=== PATIENT | male | born 1950 | race Caucasian/White ===

== ENCOUNTER 2018-12-18 11:01 | Outpatient (CLI) | payer MEDICARE ==
--- NOTE | 2018-12-18 12:10 | RAD ---
LEFT FOOT 3 VIEWS: Date: 12/18/18 HISTORY: Diabetic foot ulcer great toe, plantar aspect. FINDINGS: Mild to moderate DJD at the first MTP joint with hallux valgus deformity at this joint. Some erosive change is seen along the medial side of the head of the first metatarsal. I cannot completely exclude osteomyelitis at this location. Mild DJD at the second MTP joint. Mild DJD at the tarsometatarsal joints. Enthesophytes from plantar calcaneus. No fracture or acute abnormality. No other evidence of focal bony erosion or destruction. IMPRESSION: Degenerative change and hallux valgus of first MTP joint. Erosive change along the medial aspect of t he head of the first metatarsal. If there is concern of osteomyelitis at this location, recommend fur ther evaluation with MRI. POS: [facility]
== END 2018-12-18 11:02 | disposition home or self-care (01) ==
LOC: BICRAD 11:01
PROVIDERS: ATTEND Podiatrist
DX: E11.621 Type 2 diabetes mellitus with foot ulcer (principal); L97.529 Non-pressure chronic ulcer of other part of left foot with unspecified severity; M20.12 Hallux valgus (acquired), left foot

== ENCOUNTER 2018-12-27 07:20 | Inpatient (IN) | payer MEDICARE ==
[2018-12-27] MEDS ORDERED: Fentanyl 100 MCG/2 ML VIAL ONE ×2 (07:56→15:10)
[2018-12-27 08:05] LABS: #Eosinphils 0.4 thou/uL (0.0-0.7); #Lymphocytes 2.2 thou/uL (1.20-3.40); #Monocytes 1.1 thou/uL (0.11-0.59); #Neutrophils 13.2 thou/uL (1.40-6.50); %Eosinophils 2.2 % (0.0-10.0); %Lymphocytes 12.9 % (21.0-51.0); %Monocytes 6.6 % (0.0-10.0); %Neutrophils 78.2 % (42.0-75.0); Hemoglobin 12.9 g/dL (14.0-18.0); Mean Corpuscular Volume 90.7 fL (78.0-98.0); Mean Platelet Volume 5.8 fL (7.4-10.4); Platelet Count 292 thou/uL (130-400); RBC Distribution Width 12.7 % (11.5-14.5); Red Blood Cell (RBC) Count 4.44 mill/uL (4.70-6.10); White Blood Cell (WBC) Count 16.8 thou/uL (4.8-10.8)
[2018-12-27 08:18] LABS: ALT (SGPT) 12 U/L (8-55); AST (SGOT) 10 U/L (5-34); Albumin 3.2 g/dL (3.4-4.8); Alkaline Phosphatase 84 U/L (40-150); Anion Gap 11 mmol/L (10-20); BUN (Urea Nitrogen) 30 mg/dL (8.4-25.7); Calc. Creatinine Clearance 0 mL/min (70-130); Calcium 8.8 mg/dL (7.8-10.44); Carbon Dioxide 25 mmol/L (23-31); Chloride 106 mmol/L (98-107); Estimated GFR-MDRD 34; Globulin 3.2 g/dL (2.4-3.5); Glucose 72 mg/dL (80-115); Protein, Total 6.4 g/dL (5.8-8.1); Sodium 136 mmol/L (136-145)
--- NOTE | 2018-12-27 08:24 | RAD ---
RIGHT FEMUR 2 VIEWS: HISTORY: Fall. Pain. Trauma. FINDINGS: Comminuted, displaced fracture involving the distal right femur diaphysis. Associated soft tissue sw elling and deformity. IMPRESSION: Distal right femur fracture. POS: [facility]
--- NOTE | 2018-12-27 08:25 | RAD ---
Portable frontal chest radiograph: 12/27/2018 COMPARISON: 01/07/2018 HISTORY: Injury, trauma, pain FINDINGS: Atherosclerotic calcification of the aortic arch noted. Midline sternotomy wires are presen t. Cardiac silhouette is prominent, a stable finding. No pneumothorax, pleural fluid, lobar consolidation, or alveolar edema. IMPRESSION: No acute findings.
[2018-12-27] MEDS ORDERED: Morphine 4 MG/ML VIAL ONE (08:56)
[2018-12-27] MEDS ORDERED: Ondansetron PF 4 MG/2 ML Vial ONE ×2 (09:09→15:01)
[2018-12-27] MEDS ORDERED: CEFAZOLIN 2 GM in Premix Bag 1 BAG IVPB SCH (10:00)
--- NOTE | 2018-12-27 10:19 | CON ---
DATE OF CONSULTATION: This is John Gresham PA-C dictating a report for Duane Mendoza MD. HISTORY OF PRESENT ILLNESS: We were asked by the ER and Trauma to see the patient. The patient was in his bathroom and slipped on some water, sustaining a fracture above his right total knee. The patient did not lose consciousness. He does not seem to have any other complaints of aches and pains. He has good sensation to the right lower extremity with no numbness and tingling. On his left lower extremity, he does have an open sore that is being treated and he is on prophylactic Cipro for this. The patient lives alone. The patient has had multiple surgeries in the past and has some health issues. He has not eaten since last night. We would like to be able to do surgery on him today as he would like to get fixed also. We will wait to make sure he is medically cleared, we will get him put on the surgical schedule. PAST MEDICAL HISTORY: Positive for coronary artery disease with bypass graft, atrial fibrillation and a CVA during his coronary artery surgery, diabetes, hypertension, obese, heart failure, depression, dyslipidemia, chronic kidney disease, gastroparesis, and peptic ulcer disease. PAST SURGICAL HISTORY: He has had right foot, ankle, coronary artery bypass graft 4 vessels, bilateral knees. He has had a craniotomy secondary to intercranial hemorrhage, inguinal hernia repair and esophagogastroduodenoscopy. PSYCHIATRIC HISTORY: He does have some depression. SOCIAL HISTORY: Lives alone. Nonsmoker and nondrinker. No drug use. FAMILY HISTORY: Noncontributory to this admission. ALLERGIES: HE IS SENSITIVE TO NITRO-DUR/NITROGLYCERIN, IT INCREASES HIS BLOOD PRESSURE. CURRENT MEDICATIONS: 1. Hydralazine. 2. Carvedilol. 3. Aspirin. 4. Spironolactone. 5. Promethazine. 6. Tamsulosin. 7. Atorvastatin. 8. Levemir. 9. Pyridium. 10. Cipro. REVIEW OF SYSTEMS: Currently, he is short of breath. He has right knee pain. He denies any chest pain. No current bowel or bladder issues and rest of review of systems negative. PHYSICAL EXAMINATION: GENERAL: Male, morbidly obese, room #2 on a gurney, moderate amount of pain, especially if he moves the right lower extremity. NEURO: Otherwise, speech clear. Affect is pleasant. He is oriented x3. HEENT: Face symmetric. Tongue midline. NECK: Supple. Trachea midline. RESPIRATORY: He is having a little trouble breathing. Respiratory rates in the low 20s. EXTREMITIES: Upper extremities are equal size, shape, symmetry, normal bulk and tone. Lower extremities, right lower extremity is shortened and outward rotated. This is comfortable for him. His left lower extremity, he has a bandage on this for an open sore. Bilateral lower extremities sensations are intact as are pulses are equal and symmetric. ASSESSMENT: 1. Multiple health issues. 2. Right femur periprosthetic fracture. PLAN: Spoke with patient. We would like to do an ORIF of femur today. He has not eaten since last night. The patient is amenable to go forth with surgery. He understands risks and benefits as they have been discussed. His questions have been answered. Again, he is amenable to go forth with surgery. He will need to be cleared medically for surgery today. I will get him added on the surgery schedule and put the orders in and consented. Job ID: [id number]
[2018-12-27 10:42] LABS: Anion Gap 13 mmol/L (10-20); BUN (Urea Nitrogen) 29 mg/dL (8.4-25.7); Calc. Creatinine Clearance 0 mL/min (70-130); Calcium 8.5 mg/dL (7.8-10.44); Carbon Dioxide 17 mmol/L (23-31); Chloride 109 mmol/L (98-107); Estimated GFR-MDRD 40; Glucose 60 mg/dL (80-115); Potassium 5.4 mmol/L (3.5-5.1); Sodium 134 mmol/L (136-145)
[2018-12-27 11:10] LABS: Bilirubin Negative (Negative); Blood, Urine Negative (Negative); Clarity CLEAR (Clear); Glucose, Urine (Dipstick) Negative (Negative); Leukocyte Trace (Negative); Nitrite Negative (Negative); Protein, Urine (Dipstick) Negative (Neg-Trace); Specific Gravity, Urine 1.011 (1.002-1.036); Urobilinogen 0.2 mg/dL (0.2-1.0)
[2018-12-27 11:13] LABS: Bacteria/HPF None Seen HPF (None Seen); Hyaline Casts/LPF 0-3 HYALINE CAST LPF (0-3 Hyaline); Pathc Cast-AUWi Flag 0.27 (0-2.49); RBC/HPF None Seen HPF (0-3); Squamous Epithelial 0-3 HPF (0-3); WBC/HPF 0-3 HPF (0-3)
[2018-12-27] MEDS ORDERED: Dextrose 50% Abboject 50 ML SYRINGE SLOW IVP PRN (13:12)
[2018-12-27] MEDS ORDERED: Dextrose 5% in Water 1,000 ML IV PRN (13:12)
[2018-12-27] MEDS ORDERED: Ondansetron ODT 4 MG TAB PO PRN (13:12)
[2018-12-27] MEDS ORDERED: Insulin Regular 300 UNITS/3 ML VIAL SC PRN (13:12)
[2018-12-27] MEDS ORDERED: hydrALAZINE 20 MG/ML VIAL SLOW IVP PRN (13:12)
[2018-12-27] MEDS ORDERED: Morphine 2 MG/ML SYRINGE SLOW IVP PRN (13:52)
[2018-12-27] MEDS ORDERED: Sodium Bicarb 50 MEQ/50 ML VIAL IVP SCH (14:00)
--- NOTE | 2018-12-27 14:36 | HP ---
CONSULTATIONS: Orthopedics, Dr. Mendoza. HISTORY OF PRESENT ILLNESS: The patient is a 68-year-old man, who was brought to the emergency department by ground EMS after falling this morning at approximately 5:30. The patient landed on his right side and had significant pain to his right knee and thigh. In the emergency department, he underwent evaluation, examination to include CT of his head, C-spine, and plain radiographs. CTs were unremarkable for acute findings. The patient was noted to have a periprosthetic right distal femur fracture. At which time, we were asked to evaluate the patient for admission and obtain Orthopedic consultation. ALLERGIES: NITROGLYCERIN. CURRENT MEDICATIONS: 1. Hydralazine. 2. Carvedilol. 3. Aspirin. 4. Spironolactone. 5. Promethazine. 6. Tamsulosin. 7. Atorvastatin. 8. Levemir. 9. Pyridium. PAST MEDICAL HISTORY: 1. Diabetes. 2. Hypertension. 3. Myocardial infarction. 4. Depression. PAST SURGICAL HISTORY: 1. Coronary artery bypass graft surgery x4 vessel. 2. Bilateral knee replacement. SOCIAL HISTORY: The patient denies drug, tobacco, or alcohol use. He does live independently at home alone. FAMILY MEDICAL HISTORY: Diabetes. REVIEW OF SYSTEMS: A 10-point review of systems is negative as otherwise stated. PHYSICAL EXAMINATION: VITAL SIGNS: Blood pressure 133/69, heart rate 71, respirations 20, oxygen saturation 100% on room air, and temperature is 97.8. GENERAL: The patient is resting comfortably in bed. He is awake, alert, and oriented x3. Jackie Coma Scale is 15. HEENT: Head is normocephalic and atraumatic. Eyes, extraocular motion was intact. PERRLA bilaterally. Ears are atraumatic without discharge. Nose is atraumatic without discharge. Oropharynx is clear. NECK: Nontender. Trachea is midline. No JVD. CHEST: Clear to auscultation with good inspiratory and expiratory effort. HEART: Regular rate and rhythm. ABDOMEN: Soft, flat, nontender with active bowel sounds. EXTREMITIES: Neurovascularly intact x4. The patient has tenderness and some swelling to the right thigh and knee area. The left lower extremity, the first metatarsal joint has a bandage on it. The patient states this is from his mechanical designer working on wound, most likely a diabetic ulcer. BACK: By report is atraumatic and nontender. LABORATORY FINDINGS: White blood cell count 16.8, hemoglobin 12.9, hematocrit 40.3, and platelets 292. Sodium 134, potassium 5.4, chloride 109, CO2 of 17, BUN 29, creatinine 1.72, and glucose 60. LFTs are unremarkable. Urinalysis is unremarkable. RADIOGRAPHS: AP chest x-ray shows no acute findings. Views of the right femur show a periprosthetic distal right femur fracture. ASSESSMENT AND PLAN: 1. Status post ground level fall. 2. Right distal femur periprosthetic fracture. 3. Acute pain secondary to above. 4. Multiple comorbidities. 5. Hyperkalemia. PLAN: Plan will be to admit the patient to the surgical floor. We will hydrate him with normal saline and give him one amp of sodium bicarb to further lower his potassium. The patient will have pain control, pulmonary toilet, gastritis and mechanical VTE prophylaxis. The patient has been n.p.o. since last night, so he will be able to undergo his procedure today most likely. Postoperatively, we will have Physical and Occupational Therapy work with the patient. Pulmonary toilet, gastritis and mechanical VTE prophylaxis, and likely arrange for disposition to inpatient rehab. The evaluation, examination, laboratory, and radiographic findings were discussed with Dr. Cheng this morning. Job ID: [id number]
[2018-12-27] MEDS ORDERED: Succinylcholine Chloride 20 MG/ML 10 ml SYRINGE FS ONE (15:01)
[2018-12-27] MEDS ORDERED: PHENYLEPHRINE-NS 100 MCG/ML 10 ML SYRINGE ONE (15:01)
[2018-12-27] MEDS ORDERED: PROPOFOL 200 MG/20 ML VIAL ONE (15:01)
[2018-12-27] MEDS ORDERED: Rocuronium Bromide 10 MG/ML (10ML VIAL) ONE (15:01)
[2018-12-27] MEDS ORDERED: Lidocaine 1% PF 5 ML VIAL ONE (15:01)
[2018-12-27] MEDS ORDERED: Glycopyrrolate 0.2 MG/ML 5 ML SYRINGE ONE (15:01)
[2018-12-27 15:16] LABS: Potassium 5.8 mmol/L (3.5-5.1)
[2018-12-27] MEDS ORDERED: Albumin 25% 0 ML ONE (16:51)
[2018-12-27] MEDS ORDERED: Albumin 5% 500 ML ONE (16:51)
[2018-12-27] MEDS ORDERED: PACU-Morphine 4MG/ML VIAL SLOW IVP PRN (17:53)
[2018-12-27] MEDS ORDERED: HYDROmorphone 2 MG/ML VIAL SLOW IVP PRN (17:53)
[2018-12-27] MEDS ORDERED: Morphine Sulfate 2 MG/ML SYRINGE SLOW IVP PRN (17:53)
[2018-12-27] MEDS ORDERED: Promethazine HCl 25 MG/ML VIAL SLOW IVP PRN (17:53)
[2018-12-27] MEDS ORDERED: Meperidine HCl/PF 25 MG/ML VIAL SLOW IVP PRN (17:53)
[2018-12-27] MEDS ORDERED: Ondansetron HCl/PF 4 MG/2 ML Vial IVP PRN (17:53)
[2018-12-27] MEDS ORDERED: Promethazine HCl 25 MG/ML VIAL IM PRN (17:53)
--- NOTE | 2018-12-27 18:15 | RAD ---
Radiograph right femur 2 views: 12/27/2018 at 5:19 PM HISTORY: 68-year-old male with traumatic distal femoral fracture COMPARISON: 12/27/2018 at 8:06 PM FINDINGS: A total of 5 small [id number] fluoroscopic spot images obtained with C-arm. Total knee replacement metallic prosthesis at distal femoral condyles remains. The distal femoral metadiaphyseal displaced fracture has been reduced, and now fixated with a long lateral metallic sideplate anchored to the bone by multiple screws. There has been interval improvement in alignment. IMPRESSION: Ongoing open reduction internal fixation of acute, traumatic, displaced distal femoral metadiaphyseal fracture.
--- NOTE | 2018-12-27 18:18 | RAD ---
Radiograph left foot 3 views: DATE: 12/27/2018 Time: 5:42 PM HISTORY: 68-year-old male with diabetic ulcer. COMPARISON: 12/18/2018 FINDINGS: Hallux valgus. Irregularity of medial aspect of first metatarsal head with adjacent small calcific fr agments and overlying soft tissue swelling. No bone destruction identified. No interval change. No acute fracture. IMPRESSION: Findings suspicious for gout at the first metatarsophalangeal joint (in addition to hallux valgus met atarsus primus varus).
[2018-12-27] MEDS: Acetaminophen 1,000 MG in Premix Bag 1 BAG IVPB SCH ×2 (19:24→19:59)
[2018-12-27] MEDS: Sodium Chloride 0.9% 1,000 ML IV SCH ×2 (19:58→23:32)
[2018-12-27] MEDS: Morphine 4 MG/ML VIAL SLOW IVP PRN ×2 (19:59→23:32)
[2018-12-27] MEDS: CEFAZOLIN 2 GM in Premix Bag 1 BAG IVPB SCH (20:01)
[2018-12-27] MEDS ORDERED: Famotidine 20 MG TAB PO SCH (21:00)
[2018-12-27 21:16] VITALS: BMI 34.9
[2018-12-27] MEDS: Cyclobenzaprine 10 MG TAB PO PRN (23:55)
--- NOTE | 2018-12-28 00:49 | OP ---
DATE OF PROCEDURE: 12/27/2018 PROCEDURE PERFORMED: Open reduction and internal fixation of right distal femur periprosthetic fracture. Surgeon: Nikolay eMndoza [employer] Lockstitch: John Gresham COMPLICATIONS: None. ESTIMATED BLOOD LOSS: 450 mL. ANESTHESIA: General. IMPLANT: Synthes 16-hole lateral distal femoral plate with multiple locking and nonlocking screws. INDICATIONS: Mr. Quintanilla is a 68-year-old male, who fell last night. He fractured the right distal femur. He sustained a displaced distal femur fracture. He was indicated for open reduction and internal fixation to restore anatomic alignment and promote healing and allow mobilization. Risks have been reviewed in detail. Risks to include infection, pain, scarring, nerve or vascular injury, DVT, wound problems, and others. DESCRIPTION OF PROCEDURE: Mr. Quintanilla was identified in the preoperative holding area. His correct extremity was marked. He was carried to the operating room. He was positioned supine. General anesthesia was induced. A multidisciplinary time-out was performed. The right lower extremity was prepped and draped in sterile fashion. At this point, we began the procedure with lateral approach to the knee. We dissected down through the subcutaneous tissues to the fascia, which was opened. We then exposed the underlying fascia. We elevated the vastus lateralis anteriorly. This allowed exposure of the fracture site. We were able to reduce the fracture using traction and manipulation and clamping. We used K-wires to hold the fracture as well. At this point, we took images confirming this. Next, we applied a Synthes 16-hole lateral distal femoral plate. We placed a K-wire proximally as well as distally, locking the plate to the bone. We took images confirming placement. We then placed multiple screws proximally and distally, applying rigid fixation. Again, we took x-ray images confirming placement. We were happy with our reduction and plate placement. At this point, we thoroughly irrigated with copious lavage. We then closed the deep fascia with #1 Vicryl suture, followed by layered closure. Sterile dressing was applied. [place] were used for the skin. The patient was taken to the recovery room in good condition without complication. Job ID: [id number] [facility]
[2018-12-28] MEDS: Acetaminophen 1,000 MG in Premix Bag 1 BAG IVPB SCH ×3 (01:55→20:13)
[2018-12-28] MEDS: Morphine 4 MG/ML VIAL SLOW IVP PRN (03:39)
[2018-12-28] MEDS: CEFAZOLIN 2 GM in Premix Bag 1 BAG IVPB SCH (05:23)
[2018-12-28 06:25] LABS: Band 4 % (5-11); Eosinophils 1 % (0-10); Hemoglobin 10.4 g/dL (14.0-18.0); Lymphocytes 15 % (21-51); MDiff Complete? YES; Mean Corpuscular HGB CONC 33.6 g/dL (32.0-36.0); Mean Corpuscular Hemoglobin 30.7 pg (27.0-31.0); Mean Corpuscular Volume 91.3 fL (78.0-98.0); Mean Platelet Volume 6.6 fL (7.4-10.4); Monocytes 4 % (0-10); Neutrophil 76 % (42-75); Platelet Count 264 thou/uL (130-400); Platelet Morphology Comment Appears Adequate; RBC Distribution Width 12.7 % (11.5-14.5); Red Blood Cell (RBC) Count 3.38 mill/uL (4.70-6.10); White Blood Cell (WBC) Count 15.4 thou/uL (4.8-10.8)
[2018-12-28 06:30] LABS: Phosphorus 4.8 mg/dL (2.3-4.7)
[2018-12-28 06:31] LABS: Anion Gap 12 mmol/L (10-20); BUN (Urea Nitrogen) 37 mg/dL (8.4-25.7); Calc. Creatinine Clearance 56 mL/min (70-130); Calcium 8.2 mg/dL (7.8-10.44); Carbon Dioxide 23 mmol/L (23-31); Chloride 105 mmol/L (98-107); Estimated GFR-MDRD 32; Glucose 201 mg/dL (80-115); Magnesium 1.6 mg/dL (1.6-2.6); Sodium 134 mmol/L (136-145)
[2018-12-28] MEDS ORDERED: Phenylephrine HCL 10 MG/ML VIAL ONE (06:36)
[2018-12-28] MEDS ORDERED: traMADol HCl 50 MG TAB PO PRN (07:33)
[2018-12-28] MEDS ORDERED: Magnesium Sulfate 4 GM in Sodium Chloride 0.9% 250 ML 250 ML IVPB SCH (07:45)
[2018-12-28] MEDS: Ondansetron PF 4 MG/2 ML Vial IVP PRN (08:32)
[2018-12-28] MEDS ORDERED: Calcium Gluconate 4.6 MEQ in Sodium Chloride 0.9% 100 ML IVPB SCH (08:32)
[2018-12-28] MEDS ORDERED: Albuterol Sulfate 1.25 MG/3 ML NEB NEB SCH (08:35)
[2018-12-28] MEDS: traMADol HCl 50 MG TAB PO PRN ×2 (08:37→15:52)
[2018-12-28] MEDS: Acetaminophen 500 MG TAB PO SCH ×2 (08:37→10:10)
[2018-12-28] MEDS ORDERED: Furosemide 40 MG/4 ML VIAL SLOW IVP SCH ×2 (08:45→12:30)
[2018-12-28] MEDS: Carvedilol 25 MG TAB PO SCH ×2 (09:29→20:13)
[2018-12-28] MEDS: Aspirin 81 mg Enteric Coated Tablet PO SCH ×2 (09:29→20:13)
[2018-12-28] MEDS: Atorvastatin Calcium 40 MG TAB PO SCH (09:29)
[2018-12-28] MEDS: Morphine 2 MG/ML SYRINGE SLOW IVP PRN (10:13)
[2018-12-28 10:31] LABS: CKMB 9.1 ng/mL (0-6.6)
--- NOTE | 2018-12-28 11:49 | ULT ---
ULTRASOUND RENAL: 12/28/2018 HISTORY: 68-year-old male with history of kidney stones. Rule out hydronephrosis. FINDINGS: Because of body habitus, the renal parenchymal detail is poorly visualized. Right kidney measures approximately 11 x 6 x 5.5 cm. Left kidney measures approximately 11.5 x 6 x 6.5 cm. There is no hydronephrosis. Renal parenchymal echogenicity appears to be diffusely slightly heterogeneous increased, questionable for medical renal disease. Alternatively, this could be due to technical reasons due to body habitus. The urinary bladder is empty, with Bishop catheter. IMPRESSION: No hydronephrosis.
[2018-12-28 15:36] LABS: Anion Gap 13 mmol/L (10-20); BUN (Urea Nitrogen) 40 mg/dL (8.4-25.7); Calc. Creatinine Clearance 49 mL/min (70-130); Calcium 8.8 mg/dL (7.8-10.44); Carbon Dioxide 22 mmol/L (23-31); Chloride 106 mmol/L (98-107); Estimated GFR-MDRD 27; Glucose 188 mg/dL (80-115); Potassium 6.2 mmol/L (3.5-5.1); Sodium 135 mmol/L (136-145)
[2018-12-28] MEDS: Cyclobenzaprine 10 MG TAB PO PRN (16:07)
[2018-12-28] MEDS: Tamsulosin HCl 0.4 MG CAP PO SCH (20:14)
--- NOTE | 2018-12-28 21:45 | PDOC.EVN ---
Event Note - Event Note Event Note: Patient with worsening hyperkalemia and renal function today. Received Calcium gluconate, Kayexolate, albuterol neb, and lasix today. US kidney and bladder ruled out hydronephrosis. Echo pending. Repeat BMP demonstrated further increased in K, BUN, and Cr this afternoon. Patient refusing to participate in care. Refusing to work with PT and PO intake. Fleets enema ordered x2 to help reduce K but patient refusing. Nursing explained the importance of reducing serum K and potential complications. Patient stated he did not want the enema. Nursing spoke to the patient again and he agreed to the enema after pain control. When it was time for the enema, the patient refused again and still states he was tired and wanted to . Nursing explained again to the patient the possibility of arrhythmias, the need for dialysis, and even if he continued to refuse. The patient stated he understood but did not want the enema. I spoke to Dr. Cheng who advised to repeat the BMP in the AM and to consult nephrology and palliative are in the morning. Will continue to provide supportive care and comfort to the patient. Danika Lechuga PA-C Trauma Surgery
[2018-12-28] MEDS: Fleet Enema 133 ML BOT PR SCH (21:53)
[2018-12-29] MEDS: Sodium Chloride 0.9% 1,000 ML IV SCH ×2 (01:03→12:09)
[2018-12-29] MEDS: Acetaminophen 1,000 MG in Premix Bag 1 BAG IVPB SCH ×3 (02:56→14:50)
[2018-12-29] MEDS: Ondansetron PF 4 MG/2 ML Vial IVP PRN ×2 (03:04→08:49)
[2018-12-29 05:15] LABS: #Eosinphils 0.1 thou/uL (0.0-0.7); #Lymphocytes 1.2 thou/uL (1.20-3.40); #Monocytes 1.4 thou/uL (0.11-0.59); #Neutrophils 13.7 thou/uL (1.40-6.50); %Basophils 0.3 % (0.0-1.0); %Eosinophils 0.4 % (0.0-10.0); %Lymphocytes 7.4 % (21.0-51.0); %Monocytes 8.7 % (0.0-10.0); %Neutrophils 83.3 % (42.0-75.0); Hemoglobin 9.8 g/dL (14.0-18.0); Mean Corpuscular HGB CONC 33.6 g/dL (32.0-36.0); Mean Corpuscular Hemoglobin 31.1 pg (27.0-31.0); Mean Corpuscular Volume 92.5 fL (78.0-98.0); Platelet Count 246 thou/uL (130-400); RBC Distribution Width 12.8 % (11.5-14.5); Red Blood Cell (RBC) Count 3.14 mill/uL (4.70-6.10); White Blood Cell (WBC) Count 16.5 thou/uL (4.8-10.8)
[2018-12-29 05:38] LABS: Anion Gap 16 mmol/L (10-20); BUN (Urea Nitrogen) 41 mg/dL (8.4-25.7); Calc. Creatinine Clearance 52 mL/min (70-130); Calcium 8.5 mg/dL (7.8-10.44); Carbon Dioxide 16 mmol/L (23-31); Chloride 107 mmol/L (98-107); Estimated GFR-MDRD 29; Glucose 196 mg/dL (80-115); Magnesium 2.2 mg/dL (1.6-2.6); Potassium 5.5 mmol/L (3.5-5.1); Sodium 133 mmol/L (136-145)
[2018-12-29] MEDS: Atorvastatin Calcium 40 MG TAB PO SCH (08:39)
[2018-12-29] MEDS: Aspirin 81 mg Enteric Coated Tablet PO SCH ×2 (08:39→20:00)
[2018-12-29] MEDS: Carvedilol 25 MG TAB PO SCH ×2 (08:39→20:00)
[2018-12-29] MEDS ORDERED: Cyclobenzaprine 10 MG TAB PO PRN (10:31)
[2018-12-29] MEDS: Morphine 2 MG/ML SYRINGE SLOW IVP PRN (10:40)
[2018-12-29] MEDS: traMADol HCl 50 MG TAB PO SCH ×3 (12:07→23:51)
--- NOTE | 2018-12-29 13:03 | PRG ---
DATE OF SERVICE: 12/29/2018 SUBJECTIVE: The patient was seen this morning lying in bed. Reported he is still having pain to his right lower extremity. He refused his enemas yesterday, which were ordered to help with hyperkalemia after receiving Kayexalate. He did report to the nurse that he did not want to participate in his care any further and wanted to . However, this morning when asked about it, he reported that he has trouble with depression intermittently, especially when he is hospitalized and reported that he was feeling overwhelmed at that time and after some talking, he said that he would start eating and participating with physical therapy. He did, however, continue to refuse the enemas. Reported that he had those before and was not interested in completing them today. Denies nausea, vomiting, or diarrhea at this time. He is also still pending an echocardiogram. OBJECTIVE: VITAL SIGNS: Temperature 97.6, pulse 84, respirations 18, oxygen saturation 92% on 2 L nasal cannula, and blood pressure 137/76. GENERAL: Frail unhealthy-appearing elderly male, lying in bed with no signs of acute distress. CARDIAC: Regular rate and rhythm. No murmurs, gallops, or rubs. PULMONARY: Equal chest rise and fall bilaterally. Clear breath sounds bilaterally. However, they are diminished at the bilateral bases. No signs of acute respiratory distress. GI: Abdomen is soft, nontender, and nondistended. : Bishop in place with clear yellow urine in bag. EXTREMITIES: 2+ pulses in all extremities. No significant swelling noted. Gross motor and sensation intact in all extremities. NEUROLOGIC: GCS is 15. Alert and oriented x4. Pupils equal, round, and reactive to light bilaterally. LABORATORY FINDINGS: White count 16.5, hemoglobin 9.8, hematocrit 29.0, platelets 246. Sodium 133, potassium 5.5, chloride 107, carbon dioxide 16, BUN 41, creatinine 2.26, glucose 196, phosphorus 4.0, and magnesium 2.2. DIAGNOSTIC FINDINGS: There are no new diagnostic findings to report. ASSESSMENT: 1. Status post mechanical fall from standing, right distal femur periprosthetic fracture, status post repair, left-sided chronic foot ulcer. 2. Hyperkalemia, improved. 3. Acute kidney injury, improved. 4. History of diabetes, depression, hypertension, myocardial infarction, hyperlipidemia, coronary artery bypass graft x4, chronic kidney disease. PLAN: The patient has agreed to start eating and participating with physical therapy. We will adjust pain management. We will schedule tramadol. Continue Ofirmev q.6 hours. Start gabapentin 100 mg renal dosing. We will also increase the Flexeril to 10 mg. We will give the patient 30 of Kayexalate x1 today for the hyperkalemia. Still pending echo. Discontinue normal saline at 120 an hour. The patient to continue work with Physical and Occupational Therapy. He is not ready for discharge at this time. The patient was discussed with Dr. Cheng after morning rounds. Job ID: [id number]
[2018-12-29] MEDS: Gabapentin 100 MG CAP PO SCH ×2 (14:50→20:00)
[2018-12-29] MEDS: Tamsulosin HCl 0.4 MG CAP PO SCH (20:00)
[2018-12-30] MEDS: traMADol HCl 50 MG TAB PO SCH ×3 (05:48→18:20)
[2018-12-30 05:59] LABS: #Eosinphils 0.3 thou/uL (0.0-0.7); #Lymphocytes 2.6 thou/uL (1.20-3.40); #Monocytes 1.5 thou/uL (0.11-0.59); #Neutrophils 11.1 thou/uL (1.40-6.50); %Basophils 0.2 % (0.0-1.0); %Eosinophils 1.9 % (0.0-10.0); %Lymphocytes 16.5 % (21.0-51.0); %Monocytes 9.7 % (0.0-10.0); %Neutrophils 71.7 % (42.0-75.0); Hemoglobin 10.5 g/dL (14.0-18.0); Mean Corpuscular HGB CONC 32.4 g/dL (32.0-36.0); Mean Corpuscular Hemoglobin 31.4 pg (27.0-31.0); Mean Corpuscular Volume 96.7 fL (78.0-98.0); Platelet Count 275 thou/uL (130-400); RBC Distribution Width 12.8 % (11.5-14.5); Red Blood Cell (RBC) Count 3.33 mill/uL (4.70-6.10); White Blood Cell (WBC) Count 15.5 thou/uL (4.8-10.8)
[2018-12-30 06:18] LABS: Anion Gap 12 mmol/L (10-20); BUN (Urea Nitrogen) 34 mg/dL (8.4-25.7); Calc. Creatinine Clearance 65 mL/min (70-130); Calcium 8.2 mg/dL (7.8-10.44); Carbon Dioxide 17 mmol/L (23-31); Chloride 107 mmol/L (98-107); Estimated GFR-MDRD 38; Glucose 151 mg/dL (80-115); Magnesium 2.2 mg/dL (1.6-2.6); Phosphorus 3.2 mg/dL (2.3-4.7); Potassium 5.4 mmol/L (3.5-5.1); Sodium 131 mmol/L (136-145)
[2018-12-30] MEDS: Gabapentin 100 MG CAP PO SCH ×3 (09:17→21:10)
[2018-12-30] MEDS: Atorvastatin Calcium 40 MG TAB PO SCH (09:17)
[2018-12-30] MEDS: Carvedilol 25 MG TAB PO SCH ×2 (09:17→21:10)
[2018-12-30] MEDS: Aspirin 81 mg Enteric Coated Tablet PO SCH ×2 (09:17→21:08)
--- NOTE | 2018-12-30 15:02 | PRG ---
DATE OF SERVICE: 12/30/2018 SUBJECTIVE: The patient was seen this morning sitting up in bed. Nurses reported he was able to get the Kayexalate, enema last night and had a bowel movement later in the evening. He reports pain is better controlled today and tolerating a diabetic diet. He was able to stand and sit on the commode yesterday evening. His echo was completed as well and interpreted. He denies nausea, vomiting, or diarrhea at this time. OBJECTIVE: VITAL SIGNS: Temperature 98.6, pulse 70, respirations 16, oxygen saturation 99% on 2 L nasal cannula, blood pressure 156/78. GENERAL: Obese, frail, unhealthy elderly male, lying in bed with no signs of acute distress. CARDIAC: Regular rate and rhythm. No murmurs, gallops, or rubs. GI: Abdomen is soft, nontender, nondistended. PULMONARY: Equal chest rise and fall. Clear breath sounds bilaterally, but diminished at the bases bilaterally. No signs of acute respiratory distress. : Bishop in place with yellow urine in bag. EXTREMITIES: 2+ pulses in all extremities. No significant swelling noted. Gross motor and sensation are intact in all extremities. NEURO: GCS is 15. Alert and oriented x4. Pupils are equal, round, and reactive to light. LABORATORY FINDINGS: White count 15.5, hemoglobin 10.5, hematocrit 32.2, platelets 275. Sodium 131, potassium 5.4, chloride 107, carbon dioxide 17, BUN 34, creatinine 1.8, glucose 150, phosphorus 3.2, magnesium 2.2. DIAGNOSTIC FINDINGS: Echocardiogram completed yesterday demonstrates EF of 45% to 50% with probable diastolic dysfunction. ASSESSMENT: 1. Status post mechanical fall from standing. 2. Right distal periprosthetic femur fracture. 3. Hyperkalemia, improving. 4. [id number] kidney injury, improved. 5. Hyponatremia. 6. Uncontrolled hypertension. 7. History of diabetes, depression, hypertension, myocardial infarction, hyperlipidemia, coronary artery disease, coronary artery bypass graft x4, chronic kidney disease. PLAN: The patient will be placed on free water restriction to 1.5 L. He can have whatever else he would like to drink, especially Gatorade. Continue current diabetic diet. We will not give any Kayexalate or enemas today, but we will continue to monitor hyperkalemia. We will start home isosorbide mononitrate and hydralazine to better treat hypertension as it is creeping up into the 170s later this morning. The patient continues to be encouraged to work with Physical Therapy, he stood up for the first time yesterday evening with nursing. The patient will need to be discharged to a rehab facility, but he is not currently ready for discharge at this time. The patient was discussed with Dr. Cheng this morning after rounds. Job ID: [id number]
[2018-12-30] MEDS: hydrALAZINE 25 MG TAB PO SCH ×2 (15:06→21:08)
[2018-12-30] MEDS: Tamsulosin HCl 0.4 MG CAP PO SCH (21:08)
[2018-12-31] MEDS: traMADol HCl 50 MG TAB PO SCH ×3 (00:56→11:36)
[2018-12-31 06:36] LABS: Anion Gap 13 mmol/L (10-20); BUN (Urea Nitrogen) 36 mg/dL (8.4-25.7); Calc. Creatinine Clearance 69 mL/min (70-130); Calcium 8.1 mg/dL (7.8-10.44); Carbon Dioxide 19 mmol/L (23-31); Chloride 108 mmol/L (98-107); Estimated GFR-MDRD 41; Glucose 157 mg/dL (80-115); Phosphorus 3.1 mg/dL (2.3-4.7); Potassium 5.2 mmol/L (3.5-5.1); Sodium 135 mmol/L (136-145)
[2018-12-31] MEDS: Atorvastatin Calcium 40 MG TAB PO SCH (08:31)
[2018-12-31] MEDS: hydrALAZINE 25 MG TAB PO SCH ×2 (08:31→15:51)
[2018-12-31] MEDS: Aspirin 81 mg Enteric Coated Tablet PO SCH (08:31)
[2018-12-31] MEDS: Gabapentin 100 MG CAP PO SCH ×2 (08:31→15:50)
[2018-12-31] MEDS: Carvedilol 25 MG TAB PO SCH (08:31)
[2018-12-31 15:53] VITALS: BP 135/74
[2018-12-31 16:26] VITALS: TEMP 98.2
--- NOTE | 2019-01-01 05:30 | DIS ---
DATE OF ADMISSION: 12/27/2018 DATE OF DISCHARGE: 12/31/2018 ADMISSION DIAGNOSES: Mechanical fall from standing, on aspirin, right distal femur periprosthetic fracture, left foot ulcer, hyperkalemia, acute kidney injury on chronic kidney disease. History of diabetes, depression, hypertension, myocardial infarction, hyperlipidemia, coronary artery bypass graft x4, and chronic kidney disease. DISCHARGE DIAGNOSES: Mechanical fall from standing, on aspirin, right distal femur periprosthetic fracture, left foot ulcer, hyperkalemia, acute kidney injury on chronic kidney disease. History of diabetes, depression, hypertension, myocardial infarction, hyperlipidemia, coronary artery bypass graft x4, and chronic kidney disease. CONSULTING PHYSICIAN: Dr. Mendoza of Orthopedic Surgery. PROCEDURES: He went to the OR on December 27 to address his right distal femur periprosthetic fracture. HOSPITAL COURSE: The patient is a 68-year-old male who presented to the emergency department after a fall from standing. It was found that he had a right distal femur periprosthetic fracture. Dr. Mendoza of Orthopedic Surgery was consulted and subsequently the patient went to the OR on the same day. The patient did become hyperkalemic and hyponatremic. Echo demonstrated EF of 45% to 50% with palpable diastolic dysfunction. Ultrasound of the kidney and bladder was negative. He was given diuretics as well as Kayexalate and nebulizers. He was not very motivated and refused to eat for multiple days as well as refusing to work with Physical Therapy. Once he started to participate in his care, he made significant changes and at the time of discharge, he was tolerating a regular diet, was able to get up out of bed with physical therapy. Hyperkalemia had been remarkably improved as well as hyponatremia. At the time of discharge, his pain was well controlled on p.o. pain medications and he was restarted on all of his home medications. DISCHARGE DISPOSITION: Acute rehab facility. DISCHARGE CONDITION: Satisfactory. PHYSICAL EXAMINATION: VITAL SIGNS: Temperature 98.1, pulse 60, respirations 18, oxygen saturation 94% on room air, blood pressure 114/60. GENERAL: Obese, frail, and healthy elderly male, lying in bed with no signs of acute distress. CARDIAC: Regular rate and rhythm. No murmurs, gallops, or rubs. GI: Abdomen is soft, nontender, nondistended. PULMONARY: Equal chest rise and fall. Clear breath sounds bilaterally, but diminished at the bases bilaterally. No signs of acute respiratory distress. : Bishop in place with clear yellow urine in bag. EXTREMITIES: 2+ pulses in all extremities. No significant swelling noted. Gross motor and sensation intact in all 4 extremities. NEURO: GCS is 15. Alert and oriented x4. Pupils are equal, round, reactive to light. DISCHARGE INSTRUCTIONS: The patient was discharged to acute rehab. Activity as tolerated with nonweightbearing to his right lower extremity. He is on a diabetic diet. He is to receive physical and occupational therapy and use an incentive spirometer as well as a walker. DISCHARGE MEDICATIONS: Include; 1. Aspirin. 2. Flexeril. 3. Gabapentin. 4. Tramadol. 5. Hydralazine. 6. Spironolactone. 7. Levemir. 8. Flomax. 9. Promethazine. 10. Carvedilol. 11. Losartan. 12. Atorvastatin. 13. Isosorbide mononitrate. FOLLOWUP APPOINTMENTS: The patient is to follow up with Dr. Mendoza in 10 days. No need for followup with Dr. Cheng. This is merely a summary of the patient's hospitalization. For full details, please see his medical record in its entirety. Job ID: [id number]
== END 2018-12-31 16:54 | DRG 481 ==
LOC: ERS 07:20 → ERHOLD 09:54 → SURG A 13:08
PROVIDERS: ADMIT Surgery; ATTEND Surgery
PROC: 0QSB04Z Reposition Right Lower Femur with Internal Fixation Device, Open Approach (ICD-10-PCS; principal; 2018-12-27)
DX: S72.401A Unspecified fracture of lower end of right femur, initial encounter for closed fracture (principal); M97.01XA Periprosthetic fracture around internal prosthetic right hip joint, initial encounter; I13.0 Hypertensive heart and chronic kidney disease with heart failure and stage 1 through stage 4 chronic kidney disease, or unspecified chronic kidney disease; N17.9 Acute kidney failure, unspecified; E87.1 Hypo-osmolality and hyponatremia; Y93.9 Activity, unspecified; Y92.012 Bathroom of single-family (private) house as the place of occurrence of the external cause; W01.0XXA Fall on same level from slipping, tripping and stumbling without subsequent striking against object, initial encounter; E11.22 Type 2 diabetes mellitus with diabetic chronic kidney disease; E78.5 Hyperlipidemia, unspecified; N18.9 Chronic kidney disease, unspecified; K27.9 Peptic ulcer, site unspecified, unspecified as acute or chronic, without hemorrhage or perforation; E66.9 Obesity, unspecified; E87.5 Hyperkalemia; E11.621 Type 2 diabetes mellitus with foot ulcer; L97.529 Non-pressure chronic ulcer of other part of left foot with unspecified severity; I25.10 Atherosclerotic heart disease of native coronary artery without angina pectoris; F32.9 Major depressive disorder, single episode, unspecified; Z88.8 Allergy status to other drugs, medicaments and biological substances; Z79.82 Long term (current) use of aspirin; Z79.4 Long term (current) use of insulin; Z79.899 Other long term (current) drug therapy; Z86.73 Personal history of transient ischemic attack (TIA), and cerebral infarction without residual deficits; I25.2 Old myocardial infarction; Z95.1 Presence of aortocoronary bypass graft; Z68.35 Body mass index [BMI] 35.0-35.9, adult
CPT/HCPCS: 36415; 36416; 71045; 76000; 76770; 80048; 80053; 81003; 81015; 82553; 83735; 83880; 84100; 84484; 85025; 87086; 93005; 93306; C1713; C1769; G0390; J0131; J0690; J1815; J1940; J2001; J2270; J2370; J2405; J2704; J3010; J3475; J3490; J7050; P9045; P9047

== ENCOUNTER 2019-01-28 14:39 | Inpatient (IN) | payer MEDICARE ==
[2019-01-28 15:26] LABS: #Eosinphils 0.4 thou/uL (0.0-0.7); #Lymphocytes 1.8 thou/uL (1.20-3.40); #Monocytes 0.7 thou/uL (0.11-0.59); #Neutrophils 6.8 thou/uL (1.40-6.50); %Basophils 0.3 % (0.0-1.0); %Eosinophils 4.4 % (0.0-10.0); %Lymphocytes 18.3 % (21.0-51.0); %Monocytes 6.7 % (0.0-10.0); %Neutrophils 70.4 % (42.0-75.0); Hemoglobin 11.9 g/dL (14.0-18.0); Mean Corpuscular HGB CONC 32.7 g/dL (32.0-36.0); Mean Corpuscular Hemoglobin 30.5 pg (27.0-31.0); Mean Corpuscular Volume 93.2 fL (78.0-98.0); Mean Platelet Volume 6.1 fL (7.4-10.4); Platelet Count 288 thou/uL (130-400); RBC Distribution Width 13.8 % (11.5-14.5); Red Blood Cell (RBC) Count 3.89 mill/uL (4.70-6.10); White Blood Cell (WBC) Count 9.6 thou/uL (4.8-10.8)
--- NOTE | 2019-01-28 15:42 | RAD ---
Radiograph left foot 3 views: DATE: 01/28/2019 HISTORY: 68-year-old male with wound at the first MTP joint plantar surface FINDINGS: Prominent hallux valgus. Prominent bony hypertrophy of head of first metatarsal with a few small eros ions. Mild to moderate DJD at first MTP joint. Increased soft tissue attenuation plus a few small calcifications in the soft tissues, adjacent to the medial aspect of first metatarsal head. No avery bone destructive lesion. No subcutaneous emphysema. Soft tissue swelling prominently at plantar aspect adjacent to first MTP. Moderate DJD at second MTP joint. No acute fracture. IMPRESSION: 1. 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 2. Adjacent soft tissue thickening, small calcifications, and probable small erosions, questionable f or gout
[2019-01-28 15:53] LABS: ALT (SGPT) 8 U/L (8-55); AST (SGOT) 9 U/L (5-34); Albumin 3.3 g/dL (3.4-4.8); Alkaline Phosphatase 105 U/L (40-150); Anion Gap 10 mmol/L (10-20); BUN (Urea Nitrogen) 28 mg/dL (8.4-25.7); Bilirubin, Total 1.1 mg/dL (0.2-1.2); Calc. Creatinine Clearance 0 mL/min (70-130); Calcium 8.9 mg/dL (7.8-10.44); Carbon Dioxide 19 mmol/L (23-31); Chloride 108 mmol/L (98-107); Estimated GFR-MDRD 28; Globulin 3.7 g/dL (2.4-3.5); Glucose 148 mg/dL (80-115); Potassium 5.2 mmol/L (3.5-5.1); Sodium 132 mmol/L (136-145)
[2019-01-28 17:01] LABS: Bilirubin Negative (Negative); Blood, Urine Negative (Negative); Clarity CLEAR (Clear); Glucose, Urine (Dipstick) Negative (Negative); Leukocyte Negative (Negative); Nitrite Negative (Negative); Protein, Urine (Dipstick) Negative (Neg-Trace); Urobilinogen 0.2 mg/dL (0.2-1.0); pH, Urine 5.5 (5.0-9.0)
[2019-01-28 19:29] VITALS: BMI 34.7
[2019-01-28] MEDS: Sodium Chloride 0.9% 1,000 ML IV SCH (21:10)
[2019-01-29] MEDS ORDERED: Dextrose 5% in Water 1,000 ML IV PRN (00:53)
[2019-01-29] MEDS ORDERED: Cyclobenzaprine 10 MG TAB PO PRN (00:53)
[2019-01-29] MEDS ORDERED: Dextrose 50% Abboject 50 ML SYRINGE SLOW IVP PRN (00:53)
[2019-01-29] MEDS ORDERED: Acetaminophen 325 MG TAB PO PRN (00:53)
[2019-01-29] MEDS ORDERED: HumaLOG 300 UNITS/3 ML VIAL SC PRN ×2 (00:53)
[2019-01-29] MEDS ORDERED: hydrALAZINE 20 MG/ML VIAL SLOW IVP PRN (00:53)
[2019-01-29] MEDS: Sodium Chloride 0.9% 1,000 ML IV SCH (01:21)
[2019-01-29] MEDS: traMADol HCl 50 MG TAB PO SCH ×5 (01:27→23:53)
[2019-01-29] MEDS: cefTRIAXone\\ROCEPHIN 1 GM in Sodium Chloride 0.9% 100 ML IVPB SCH ×2 (01:28→23:54)
--- NOTE | 2019-01-29 03:40 | HP ---
PRIMARY CARE PHYSICIAN: Dr. Waterman. CHIEF COMPLAINT: Severe pain in the left leg. HISTORY OF PRESENT ILLNESS: Mr. Quintanilla is a pleasant 68-year-old gentleman, who was recently hospitalized after he suffered a fall from a standing position and he fractured his left distal femur. He was recently admitted to the Trauma Team for this. He underwent repair of the femur and then was discharged to the inpatient rehabilitation unit. There, he says he was progressing well initially but then started getting progressively worse pain in the leg. He says he was getting to the point where he could barely bear weight on his leg. He says he was "discharged anyway to home." He says that while he was at home he was having difficulty bearing weight to the point where he could barely get up and he also noted some drainage from the incision. He says that the pain would be 9/10 if he tried to move it and he describes the pain as a dull throb. He denies having any fever or chills however, but has been chronically constipated. Because he was having such severe pain, he came to the emergency room for evaluation and he is being admitted for this. The patient denies any fevers, chills, nausea, vomiting, etc. REVIEW OF SYSTEMS: CONSTITUTIONAL: Again, no fevers, no chills, no night sweats. No weight loss. HEENT: He denies any headaches. No dizziness. No visual changes. No sore throat. No rhinorrhea. No neck pain. No adenopathy. PULMONARY: No hemoptysis. No cough. No wheezing. CARDIOVASCULAR: He denies any chest pain. No shortness of breath. No PND. No orthopnea. GENITOURINARY: No urinary frequency, hematuria, or hesitancy, but he does have to in-and-out self catheterize. MUSCULOSKELETAL: Is as the history of present illness with the left thigh pain. SKIN AND INTEGUMENT: He has a chronic wound on his right toe dorsum that it has been there for about 2 years and says that it actually opened up around 2 years ago too. ENDOCRINE: He denies any heat or cold intolerance. No polyuria or polydipsia. PAST MEDICAL HISTORY: Significant for coronary artery disease, atrial fibrillation as listed in his records but he does not have any recollection of that, history of CVA, diabetes mellitus type 2, hypertension, obesity, chronic systolic and diastolic heart failure, depression, hyperlipidemia, chronic kidney disease, gastroparesis, and peptic ulcer disease. ALLERGIES: NITROGLYCERIN, WHICH HE SAYS CAUSES HIS BLOOD PRESSURE TO GO HOOD HIGH. PAST SURGICAL HISTORY: He has had endoscopy, craniotomy, bilateral total knee replacement. He has had a repair of a distal femur fracture and inguinal hernia repair. SOCIAL HISTORY: He is . He is a nonsmoker and nondrinker. Full code. FAMILY HISTORY: His father had AAA. CURRENT MEDICATIONS: 1. Aspirin 81 mg daily. 2. Atorvastatin 40 mg daily. 3. Lipitor 50 mg twice a day. 4. Flexeril 10 mg t.i.d. 5. Gabapentin 100 mg t.i.d. 6. Hydralazine 75 mg t.i.d. 7. Isosorbide mononitrate 120 mg extended release daily. 8. Levemir 55 units subcu at bedtime. 9. Losartan 50 mg daily. 10. Spironolactone 25 mg daily. 11. Flomax 0.4 mg daily. 12. Trazodone 100 mg q.6 as needed. PHYSICAL EXAMINATION: GENERAL: He is alert and oriented. He appears to be in no acute distress. He is well developed and well nourished. VITAL SIGNS: Blood pressure was 117/62, heart rate 72, respiratory rate of 20, and temperature is 97.3. HEENT: Pupils are equal, round, and reactive to light. Extraocular muscles are intact. Sclerae anicteric. Throat, he has poor dentition. NECK: There is no adenopathy. No bruits. LUNGS: Clear to auscultation. There is no wheezing, no rales, no rhonchi. CARDIOVASCULAR: He has a normal S1 and S2. I did not appreciate an S3 or S4. No murmurs, clicks, or rubs. ABDOMEN: Soft, nontender, and nondistended. Positive for bowel sounds. No rebound. No guarding. EXTREMITIES: The incision site looks good. There is no induration; however, there is a small approximately 1 cm area that has not closed all the way and there is some whitish serous drainage that can be expressed from the area. There is no warmth, however, no induration. He has bunions on both feet. NEUROLOGIC: Nonfocal. He has good muscle strength in both his upper and lower extremities. SKIN AND INTEGUMENT: He does have an ulcer on the plantar aspect of the right foot as well as some surrounding calluses on both feet. ASSESSMENT: This is a pleasant 68-year-old gentleman, who has had progressive pain in the area where he recently had surgery. There is also a bit of serous drainage from the area as well, which could represent infection. However, he does not have any fever and his white blood cell count is normal, but the pain has increased. Therefore, we will culture the area that is draining and place him empirically on antibiotics and have Orthopedic Surgery to take a look at the wound. 1. Generalized weakness. This could be due to the pain as the patient says it is due to pain. We will re-consult Physical Therapy and he may need either assisted or rehab placement. 2. Coronary artery disease. This appears to be clinically stable. We will continue his home medications. 3. Chronic systolic heart failure. This appears to be compensated. Again, reconcile and restart home medicines. 4. Urinary retention. The patient self catheterizes and we will go ahead and continue self catheterization. 5. Diabetes mellitus. Again, restart his home medications and place him on a sliding scale insulin. 6. Hypertension, again continue home medications and p.r.n. medications as needed and he will be placed on DVT and GI prophylaxis. Job ID: [id number]
[2019-01-29] MEDS: Vancomycin HCl 1.75 GM in Sodium Chloride 0.9% 500 ML IVPB SCH (03:51)
[2019-01-29 08:22] LABS: #Eosinphils 0.4 thou/uL (0.0-0.7); #Monocytes 0.7 thou/uL (0.11-0.59); #Neutrophils 6.6 thou/uL (1.40-6.50); %Basophils 0.3 % (0.0-1.0); %Eosinophils 4.2 % (0.0-10.0); %Lymphocytes 20.6 % (21.0-51.0); %Monocytes 7.4 % (0.0-10.0); %Neutrophils 67.6 % (42.0-75.0); Hemoglobin 12.2 g/dL (14.0-18.0); Mean Corpuscular HGB CONC 32.3 g/dL (32.0-36.0); Mean Corpuscular Hemoglobin 30.3 pg (27.0-31.0); Mean Corpuscular Volume 93.7 fL (78.0-98.0); Mean Platelet Volume 6.4 fL (7.4-10.4); Platelet Count 290 thou/uL (130-400); RBC Distribution Width 13.9 % (11.5-14.5); Red Blood Cell (RBC) Count 4.04 mill/uL (4.70-6.10); White Blood Cell (WBC) Count 9.8 thou/uL (4.8-10.8)
[2019-01-29 08:40] LABS: Anion Gap 10 mmol/L (10-20); BUN (Urea Nitrogen) 24 mg/dL (8.4-25.7); Calc. Creatinine Clearance 65 mL/min (70-130); Calcium 8.7 mg/dL (7.8-10.44); Carbon Dioxide 15 mmol/L (23-31); Chloride 111 mmol/L (98-107); Estimated GFR-MDRD 38; Glucose 138 mg/dL (80-115); Sodium 131 mmol/L (136-145)
[2019-01-29] MEDS: Gabapentin 100 MG CAP PO SCH ×3 (09:08→20:43)
[2019-01-29] MEDS: Atorvastatin Calcium 40 MG TAB PO SCH (09:08)
[2019-01-29] MEDS: Carvedilol 25 MG TAB PO SCH ×2 (09:08→20:43)
[2019-01-29] MEDS: hydrALAZINE 25 MG TAB PO SCH ×3 (09:08→20:40)
[2019-01-29] MEDS: Aspirin 81 mg Enteric Coated Tablet PO SCH ×2 (09:08→20:43)
[2019-01-29] MEDS: Enoxaparin Sodium 40 MG/0.4 ML SYRINGE SC SCH (09:08)
[2019-01-29] MEDS: Losartan 25 MG TAB PO SCH (09:08)
[2019-01-29] MEDS: Nystatin Powder 15 GM BOT TOP SCH ×2 (09:09→20:44)
--- NOTE | 2019-01-29 09:54 | RAD ---
AP AND LATERAL VIEWS RIGHT FEMUR: HISTORY: Recent femur fracture post reduction. FINDINGS: AP and lateral views right femur demonstrates placement of distal and mid right femoral pl ates and screws. The comminuted distal right femoral fracture is in good anatomic alignment post stabilization. IMPRESSION: Postoperative changes seen in the distal right femoral fracture. Transcribed Date/Time: 01/29/2019 10:13 AM
--- NOTE | 2019-01-29 10:14 | PDOC.PN ---
- Subjective Encounter Start Date: 01/29/19 Encounter Start Time: 10:18 Subjective: painfull L leg - Objective Resuscitation Status - Order Detail: 01/29/19 00:46 Resuscitation Status Routine Resuscitation Status: FULL: Full Resuscitation MAR Reviewed: Yes Vital Signs & Weight: Vital Signs (12 hours) Temp Pulse Resp BP Pulse Ox 01/29/19 07:43 97.9 F 60 18 162/77 H 97 01/29/19 06:18 98.2 F 76 20 122/66 96 Weight Weight 256 lb I&O: 01/28/19 01/29/19 01/30/19 06:59 06:59 06:59 Intake Total 1700 Output Total 1250 Balance 450 Result Diagrams: 01/29/19 07:58 01/29/19 07:58 Additional Labs: Accuchecks 01/29/19 01/28/19 06:03 20:11 POC Glucose 131 H 130 H Phys Exam - Physical Examination Neck: no JVD Respiratory: clear to auscultation bilateral Cardiovascular: RRR, no significant murmur Gastrointestinal: soft, positive bowel sounds Musculoskeletal: no edema small area erythema and drainage lat RLE Dx/Plan (1) Infection of deep incisional surgical site after procedure Code(s): T81.42XA - INFCT FOL A PROCEDURE, DEEP INCISIONAL SURGICAL SITE, INIT Status: Acute (2) Pain Code(s): R52 - PAIN, UNSPECIFIED Status: Acute Comment: R leg post ORIF (3) DM type 2 causing CKD stage 3 Code(s): E11.22 - TYPE 2 DIABETES MELLITUS W DIABETIC CHRONIC KIDNEY DISEASE; N18.3 - CHRONIC KIDNEY DISEASE, STAGE 3 (MODERATE) Status: Chronic Qualifiers: Diabetes mellitus long term care pharmacist insulin use: with snf use Qualified Code( s): E11.22 - Type 2 diabetes mellitus with diabetic chronic kidney disease; N18.3 - Chronic kidney disease, stage 3 (moderate); Z79.4 - [facility] (current) use of insulin (4) HTN (hypertension) Code(s): I10 - ESSENTIAL (PRIMARY) HYPERTENSION Status: Chronic Qualifiers: Hypertension type: essential hypertension Qualified Code(s): I10 - Essential (primary) hypertension (5) Hyponatremia Code(s): E87.1 - HYPO-OSMOLALITY AND HYPONATREMIA Status: Acute Comment: Possibly due to volume depletion vs. CHF, monitor for improvement with fluids (6) CAD (coronary artery disease) Code(s): I25.10 - ATHSCL HEART DISEASE OF [place] CORONARY ARTERY W/O ANG PCTRS Status: Chronic Qualifiers: Coronary Disease-Associated Artery/Lesion type: [place] artery [place] vs. transplanted heart: [place] heart Associated angina: without angina Qualified Code(s): I25.10 - Atherosclerotic heart disease of [place] coronary artery without angina pectoris - Plan await ortho opinion -: cont iv antibx -: PT/OT/CM for placement -: cont home meds * .
[2019-01-29] MEDS: Insulin Glargine 55 UNITS in Pre-Filled Syringe 1 EACH SC SCH (20:33)
[2019-01-29] MEDS: Spironolactone 25 MG TAB PO SCH (20:43)
[2019-01-29] MEDS: Tamsulosin HCl 0.4 MG CAP PO SCH (20:43)
[2019-01-29] MEDS ORDERED: INSULIN DETEMIR SC SCH (21:00)
[2019-01-30] MEDS: Vancomycin HCl 1.75 GM in Sodium Chloride 0.9% 500 ML IVPB SCH (02:16)
[2019-01-30] MEDS: traMADol HCl 50 MG TAB PO SCH ×3 (05:21→18:21)
--- NOTE | 2019-01-30 07:23 | PRG ---
DATE OF SERVICE: 01/29/2019 SUBJECTIVE: I saw patient in the afternoon. He came back in for pain and for medical issues. Once he was finished being evaluated, this wound was evaluated and there was some concern about the wound healing. He had surgery on 12/27/2018, where we put a femoral plate and screws in. Spoke with him, he is doing okay in regard to his leg. Apparently, there were some miscommunication. The patient had walked on it and has been walking on it. I reiterated to the patient that he needs to not walk on it or his construct will fall apart and he will be in some dire straits which I hope he understands. As for the leg, he is moving around in bed fine. He has good sensations. No fevers, chills, or anything that would indicate any signs of infection. He did state toward the inferior part of his incision, he had a little bit of clear reddish tinge seepage before he came into the hospital, but this has calmed down since he has been admitted. PHYSICAL EXAMINATION: Evaluation of the wound, most of the incision is well healed. Towards the distal aspect of the incision on the femur, there is a small macerated white area of tissue, not grossly open, but it does have a little bit of scant discharge coming out of it right now. The area has no symptoms whatsoever of redness or erythema. There is no pain with palpating the area. ASSESSMENT: Healing wound with some distal discharge. PLAN: Change the dressing as they are possibly staying wet on the wound too long to let this dry out. Otherwise, we will check on the patient throughout his hospital stay and see how he is progressing. Job ID: [id number]
[2019-01-30] MEDS: Gabapentin 100 MG CAP PO SCH ×3 (09:51→21:00)
[2019-01-30] MEDS: Atorvastatin Calcium 40 MG TAB PO SCH (09:51)
[2019-01-30] MEDS: Aspirin 81 mg Enteric Coated Tablet PO SCH ×2 (09:51→21:00)
[2019-01-30] MEDS: Losartan 25 MG TAB PO SCH (09:52)
[2019-01-30] MEDS: Carvedilol 25 MG TAB PO SCH ×2 (09:52→21:00)
[2019-01-30] MEDS: hydrALAZINE 25 MG TAB PO SCH ×3 (09:52→20:59)
[2019-01-30] MEDS: Enoxaparin Sodium 40 MG/0.4 ML SYRINGE SC SCH (09:53)
[2019-01-30] MEDS: Nystatin Powder 15 GM BOT TOP SCH ×2 (09:54→21:06)
--- NOTE | 2019-01-30 12:15 | PDOC.PN ---
- Subjective Encounter Start Date: 01/30/19 Encounter Start Time: 12:13 Subjective: still complains of weakness an - Objective Resuscitation Status - Order Detail: 01/29/19 00:46 Resuscitation Status Routine Resuscitation Status: FULL: Full Resuscitation MAR Reviewed: Yes Vital Signs & Weight: Vital Signs (12 hours) Temp Pulse Resp BP BP Pulse Ox 01/30/19 09:52 62 154/84 H 01/30/19 08:09 97.6 F 62 18 114/64 98 01/30/19 08:00 98 Weight Admit Weight 256 lb Weight 256 lb I&O: 01/29/19 01/30/19 01/31/19 06:59 06:59 06:59 Intake Total 1700 1610 Output Total 1250 425 Balance 450 1185 Result Diagrams: 01/29/19 07:58 01/29/19 07:58 Additional Labs: Accuchecks 01/30/19 01/29/19 01/29/19 11:33 19:58 16:04 POC Glucose 130 H 125 H 143 H Phys Exam - Physical Examination HEENT: moist MMs Neck: no JVD Respiratory: clear to auscultation bilateral Cardiovascular: RRR, no significant murmur Gastrointestinal: soft, positive bowel sounds Musculoskeletal: no edema min erythema in RLE surg wound Dx/Plan (1) Infection of deep incisional surgical site after procedure Code(s): T81.42XA - INFCT FOL A PROCEDURE, DEEP INCISIONAL SURGICAL SITE, INIT Status: Acute Qualifiers: Encounter type: initial encounter Qualified Code(s): T81.42XA - Infection following a procedure, deep incisional surgical site, initial encounter (2) Pain Code(s): R52 - PAIN, UNSPECIFIED Status: Acute Comment: R leg post ORIF (3) DM type 2 causing CKD stage 3 Code(s): E11.22 - TYPE 2 DIABETES MELLITUS W DIABETIC CHRONIC KIDNEY DISEASE; N18.3 - CHRONIC KIDNEY DISEASE, STAGE 3 (MODERATE) Status: Chronic Qualifiers: Diabetes mellitus usp insulin use: with usp use Qualified Code( s): E11.22 - Type 2 diabetes mellitus with diabetic chronic kidney disease; N18.3 - Chronic kidney disease, stage 3 (moderate); 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 CHF, monitor for improvement with fluids (6) CAD (coronary artery disease) Code(s): I25.10 - ATHSCL HEART DISEASE OF [place] CORONARY ARTERY W/O ANG PCTRS Status: Chronic Qualifiers: Coronary Disease-Associated Artery/Lesion type: [place] artery [place] vs. transplanted heart: [place] heart Associated angina: without angina Qualified Code(s): I25.10 - Atherosclerotic heart disease of [place] coronary artery without angina pectoris - Plan cont PT/OT/analgesia -: DC iv antibx, po doxycycline * .
[2019-01-30] MEDS: Tamsulosin HCl 0.4 MG CAP PO SCH (20:59)
[2019-01-30] MEDS: Spironolactone 25 MG TAB PO SCH (21:00)
[2019-01-30] MEDS: Insulin Glargine 55 UNITS in Pre-Filled Syringe 1 EACH SC SCH (21:05)
[2019-01-31] MEDS: traMADol HCl 50 MG TAB PO SCH ×3 (01:01→13:58)
[2019-01-31 07:26] VITALS: BP 108/64; TEMP 97.7
[2019-01-31] MEDS: Atorvastatin Calcium 40 MG TAB PO SCH (08:17)
[2019-01-31] MEDS: Aspirin 81 mg Enteric Coated Tablet PO SCH (08:17)
[2019-01-31] MEDS: Gabapentin 100 MG CAP PO SCH ×2 (08:17→14:30)
[2019-01-31] MEDS: Losartan 25 MG TAB PO SCH (08:18)
[2019-01-31] MEDS: Carvedilol 25 MG TAB PO SCH (08:18)
[2019-01-31] MEDS: hydrALAZINE 25 MG TAB PO SCH ×2 (08:18→14:30)
[2019-01-31] MEDS: Enoxaparin Sodium 40 MG/0.4 ML SYRINGE SC SCH (08:18)
[2019-01-31] MEDS: Nystatin Powder 15 GM BOT TOP SCH (08:19)
--- NOTE | 2019-01-31 10:55 | PDOC.PN ---
- Subjective Encounter Start Date: 01/31/19 Encounter Start Time: 10:53 Subjective: patient upset [facility] denied referral, states he is "just done" - Objective Resuscitation Status - Order Detail: 01/29/19 00:46 Resuscitation Status Routine Resuscitation Status: FULL: Full Resuscitation MAR Reviewed: Yes Vital Signs & Weight: Vital Signs (12 hours) Temp Pulse Resp BP Pulse Ox 01/31/19 08:18 61 01/31/19 08:00 90 L 01/31/19 07:25 97.7 F 61 20 108/64 90 L Weight Admit Weight 256 lb Weight 256 lb I&O: 01/30/19 01/31/19 02/01/19 06:59 06:59 06:59 Intake Total 1610 1440 Output Total 425 1200 Balance 1185 240 Result Diagrams: 01/29/19 07:58 01/29/19 07:58 Additional Labs: Accuchecks 01/31/19 01/30/19 01/30/19 04:29 20:50 16:40 POC Glucose 95 137 H 164 H 01/30/19 11:33 POC Glucose 130 H Phys Exam - Physical Examination Neck: no JVD Respiratory: clear to auscultation bilateral Cardiovascular: RRR, no significant murmur Gastrointestinal: soft, positive bowel sounds Musculoskeletal: no edema Dx/Plan (1) Infection of deep incisional surgical site after procedure Code(s): T81.42XA - INFCT FOL A PROCEDURE, DEEP INCISIONAL SURGICAL SITE, INIT Status: Acute Qualifiers: Encounter type: initial encounter Qualified Code(s): T81.42XA - Infection following a procedure, deep incisional surgical site, initial encounter (2) Pain Code(s): R52 - PAIN, UNSPECIFIED Status: Acute Comment: R leg post ORIF (3) DM type 2 causing CKD stage 3 Code(s): E11.22 - TYPE 2 DIABETES MELLITUS W DIABETIC CHRONIC KIDNEY DISEASE; N18.3 - CHRONIC KIDNEY DISEASE, STAGE 3 (MODERATE) Status: Chronic Qualifiers: Diabetes mellitus terminal supervisor insulin use: with long-term use Qualified Code( s): E11.22 - Type 2 diabetes mellitus with diabetic chronic kidney disease; N18.3 - Chronic kidney disease, stage 3 (moderate); Z79.4 - [facility] (current) use of insulin (4) HTN (hypertension) Code(s): I10 - ESSENTIAL (PRIMARY) HYPERTENSION Status: Chronic Qualifiers: Hypertension type: essential hypertension Qualified Code(s): I10 - Essential (primary) hypertension (5) Hyponatremia Code(s): E87.1 - HYPO-OSMOLALITY AND HYPONATREMIA Status: Acute Comment: Possibly due to volume depletion vs. CHF, monitor for improvement with fluids (6) CAD (coronary artery disease) Code(s): I25.10 - ATHSCL HEART DISEASE OF [place] CORONARY ARTERY W/O ANG PCTRS Status: Chronic Qualifiers: Coronary Disease-Associated Artery/Lesion type: [place] artery [place] vs. transplanted heart: [place] heart Associated angina: without angina Qualified Code(s): I25.10 - Atherosclerotic heart disease of [place] coronary artery without angina pectoris - Plan tried to discuss placement issues . just keeps saying I'm done. -: refers to rehab as "[facility]" -: denies suicidal ideations * .
--- NOTE | 2019-01-31 16:47 | DIS ---
DATE OF ADMISSION: 01/28/2019 DATE OF DISCHARGE: 01/31/2019 PRIMARY CARE PROVIDER: Gilberto Waterman MD FINAL DIAGNOSES: Pain in right leg post open reduction and internal fixation, superficial wound infection on the right leg, chronic systolic heart failure, diabetes mellitus type 2, hypertension, coronary artery disease, depression, dyslipidemia, chronic kidney disease, gastroparesis. ALLERGIES: NITROGLYCERIN, HE SAYS IT MAKES HIS BLOOD PRESSURE GO HIGH. DISCHARGE MEDICATIONS: 1. Gabapentin 100 mg three times a day. 2. Flexeril 10 mg t.i.d. 3. Coreg 50 mg b.i.d. 4. Lipitor 40 mg a day. 5. Tramadol 100 mg p.o. q.6 hours. 6. Hydralazine 75 mg t.i.d. 7. Flomax 0.4 mg a day. 8. Spironolactone 25 mg a day. 9. Cozaar 50 mg a day. 10. Imdur 120 mg a day. 11. Aspirin 81 mg twice a day. 12. Lantus 55 units at bedtime. 13. Doxycycline 100 mg p.o. b.i.d. for 10 more days. CODE STATUS: Full. PENDING AT TIME OF DISCHARGE: Nothing. DIET: Diabetic. HOSPITAL COURSE: The patient admitted to [facility] through [facility]. He had a recent fracture of his distal femur, had open reduction and internal fixation, went to rehab. He states he was discharged even though he was not well. He came back to the emergency room complaining of 9/10 leg pain. He had some erythema on his wound. His laboratory on admission, CBC showed a hemoglobin 11.9, white count of 9.6, platelet count 288,000. Chemistries initially had a 5.2 potassium and this came down to 5.1, sodium 131 and 132, creatinine 2.3 and 1.78. Blood sugars were well controlled during his hospital study. X-ray of his femur done on 01/29 reveal postoperative changes. The patient was never happy during his hospital stay. He was evaluated by PT and OT. Rehab denied readmission. At this point, he was angry and use a little bit of profanity. He states he would just give up. Later in the day today, he said he will accept transfer to [facility]. He is going there for PT and OT. When he was saying he would give up, I questioned him at length on any interest in suicide or harming himself. He says that he was not, he was just mad and hated the rehab. That having been said, he is being discharged. Neurosurgery was consulted. He was seen by John Gresham PA-C, who had no further recommendations. Job ID: [id number]
== END 2019-01-31 19:07 | DRG 863 ==
LOC: ERS 14:39 → T4-A 19:09
PROVIDERS: ADMIT Internal Medicine; ATTEND Internal Medicine
DX: T81.42XA Infection following a procedure, deep incisional surgical site, initial encounter (principal); I13.0 Hypertensive heart and chronic kidney disease with heart failure and stage 1 through stage 4 chronic kidney disease, or unspecified chronic kidney disease; I50.22 Chronic systolic (congestive) heart failure; I25.10 Atherosclerotic heart disease of native coronary artery without angina pectoris; N18.3 Chronic kidney disease, stage 3 (moderate); E11.22 Type 2 diabetes mellitus with diabetic chronic kidney disease; I48.91 Unspecified atrial fibrillation; E78.5 Hyperlipidemia, unspecified; F32.9 Major depressive disorder, single episode, unspecified; E11.43 Type 2 diabetes mellitus with diabetic autonomic (poly)neuropathy; K31.84 Gastroparesis; K27.9 Peptic ulcer, site unspecified, unspecified as acute or chronic, without hemorrhage or perforation; Z79.82 Long term (current) use of aspirin; Z79.4 Long term (current) use of insulin; Z79.899 Other long term (current) drug therapy
CPT/HCPCS: 36415; 36416; 51701; 80048; 80053; 81003; 83605; 85025; 87070; 87077; 87186; 87205; 96360; J0696; J1650; J1825; J3370; J3490; J7050

== ENCOUNTER 2019-03-06 08:59 | Day surgery (SDC) | payer MEDICARE ==
[2019-03-06 10:35] LABS: Hemoglobin 16.4 g/dL (14.0-18.0)
[2019-03-06 10:54] LABS: Anion Gap 18 mmol/L (10-20); BUN (Urea Nitrogen) 31 mg/dL (8.4-25.7); Calc. Creatinine Clearance 0 mL/min (70-130); Calcium 9.6 mg/dL (7.8-10.44); Carbon Dioxide 20 mmol/L (23-31); Chloride 103 mmol/L (98-107); Estimated GFR-MDRD 29; Glucose 168 mg/dL (80-115); Potassium 3.9 mmol/L (3.5-5.1); Sodium 137 mmol/L (136-145)
[2019-03-06] MEDS ORDERED: Fentanyl 100 MCG/2 ML VIAL ONE ×2 (12:27→14:05)
[2019-03-06] MEDS ORDERED: Midazolam HCl 2 mg/2 ml Vial ONE (12:27)
[2019-03-06] MEDS ORDERED: PROPOFOL 0 ML ONE (12:28)
[2019-03-06] MEDS ORDERED: Propofol 1,000 MG/100 ML VIAL IV ONE (12:28)
[2019-03-06] MEDS ORDERED: Propofol 500 MG/50 ML VIAL ONE (12:28)
[2019-03-06] MEDS ORDERED: Famotidine/PF 20 mg/2ml Vial ONE (12:28)
[2019-03-06] MEDS ORDERED: EPINEPHrine 1 MG/ML AMP ONE (12:38)
[2019-03-06] MEDS ORDERED: Lidocaine 1% PF 5 ML VIAL ONE (16:58)
[2019-03-06] MEDS ORDERED: Ondansetron PF 4 MG/2 ML Vial ONE (16:58)
[2019-03-06] MEDS ORDERED: PROPOFOL 200 MG/20 ML VIAL ONE (16:58)
[2019-03-06] MEDS ORDERED: Metoclopramide HCl 10 MG/2 ML VIAL ONE (16:58)
[2019-03-06] MEDS ORDERED: Dexamethasone 20 MG/5 ML VIAL ONE (16:58)
--- NOTE | 2019-03-07 09:46 | OP ---
DATE OF PROCEDURE: 03/06/2019 PREOPERATIVE DIAGNOSES: 1. Right true vocal cord paralysis. 2. Dysphonia. 3. Dysphagia. POSTOPERATIVE DIAGNOSES: 1. Right true vocal cord paralysis. 2. Dysphonia. 3. Dysphagia. PROCEDURES PERFORMED: 1. Right true vocal cord medialization laryngoplasty with Prolaryn. 2. MSDL (microsuspension direct laryngoscopy). ESTIMATED BLOOD LOSS: 0 mL. COMPLICATIONS: None. ANESTHESIA: GETA. DESCRIPTION OF PROCEDURE: The patient was taken to the operating room and placed supine on the table. General endotracheal anesthesia with a Celeste Jet ventilation tube was obtained by the Anesthesia staff. The head was turned 90 degrees. A shoulder roll was placed and the head was placed in gentle extension. The Dedo laryngoscope was then used to examine the oral cavity and oropharynx, which was noted to be clear of any mucosal lesions. The pharyngeal galdamez and laryngeal structures were noted to be within normal limits. Following this, the patient was placed in suspension and using the operating microscope with 400 mm lens, the Prolaryn needle was positioned just lateral to the thyroarytenoid muscle and 0.4 mL of Prolaryn injection was placed medializing the right vocal cord. The patient tolerated the procedure well. Job ID: [id number]
--- NOTE | 2019-03-07 11:25 | EKG ---
Test Reason : PREOP Blood Pressure : / mmHG Vent. Rate : 081 BPM Atrial Rate : 081 BPM P-R Int : 178 ms QRS Dur : 136 ms QT Int : 438 ms P-R-T Axes : 008 -32 111 degrees QTc Int : 508 ms Normal sinus rhythm Left axis deviation Non-specific intra-ventricular conduction block T wave abnormality, consider lateral ischemia Abnormal ECG Confirmed by SHALOM ROSAS ([id number]) on 03/07/2019 11:24:46 AM Referred By: ANDREIA Confirmed By:SHALOM ROSAS
== END 2019-03-06 15:38 | disposition home or self-care (01) ==
LOC: SDC 08:59
PROVIDERS: ATTEND Otolaryngology Plastic Surgery within the Head & Neck
PROC: 3E0F8GC Introduction of Other Therapeutic Substance into Respiratory Tract, Via Natural or Artificial Opening Endoscopic (ICD-10-PCS; principal; 2019-03-06)
DX: J38.01 Paralysis of vocal cords and larynx, unilateral (principal); I11.9 Hypertensive heart disease without heart failure; E11.9 Type 2 diabetes mellitus without complications; I25.10 Atherosclerotic heart disease of native coronary artery without angina pectoris; E78.00 Pure hypercholesterolemia, unspecified; Z86.73 Personal history of transient ischemic attack (TIA), and cerebral infarction without residual deficits; Z79.01 Long term (current) use of anticoagulants; Z79.4 Long term (current) use of insulin; Z79.82 Long term (current) use of aspirin; Z79.899 Other long term (current) drug therapy; Z88.8 Allergy status to other drugs, medicaments and biological substances; Z95.1 Presence of aortocoronary bypass graft; Z98.890 Other specified postprocedural states
CPT/HCPCS: 80048; 85014; 85018; 93005; 93010; J0131; J0171; J1100; J2001; J2250; J2405; J2704; J2765; J3010; S0028

== ENCOUNTER 2019-03-10 15:29 | Emergency (ER) | payer MEDICARE ==
[2019-03-10 16:22] LABS: #Eosinphils 0.2 thou/uL (0.0-0.7); #Lymphocytes 2.6 thou/uL (1.20-3.40); #Monocytes 0.7 thou/uL (0.11-0.59); #Neutrophils 5.6 thou/uL (1.40-6.50); %Basophils 0.5 % (0.0-1.0); %Eosinophils 2.1 % (0.0-10.0); %Lymphocytes 28.4 % (21.0-51.0); %Monocytes 7.5 % (0.0-10.0); %Neutrophils 61.6 % (42.0-75.0); Hemoglobin 16.7 g/dL (14.0-18.0); Mean Corpuscular HGB CONC 31.8 g/dL (32.0-36.0); Mean Corpuscular Volume 91.2 fL (78.0-98.0); Mean Platelet Volume 7.2 fL (7.4-10.4); Platelet Count 235 thou/uL (130-400); RBC Distribution Width 14.4 % (11.5-14.5); Red Blood Cell (RBC) Count 5.76 mill/uL (4.70-6.10); White Blood Cell (WBC) Count 9.1 thou/uL (4.8-10.8)
[2019-03-10 16:43] LABS: Bilirubin Negative (Negative); Blood, Urine Small (Negative); Clarity Cloudy (Clear); Glucose, Urine (Dipstick) Negative (Negative); Leukocyte Large (Negative); Nitrite Positive (Negative); Protein, Urine (Dipstick) 30 mg/dL (Neg-Trace)
[2019-03-10 16:48] LABS: Bacteria/HPF 4+ HPF (None Seen); WBC/HPF Greater Than 50 HPF (0-3)
[2019-03-10 17:06] LABS: ALT (SGPT) 17 U/L (8-55); AST (SGOT) 13 U/L (5-34); Albumin 3.4 g/dL (3.4-4.8); Alkaline Phosphatase 88 U/L (40-150); Anion Gap 14 mmol/L (10-20); BUN (Urea Nitrogen) 23 mg/dL (8.4-25.7); Bilirubin, Total 1.8 mg/dL (0.2-1.2); Calc. Creatinine Clearance 0 mL/min (70-130); Calcium 9.3 mg/dL (7.8-10.44); Carbon Dioxide 20 mmol/L (23-31); Chloride 104 mmol/L (98-107); Estimated GFR-MDRD 43; Globulin 3.5 g/dL (2.4-3.5); Glucose 115 mg/dL (80-115); Lipase 32 U/L (8-78); Potassium 4.3 mmol/L (3.5-5.1); Protein, Total 6.9 g/dL (5.8-8.1); Sodium 134 mmol/L (136-145)
--- NOTE | 2019-03-10 17:10 | RAD ---
ACUTE ABDOMEN SERIES SIX VIEWS: INDICATIONS: Nausea and vomiting. FINDINGS: There is elevation of the left hemidiaphragm. Lungs are hypoinflated. This accentuates the cardiome diastinal silhouette. No free air is visualized. Bowel gas pattern is nonobstructed, with moderate retained fecal material of the colon. There is osseous degenerative change. Partially imag ed hardware of the right femur is present. Diffuse vascular calcification present. IMPRESSION: 1. Hypoinflated lungs. 2. Nonobstructed bowel gas pattern. No evidence of free air. Transcribed Date/Time: 03/10/2019 6:44 PM
[2019-03-10] MEDS ORDERED: cefTRIAXone\\ROCEPHIN 2 GM VIAL ONE (17:41)
[2019-03-10] MEDS ORDERED: Sodium Chloride 0.9% 100 ML ONE (17:41)
[2019-03-10] MEDS ORDERED: Ondansetron PF 4 MG/2 ML Vial ONE (18:41)
== END 2019-03-10 19:30 | disposition home or self-care (01) ==
LOC: ERS 15:29
DX: N39.0 Urinary tract infection, site not specified (principal); K59.00 Constipation, unspecified; I25.2 Old myocardial infarction; E11.9 Type 2 diabetes mellitus without complications; I10 Essential (primary) hypertension; F32.9 Major depressive disorder, single episode, unspecified; Z79.899 Other long term (current) drug therapy; Z79.4 Long term (current) use of insulin
CPT/HCPCS: 36416; 74022; 80053; 81003; 81015; 83690; 85025; 87077; 87086; 87186; J0696; J2405; J3490

== ENCOUNTER 2019-03-12 05:49 | Inpatient (IN) | payer MEDICARE ==
[2019-03-12] MEDS ORDERED: Ondansetron ODT 4 MG TAB ONE (06:12)
[2019-03-12 06:17] LABS: #Basophils 0.1 thou/uL (0.0-0.2); #Eosinphils 0.1 thou/uL (0.0-0.7); #Lymphocytes 2.2 thou/uL (1.20-3.40); #Monocytes 0.8 thou/uL (0.11-0.59); #Neutrophils 11.2 thou/uL (1.40-6.50); %Basophils 0.6 % (0.0-1.0); %Eosinophils 0.7 % (0.0-10.0); %Monocytes 5.4 % (0.0-10.0); %Neutrophils 78.4 % (42.0-75.0); Hemoglobin 16.8 g/dL (14.0-18.0); Mean Corpuscular HGB CONC 33.2 g/dL (32.0-36.0); Mean Corpuscular Hemoglobin 29.6 pg (27.0-31.0); Mean Corpuscular Volume 89.3 fL (78.0-98.0); Mean Platelet Volume 7.5 fL (7.4-10.4); Platelet Count 233 thou/uL (130-400); RBC Distribution Width 14.5 % (11.5-14.5); Red Blood Cell (RBC) Count 5.68 mill/uL (4.70-6.10); White Blood Cell (WBC) Count 14.3 thou/uL (4.8-10.8)
[2019-03-12 06:38] LABS: ALT (SGPT) 17 U/L (8-55); AST (SGOT) 12 U/L (5-34); Albumin 3.5 g/dL (3.4-4.8); Alkaline Phosphatase 91 U/L (40-150); Anion Gap 17 mmol/L (10-20); BUN (Urea Nitrogen) 29 mg/dL (8.4-25.7); Bilirubin, Total 1.5 mg/dL (0.2-1.2); Calc. Creatinine Clearance 0 mL/min (70-130); Calcium 9.5 mg/dL (7.8-10.44); Carbon Dioxide 22 mmol/L (23-31); Chloride 101 mmol/L (98-107); Estimated GFR-MDRD 32; Globulin 3.6 g/dL (2.4-3.5); Glucose 149 mg/dL (80-115); Lipase 19 U/L (8-78); Potassium 4.2 mmol/L (3.5-5.1); Protein, Total 7.1 g/dL (5.8-8.1); Sodium 136 mmol/L (136-145)
[2019-03-12] MEDS ORDERED: Dextrose 5% in Water 1,000 ML IV PRN (09:12)
[2019-03-12] MEDS ORDERED: HumaLOG 300 UNITS/3 ML VIAL SC PRN ×2 (09:12)
[2019-03-12] MEDS ORDERED: Acetaminophen 325 MG TAB PO PRN (09:12)
[2019-03-12] MEDS ORDERED: Dextrose 50% Abboject 50 ML SYRINGE SLOW IVP PRN (09:12)
[2019-03-12] MEDS ORDERED: Pantoprazole 40 MG VIAL IVP SCH ×2 (09:16→10:30)
[2019-03-12] MEDS ORDERED: Metoclopramide HCl 10 MG/2 ML VIAL IVP PRN (09:17)
[2019-03-12] MEDS ORDERED: Metoprolol Tartrate 5 MG/5 ML VIAL IVP SCH (09:30)
[2019-03-12] MEDS ORDERED: hydrALAZINE 20 MG/ML VIAL SLOW IVP PRN (09:30)
[2019-03-12] MEDS ORDERED: Sodium Chloride 0.9% (PF) 10 ML VIAL FS PRN (10:01)
--- NOTE | 2019-03-12 10:15 | HP ---
CHIEF COMPLAINT: Vomiting. HISTORY OF PRESENT ILLNESS: This is a 68-year-old male with history of severe erosive esophagitis, hypertension, paroxysmal AFib, on full dose Eliquis, diabetes, coronary artery disease with history of bypass, chronic combined systolic and diastolic heart failure, who has been at [facility] and returns today for intractable nausea and vomiting. The patient reports that it has been going on for a few days, he last visited the emergency room 2 days ago and was treated with Zofran and Levaquin and discharged back to [facility]. He returns today with persistent nausea and vomiting, and unable to participate in therapy. He denies any abdominal pain, chest pain, or difficulty breathing. He does report chronic constipation and no recent bowel movement. He reports in and out straight cath and denies any change in his urine. He reports he has been unable to take the antibiotics that were prescribed, and no relief with oral nausea medications. Because of that, he returns today. No precipitating or relieving factors. The patient was recently admitted here for the same thing, discharged last on February 11 back to the [facility], with a diagnosis of severe esophagitis. In the emergency room, the patient treated with Zofran 4 mg IV fluids, 1 L of normal saline and hospitalist called for admission. ALLERGIES TO MEDICINE: Nitroglycerin and Nitro-Dur. MEDICATIONS: Reconciled with the list provided by the [facility]. 1. Levaquin 500 mg through March 18. 2. Lantus 25 units at bedtime. 3. Protonix 20 mg once a day. 4. Sodium bicarbonate 650 mg b.i.d. 5. Coreg 25 mg b.i.d. 6. Amiodarone 200 mg b.i.d. 7. Nystatin as needed. 8. Tamsulosin 0.4 mg at bedtime. 9. MiraLAX 17 g daily. 10. Hydralazine 75 mg t.i.d. 11. Thera M tablet daily. 12. Vitamin C 500 mg b.i.d. 13. Arginaid packet b.i.d. 14. Imdur 120 mg daily. 15. Atorvastatin 40 mg at bedtime. 16. Tramadol 50 mg 2 tablets every 6 hours for pain. It appears that schedule. 17. Gabapentin 100 mg t.i.d. 18. Cyclobenzaprine 10 mg one tablet every 8 hours as needed for muscle spasm. 19. Tylenol 650 mg every 4 hours as needed for pain. Of note, the patient was discharged here on Eliquis. I am uncertain if this was stopped in the outpatient setting as the patient on last admission had paroxysmal AFib and underwent cardioversion. PAST MEDICAL HISTORY: 1. Paroxysmal atrial fibrillation with recent cardioversion in January during his last hospitalization. 2. Coronary artery disease with history of bypass. 3. History of stroke. 4. Diabetes mellitus, type 2. 5. Hypertension. 6. Obesity. 7. Chronic systolic and diastolic heart failure with EF of 45% to 50% in December 2018. 8. Depression. 9. Dyslipidemia. 10. Chronic kidney disease, stage 3. 11. Gastroparesis. 12. Stage II ulcer on his foot and his sacrum. 13. Severe erosive esophagitis with hospitalization last month for the same intractable nausea and vomiting. 14. BPH. 15. Urinary retention with self-cath 2 to 3 times daily. PAST SURGICAL HISTORY: 1. Bilateral knee. 2. CABG. 3. Distal femur fracture with repair in december 2018. 4. Inguinal hernia repair. 5. Cardioversion in January [address] Crisostomo. SOCIAL HISTORY: The patient denies alcohol or tobacco, and is and has been at [facility]. He is a full code and his surrogate decision maker is his friend, Gilberto Stuart. FAMILY HISTORY: Significant for AAA in his father. REVIEW OF SYSTEMS: Negative for abdominal pain, chest pain, fevers or chills, or urine changes. Positive for weight loss, insomnia, anorexia, and ulcer of his left foot. All remaining review of systems are reviewed and negative. PHYSICAL EXAMINATION: VITAL SIGNS: Blood pressure 169/106, pulse 80, respirations 14, temperature 97.9, and saturations 99% on room air. GENERAL: He is awake, alert, responsive, appears frustrated, but not in apparent distress. HEENT: His pupils are equal and round. Oral mucosa is pink and dry. NECK: Supple and nontender. LYMPHATICS: No palpable cervical or supraclavicular lymphadenopathy. LUNGS: Clear to auscultation bilateral. No audible wheezing, rhonchi, or rales. HEART: Normal S1 and S2. Regular rate and rhythm. No significant murmur. ABDOMEN: Soft. Present bowel sounds. Nontender, nondistended. He does have reducible large hernias. EXTREMITIES: No clubbing, cyanosis, or edema. SKIN: No visible rashes. NEURO: No focal deficits. PSYCH: Appears euthymic. VASCULAR: 2+ dorsalis pedis pulses. FULLER FINDINGS AND TEST RESULTS: CBC today WBC 14.3, hemoglobin 16.8, hematocrit 50.7, and platelets 233. Chemistry; sodium 136, potassium 4.2, chloride 101, bicarbonate 22, BUN 29, creatinine 2.05, and glucose 149. Creatinine over the past since January has ranged from a low of 1.41 to a high of 2.26, and the last check on March 10 was 1.61. T-bili 1.5, AST 12, ALT 17, alkaline phosphatase 91, total protein 7.1, and albumin 3.5. Urine culture reviewed from March 10 shows Pseudomonas that is indeterminate to fluoroquinolones. Acute abdominal series reviewed from March 10 shows nonobstructive bowel gas pattern. No evidence of free air and hypoinflated lungs. IMPRESSION: 1. Intractable nausea and vomiting with history of severe erosive esophagitis. 2. Leukocytosis may be secondary to above or urinary tract infection with Pseudomonas, diagnosed on February 08. 3. History of prolonged QT interval. 4. Acute kidney injury with chronic kidney disease, stage 3. 5. Elevated T-bilirubin. 6. Constipation. 7. Left foot ulcer. 8. Diabetes mellitus, type 2. 9. Reducible hernia. 10. Hypertension. 11. Dyslipidemia. 12. Paroxysmal atrial fibrillation, historically on full anticoagulation, which is not on his current medication list. 13. Coronary artery disease with history of coronary artery bypass grafting. 14. History of stroke. 15. Urinary retention with self-catheterization. 16. Chronic foot ulcer. PLAN: 1. Admission to the hospital. 2. IV fluid hydration. 3. IV Protonix, GI consultation for additional recommendations, ultrasound of the liver to evaluate the elevated bilirubin. 4. Monitoring his renal function. May need Nephrology consult, hold on the sodium bicarb for now as he has only a mild metabolic acidosis. 5. We will start Zosyn now due to the Pseudomonas on urine culture, as well as the prolonged QT interval and indeterminate response to fluoroquinolones. This is from the urinalysis and culture on March 10, and given the complicated picture, we will consult ID. 6. Clear liquids as tolerated. 7. IV Reglan for now to manage the nausea and vomiting. 8. Wound care for the foot ulcer. 9. Palliative care as the patient is frustrated with the multiple hospitalization, to assist with coping. 10. PT and OT given the weakness and debility from multiple hospitalizations as well as a fracture repair back in December. 11. Holding his home medications for now. We will use IV metoprolol to manage beta-octavio in this patient with known coronary artery disease. 12. Given that the patient was on Eliquis and has history paroxysmal AFib with cardioversion about a month ago, we will continue the Eliquis if he is able to take p.o. 13. Add back his home oral medications as tolerated. 14. Hydralazine IV p.r.n. for elevated blood pressures. 15. Holding on long-acting insulin, monitoring his blood sugars and will use insulin sliding scale as needed. Add back long-acting insulin as he is able to take p.o. 16. Straight cath 3 times a day. We will request nursing staff assist with this. 17. The patient is at high risk given age comorbidities and current presentation. 18. DVT prophylaxis. I presume he has been on full dose renally dosed Eliquis 19. GI prophylaxis using IV PPI for reasons as noted above. 20. Code status is full. Surrogate decision maker as above. 21. Reviewed the plan of care with the patient. No questions or further needs at the end of evaluation. Addendum -19:30 - I called [facility] this evening to find out about Eliquis - if it was discontinued intentionally. The nurse I spoke with states the patient has refused all medicine since his last return to the facility in January, except for an occasional tramadol for pain. Specifically I asked about the Protonix - has been refused. She reviewed an order for eliquis at the facility and reports that this along with other medications has been refused. She also reports refusal to participate in therapy. In light of this information, it is no surprise that the severe erosive esophagitis has not healed, and pt has return of symptoms. I reconcilled all of his medications and resumed all of the ones recommended by multiple specialists during his last hospitalization, including eliquis.Will need to determine adherence to medications while here, and see if Palliative care can assist in this area. Job ID: [id number] [facility]
[2019-03-12] MEDS ORDERED: Pantoprazole 40 MG VIAL ONE (10:44)
[2019-03-12] MEDS ORDERED: Metoprolol Tartrate 5 MG/5 ML VIAL ONE (10:44)
--- NOTE | 2019-03-12 10:48 | ULT ---
RIGHT UPPER QUADRANT ULTRASOUND: INDICATIONS: Nausea and vomiting. COMPARISON: CT abdomen and pelvis from 02/04/2019. TECHNIQUE: Rodriguez-scale, color Doppler, and spectral Doppler images were obtained of the right upper quadrant. FINDINGS: No focal hepatic lesion is evident. The left hepatic lobe is limited due to overlying bowel gas. La yered stones and sludge are again seen within the gallbladder. Gallbladder wall thickness is present . The gallbladder is mildly distended. The plant health care technician notes no sonographic Carrasco sign. The common bile duct is at the upper limits of normal, measuring 6.2 mm. The pancreas is obscured by overlying bowel gas. The right kidney measures 9 cm in length. There is a 1.4 cm cyst involving the inferior pole of the right kidney. IMPRESSION: 1. Stable cholelithiasis without overt sonographic evidence of acute cholecystitis. 2. Right renal cyst. 3. Limitations to exam as above. POS: [facility]
[2019-03-12] MEDS: Sodium Chloride 0.9% 1,000 ML IV SCH ×3 (11:00→22:54)
[2019-03-12] MEDS: Piperacillin/Tazobactam 2.25 GM in Sodium Chloride 0.9% 100 ML IVPB SCH ×3 (11:05→22:50)
[2019-03-12] MEDS ORDERED: Metoclopramide HCl 10 MG/2 ML VIAL ONE (11:54)
[2019-03-12] MEDS ORDERED: Ondansetron PF 4 MG/2 ML Vial IVP PRN (13:23)
[2019-03-12] MEDS ORDERED: Ondansetron ODT 4 MG TAB PO PRN (13:24)
[2019-03-12 14:14] VITALS: BMI 29.7
[2019-03-12] MEDS: Carvedilol 25 MG TAB PO SCH (18:14)
[2019-03-12] MEDS: Sodium Bicarbonate Tab 325 MG TAB PO SCH (20:43)
[2019-03-12] MEDS: Gabapentin 100 MG CAP PO SCH (20:44)
[2019-03-12] MEDS: hydrALAZINE 25 MG TAB PO SCH (20:44)
[2019-03-12] MEDS: Tamsulosin HCl 0.4 MG CAP PO SCH (20:44)
[2019-03-12] MEDS: Pantoprazole 40 MG VIAL IVP SCH (20:44)
[2019-03-12] MEDS: Apixaban 2.5 MG TAB PO SCH (22:51)
--- NOTE | 2019-03-13 02:14 | CON ---
DATE OF CONSULTATION: 03/12/2019 CHIEF COMPLAINT: Nausea and vomiting. HISTORY OF PRESENT ILLNESS: Mr. Quintanilla is a 68-year-old man who has had chronic nausea and vomiting for over a month. He was in the hospital in January with nausea and vomiting. I performed an endoscopy on 02/07/2019, that showed severe diffuse grade D erosive esophagitis. He was started on proton pump inhibitors and continued on metoclopramide for a questionable history of gastroparesis. [facility] At the [facility], he states that he started vomiting again and then quit eating and then when he quit eating, he quit taking all of his medications. He has taken no medicines for the last month including he has not been taking any proton pump inhibitors. He has come back to the emergency room a few days ago with nausea and vomiting, and now returns again with nausea and vomiting. He has lost 40 pounds over the last month. PAST MEDICAL HISTORY: Paroxysmal atrial fibrillation, status post cardioversion last month, coronary artery disease, stroke, diabetes mellitus type 2, hypertension, systolic and diastolic heart failure, depression, dyslipidemia, chronic kidney disease, decubitus ulcer in his foot and sacrum, severe erosive esophagitis, possible gastroparesis, BPH, urinary retention for which he performs self catheterization. PAST SURGICAL HISTORY: Knee surgery, coronary artery bypass graft, inguinal hernia repair. FAMILY HISTORY: Negative for GI malignancy. SOCIAL HISTORY: No alcohol, tobacco, or drugs. ALLERGIES: NITROGLYCERIN. MEDICATIONS: In the last month he has been taking none. Current inpatient medications include; 1. Eliquis. 2. Vitamin C. 3. Atorvastatin. 4. Carvedilol. 5. Gabapentin. 6. Hydralazine. 7. Pantoprazole 40 mg IV q.12 hours. 8. Zosyn. 9. MiraLAX. 10. Tamsulosin. REVIEW OF SYSTEMS: Negative x10 systems reviewed except as stated in the history of present illness. The patient did not originally volunteer the point that he has not been taking his medication. Dr. Meier did call over to the nursing staff at [facility] to review medications and was informed that he has not been taking any of them for the last month. The patient does state that he quit taking them because of the nausea and vomiting. PHYSICAL EXAMINATION: VITAL SIGNS: Temperature 97.8, pulse 78, blood pressure 167/100. GENERAL: He is in no acute distress. He is alert and oriented x3. HEENT: His eyes have no scleral icterus. Oropharynx is clear without lesions. No cervical or supraclavicular lymphadenopathy. He has underlying obesity, but he has lost 40 pounds in the last month. LUNGS: Clear to auscultation bilaterally. HEART: Regular rate and rhythm without murmur. ABDOMEN: Soft, nontender, and nondistended. Bowel sounds are present. EXTREMITIES: No lower extremity edema. NEUROLOGIC: Cranial nerves are grossly intact. LABORATORY DATA: White blood cell count 14.3, hemoglobin 16.8, platelets 233. Creatinine 2.05, bilirubin 1.5, AST 12, ALT 17, alkaline phosphatase 91, albumin 3.5, lipase 19. IMAGING: He had an abdominal ultrasound that showed cholelithiasis without evidence of cholecystitis. He had a CT scan of the abdomen and pelvis back on February 04 that showed the wall thickening of the esophagus, which again was directly visualized with endoscopy a month ago. IMPRESSION: 1. Chronic nausea and vomiting. Possibly from gastroparesis. He has been off all his medications over the last month. 2. Severe grade D erosive esophagitis identified by endoscopy last month. The thing is how this has been untreated for the last month and he has had ongoing nausea and vomiting, we will need to initiate medications for this now. Endoscopy is unlikely to change director in the immediate short-term period. 3. Weight loss of 40 pounds over the last month. RECOMMENDATIONS: 1. Proton pump inhibitor IV twice daily. 2. Metoclopramide 10 mg IV q.6 hours. Job ID: [id number]
[2019-03-13] MEDS: Piperacillin/Tazobactam 2.25 GM in Sodium Chloride 0.9% 100 ML IVPB SCH ×2 (04:58→09:01)
[2019-03-13 06:03] LABS: #Basophils 0.1 thou/uL (0.0-0.2); #Eosinphils 0.1 thou/uL (0.0-0.7); #Lymphocytes 2.1 thou/uL (1.20-3.40); #Monocytes 1.4 thou/uL (0.11-0.59); #Neutrophils 13.9 thou/uL (1.40-6.50); %Basophils 0.4 % (0.0-1.0); %Eosinophils 0.5 % (0.0-10.0); %Lymphocytes 11.9 % (21.0-51.0); %Neutrophils 79.2 % (42.0-75.0); Hemoglobin 14.7 g/dL (14.0-18.0); Mean Corpuscular HGB CONC 31.4 g/dL (32.0-36.0); Mean Corpuscular Hemoglobin 28.6 pg (27.0-31.0); Mean Corpuscular Volume 90.9 fL (78.0-98.0); Mean Platelet Volume 7.9 fL (7.4-10.4); Platelet Count 209 thou/uL (130-400); RBC Distribution Width 14.6 % (11.5-14.5); Red Blood Cell (RBC) Count 5.13 mill/uL (4.70-6.10); White Blood Cell (WBC) Count 17.6 thou/uL (4.8-10.8)
[2019-03-13 06:22] LABS: Anion Gap 17 mmol/L (10-20); BUN (Urea Nitrogen) 26 mg/dL (8.4-25.7); Calc. Creatinine Clearance 52 mL/min (70-130); Calcium 8.6 mg/dL (7.8-10.44); Carbon Dioxide 18 mmol/L (23-31); Chloride 109 mmol/L (98-107); Estimated GFR-MDRD 35; Glucose 172 mg/dL (80-115); Potassium 4.9 mmol/L (3.5-5.1); Sodium 139 mmol/L (136-145)
[2019-03-13] MEDS: Carvedilol 25 MG TAB PO SCH ×2 (08:56→16:40)
[2019-03-13] MEDS: Atorvastatin Calcium 40 MG TAB PO SCH (08:56)
[2019-03-13] MEDS: Ascorbic Acid 500 mg Chewable Tablet PO SCH (08:56)
[2019-03-13] MEDS: Gabapentin 100 MG CAP PO SCH ×3 (08:56→20:58)
[2019-03-13] MEDS: hydrALAZINE 25 MG TAB PO SCH ×3 (08:56→20:58)
[2019-03-13] MEDS: Pantoprazole 40 MG VIAL IVP SCH ×2 (08:57→20:58)
[2019-03-13] MEDS: Sodium Bicarbonate Tab 325 MG TAB PO SCH ×2 (08:57→20:58)
[2019-03-13] MEDS: Polyethylene Glycol 3350 17 GM Packet PO SCH (08:57)
[2019-03-13] MEDS: Apixaban 2.5 MG TAB PO SCH ×2 (12:45→20:57)
[2019-03-13] MEDS: Sodium Chloride 0.9% 1,000 ML IV SCH ×2 (12:51→16:38)
[2019-03-13] MEDS ORDERED: Metoclopramide HCl 10 MG/2 ML VIAL IVP PRN (13:49)
--- NOTE | 2019-03-13 13:49 | PDOC.PN ---
- Subjective Encounter Start Date: 03/13/19 (f/u n/v) Encounter Start Time: 13:47 Subjective: Pt reports feeling better today - denies n/v/abd pain -: states he asked the manor to 'pull the plug' - Objective Resuscitation Status - Order Detail: 03/12/19 09:12 Resuscitation Status Routine Resuscitation Status: FULL: Full Resuscitation Vital Signs & Weight: Vital Signs (12 hours) Temp Pulse Resp BP BP BP Pulse Ox 03/13/19 12:00 97.9 F 79 18 98/67 95 03/13/19 08:56 72 142/84 H 03/13/19 08:00 97.6 F 69 18 119/74 94 L 03/13/19 04:00 98.0 F 76 20 115/74 93 L Weight Admit Weight 219 lb 5 oz Weight 219 lb 5 oz I&O: 03/12/19 03/13/19 03/14/19 06:59 06:59 06:59 Intake Total 650 Output Total 850 400 Balance -200 -400 Result Diagrams: 03/13/19 05:07 03/13/19 05:07 Additional Labs: Accuchecks 03/13/19 03/13/19 03/12/19 12:12 04:22 19:33 POC Glucose 162 H 177 H 124 H 03/12/19 16:08 POC Glucose 138 H Phys Exam - Physical Examination Constitutional: NAD Respiratory: no wheezing, no rales, no rhonchi Cardiovascular: RRR, no significant murmur Gastrointestinal: soft, non-tender, no distention, positive bowel sounds Musculoskeletal: no edema Neurological: non-focal, moves all 4 limbs Dx/Plan (1) Erosive esophagitis Code(s): K22.10 - ULCER OF ESOPHAGUS WITHOUT BLEEDING Status: Acute - Plan * Erosive esophagitis - appreciate GI consult - continue IV ppi and reglan * n/v - schedule reglan with meals * low bp's with meds- continue carvedilol with hold parameters, lower hydralazine with hold parameters * continue other meds, hold long-acting insulin * gentle IVF hydration - renal function stable * * appreciate ID consultation - no indication for abx. * * dvt prophy - on eliquis for a fib stroke risk reduction * gi prophy - IV ppi * code status full * * pall care to assist with goals of care/mood/understanding of disease process - appreciate consult
--- NOTE | 2019-03-13 14:34 | CON ---
DATE OF CONSULTATION: 03/13/2019 REASON FOR CONSULTATION: Questions regarding the interpretation of urinary findings. HISTORY OF PRESENT ILLNESS: A 68-year-old patient, who has a history of atrial fibrillation with cardioversion, ischemic cardiomyopathy with bypass graft surgery, CVA, type 2 diabetes, and severe erosive esophagitis, who was recently admitted for unremitting vomiting. He was sent to the [facility] and after treatment and then, there was recurrence of symptoms of vomiting. He was readmitted now. IV antiacid treatment and motility agent has been initiated intravenously to improve the patient's esophagitis related symptoms. He currently is feeling better since admission, which was 2 days ago. He denies any headaches. No visual symptoms, sore throat, odynophagia, or dysphagia. No cough or sputum production. No chest pain. No more nausea or vomiting. No hematemesis or melena. Voiding without difficulty. PAST MEDICAL HISTORY: Coronary artery disease, atrial fibrillation, bypass graft surgery, CVA, type 2 diabetes, hypertension, obesity, CHF both systolic and diastolic, depression, renal insufficiency, gastric varices, acute ulcer foot and sacrum, now the recently diagnosed erosive esophagitis, BPH, and urinary retention due to neurogenic bladder requiring self catheterization, he has been doing for a while. PAST SURGICAL HISTORY: Knee replacement, fracture of the right femur, bypass graft surgery, inguinal hernia repair, and cardioversion. SOCIAL HISTORY: . Had been living in [place]. No smoking. FAMILY HISTORY: AAA in the father. MEDICATIONS: 1. Tylenol. 2. Vitamin C. 3. Lipitor. 4. Coreg. 5. Neurontin. 6. Glucagon. 7. Apresoline. 8. Insulin. 9. Reglan. 10. Zosyn. 11. Protonix. PHYSICAL EXAMINATION: VITAL SIGNS: He has been afebrile through the hospital stay. Other vital signs are normal. SKIN: He has areas of abrasion in the gluteal region and there is a shallow ulcer with surrounding callus at the bottom aspect of the first MPJ skin site. The patient has peripheral IV access and he does not have an indwelling catheter. He does intermittent self catheterization in the hospital. HEENT: Ocular movements conjugate. Oral cavity with only a few teeth remaining in the lower mandible with quite a bit of decay and gum disease. NECK: Supple. No jugular vein distention or carotid bruits. LUNGS: Symmetric clear breath sounds. HEART: S1 and S2. Regular rate. No S3 or S4. ABDOMEN: Soft, not distended or tender. No ascites. No bladder distention. EXTREMITIES: No joint inflammatory activity noted. Pulses 1+ in dorsalis pedis. Strength in extremities is symmetric 5/5. NEUROLOGIC: Cognitive function appears to be intact. He volunteered, he was depressed, but denied any suicidal ideation. LABORATORY DATA: White cell count 14.3 and 17.6, hemoglobin 16, and platelets 233. Creatinine was 2.05, now 1.92 and bilirubin 1.5. Liver profile normal. Albumin 3.5 and globulin 3.6. Urinalysis with greater than 50 wbc's. ASSESSMENT: Type 2 diabetes, neurogenic bladder with in and out catheterization, ischemic cardiomyopathy, erosive esophagitis with relapse of symptoms leading to readmission, and depression. DISCUSSION: The urinary findings are expected in the patients with in and out catheterization requirement and I would not advise treating this finding. He already received a short course of Zosyn, but I would only reserve treatment if the patient develops symptoms including fever, suprapubic pain, dysuria, and so on. He is at risk for development of nephrolithiasis in the future and may have to be monitored for that. Job ID: [id number]
[2019-03-13] MEDS: Metoclopramide 10 MG/10 ML UDCUP PO SCH ×2 (16:35→20:58)
[2019-03-13] MEDS: Tamsulosin HCl 0.4 MG CAP PO SCH (20:58)
--- NOTE | 2019-03-13 21:13 | PRG ---
DATE OF SERVICE: 03/13/2019 SUBJECTIVE: Mr. Quintanilla has had no further vomiting today. He has spit up some phlegm. He is feeling better in general. OBJECTIVE: VITAL SIGNS: Temperature 98.1, pulse 82, blood pressure 138/83. GENERAL: He is in no acute distress. Alert and oriented x3. LUNGS: Clear to auscultation bilaterally. HEART: Regular rate and rhythm. ABDOMEN: Soft, nontender, nondistended. Bowel sounds are present. EXTREMITIES: 1+ lower extremity edema. IMPRESSION: 1. Chronic nausea and vomiting, possibly secondary to gastroparesis. Gastric emptying scan really will not be particularly helpful at this time while he is still acutely having the nausea and vomiting. Overall, he is improving with Reglan and proton pump inhibitors. We will continue the current treatment. 2. Severe grade D erosive esophagitis by endoscopy last month. He has been off proton pump inhibitors for the last month despite these findings. Again, endoscopy is unlikely to management and budget analyst. He will just need to continue the twice daily proton pump inhibitors. RECOMMENDATIONS: 1. Continue PPI b.i.d. 2. Continue the Reglan 10 mg q.6 hours. Once he starts taking more oral intake, this can be transitioned to oral dosing before meals and can ultimately be dropped to 5 mg dose. I would continue the Reglan over the next month as long as we are working on healing his esophagitis. From there, we can start trying to wean back and potentially perform a gastric emptying scan as an outpatient. 3. I will sign off for now. Please call if GI can be of assistance. Job ID: [id number]
[2019-03-14 04:26] LABS: #Basophils 0.1 thou/uL (0.0-0.2); #Eosinphils 0.4 thou/uL (0.0-0.7); #Lymphocytes 2.3 thou/uL (1.20-3.40); #Monocytes 0.9 thou/uL (0.11-0.59); #Neutrophils 7.8 thou/uL (1.40-6.50); %Basophils 0.5 % (0.0-1.0); %Eosinophils 3.7 % (0.0-10.0); %Lymphocytes 20.2 % (21.0-51.0); %Neutrophils 67.6 % (42.0-75.0); Hemoglobin 13.4 g/dL (14.0-18.0); Mean Corpuscular HGB CONC 32.6 g/dL (32.0-36.0); Mean Corpuscular Hemoglobin 29.8 pg (27.0-31.0); Mean Corpuscular Volume 91.4 fL (78.0-98.0); Mean Platelet Volume 7.9 fL (7.4-10.4); Platelet Count 171 thou/uL (130-400); RBC Distribution Width 14.7 % (11.5-14.5); Red Blood Cell (RBC) Count 4.49 mill/uL (4.70-6.10); White Blood Cell (WBC) Count 11.5 thou/uL (4.8-10.8)
[2019-03-14 04:52] LABS: Anion Gap 11 mmol/L (10-20); BUN (Urea Nitrogen) 23 mg/dL (8.4-25.7); Calc. Creatinine Clearance 59 mL/min (70-130); Calcium 8.2 mg/dL (7.8-10.44); Carbon Dioxide 19 mmol/L (23-31); Chloride 111 mmol/L (98-107); Estimated GFR-MDRD 41; Glucose 169 mg/dL (80-115); Potassium 3.4 mmol/L (3.5-5.1); Sodium 138 mmol/L (136-145)
[2019-03-14] MEDS: Metoclopramide 10 MG/10 ML UDCUP PO SCH ×4 (07:44→20:10)
[2019-03-14] MEDS: Ascorbic Acid 500 mg Chewable Tablet PO SCH (07:45)
[2019-03-14] MEDS: Gabapentin 100 MG CAP PO SCH ×3 (07:46→21:10)
[2019-03-14] MEDS: Atorvastatin Calcium 40 MG TAB PO SCH (07:46)
[2019-03-14] MEDS: Sodium Bicarbonate Tab 325 MG TAB PO SCH ×2 (07:46→21:10)
[2019-03-14] MEDS: hydrALAZINE 25 MG TAB PO SCH ×3 (07:46→21:10)
[2019-03-14] MEDS: Carvedilol 25 MG TAB PO SCH ×2 (07:46→17:19)
[2019-03-14] MEDS: Pantoprazole 40 MG VIAL IVP SCH ×2 (07:46→21:10)
[2019-03-14] MEDS: Polyethylene Glycol 3350 17 GM Packet PO SCH (07:50)
[2019-03-14] MEDS: Sodium Chloride 0.9% 1,000 ML IV SCH (07:54)
[2019-03-14] MEDS: Apixaban 2.5 MG TAB PO SCH ×2 (11:05→21:10)
--- NOTE | 2019-03-14 13:07 | PDOC.PN ---
- Subjective Encounter Start Date: 03/14/19 Encounter Start Time: 13:05 Subjective: no CO today - Objective Resuscitation Status - Order Detail: 03/12/19 09:12 Resuscitation Status Routine Resuscitation Status: FULL: Full Resuscitation MAR Reviewed: Yes Vital Signs & Weight: Vital Signs (12 hours) Temp Pulse Resp BP BP Pulse Ox 03/14/19 08:00 97 03/14/19 07:46 65 155/90 H 03/14/19 07:30 97.5 F L 65 18 155/90 H 97 Weight Admit Weight 219 lb 5 oz Weight 219 lb 5 oz I&O: 03/13/19 03/14/19 03/15/19 06:59 06:59 06:59 Intake Total 650 Output Total 850 850 200 Balance -200 -850 -200 Result Diagrams: 03/14/19 03:58 03/14/19 03:58 Additional Labs: Accuchecks 03/14/19 03/13/19 03/13/19 10:44 19:48 15:59 POC Glucose 137 H 159 H 150 H Phys Exam - Physical Examination Neck: no JVD Respiratory: clear to auscultation bilateral Cardiovascular: RRR, no significant murmur Gastrointestinal: soft, positive bowel sounds Musculoskeletal: edema present Dx/Plan (1) Erosive esophagitis Code(s): K22.10 - ULCER OF ESOPHAGUS WITHOUT BLEEDING Status: Acute (2) Acute on chronic renal failure Code(s): N17.9 - ACUTE KIDNEY FAILURE, UNSPECIFIED; N18.9 - CHRONIC KIDNEY DISEASE, UNSPECIFIED Status: Acute Qualifiers: Acute renal failure type: unspecified Chronic kidney disease stage: stage 3 (moderate) Qualified Code(s): N17.9 - Acute kidney failure, unspecified; N18.3 - Chronic kidney disease, stage 3 (moderate); N18.3 - Chronic kidney disease, stage 3 (moderate) Comment: Improving with fluid administration (3) Atrial fibrillation Code(s): I48.91 - UNSPECIFIED ATRIAL FIBRILLATION Status: Acute Qualifiers: Atrial fibrillation type: paroxysmal Qualified Code(s): I48.0 - Paroxysmal atrial fibrillation (4) CAD (coronary artery disease) Code(s): I25.10 - ATHSCL HEART DISEASE OF [place] CORONARY ARTERY W/O ANG PCTRS Status: Chronic Qualifiers: Coronary Disease-Associated Artery/Lesion type: [place] artery [place] vs. transplanted heart: [place] heart Associated angina: without angina Qualified Code(s): I25.10 - Atherosclerotic heart disease of [place] coronary artery without angina pectoris (5) DM type 2 causing CKD stage 3 Code(s): E11.22 - TYPE 2 DIABETES MELLITUS W DIABETIC CHRONIC KIDNEY DISEASE; N18.3 - CHRONIC KIDNEY DISEASE, STAGE 3 (MODERATE) Status: Chronic Qualifiers: Diabetes mellitus terminal press operator insulin use: with terminal press operator use Qualified Code( s): E11.22 - Type 2 diabetes mellitus with diabetic chronic kidney disease; N18.3 - Chronic kidney disease, stage 3 (moderate); Z79.4 - exterminator helper termite (current) use of insulin (6) HTN (hypertension) Code(s): I10 - ESSENTIAL (PRIMARY) HYPERTENSION Status: Chronic Qualifiers: Hypertension type: essential hypertension Qualified Code(s): I10 - Essential (primary) hypertension (7) Systolic congestive heart failure Code(s): I50.20 - UNSPECIFIED SYSTOLIC (CONGESTIVE) HEART FAILURE Status: Chronic Qualifiers: Heart failure chronicity: chronic Qualified Code(s): I50.22 - Chronic systolic (congestive) heart failure Comment: Monitor closely for evidence of fluid overload during rescusitation - Plan cont PPI iv q12h -: cont reglan 10mg q6h until eating well, then can transition to po -: cont coreg, hydralazine, etc -: cont eliquis for AF * .
[2019-03-14] MEDS: Tamsulosin HCl 0.4 MG CAP PO SCH (21:10)
[2019-03-14] MEDS ORDERED: Loperamide HCl 2 MG CAP PO SCH (22:00)
[2019-03-15] MEDS: Sodium Chloride 0.9% 1,000 ML IV SCH ×2 (03:31→20:37)
[2019-03-15] MEDS: Pantoprazole 40 MG VIAL IVP SCH ×2 (08:12→20:37)
[2019-03-15] MEDS: Metoclopramide 10 MG/10 ML UDCUP PO SCH ×2 (08:12→10:39)
[2019-03-15] MEDS: Atorvastatin Calcium 40 MG TAB PO SCH (08:14)
[2019-03-15] MEDS: Gabapentin 100 MG CAP PO SCH ×3 (08:14→20:36)
[2019-03-15] MEDS: hydrALAZINE 25 MG TAB PO SCH ×3 (08:14→20:37)
[2019-03-15] MEDS: Apixaban 2.5 MG TAB PO SCH ×2 (08:14→20:36)
[2019-03-15] MEDS: Ascorbic Acid 500 mg Chewable Tablet PO SCH (08:14)
[2019-03-15] MEDS: Carvedilol 25 MG TAB PO SCH ×2 (08:14→17:21)
[2019-03-15] MEDS: Sodium Bicarbonate Tab 325 MG TAB PO SCH ×2 (08:14→20:37)
[2019-03-15] MEDS: Polyethylene Glycol 3350 17 GM Packet PO SCH (08:15)
--- NOTE | 2019-03-15 10:48 | PDOC.PALCO ---
Palliative Care Consult - Consult Details Requesting Physician: Dr Meier Reason for Consult: assistance with communication prognosis/disease, complex decision-making, coping issues - Pertinent HPI Patient transferred to the emergency room from [facility] secondary to intractable nausea and vomiting x 2 days. Patient admitted to the hospital for further evaluation and management. Mr Quintanilla was at [facility] February 11 for treatment for the corrosive esophagitis, he was noncompliant with medications after discharge as per [facility], refusing medications. Patient was treated for severe constipation Monday at his facility. Patient was seen in his room today after receiving consult from Dr Meier. Patient awake, alert, oriented. Soft speech, poor dentition. Bloody mucous. Denies vomiting today, however remains with chronic nausea. States only food source that he can tolerate is ice. - Pertinent PMH CAD, Atrial Fib (cardioversion in January 2019), CVA, HTN, DM II, Obesity, Chronic combined heart failure, CKD II, Severe erosive esophagitis, BPH, Self cath 2-3 xs a day secondary to urinary retention, Femur fracture with repair 2018 resulting in current stay at [facility] - Social History Smoking Status: Never smoker Smoking: no tobacco exposure Alcohol Use: none Drug Use History: none Living Situation: other - Medications MAR Reviewed: Yes - Allergies Allergies/Adverse Reactions: Allergies Allergy/AdvReac Type Severity Reaction Status Date / Time nitroglycerin Allergy INCREASED Verified 12/27/18 18:54 BP - Subjective Chronically ill appearing, states he is frustrated. Bloody mucous cleared frequently. Persistent nausea. Urinary retention resulting in patient self cath. - Objective Vital Signs: Vital Signs - Most Recent Temp Pulse Resp BP Pulse Ox 97.4 F L 71 20 151/78 H 98 03/14/19 19:44 03/15/19 08:14 03/14/19 19:44 03/14/19 19:44 03/14/19 20:00 Palliative Performance Scale: 40 - Physical Exam Deviation from normal: Depressed, poor dentition HEENT: PERRLA Deviation from normal: poor dentition, bloody mucous from esophagus Respiratory: no wheezing, unlabored breathing Cardiovascular: RRR Gastrointestinal: soft, positive bowel sounds Deviation from normal: poor mobility right leg R/T Hip fx Psychiatric: A&O x 3 Deviation from normal: Cap refill greater than 4, fair/poor turgor - Problem List (1) Palliative care encounter Code(s): Z51.5 - ENCOUNTER FOR PALLIATIVE CARE Current Visit: Yes Status: Acute Assessment: Several chronic disease processes impacting patient quality of life. Has been noncompliant at [facility], refusing medications and therapy. Recurrent nausea absence of vomiting currently. (2) Erosive esophagitis Code(s): K22.10 - ULCER OF ESOPHAGUS WITHOUT BLEEDING Current Visit: Yes Status: Acute Assessment: bloody mucous, lack of appetite. States cold/icy foods most palatable. Comments: Will continue discussion in relation to absence of compliancy in the past preventing healing of esophagitis and identify barriers. (3) Systolic congestive heart failure Code(s): I50.20 - UNSPECIFIED SYSTOLIC (CONGESTIVE) HEART FAILURE Current Visit: No Status: Chronic Qualifiers: Heart failure chronicity: chronic Qualified Code(s): I50.22 - Chronic systolic (congestive) heart failure Assessment: Mild shortness of breath with minimal exertion, may contribute to fatigue with rehab of hip. Will discuss with patient reasons that he was non compliant with rehab and assist patient with goals to promote optimal functional status - Plan/Recommendations Plan: Extensive conversation with patient today, therapeutic listening. 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 *Follow up to identify barriers to compliance with medications/rehab *Assess if Heart Failure impacts patient compliance with rehab secondary to shortness of breath and fatigue. *support food sources that are palatable for patient. [90] minutes spent on this encounter with >50% of the time in counseling and coordination of care. Thank you for this very appropriate consult.
--- NOTE | 2019-03-15 14:43 | PDOC.PN ---
- Subjective Encounter Start Date: 03/15/19 Encounter Start Time: 14:41 Subjective: c/o watery loose stools fo r2 days -: c/o nausea without vomiting - Objective Resuscitation Status - Order Detail: 03/12/19 09:12 Resuscitation Status Routine Resuscitation Status: FULL: Full Resuscitation MAR Reviewed: Yes Vital Signs & Weight: Vital Signs (12 hours) Pulse Pulse Ox 03/15/19 08:14 71 03/15/19 08:00 98 Weight Admit Weight 219 lb 5 oz Weight 219 lb 5 oz I&O: 03/14/19 03/15/19 03/16/19 06:59 06:59 06:59 Intake Total 480 Output Total 850 350 300 Balance -850 -350 180 Result Diagrams: 03/14/19 03:58 03/14/19 03:58 Additional Labs: Accuchecks 03/15/19 03/15/19 03/14/19 10:57 05:00 19:26 POC Glucose 118 H 141 H 152 H 03/14/19 16:06 POC Glucose 144 H Microbiology 02/04/19 16:04 Venous blood - Left Hand Blood Culture - Final NO GROWTH IN 5 DAYS 02/04/19 15:50 Venous blood - Right Hand Blood Culture - Final NO GROWTH IN 5 DAYS 02/04/19 13:54 Urine Straight Catheter Urine Culture - Final NO GROWTH AT 48 HOURS Laboratory Tests 02/04/19 02/04/19 02/04/19 14:07 14:07 16:58 WBC 17.0 H Carbon Dioxide 15 L 18 L Creatinine 02/04/19 02/05/19 02/05/19 22:24 04:17 04:17 WBC 13.8 H Carbon Dioxide 17 L 22 L Creatinine 2.00 H 02/06/19 02/06/19 02/07/19 09:33 09:34 05:05 WBC 13.3 H Carbon Dioxide 21 L 24 Creatinine 1.89 H 02/08/19 02/08/19 02/09/19 04:36 04:36 07:43 WBC 9.2 Carbon Dioxide 25 24 Creatinine 1.73 H 02/10/19 03/10/19 03/12/19 07:36 16:13 05:58 WBC Carbon Dioxide 22 L Creatinine 1.41 H 1.61 H 2.05 H 03/12/19 03/13/19 03/13/19 06:09 05:07 05:07 WBC 14.3 H 17.6 H Carbon Dioxide Creatinine 1.92 H 03/14/19 03/14/19 03:58 03:58 WBC 11.5 H Carbon Dioxide Creatinine 1.68 H Phys Exam - Physical Examination Constitutional: NAD HEENT: PERRLA, moist MMs, sclera anicteric, oral pharynx no lesions Neck: no nodes, no JVD, supple, full ROM Respiratory: no wheezing, no rales, no rhonchi, clear to auscultation bilateral Cardiovascular: RRR, no significant murmur Gastrointestinal: soft, non-tender, no distention, positive bowel sounds Musculoskeletal: no edema, pulses present Neurological: non-focal, normal sensation, moves all 4 limbs Psychiatric: normal affect, A&O x 3 Dx/Plan (1) Erosive esophagitis Code(s): K22.10 - ULCER OF ESOPHAGUS WITHOUT BLEEDING Status: Acute Comment : cont PPI BID (2) Atrial fibrillation Code(s): I48.91 - UNSPECIFIED ATRIAL FIBRILLATION Status: Chronic Qualifiers: Atrial fibrillation type: paroxysmal Qualified Code(s): I48.0 - Paroxysmal atrial fibrillation (3) BPH (benign prostatic hyperplasia) Code(s): N40.0 - BENIGN PROSTATIC HYPERPLASIA WITHOUT LOWER URINRY TRACT SYMP Status: Chronic Qualifiers: Lower urinary tract symptom presence: symptoms present (4) CAD (coronary artery disease) Code(s): I25.10 - ATHSCL HEART DISEASE OF [place] CORONARY ARTERY W/O ANG PCTRS Status: Chronic Qualifiers: Coronary Disease-Associated Artery/Lesion type: [place] artery [place] vs. transplanted heart: [place] heart Associated angina: without angina Qualified Code(s): I25.10 - Atherosclerotic heart disease of [place] coronary artery without angina pectoris (5) CKD (chronic kidney disease) Code(s): N18.9 - CHRONIC KIDNEY DISEASE, UNSPECIFIED Status: Chronic Qualifiers: Chronic kidney disease stage: stage 3 (moderate) Qualified Code(s): N18.3 - Chronic kidney disease, stage 3 (moderate) Comment: stable (6) DM type 2 (diabetes mellitus, type 2) Status: Chronic Qualifiers: Diabetes mellitus complication status: with kidney complications Diabetes mellitus complication detail: with chronic kidney disease Chronic kidney disease stage: stage 3 (moderate) (7) HTN (hypertension) Code(s): I10 - ESSENTIAL (PRIMARY) HYPERTENSION Status: Chronic Qualifiers: Hypertension type: essential hypertension Qualified Code(s): I10 - Essential (primary) hypertension (8) Systolic congestive heart failure Code(s): I50.20 - UNSPECIFIED SYSTOLIC (CONGESTIVE) HEART FAILURE Status: Chronic Qualifiers: Heart failure chronicity: chronic Qualified Code(s): I50.22 - Chronic systolic (congestive) heart failure Comment: Monitor closely for evidence of fluid overload during rescusitation - Plan PT/OT, incentive spirometry, out of bed/ambulate, DVT proph w/SCDs on PPi w Diarrhea-check Cdiff -: supportive care -: self caths .discussed w ID-no urinary symptoms.will not treat Cx -: po reglan -Dc if diarrhea persists * . Review of Systems - Review of Systems Constitutional: weakness, malaise. negative: fever, chills, sweats, other Gastrointestinal: Nausea, Diarrhea. negative: Vomiting, Abdominal Pain, Constipation, Melena, Hematochezia, Other Genitourinary: negative: Dysuria, Frequency, Incontinence, Hematuria, Retention , Other Musculoskeletal: negative: Neck Pain, Shoulder Pain, Arm Pain, Back Pain, Hand Pain, Leg Pain, Foot Pain, Other Skin: negative: Rash, Lesions, Ignacio, Bruising, Other Neurological: negative: Weakness, Numbness, Incoordination, Change in Speech, Confusion, Seizures, Other - Medications/Allergies Allergies/Adverse Reactions: Allergies Allergy/AdvReac Type Severity Reaction Status Date / Time nitroglycerin Allergy INCREASED Verified 12/27/18 18:54 BP Medications: Current Medications Acetaminophen (Tylenol) 650 mg PO Q4H PRN PRN Reason: Headache/Fever/Mild Pain (1-3) Apixaban (Eliquis) 2.5 mg PO BID [facility] Last Admin: 03/15/19 08:14 Dose: 2.5 mg Ascorbic Acid (Vitamin C) 500 mg PO DAILY [facility] Last Admin: 03/15/19 08:14 Dose: 500 mg Atorvastatin Calcium (Lipitor) 40 mg PO DAILY [facility] Last Admin: 03/15/19 08:14 Dose: 40 mg Carvedilol (Coreg) 25 mg PO BID-[facility] Last Admin: 03/15/19 08:14 Dose: 25 mg Dextrose/Water (Dextrose 50%) 25 gm SLOW IVP PRN PRN PRN Reason: Hypoglycemia Gabapentin (Neurontin) 100 mg PO TID [facility] Last Admin: 03/15/19 08:14 Dose: 100 mg Glucagon (Glucagon) 1 mg IM PRN PRN PRN Reason: Hypoglycemia Hydralazine HCl (Apresoline) 10 mg SLOW IVP Q4H PRN PRN Reason: SBP Greater Than 180 Hydralazine HCl (Apresoline) 25 mg PO TID [facility] Last Admin: 03/15/19 08:14 Dose: 25 mg Dextrose/Water (D5w) 1,000 mls @ 0 mls/hr IV .Q0M PRN PRN Reason: Hypoglycemia Sodium Chloride (Normal Saline 0.9%) 1,000 mls @ 50 mls/hr IV .Q20H [facility] Last Admin: 03/15/19 03:31 Dose: 1,000 mls Insulin Human Lispro (Humalog) 0 units SC .MILD SLIDING SCALE PRN PRN Reason: Mild Correctional Scale Insulin Human Lispro (Humalog) 0 units SC .BEDTIME SLIDING SC PRN PRN Reason: Bedtime Correctional Scale Metoclopramide HCl (Reglan) 5 mg PO ACHS [facility] Last Admin: 03/15/19 10:39 Dose: 5 mg Metoclopramide HCl (Reglan) 5 mg IVP Q6H PRN PRN Reason: Nausea/Vomiting Pantoprazole Sodium (Protonix) 40 mg IVP Q12HR [facility] Last Admin: 03/15/19 08:12 Dose: 40 mg Polyethylene Glycol (Miralax) 17 gm PO DAILY [facility] Last Admin: 03/15/19 08:15 Dose: Not Given Sodium Bicarbonate (Bicarbonate, Sodium) 325 mg PO BID [facility] Last Admin: 03/15/19 08:14 Dose: 325 mg Sodium Chloride (Normal Saline Pf) 10 ml FS PRN PRN PRN Reason: RECONSTITUTION Tamsulosin HCl (Flomax) 0.4 mg PO HS [facility] Last Admin: 03/14/19 21:10 Dose: 0.4 mg
[2019-03-15] MEDS: Tamsulosin HCl 0.4 MG CAP PO SCH (20:37)
[2019-03-16] MEDS: Atorvastatin Calcium 40 MG TAB PO SCH (07:58)
[2019-03-16] MEDS: Ascorbic Acid 500 mg Chewable Tablet PO SCH (07:58)
[2019-03-16] MEDS: Carvedilol 25 MG TAB PO SCH ×2 (07:58→16:36)
[2019-03-16] MEDS: hydrALAZINE 25 MG TAB PO SCH ×3 (07:58→20:33)
[2019-03-16] MEDS: Apixaban 2.5 MG TAB PO SCH ×2 (07:58→20:33)
[2019-03-16] MEDS: Sodium Bicarbonate Tab 325 MG TAB PO SCH ×2 (07:58→20:33)
[2019-03-16] MEDS: Pantoprazole 40 MG VIAL IVP SCH ×2 (07:59→20:33)
[2019-03-16] MEDS: Polyethylene Glycol 3350 17 GM Packet PO SCH (07:59)
[2019-03-16] MEDS: Gabapentin 100 MG CAP PO SCH ×3 (07:59→20:33)
[2019-03-16] MEDS ORDERED: Metoclopramide 10 MG/10 ML UDCUP PO PRN (11:36)
--- NOTE | 2019-03-16 13:56 | PDOC.PN ---
- Subjective Encounter Start Date: 03/16/19 Encounter Start Time: 13:55 Subjective: no more diaarhea .no abd pain/N/V -: wants to eat regular foods not just CLD - Objective Resuscitation Status - Order Detail: 03/12/19 09:12 Resuscitation Status Routine Resuscitation Status: FULL: Full Resuscitation MAR Reviewed: Yes Vital Signs & Weight: Vital Signs (12 hours) Temp Pulse Resp BP BP Pulse Ox 03/16/19 11:17 98.1 F 60 18 134/78 94 L 03/16/19 08:00 94 L 03/16/19 07:58 62 131/74 03/16/19 07:03 98.1 F 62 19 131/74 94 L Weight Admit Weight 219 lb 5 oz Weight 219 lb 5 oz I&O: 03/15/19 03/16/19 03/17/19 06:59 06:59 06:59 Intake Total 480 Output Total 350 300 Balance -350 180 Result Diagrams: 03/14/19 03:58 03/14/19 03:58 Additional Labs: Accuchecks 03/16/19 03/15/19 03/15/19 11:18 20:33 16:37 POC Glucose 164 H 147 H 148 H Microbiology 03/15/19 15:28 Stool C. difficile [facility] Antigen & Toxins - Final Phys Exam - Physical Examination Constitutional: NAD HEENT: PERRLA, moist MMs, sclera anicteric, oral pharynx no lesions Neck: no nodes, no JVD, supple, full ROM Respiratory: no wheezing, no rales, no rhonchi, wheezing present, clear to auscultation bilateral Cardiovascular: RRR, no significant murmur Gastrointestinal: soft, non-tender, no distention, positive bowel sounds Musculoskeletal: no edema, pulses present Neurological: non-focal, normal sensation, moves all 4 limbs Psychiatric: normal affect, A&O x 3 Skin: no rash Dx/Plan (1) Erosive esophagitis Code(s): K22.10 - ULCER OF ESOPHAGUS WITHOUT BLEEDING Status: Acute Comment : cont PPI BID (2) Atrial fibrillation Code(s): I48.91 - UNSPECIFIED ATRIAL FIBRILLATION Status: Chronic Qualifiers: Atrial fibrillation type: paroxysmal Qualified Code(s): I48.0 - Paroxysmal atrial fibrillation Comment: stable and rate controlle on Coreg. on eliquis for OAC.continue (3) BPH (benign prostatic hyperplasia) Code(s): N40.0 - BENIGN PROSTATIC HYPERPLASIA WITHOUT LOWER URINRY TRACT SYMP Status: Chronic Qualifiers: Lower urinary tract symptom presence: symptoms present (4) CAD (coronary artery disease) Code(s): I25.10 - ATHSCL HEART DISEASE OF [place] CORONARY ARTERY W/O ANG PCTRS Status: Chronic Qualifiers: Coronary Disease-Associated Artery/Lesion type: [place] artery [place] vs. transplanted heart: [place] heart Associated angina: without angina Qualified Code(s): I25.10 - Atherosclerotic heart disease of [place] coronary artery without angina pectoris Comment: stable (5) CKD (chronic kidney disease) Code(s): N18.9 - CHRONIC KIDNEY DISEASE, UNSPECIFIED Status: Chronic Qualifiers: Chronic kidney disease stage: stage 3 (moderate) Qualified Code(s): N18.3 - Chronic kidney disease, stage 3 (moderate) Comment: stable (6) DM type 2 (diabetes mellitus, type 2) Status: Chronic Qualifiers: Diabetes mellitus complication status: with kidney complications Diabetes mellitus complication detail: with chronic kidney disease Chronic kidney disease stage: stage 3 (moderate) (7) HTN (hypertension) Code(s): I10 - ESSENTIAL (PRIMARY) HYPERTENSION Status: Chronic Qualifiers: Hypertension type: essential hypertension Qualified Code(s): I10 - Essential (primary) hypertension (8) Systolic congestive heart failure Code(s): I50.20 - UNSPECIFIED SYSTOLIC (CONGESTIVE) HEART FAILURE Status: Chronic Qualifiers: Heart failure chronicity: chronic Qualified Code(s): I50.22 - Chronic systolic (congestive) heart failure Comment: Monitor closely for evidence of fluid overload during rescusitation - Plan PT/OT, out of bed/ambulate, DVT proph w/SCDs advance diet as tolerated -: Regaln and Miralax stopped. pt c/o gas and no stools -: will add prn only Reglan -: allan Faulkner back to [facility] in am if tolerates diet.cdiff negative -: am labs * . Review of Systems - Review of Systems Constitutional: weakness, malaise. negative: fever, chills, sweats, other Respiratory: negative: Cough, Dry, Shortness of Breath, Hemoptysis, SOB with Excertion, Pleuritic Pain, Sputum, Wheezing Cardiovascular: negative: chest pain, palpitations, orthopnea, paroxysmal nocturnal dyspnea, edema, light headedness, other Gastrointestinal: negative: Nausea, Vomiting, Abdominal Pain, Diarrhea, Constipation, Melena, Hematochezia, Other Genitourinary: negative: Dysuria, Frequency, Incontinence, Hematuria, Retention , Other Skin: negative: Rash, Lesions, Ignacio, Bruising, Other Neurological: negative: Weakness, Numbness, Incoordination, Change in Speech, Confusion, Seizures, Other - Medications/Allergies Allergies/Adverse Reactions: Allergies Allergy/AdvReac Type Severity Reaction Status Date / Time nitroglycerin Allergy INCREASED Verified 12/27/18 18:54 BP Medications: Current Medications Acetaminophen (Tylenol) 650 mg PO Q4H PRN PRN Reason: Headache/Fever/Mild Pain (1-3) Apixaban (Eliquis) 2.5 mg PO BID [facility] Last Admin: 03/16/19 07:58 Dose: 2.5 mg Ascorbic Acid (Vitamin C) 500 mg PO DAILY [facility] Last Admin: 03/16/19 07:58 Dose: 500 mg Atorvastatin Calcium (Lipitor) 40 mg PO DAILY [facility] Last Admin: 03/16/19 07:58 Dose: 40 mg Carvedilol (Coreg) 25 mg PO BID-[facility] Last Admin: 03/16/19 07:58 Dose: 25 mg Dextrose/Water (Dextrose 50%) 25 gm SLOW IVP PRN PRN PRN Reason: Hypoglycemia Gabapentin (Neurontin) 100 mg PO TID [facility] Last Admin: 03/16/19 07:59 Dose: 100 mg Glucagon (Glucagon) 1 mg IM PRN PRN PRN Reason: Hypoglycemia Hydralazine HCl (Apresoline) 10 mg SLOW IVP Q4H PRN PRN Reason: SBP Greater Than 180 Hydralazine HCl (Apresoline) 25 mg PO TID [facility] Last Admin: 03/16/19 07:58 Dose: 25 mg Dextrose/Water (D5w) 1,000 mls @ 0 mls/hr IV .Q0M PRN PRN Reason: Hypoglycemia Sodium Chloride (Normal Saline 0.9%) 1,000 mls @ 50 mls/hr IV .Q20H [facility] Last Admin: 03/15/19 20:37 Dose: 1,000 mls Insulin Human Lispro (Humalog) 0 units SC .MILD SLIDING SCALE PRN PRN Reason: Mild Correctional Scale Last Admin: 03/16/19 12:23 Dose: 2 unit Insulin Human Lispro (Humalog) 0 units SC .BEDTIME SLIDING SC PRN PRN Reason: Bedtime Correctional Scale Metoclopramide HCl (Reglan) 5 mg PO ACHS PRN PRN Reason: nausea Pantoprazole Sodium (Protonix) 40 mg IVP Q12HR [facility] Last Admin: 03/16/19 07:59 Dose: 40 mg Polyethylene Glycol (Miralax) 17 gm PO DAILY [facility] Last Admin: 03/16/19 07:59 Dose: Not Given Sodium Bicarbonate (Bicarbonate, Sodium) 325 mg PO BID [facility] Last Admin: 03/16/19 07:58 Dose: 325 mg Sodium Chloride (Normal Saline Pf) 10 ml FS PRN PRN PRN Reason: RECONSTITUTION Tamsulosin HCl (Flomax) 0.4 mg PO HS [facility] Last Admin: 03/15/19 20:37 Dose: 0.4 mg
[2019-03-16] MEDS: Tamsulosin HCl 0.4 MG CAP PO SCH (20:33)
[2019-03-16] MEDS: Sodium Chloride 0.9% 1,000 ML IV SCH (20:34)
[2019-03-17 06:58] LABS: #Eosinphils 0.4 thou/uL (0.0-0.7); #Lymphocytes 1.7 thou/uL (1.20-3.40); #Monocytes 0.7 thou/uL (0.11-0.59); #Neutrophils 4.9 thou/uL (1.40-6.50); %Basophils 0.3 % (0.0-1.0); %Eosinophils 4.9 % (0.0-10.0); %Lymphocytes 22.5 % (21.0-51.0); %Neutrophils 63.2 % (42.0-75.0); Hemoglobin 13.1 g/dL (14.0-18.0); Mean Corpuscular HGB CONC 32.8 g/dL (32.0-36.0); Mean Corpuscular Hemoglobin 29.7 pg (27.0-31.0); Mean Corpuscular Volume 90.7 fL (78.0-98.0); Mean Platelet Volume 7.2 fL (7.4-10.4); Platelet Count 175 thou/uL (130-400); RBC Distribution Width 14.6 % (11.5-14.5); Red Blood Cell (RBC) Count 4.41 mill/uL (4.70-6.10); White Blood Cell (WBC) Count 7.7 thou/uL (4.8-10.8)
[2019-03-17 07:18] LABS: Anion Gap 8 mmol/L (10-20); BUN (Urea Nitrogen) 12 mg/dL (8.4-25.7); Calc. Creatinine Clearance 84 mL/min (70-130); Calcium 7.8 mg/dL (7.8-10.44); Carbon Dioxide 21 mmol/L (23-31); Chloride 110 mmol/L (98-107); Estimated GFR-MDRD 61; Glucose 150 mg/dL (80-115); Sodium 136 mmol/L (136-145)
[2019-03-17] MEDS: hydrALAZINE 25 MG TAB PO SCH (09:13)
[2019-03-17] MEDS: Carvedilol 25 MG TAB PO SCH (09:13)
[2019-03-17] MEDS: Atorvastatin Calcium 40 MG TAB PO SCH (09:13)
[2019-03-17] MEDS: Sodium Bicarbonate Tab 325 MG TAB PO SCH (09:13)
[2019-03-17] MEDS: Gabapentin 100 MG CAP PO SCH (09:13)
[2019-03-17] MEDS: Apixaban 2.5 MG TAB PO SCH (09:13)
[2019-03-17] MEDS: Polyethylene Glycol 3350 17 GM Packet PO SCH (09:14)
[2019-03-17] MEDS: Pantoprazole 40 MG VIAL IVP SCH (09:14)
[2019-03-17] MEDS: Ascorbic Acid 500 mg Chewable Tablet PO SCH (09:14)
[2019-03-17] MEDS ORDERED: Potassium Chloride 20 MEQ TAB PO SCH (10:15)
[2019-03-17 11:29] VITALS: BP 144/87; TEMP 98.1
--- NOTE | 2019-03-17 16:32 | DIS ---
DATE OF ADMISSION: 03/12/2019 DATE OF DISCHARGE: 03/17/2019 CONDITION: At the time of discharge, stable and improved. DISCHARGE DISPOSITION: Back to Health system, where the patient is a long-term resident with OT/PT. DISCHARGE DIAGNOSES: 1. Severe erosive esophagitis. 2. Chronic atrial fibrillation, on chronic anticoagulation. 3. BPH, the patient self caths. 4. History of coronary artery disease. 5. Chronic kidney disease, stage 3. 6. Diabetes mellitus, type 2. 7. Hypertension. 8. Chronic systolic congestive heart failure, currently stable. DISCHARGE MEDICATIONS: New medication, Protonix 40 mg p.o. b.i.d. instead of once a day and Reglan 5 mg a.c. and h.s. This has been done as needed basis instead of a scheduled basis as the patient was having significant diarrhea after 2 days of scheduled Otherwise, resume home medications including Eliquis 2.5 mg p.o. b.i.d. No other changes were made. Please see admission history and physical dictated by Dr. Laureen Meier on 03/12/2019 for full list. IN-HOUSE CONSULTATION: 1. Infectious Disease, Dr. Lewis. 2. Gastroenterology, Dr. Frank Rollins. PROCEDURES DONE IN HOSPITAL: Abdominal ultrasound on 03/12/2019, which showed cholelithiasis without evidence of cholecystitis and otherwise stable examination without any acute changes. HISTORY OF PRESENTING ILLNESS: Mr. Quintanilla is a 68-year-old male, who has been in and out of the hospital multiple times in the last few years with past medical history of esophagitis; hypertension; atrial fibrillation, on Eliquis; diabetes; coronary artery disease; and CHF, who presented once again from [facility] complaining of nausea, vomiting, and constipation. He was not able to take any of his medications prescribed during his discharge 2 days ago from the emergency room. At the time of presentation, he was hemodynamically stable. An abdominal ultrasound was done, which did not show any acute changes. He did have some leukocytosis with concerns of urinary tract infection. He was started on IV Protonix and IV fluids, and Gastroenterology and Infectious Disease teams were consulted as well. Please see admission history and physical dictated by Dr. Laureen Meier, which is quite extensive for full details. It was noticed by Dr. Meier when she called the long term that the patient has refused all of his medications including Eliquis and Protonix. He was also refusing physical therapy over there. Palliative care team was also consulted as they have seen the patient in the past during multiple hospitalizations. This is his 4th hospitalization just this year. HOSPITAL COURSE: The patient was seen by Dr. Rollins, who recommended continuation and restarting Protonix. He was also given Reglan. Both were IV and eventually were changed to oral when his symptoms abated. He was able to tolerate a regular diet, but had numerous complaints about the quality of food at the [facility] and wanted to stay as long as it takes for him to be able to have a better diet. He, however, did not have any physical issues with the swallowing by the time of discharge. He was not having any nausea or vomiting. He did have some diarrhea with , which improved after it was stopped. C diff was tested and it was negative. Because of urinary findings during most recent admission with VRE and Pseudomonas, Dr. Lewis with the ID team was consulted. He recommended against any medications as the patient self caths and these findings are rather confounding and not true infection. Other than that, the patient remained hemodynamically stable throughout the hospitalization. He did exhibit some bizarre behavior including some inappropriate behavior towards the nurses. He also exhibited reluctance to go back to the [place] and requested a new placement to a rehab. The patient has not moved out of the bed despite multiple attempts from our physical therapist. At this time, I do not feel that he is appropriate for higher level of intense inpatient rehab. I am, however, arranging him to continue physical therapy, occupation therapy over at [place], which he is reluctant to do that in the first place. Otherwise, he is stable for discharge as there is no clear medical need for him to stay in the hospital anymore. He was seen and examined prior to discharge. PHYSICAL EXAMINATION: VITAL SIGNS: Stable. Blood pressure 144/87. GENERAL: No acute distress. CHEST: Clear to auscultation bilaterally. HEART: Rate and rhythm are regular. ABDOMEN: Soft, nontender, nondistended. TOTAL TIME: Total time spent in the discharge of this patient 38 minutes. Job ID: [id number]
== END 2019-03-17 14:15 | DRG 381 ==
LOC: ERS 05:49 → ERHOLD 07:17 → OBSVTOIN 09:12 → T4-B 13:53
PROVIDERS: ADMIT Family Medicine; ATTEND Family Medicine
DX: K22.10 Ulcer of esophagus without bleeding (principal); I50.42 Chronic combined systolic (congestive) and diastolic (congestive) heart failure; I13.0 Hypertensive heart and chronic kidney disease with heart failure and stage 1 through stage 4 chronic kidney disease, or unspecified chronic kidney disease; N17.9 Acute kidney failure, unspecified; I48.0 Paroxysmal atrial fibrillation; I25.10 Atherosclerotic heart disease of native coronary artery without angina pectoris; E66.9 Obesity, unspecified; F32.9 Major depressive disorder, single episode, unspecified; E11.22 Type 2 diabetes mellitus with diabetic chronic kidney disease; N40.1 Benign prostatic hyperplasia with lower urinary tract symptoms; N18.3 Chronic kidney disease, stage 3 (moderate); K59.00 Constipation, unspecified; R33.9 Retention of urine, unspecified; I25.5 Ischemic cardiomyopathy; Z95.1 Presence of aortocoronary bypass graft; Z79.01 Long term (current) use of anticoagulants; Z79.899 Other long term (current) drug therapy; Z79.4 Long term (current) use of insulin; Z91.14 Patient's other noncompliance with medication regimen; Z86.73 Personal history of transient ischemic attack (TIA), and cerebral infarction without residual deficits; Z68.29 Body mass index [BMI] 29.0-29.9, adult; Z51.5 Encounter for palliative care
CPT/HCPCS: 36415; 36416; 51701; 74022; 76705; 80048; 80053; 81003; 81015; 83690; 85025; 87077; 87086; 87186; 87324; 87449; 93005; 93010; 96360; 96361; 96365; 96375; C9113; J0696; J2405; J2543; J2765; J3490; Q0162

== ENCOUNTER 2019-04-13 21:32 | Emergency (ER) | payer MEDICARE | END 2019-04-13 23:51 | disposition home or self-care (01) | LOC: ERS 21:32 | DX: K59.00 Constipation, unspecified (principal); G25.0 Essential tremor; I25.2 Old myocardial infarction; E11.9 Type 2 diabetes mellitus without complications; I10 Essential (primary) hypertension; F32.9 Major depressive disorder, single episode, unspecified; Z79.899 Other long term (current) drug therapy; Z79.01 Long term (current) use of anticoagulants; Z79.4 Long term (current) use of insulin | CPT/HCPCS: 99283 ==

== ENCOUNTER 2019-04-20 15:00 | Inpatient (IN) | payer MEDICARE ==
[2019-04-20 16:11] LABS: #Basophils 0.1 thou/uL (0.0-0.2); #Eosinphils 0.5 thou/uL (0.0-0.7); #Lymphocytes 2.2 thou/uL (1.20-3.40); #Monocytes 0.9 thou/uL (0.11-0.59); #Neutrophils 6.3 thou/uL (1.40-6.50); %Basophils 0.6 % (0.0-1.0); %Eosinophils 4.6 % (0.0-10.0); %Lymphocytes 22.5 % (21.0-51.0); %Monocytes 9.3 % (0.0-10.0); Hemoglobin 11.7 g/dL (14.0-18.0); Mean Corpuscular HGB CONC 33.4 g/dL (32.0-36.0); Mean Corpuscular Hemoglobin 30.9 pg (27.0-31.0); Mean Corpuscular Volume 92.6 fL (78.0-98.0); Mean Platelet Volume 6.3 fL (7.4-10.4); Platelet Count 285 thou/uL (130-400); RBC Distribution Width 14.8 % (11.5-14.5); Red Blood Cell (RBC) Count 3.77 mill/uL (4.70-6.10)
--- NOTE | 2019-04-20 16:15 | RAD ---
Exam:2 views right tibia fibula HISTORY: Pain. Swelling x2 days COMPARISON: None FINDINGS: Incompletely evaluated prosthesis and internal fixation hardware at the level of distal fem ur. There is internal fixation hardware at the level of the ankle. No obvious perihardware lucency with regards to the hardware at the level of the ankle. Incompletely healed fracture at the distal fe mur is noted No obvious periosteal reaction with regards to the tibia and fibula. No fracture. IMPRESSION: 1. No fracture. No periosteal reaction. 2. Uncomplicated internal fixation hardware at the level of the ankle. 3. Incompletely evaluated prosthesis at the left knee along with internal fixation hardware in the l eft femur. Multiple lucencies at the distal left femur do persistent and may represent an incompletely healed fracture. Transcribed Date/Time: 04/20/2019 4:28 PM
[2019-04-20 16:18] LABS: INR-International Normal Ratio 1.2; Prothrombin Time 15.4 SEC (12.0-14.7)
[2019-04-20 16:19] LABS: PTT 33.6 SEC (22.9-36.1)
[2019-04-20 16:20] LABS: D-Dimer Test 0.86 *mcg/mL (0.27-0.43)
[2019-04-20 16:32] LABS: ALT (SGPT) 11 U/L (8-55); AST (SGOT) 13 U/L (5-34); Albumin 2.6 g/dL (3.4-4.8); Alkaline Phosphatase 104 U/L (40-150); Anion Gap 11 mmol/L (10-20); BUN (Urea Nitrogen) 18 mg/dL (8.4-25.7); Bilirubin, Total 0.7 mg/dL (0.2-1.2); Calc. Creatinine Clearance 0 mL/min (70-130); Calcium 8.3 mg/dL (7.8-10.44); Carbon Dioxide 26 mmol/L (23-31); Chloride 105 mmol/L (98-107); Estimated GFR-MDRD 40; Glucose 142 mg/dL (80-115); Potassium 5.1 mmol/L (3.5-5.1); Protein, Total 5.6 g/dL (5.8-8.1); Sodium 137 mmol/L (136-145)
--- NOTE | 2019-04-20 16:37 | ULT ---
RIGHT LOWER EXTREMITY VENOUS ULTRASOUND WITH DOPPLER: 04/20/19 HISTORY: Pain. Swelling. COMPARISON: None. TECHNIQUE: Rodriguez scale, color flow, Doppler imaging with spectral waveform analysis performed of the right lower extremity venous system. FINDINGS: There is compressibility, presence of flow and augmentation in the common femoral vein, femoral vein, and popliteal vein. There is flow in the greater saphenous vein, profunda vein and posterior tibial vein. IMPRESSION: No evidence of thrombus in the right lower extremity deep venous system. POS: OFF
[2019-04-20] MEDS ORDERED: Ondansetron ODT 4 MG TAB SL PRN (22:55)
[2019-04-20] MEDS ORDERED: Ondansetron PF 4 MG/2 ML Vial IVP PRN (22:55)
[2019-04-20] MEDS ORDERED: Acetaminophen 325 MG TAB PO PRN (22:55)
[2019-04-20 23:31] VITALS: BMI 34.7
[2019-04-21] MEDS ORDERED: Dextrose 5% in Water 1,000 ML IV PRN (07:39)
[2019-04-21] MEDS ORDERED: Dextrose 50% Abboject 50 ML SYRINGE SLOW IVP PRN (07:39)
[2019-04-21] MEDS ORDERED: HumaLOG 300 UNITS/3 ML VIAL SC PRN (07:39)
[2019-04-21 08:37] LABS: Hemoglobin 12.3 g/dL (14.0-18.0); Platelet Count 273 thou/uL (130-400)
[2019-04-21] MEDS: Gabapentin 100 MG CAP PO SCH ×3 (08:51→20:40)
[2019-04-21] MEDS: Sodium Bicarbonate Tab 325 MG TAB PO SCH ×2 (08:51→20:41)
[2019-04-21] MEDS: hydrALAZINE 25 MG TAB PO SCH ×3 (08:51→20:40)
[2019-04-21] MEDS: Apixaban 2.5 MG TAB PO SCH ×2 (08:51→20:41)
[2019-04-21] MEDS: Zinc Sulfate 220 MG CAP PO SCH (08:51)
[2019-04-21] MEDS: Polyethylene Glycol 3350 17 GM Packet PO SCH ×2 (08:51→08:52)
[2019-04-21] MEDS: traMADol HCl 50 MG TAB PO SCH ×3 (08:52→20:40)
[2019-04-21] MEDS: Amiodarone 200 MG TAB PO SCH ×2 (08:52→20:40)
[2019-04-21] MEDS: Furosemide 20 MG TAB PO SCH (08:52)
[2019-04-21] MEDS: Carvedilol 25 MG TAB PO SCH ×2 (08:52→20:40)
[2019-04-21] MEDS: Atorvastatin Calcium 40 MG TAB PO SCH (08:52)
[2019-04-21 11:03] LABS: Bilirubin Negative (Negative); Blood, Urine Negative (Negative); Clarity Clear (Clear); Glucose, Urine (Dipstick) Normal (Negative); Leukocyte Negative Leu/uL (Negative); Nitrite Negative (Negative); Protein, Urine (Dipstick) Negative (Neg-Trace); RBC/HPF 0-3 HPF (0-3); Squamous Epithelial 0-3 HPF (0-3); Urobilinogen Normal mg/dL (Less than 2); WBC/HPF 0-3 HPF (0-3)
[2019-04-21 11:16] LABS: Bacteria/HPF None Seen HPF (None Seen)
[2019-04-21] MEDS: Tamsulosin HCl 0.4 MG CAP PO SCH (20:40)
[2019-04-21] MEDS: Metoclopramide 10 MG/10 ML UDCUP PO SCH ×2 (20:41→20:44)
[2019-04-21] MEDS: Insulin Glargine 25 UNITS in Pre-Filled Syringe 1 EACH SC SCH (20:44)
[2019-04-22] MEDS: traMADol HCl 50 MG TAB PO SCH ×2 (02:23→08:21)
[2019-04-22 06:36] LABS: Anion Gap 11 mmol/L (10-20); BUN (Urea Nitrogen) 16 mg/dL (8.4-25.7); Calc. Creatinine Clearance 82 mL/min (70-130); Calcium 8.1 mg/dL (7.8-10.44); Carbon Dioxide 22 mmol/L (23-31); Chloride 106 mmol/L (98-107); Estimated GFR-MDRD 50; Glucose 102 mg/dL (80-115); Potassium 3.9 mmol/L (3.5-5.1); Sodium 135 mmol/L (136-145)
[2019-04-22] MEDS: Carvedilol 25 MG TAB PO SCH ×2 (08:22→20:33)
[2019-04-22] MEDS: Apixaban 2.5 MG TAB PO SCH ×2 (08:22→20:34)
[2019-04-22] MEDS: Polyethylene Glycol 3350 17 GM Packet PO SCH (08:22)
[2019-04-22] MEDS: Sodium Bicarbonate Tab 325 MG TAB PO SCH ×2 (08:22→20:33)
[2019-04-22] MEDS: hydrALAZINE 25 MG TAB PO SCH ×3 (08:23→20:32)
[2019-04-22] MEDS: Amiodarone 200 MG TAB PO SCH ×2 (08:23→20:33)
[2019-04-22] MEDS: Gabapentin 100 MG CAP PO SCH ×3 (08:23→20:33)
[2019-04-22] MEDS: Atorvastatin Calcium 40 MG TAB PO SCH (08:24)
[2019-04-22] MEDS: Zinc Sulfate 220 MG CAP PO SCH (08:24)
[2019-04-22] MEDS: Furosemide 20 MG TAB PO SCH (08:24)
--- NOTE | 2019-04-22 09:21 | HP ---
CHIEF COMPLAINT: Generalized tiredness, right lower extremity swelling, inability to ambulate and function at home alone. HISTORY OF PRESENT ILLNESS: The patient is a 68-year-old male, who was just discharged from the [place], where he was getting physical therapy after his last hospitalization at [facility], and he was just discharged home. He lives alone. He noticed a lot of swelling, getting worse. He could not see his toes on the right foot. He lives alone and he was not able to function, so he called 911, and he was brought to the emergency room for further evaluation of his swelling and generalized tiredness. He is getting admitted for further evaluation of his condition. He had ultrasound and Doppler done on his lower extremities, which did not show any clots. He denies any fever or chills. His appetite is fair. His primary care physician is Dr. Waterman and surrogate decision maker is his friend, Gilberto Stuart. He had fracture of his right leg in November after he fell, he had internal fixation done by Dr. Mendoza at this time. PAST MEDICAL HISTORY: 1. Paroxysmal atrial fibrillation with recent cardioversion in January. 2. Coronary artery disease. 3. History of CVA. 4. Diabetes mellitus, type 2. 5. Hypertension. 6. Obesity. 7. Chronic systolic and diastolic heart failure with EF of 45% to 50% in December 2018. 8. Depression. 9. Dyslipidemia. 10. Chronic kidney disease, stage 3. 11. Gastroparesis. 12. Stage II ulcer on his left foot, which is healed. 13. Severe erosive esophagitis. 14. BPH. 15. Urinary retention and self catheterization 2 to 3 times a day. PAST SURGICAL HISTORY: 1. Bilateral knee replacement. 2. CABG. 3. Distal femur fracture with repair in December 2018. 4. Inguinal hernia repair. 5. Cardioversion in January [address] Crisostomo. SOCIAL HISTORY: He denies any alcohol intake. He does not drink alcohol. He does not use any illicit drugs. FAMILY HISTORY: His father had AAA, but he was killed in motor vehicle accident when he was 78. Mother was at the senior care, had seizures, and she passed in old age. MEDICATIONS: At the time of admission; 1. Hydralazine 75 mg three times a day. 2. Carvedilol 25 mg twice a day. 3. Flomax 0.4 mg once a day. 4. Atorvastatin 40 mg once a day. 5. Gabapentin 100 mg three times a day. 6. Isosorbide mononitrate 120 mg once a day. 7. MiraLAX 17 g once a day. 8. Protonix 20 mg once a day. 9. Amiodarone 200 mg twice a day. 10. Eliquis 2.5 mg twice a day. 11. Lantus 25 units at bedtime. 12. Reglan one tablet once a day at bedtime. 13. Sodium bicarbonate 325 mg one tablet twice a day. 14. Zinc two tablets once a day. 15. Tramadol one tablet at bedtime. ALLERGIES: NITRO-DUR AND NITROGLYCERIN. REVIEW OF SYSTEMS: CONSTITUTIONAL: Negative for fever or chills. EYES: Negative for eye pain or eye discharge. Positive for some vision haziness. ENT: Negative for epistaxis or nasal congestion. CARDIOVASCULAR: Negative for chest pain or palpitations. RESPIRATORY: Negative for shortness of breath or cough. GI: Negative for nausea or vomiting. MUSCULOSKELETAL: Positive for right knee pain on ambulation and swelling of the lower extremities. SKIN: Negative for rash or any infection. NEUROLOGIC: Negative for headaches or seizures. PSYCHIATRIC: Negative for suicidal or homicidal ideations. PHYSICAL EXAMINATION: GENERAL: He is not in any distress during my visit. VITAL SIGNS: His blood pressure is 159/79, pulse is 62, respiratory rate is 18, temperature is 98.1, and pulse oximetry is 96% on room air. HEENT: Head is atraumatic and normocephalic. Eyes are PERRLA. Sclerae are nonicteric. Oral mucosa is moist. NECK: Supple. Thyroid is not palpable. LUNGS: Clear. HEART: S1 and S2, normal. No S3. No S4. Regular. ABDOMEN: Soft. Somewhat obese. Nontender. Bowel sounds are present. EXTREMITIES: He has 1+ peripheral edema on upper extremities, left lower extremity; and 2+ peripheral edema on the right lower extremity. The pulses are not palpable secondary to the swelling most likely. He has scars from previous knee replacement, which are healed properly, and the scar in the distal part of his right femur from the previous fracture and internal fixation. NEUROLOGIC: He is alert and oriented x4. There are no any motor or sensory deficits. His voice is kind of harsh. Apparently, he has some vocal cord dysfunction, which was recently injected by Dr. Singletary unsuccessfully by the way. LABORATORY DATA: Showed white count of 10.0, hemoglobin of 11.7, hematocrit 34.9, platelet count is 285. PT of 15.4, INR 1.2, aPTT 33.6. D-dimer is 0.86. Electrolytes within normal limits. CO2 is 26, BUN 18, creatinine 1.7, glucose 142, total protein 5.6, albumin 2.6, and globulin 3.0. X-ray of his tibia/fibula showed no fracture, uncomplicated internal fixation hardware at the level of the ankle, and some multiple lucencies at the distal left femur do persist and may represent incompletely healed fracture. He had vascular ultrasound on the lower extremities, which did not show any clots. Electrocardiogram was not performed. IMPRESSION: 1. Generalized weakness with inability to thrive with right lower extremity swelling and swelling in upper extremities and left lower extremity too, and pain in the left lower knee area, most likely related to his previous fracture. 2. Chronic renal insufficiency, stage 3. 3. Normocytic anemia. 4. Hypoalbuminemia, hypoproteinemia, this could be related to protein loss in urine, although his urinalysis from previous admission did not show any proteinuria. 5. Coronary artery disease, chronic, stable. History of bypass. 6. History of cerebrovascular accident. 7. Diabetes mellitus, type 2. 8. Vocal cord dysfunction, status post injection of vocal cords by Dr. Singletary this month. 9. Chronic systolic and diastolic heart failure with LVEF estimated at 45% to 50% on echo in December 2018. 10. History of depression. 11. Dyslipidemia. 12. Gastroparesis. 13. Severe erosive esophagitis, resolved. 14. BPH. 15. Urinary retention with self catheterization 2 to 3 times daily. 16. Paroxysmal atrial fibrillation with cardioversion in January 2019. PLAN: Admission to observation. Condition is fair. He is do not attempt resuscitation per his wishes. IV Hep-Lock. Dietitian consult. Continue his home medications. PT, OT, Spin Table Operator consult. The patient needs to be most likely placed. He is not able to function, so I would probably recommend rehabilitation first in the rehab, not at the level of senior care with PT, because he went through this and it did not really give him the intensity level of PT he required. We will get dietitian to address his hypoproteinemia and hypoalbuminemia, and he needs some supplements orally to boost his protein level. Most likely, his swelling is related to his hypoalbuminemia. We will use a small dose of Lasix 20 mg p.o. to see how his kidneys respond to the small dose of diuretic. He is not going to be on any SCDs because of his peripheral edema, but he will continue his anticoagulant and this is enough for his DVT prophylaxis. Job ID: [id number]
[2019-04-22] MEDS ORDERED: Fleet Enema 133 ML BOT PR SCH (10:30)
[2019-04-22] MEDS ORDERED: Magnesium Citrate 300 ML BOT PO SCH (12:30)
[2019-04-22] MEDS ORDERED: Bisacodyl 10 MG SUPP PR PRN (12:45)
[2019-04-22] MEDS ORDERED: Mineral Oil ENEMA PR SCH (13:15)
--- NOTE | 2019-04-22 15:46 | PDOC.HOSPP ---
- Subjective Encounter Date: 04/22/19 Encounter Time: 15:44 Subjective: Pt seen for followup re: constipation. Had a small bowel movement. - Objective Vital Signs & Weight: Vital Signs (12 hours) Temp Pulse Resp BP BP Pulse Ox 04/22/19 15:19 59 L 04/22/19 14:16 97.8 F 59 L 20 135/64 95 04/22/19 10:52 97.6 F 63 18 137/72 95 04/22/19 08:23 62 178/84 H 04/22/19 08:15 97.7 F 62 20 178/84 H 97 04/22/19 04:00 97.9 F 57 L 18 160/78 H 97 Weight Admit Weight 256 lb 7 oz Weight 256 lb 7 oz I&O: 04/21/19 04/22/19 04/23/19 06:59 06:59 06:59 Intake Total 720 10 Output Total 1999 8291 Balance -1999 -2768 10 Result Diagrams: 04/21/19 08:22 04/22/19 05:57 Additional Labs: Accuchecks 04/22/19 04/22/19 04/21/19 11:40 06:08 19:51 POC Glucose 118 H 119 H 110 04/21/19 16:56 POC Glucose 97 Labs and MARs reviewed by ROS - Review of Systems Cardiovascular: denies: chest pain, palpitations, orthopnea, paroxysmal noc. dyspnea, edema, light headedness Gastrointestinal: reports: constipation. denies: nausea, vomitting, abdominal pain, diarrhea, melena, hematochezia Musculoskeletal: reports: leg pain - Medication Medications: Active Medications Generic Name Dose Route Start Last Admin Trade Name Freq PRN Reason Stop Dose Admin Amiodarone HCl 200 mg 04/21/19 09:00 04/22/19 08:23 Cordarone PO 200 mg BID HANSEL Administration Apixaban 2.5 mg 04/21/19 09:00 04/22/19 08:22 Eliquis PO 2.5 mg BID HANSEL Administration Atorvastatin Calcium 40 mg 04/21/19 09:00 04/22/19 08:24 Lipitor PO 40 mg DAILY HANSEL Administration Bisacodyl 10 mg 04/22/19 12:45 04/22/19 13:09 Dulcolax [place] 10 mg Q8H PRN Administration Constipation Carvedilol 25 mg 04/21/19 09:00 04/22/19 08:22 Coreg PO 25 mg BID HANSEL Administration Furosemide 20 mg 04/21/19 09:00 04/22/19 08:24 Lasix PO 20 mg DAILY HANSEL Administration Gabapentin 100 mg 04/21/19 09:00 04/22/19 15:19 Neurontin PO Not Given TID HANSEL Hydralazine HCl 75 mg 04/21/19 09:00 04/22/19 15:19 Apresoline PO Not Given TID [facility] Insulin Glargine 25 units/ 0.25 mls @ 0 mls/hr 04/21/19 21:00 04/21/19 20:44 Miscellaneous Medication SC Not Given HS HANSEL Isosorbide Mononitrate 120 mg 04/21/19 09:00 04/22/19 08:23 Imdur PO 120 mg DAILY HANSEL Administration Metoclopramide HCl 5 mg 04/21/19 21:00 04/21/19 20:44 Reglan PO Not Given HS HANSEL Pantoprazole Sodium 40 mg 04/21/19 09:00 04/22/19 08:23 Protonix PO 40 mg DAILY [facility] Administration Polyethylene Glycol 17 gm 04/21/19 09:00 04/22/19 08:22 Miralax PO Not Given DAILY HANSEL Sodium Bicarbonate 325 mg 04/21/19 09:00 04/22/19 08:22 Bicarbonate, Sodium PO 325 mg BID [facility] Administration Sodium Chloride 10 ml 04/21/19 09:00 04/22/19 08:24 Flush - Normal Saline IVF 10 ml Q12HR HANSEL Administration Tamsulosin HCl 0.4 mg 04/21/19 21:00 04/21/19 20:40 Flomax PO 0.4 mg HS [facility] Administration Zinc Sulfate 220 mg 04/21/19 09:00 04/22/19 08:24 Zinc Sulfate PO 220 mg DAILY HANSEL Administration - Exam General - other findings: Obese Eye: anicteric sclera ENT: moist mucosa Neck: supple Heart: RRR Respiratory: CTAB, no wheezes Gastrointestinal: soft, non-tender, normal bowel sounds Skin: no rashes Musculoskeletal: normal strength Psychiatric: normal affect, normal behavior Hosp A/P (1) Constipation Code(s): K59.00 - CONSTIPATION, UNSPECIFIED Status: Acute (2) BPH (benign prostatic hyperplasia) Code(s): N40.0 - BENIGN PROSTATIC HYPERPLASIA WITHOUT LOWER URINRY TRACT SYMP Status: Chronic Qualifiers: Lower urinary tract symptom presence: symptoms present (3) CAD (coronary artery disease) Code(s): I25.10 - ATHSCL HEART DISEASE OF [place] CORONARY ARTERY W/O ANG PCTRS Status: Chronic Qualifiers: Coronary Disease-Associated Artery/Lesion type: [place] artery [place] vs. transplanted heart: [place] heart Associated angina: without angina Qualified Code(s): I25.10 - Atherosclerotic heart disease of [place] coronary artery without angina pectoris (4) CKD (chronic kidney disease) Code(s): N18.9 - CHRONIC KIDNEY DISEASE, UNSPECIFIED Status: Chronic Qualifiers: Chronic kidney disease stage: stage 3 (moderate) Qualified Code(s): N18.3 - Chronic kidney disease, stage 3 (moderate) (5) DM type 2 (diabetes mellitus, type 2) Status: Chronic Qualifiers: Diabetes mellitus complication status: with kidney complications Diabetes mellitus complication detail: with chronic kidney disease Chronic kidney disease stage: stage 3 (moderate) (6) HTN (hypertension) Code(s): I10 - ESSENTIAL (PRIMARY) HYPERTENSION Status: Chronic Qualifiers: Hypertension type: essential hypertension Qualified Code(s): I10 - Essential (primary) hypertension (7) Paroxysmal atrial fibrillation Code(s): I48.0 - PAROXYSMAL ATRIAL FIBRILLATION Status: Chronic - Plan PT/OT, out of bed/ambulate Constipation improved with mineral oil enema. CKD stable. Ambulate patient. Pt may need Rehab. BP controlled. Stage 3 CKD is stable.
[2019-04-22] MEDS: Tamsulosin HCl 0.4 MG CAP PO SCH (20:33)
[2019-04-22] MEDS: Metoclopramide 10 MG/10 ML UDCUP PO SCH (20:34)
[2019-04-22] MEDS: Insulin Glargine 25 UNITS in Pre-Filled Syringe 1 EACH SC SCH (20:34)
[2019-04-22] MEDS: diphenhydrAMINE 30 GM TUBE TOP PRN (20:37)
[2019-04-23 07:30] LABS: Platelet Count 266 thou/uL (130-400)
[2019-04-23] MEDS: Furosemide 20 MG TAB PO SCH (08:55)
[2019-04-23] MEDS: hydrALAZINE 25 MG TAB PO SCH ×3 (08:55→20:36)
[2019-04-23] MEDS: Zinc Sulfate 220 MG CAP PO SCH (08:55)
[2019-04-23] MEDS: Polyethylene Glycol 3350 17 GM Packet PO SCH (08:55)
[2019-04-23] MEDS: Amiodarone 200 MG TAB PO SCH ×2 (08:55→20:36)
[2019-04-23] MEDS: Apixaban 2.5 MG TAB PO SCH ×2 (08:56→20:34)
[2019-04-23] MEDS: Atorvastatin Calcium 40 MG TAB PO SCH (08:56)
[2019-04-23] MEDS: Sodium Bicarbonate Tab 325 MG TAB PO SCH ×2 (08:56→20:37)
[2019-04-23] MEDS: Gabapentin 100 MG CAP PO SCH ×3 (08:56→20:36)
[2019-04-23] MEDS: Carvedilol 25 MG TAB PO SCH ×2 (08:56→20:36)
[2019-04-23 09:12] LABS: Chloride 105 mmol/L (98-107); Potassium 3.8 mmol/L (3.5-5.1); Sodium 135 mmol/L (136-145)
[2019-04-23 09:13] LABS: Calcium 8.2 mg/dL (7.8-10.44); Glucose 89 mg/dL (80-115)
[2019-04-23 09:14] LABS: Anion Gap 13 mmol/L (10-20); Carbon Dioxide 21 mmol/L (23-31)
[2019-04-23 09:16] LABS: Calc. Creatinine Clearance 78 mL/min (70-130); Estimated GFR-MDRD 47
[2019-04-23 09:17] LABS: BUN (Urea Nitrogen) 17 mg/dL (8.4-25.7)
[2019-04-23] MEDS: diphenhydrAMINE 30 GM TUBE TOP PRN ×2 (11:30→14:22)
[2019-04-23] MEDS ORDERED: Melatonin 3 MG TAB PO PRN (15:15)
--- NOTE | 2019-04-23 15:22 | PDOC.HOSPP ---
- Subjective Encounter Date: 04/23/19 Encounter Time: 08:20 Subjective: Pt seen for followup re: difficulty ambulating. Had multiple bowel movements, feels better. - Objective Vital Signs & Weight: Vital Signs (12 hours) Temp Pulse Resp BP BP Pulse Ox 04/23/19 14:23 63 135/69 04/23/19 08:55 63 155/77 H 04/23/19 08:53 97 04/23/19 07:54 97.8 F 63 20 155/77 H 97 04/23/19 04:00 97.9 F 64 16 158/77 H 96 Weight Admit Weight 256 lb 7 oz Weight 256 lb 7 oz I&O: 04/22/19 04/23/19 04/24/19 06:59 06:59 06:59 Intake Total 720 890 10 Output Total 3700 6000 Balance -0270 -9650 10 Result Diagrams: 04/23/19 07:23 04/23/19 07:23 Additional Labs: Accuchecks 04/23/19 04/23/19 04/22/19 11:21 05:02 19:23 POC Glucose 113 H 111 H 95 04/22/19 16:45 POC Glucose 104 Labs and MARs reviewed by me. Hospitalist ROS - Review of Systems Cardiovascular: denies: chest pain, palpitations, orthopnea, paroxysmal noc. dyspnea, edema, light headedness Gastrointestinal: denies: nausea, vomitting, abdominal pain, diarrhea, constipation, melena, hematochezia - Medication Medications: Active Medications Generic Name Dose Route Start Last Admin Trade Name Freq PRN Reason Stop Dose Admin Amiodarone HCl 200 mg 04/21/19 09:00 04/23/19 08:55 Cordarone PO 200 mg BID HANSEL Administration Apixaban 2.5 mg 04/21/19 09:00 04/23/19 08:56 Eliquis PO 2.5 mg BID HANSEL Administration Atorvastatin Calcium 40 mg 04/21/19 09:00 04/23/19 08:56 Lipitor PO 40 mg DAILY HANSEL Administration Bisacodyl 10 mg 04/22/19 12:45 04/22/19 13:09 Dulcolax [place] 10 mg Q8H PRN Administration Constipation Carvedilol 25 mg 04/21/19 09:00 04/23/19 08:56 Coreg PO 25 mg BID HANSEL Administration Furosemide 20 mg 04/21/19 09:00 04/23/19 08:55 Lasix PO 20 mg DAILY HANSEL Administration Gabapentin 100 mg 04/21/19 09:00 04/23/19 14:23 Neurontin PO 100 mg TID HANSEL Administration Hydralazine HCl 75 mg 04/21/19 09:00 04/23/19 14:23 Apresoline PO 75 mg TID HANSEL Administration Insulin Glargine 25 units/ 0.25 mls @ 0 mls/hr 04/21/19 21:00 04/22/19 20:34 Miscellaneous Medication SC Not Given HS HANSEL Isosorbide Mononitrate 120 mg 04/21/19 09:00 04/23/19 08:55 Imdur PO 120 mg DAILY HANSEL Administration Metoclopramide HCl 5 mg 04/21/19 21:00 04/22/19 20:34 Reglan PO 5 mg HS HANSEL Administration Pantoprazole Sodium 40 mg 04/21/19 09:00 04/23/19 08:56 Protonix PO 40 mg DAILY HANSEL Administration Polyethylene Glycol 17 gm 04/21/19 09:00 04/23/19 08:55 Miralax PO Not Given DAILY HANSEL Sodium Bicarbonate 325 mg 04/21/19 09:00 04/23/19 08:56 Bicarbonate, Sodium PO 325 mg BID HANSEL Administration Sodium Chloride 10 ml 04/21/19 09:00 04/23/19 08:56 Flush - Normal Saline IVF 10 ml Q12HR HANSEL Administration Tamsulosin HCl 0.4 mg 04/21/19 21:00 04/22/19 20:33 Flomax PO 0.4 mg HS HANSEL Administration Zinc Acetate/Diphenhydramine 1 gm 04/22/19 14:03 04/23/19 14:22 Benadryl 2% Cream TOP 1 applic QID PRN Administration Itching Zinc Sulfate 220 mg 04/21/19 09:00 04/23/19 08:55 Zinc Sulfate PO 220 mg DAILY HANSEL Administration - Exam General - other findings: Obese Eye: anicteric sclera ENT: normocephalic atraumatic, moist mucosa Neck: supple, no thyromegaly Heart: RRR Respiratory: CTAB Gastrointestinal: soft, non-tender, normal bowel sounds Psychiatric: normal affect, normal behavior Hosp A/P (1) Difficulty walking Code(s): R26.2 - DIFFICULTY IN WALKING, NOT ELSEWHERE CLASSIFIED Status: Acute (2) BPH (benign prostatic hyperplasia) Code(s): N40.0 - BENIGN PROSTATIC HYPERPLASIA WITHOUT LOWER URINRY TRACT SYMP Status: Chronic Qualifiers: Lower urinary tract symptom presence: symptoms present (3) CAD (coronary artery disease) Code(s): I25.10 - ATHSCL HEART DISEASE OF [place] CORONARY ARTERY W/O ANG PCTRS Status: Chronic Qualifiers: Coronary Disease-Associated Artery/Lesion type: [place] artery [place] vs. transplanted heart: [place] heart Associated angina: without angina Qualified Code(s): I25.10 - Atherosclerotic heart disease of [place] coronary artery without angina pectoris (4) CKD (chronic kidney disease) Code(s): N18.9 - CHRONIC KIDNEY DISEASE, UNSPECIFIED Status: Chronic Qualifiers: Chronic kidney disease stage: stage 3 (moderate) Qualified Code(s): N18.3 - Chronic kidney disease, stage 3 (moderate) (5) DM type 2 (diabetes mellitus, type 2) Status: Chronic Qualifiers: Diabetes mellitus complication status: with kidney complications Diabetes mellitus complication detail: with chronic kidney disease Chronic kidney disease stage: stage 3 (moderate) (6) HTN (hypertension) Code(s): I10 - ESSENTIAL (PRIMARY) HYPERTENSION Status: Chronic Qualifiers: Hypertension type: essential hypertension Qualified Code(s): I10 - Essential (primary) hypertension (7) Paroxysmal atrial fibrillation Code(s): I48.0 - PAROXYSMAL ATRIAL FIBRILLATION Status: Chronic (8) Constipation Code(s): K59.00 - CONSTIPATION, UNSPECIFIED Status: Resolved - Plan PT/OT, out of bed/ambulate Constipation resolved. Pt may need Inpt Rehab. Ambulate patient. BP controlled. Stage 3 CKD is stable.
[2019-04-23] MEDS: Insulin Glargine 25 UNITS in Pre-Filled Syringe 1 EACH SC SCH (20:35)
[2019-04-23] MEDS: Metoclopramide 10 MG/10 ML UDCUP PO SCH (20:37)
[2019-04-23] MEDS: Tamsulosin HCl 0.4 MG CAP PO SCH (20:38)
[2019-04-24] MEDS: diphenhydrAMINE 30 GM TUBE TOP PRN (00:38)
[2019-04-24] MEDS: Carvedilol 25 MG TAB PO SCH (06:06)
[2019-04-24] MEDS ORDERED: EPINEPHrine 1 MG/ML AMP ONE (09:42)
[2019-04-24] MEDS: Furosemide 20 MG TAB PO SCH (10:00)
[2019-04-24] MEDS: Amiodarone 200 MG TAB PO SCH (10:00)
[2019-04-24] MEDS: Atorvastatin Calcium 40 MG TAB PO SCH (10:00)
[2019-04-24] MEDS: Apixaban 2.5 MG TAB PO SCH (10:00)
[2019-04-24] MEDS: hydrALAZINE 25 MG TAB PO SCH (10:01)
[2019-04-24] MEDS: Gabapentin 100 MG CAP PO SCH (10:01)
[2019-04-24] MEDS: Sodium Bicarbonate Tab 325 MG TAB PO SCH (10:07)
[2019-04-24] MEDS: Polyethylene Glycol 3350 17 GM Packet PO SCH (10:07)
[2019-04-24] MEDS ORDERED: Fentanyl 100 MCG/2 ML VIAL ONE (10:07)
[2019-04-24] MEDS ORDERED: Lidocaine 4% Topical Sol 50 ML BOT ONE (10:07)
[2019-04-24] MEDS: Zinc Sulfate 220 MG CAP PO SCH (10:08)
[2019-04-24] MEDS ORDERED: PROPOFOL 60 ML ONE (10:08)
[2019-04-24] MEDS ORDERED: SUGAMMADEX SODIUM 200 MG/2 ML VIAL ONE (10:21)
[2019-04-24 12:14] VITALS: TEMP 97.3
--- NOTE | 2019-04-24 14:10 | OP ---
DATE OF PROCEDURE: 04/24/2019 PREOPERATIVE DIAGNOSES: 1. Right true vocal cord paralysis. 2. Dysphonia. 3. Dysphagia. POSTOPERATIVE DIAGNOSES: 1. Right true vocal cord paralysis. 2. Dysphonia. 3. Dysphagia. PROCEDURES PERFORMED: 1. Microsuspension direct laryngoscopy. 2. Prolaryn vocal cord medialization laryngoplasty. ESTIMATED BLOOD LOSS: 0 mL. COMPLICATIONS: None. ANESTHESIA: GETA with Celeste. DESCRIPTION OF PROCEDURE: The patient was taken to the operating room, placed on the table. Mask anesthesia was obtained by the Anesthesia staff. Following this, the Dedo laryngoscope was introduced in the oral cavity. Topical anesthetic was applied to the vocal cords and laryngeal structures. The Celeste jet ventilation tube was then inserted through the Dedo laryngoscope into the trachea. Jet ventilation was then obtained and the tube was secured in the left lower lip. Following this, the patient was placed in suspension exposing the laryngeal inlet and the right true vocal cord was visualized with the 400 mm lens under high-power microscopy. The Prolaryn injection needle was inserted just lateral to the thyroarytenoid muscle and this was injected just lateral to the thyroarytenoid muscle and 0.65 mL of Prolaryn injection was injected medialized in the right vocal cord. The patient tolerated the procedure well. Job ID: [id number]
[2019-04-24 16:17] VITALS: BP 169/84
[2019-04-24] MEDS ORDERED: PROPOFOL 200 MG/20 ML VIAL ONE (16:41)
[2019-04-24] MEDS ORDERED: Lidocaine 1% PF 5 ML VIAL ONE (16:41)
[2019-04-24] MEDS ORDERED: Ondansetron PF 4 MG/2 ML Vial ONE (16:41)
[2019-04-24] MEDS ORDERED: Rocuronium Bromide 10 MG/ML (10ML VIAL) ONE (16:41)
--- NOTE | 2019-04-25 05:40 | DIS ---
DATE OF ADMISSION: 04/23/2019 DATE OF DISCHARGE: 04/24/2019 PRIMARY CARE PROVIDER: Gilberto Waterman MD DISCHARGE DIAGNOSES: 1. Physical deconditioning. 2. Vocal cord dysfunction. 3. Hyponatremia. CONDITION OF PATIENT ON THE DAY OF DISCHARGE: Stable. I assessed Mr. Quintanilla on the day of discharge. He denies any chest pain or shortness of breath. Vital signs are stable. S1 and S2 are heard, regular. Lungs are clear to auscultation bilaterally. FOLLOWUP APPOINTMENTS: The patient is advised to follow up with primary care provider in 10 days time. DISCHARGE MEDICATIONS: Tramadol dose was changed to 50 mg q.6 hours p.r.n. Otherwise, no change was made to his pre-admission home medications as dictated by Dr. Villaseñor in his history and physical note dated April 21, 2019. HOSPITAL COURSE: Mr. Quintanilla is a pleasant 68-year-old gentleman, who was admitted to [facility] on April 20, 2019, for failure to thrive and generalized weakness. He also had right lower extremity swelling. Please refer to Dr. Villaseñor's history and physical note dated April 21, 2019, for further details. He was seen by Therapy Services. He was also seen by Orthopedic Surgery Service to clarify his weightbearing status because of previous right hip surgery. He was also seen by ENT Service while he was in the hospital. He underwent vocal cord injection by ENT Service. He was recommended inpatient rehab therapy. He is being discharged to inpatient rehab in a stable condition. Many thanks for allowing me to participate in your patient's care. Please feel free to contact me with any questions or concerns. On April 23, he had sodium 135, potassium 3.8, creatinine 1.50, hemoglobin 12, and hematocrit 37.1. DISCHARGE DESTINATION: [facility]. TIME SPENT: Total amount of time spent coordinating this discharge: 32 minutes. Job ID: [id number]
--- NOTE | 2019-04-26 08:52 | PQF ---
ONEYDA BEE DAVID [id number] CLINICAL DOCUMENTATION CLARIFICATION FORM: POST DISCHARGE Addendum to original discharge summary date: ____ Late entry note date: __ DATE: 04-26-2019 ATTN:Dr. Job Ayala Please exercise your independent, professional judgment in responding to the clarification form. Clinical indicators are provided on the bottom of this form for your review Based on your clinical judgment, can you please specify the etiology of patients weakness? Please check appropriate box(s): [ ] Hyponatremia [ ] Vocal cord dysfunction [ ] weakness unspecified [ x ] Other diagnosis please specify ____Physical deconditioning [ ] Unable to determine For continuity of documentation, please document condition throughout progress notes and discharge summary. Thank You. CLINICAL INDICATORS: HP 04/[address] Villaseñor Chief complaint: Generalized tiredeness HP 04/[address] Villaseñor Generiles weakness with inability to thrive with right lower extremity swelling PN 04/[address] Kaiser difficulty ambulating DS 04/[address] Kaiser Physical deconditioning, Vocal cord dysfunction, Hyponatremia RISK FACTORS: HP Dr. Villaseñor- CAD HP Dr. Villaseñor- History CVA HP Dr. Gonzalez- Dyslipidemia HP Dr. Gonzalez- Depression HP Dr. Gonzalez- Normocytic anemia HP Dr. Gonzalez- Hypoalbuminemia TREATMENTS: PN- Inpatient Rehab OP note-Prolaryn vocal cord medialization larygoplasty MAR- IV fluids (This form is maintained as a part of the permanent medical record) 2014 [employer]. All Rights Reserved [email or web address] [not provided] MTDD
== END 2019-04-24 16:44 | DRG 948 ==
LOC: ERS 15:00 → T4-A 22:58 → INTOOBSV 22:58 → OBSVTOIN 04-23 14:32
PROVIDERS: ADMIT Hospitalist; ATTEND Hospitalist
PROC: 3E0F8GC Introduction of Other Therapeutic Substance into Respiratory Tract, Via Natural or Artificial Opening Endoscopic (ICD-10-PCS; principal; 2019-04-24)
DX: R53.1 Weakness (principal); I13.0 Hypertensive heart and chronic kidney disease with heart failure and stage 1 through stage 4 chronic kidney disease, or unspecified chronic kidney disease; I50.42 Chronic combined systolic (congestive) and diastolic (congestive) heart failure; J38.01 Paralysis of vocal cords and larynx, unilateral; Z66 Do not resuscitate; I48.0 Paroxysmal atrial fibrillation; I25.10 Atherosclerotic heart disease of native coronary artery without angina pectoris; E11.22 Type 2 diabetes mellitus with diabetic chronic kidney disease; N18.3 Chronic kidney disease, stage 3 (moderate); E66.9 Obesity, unspecified; E11.43 Type 2 diabetes mellitus with diabetic autonomic (poly)neuropathy; K31.84 Gastroparesis; F41.9 Anxiety disorder, unspecified; R33.9 Retention of urine, unspecified; E78.5 Hyperlipidemia, unspecified; N40.1 Benign prostatic hyperplasia with lower urinary tract symptoms; D63.1 Anemia in chronic kidney disease; R49.0 Dysphonia; K59.00 Constipation, unspecified; R13.10 Dysphagia, unspecified; Z96.653 Presence of artificial knee joint, bilateral; Z60.2 Problems related to living alone; Z86.73 Personal history of transient ischemic attack (TIA), and cerebral infarction without residual deficits; Z95.1 Presence of aortocoronary bypass graft; Z79.899 Other long term (current) drug therapy; Z79.01 Long term (current) use of anticoagulants; Z79.4 Long term (current) use of insulin; Z88.8 Allergy status to other drugs, medicaments and biological substances; Z68.34 Body mass index [BMI] 34.0-34.9, adult
CPT/HCPCS: 36415; 36416; 51701; 80048; 80053; 81001; 82565; 85014; 85018; 85025; 85049; 85379; 85610; 85730; J0171; J1815; J2001; J2405; J2704; J3010

== ENCOUNTER 2019-05-10 08:25 | Inpatient (IN) | payer MEDICARE ==
[2019-05-10] MEDS ORDERED: Morphine 4 MG/ML VIAL ONE (10:03)
--- NOTE | 2019-05-10 10:40 | CT ---
CT BRAIN NONCONTRAST: DATE: 05/10/2019 HISTORY: 68-year-old male status post acute head trauma from fall. COMPARISON: 04/14/2007 FINDINGS: There is a new moderately large left posterior parietal occipital hematoma in the superficial soft ti ssues. There is no underlying acute calvarial fracture. No acute intra-axial or extra-axial hemorrhage, mass effect, midline shift, or obstructive hydrocephalus. Again noted is the suboccipital craniotomy defect, deep to which there is extensive encephalomalacia and gliosis of the right cerebellar hemisphere, and associated chronic distortion and ex vacuo dilation of the fourth ventricl e and the distortion of the right inferior cerebellar peduncle. The suboccipital posterior soft tissue fluid collection is slightly larger now, 4.5 x 4 cm. There is a small strip of low attenuation in the right posterior parietal lobe which probably represents encephalomalacia and gliosis, representing an old infarction, which was not present in 2006. There is also a tiny old lacunar infar ction at the left caudate nucleus which was also not present in 2007. Large mucus retention cyst in the left maxillary sinus. Bilateral tympanomastoid cavities, sphenoid sinus, bilateral ethmoid air ce lls, frontal sinuses, and right maxillary sinus, are grossly clear. IMPRESSION: 1) acute, traumatic, moderately large left parietal scalp hematoma. 2) no acute intracranial findings. 3) old suboccipital craniotomy, and associated encephalomalacia and gliosis of the right cerebellar h emisphere. 4) small old infarction in right posterior parietal lobe. 5) tiny old lacunar infarction in the left caudate nucleus.
--- NOTE | 2019-05-10 10:47 | CT ---
CT thoracic spine noncontrast: HISTORY: 68-year-old male status post acute thoracic spine trauma from fall. FINDINGS: Vertebral body heights are maintained. Flowing bridging osteophytes protruding into the prevertebral space throughout almost all levels. No bony retropulsion. Deviation of left vocal cord to the right. No hematoma in the perivertebral space. 4.5 x 4.7 cm aortic aneurysm at the thoracoabdominal j unction, fusiform plus left lateral small saccular component. Small left pleural effusion. Tiny right pleural effusion. Small sliding hiatal hernia. Small right upper lobe ill-defined pulmonary den sity posteriorly surrounding branches of right upper lobe bronchus and vessels. No displaced posterior rib fracture. Heavy atherosclerotic calcific patient of coronary arteries. IMPRESSION: 1. No compression fracture. 2. DISH (diffuse idiopathic skeletal hyperostosis). 3. Aortic aneurysm at upper abdomen junction with thoracic, just superior to origin of celiac artery. 4. Small bilateral pleural effusions. 5. Nonspecific small right upper lobe pulmonary lesion which has the appearance of infiltrate. Mega zavala, follow-up is recommended with chest CT in one month. 6. Coronary atherosclerotic disease.
--- NOTE | 2019-05-10 10:48 | CT ---
Exam: CT lumbar spine without contrast HISTORY: Fall. Trauma. Pain. FINDINGS: Atherosclerosis of a nonaneurysmal aorta. Visualized solid organs are unremarkable Symmetric attenuation of the psoas muscles. No paraspinal or retroperitoneal mass, lymphadenopathy or hematoma. Visualized urinary bladder is grossly unremarkable There is diffuse bone demineralization. 5 lumbar type vertebra. Lumbar spine vertebral body height is obtained. No fracture Spondylolisthesis: 3.4 mm of anterolisthesis of L5 for upon L5 Vacuum disc phenomenon at L1 1-L2, L3-L4 and L4-L5 Visualized sacroiliac joints are mildly arthritic. Visualized sacrum is intact. No evidence of a sacr al fracture. Visualized sacral alar are preserved. Limited evaluation the contents of the central spinal canal and neural foramina technique T12-L1: No significant central canal stenosis or significant neural foraminal narrowing L1-L2: No significant central canal stenosis or significant neural foraminal narrowing L3 to-L3: Broad-based disc bulge with mild central canal stenosis. Bilaterally, neural foramina are p atent L3-L4: Vacuum disc phenomenon. Broad-based disc bulge, ligamentum flavum thickening and facet hypertr ophy result in moderate central canal stenosis. Moderate right and wdgt-mx-hdeoocip left neural foraminal narrowing L4-L5: Broad-based disc bulge, ligament flavum thickening and facet hypertrophy result in moderate ce ntral canal stenosis. Bilaterally the neural foramina are patent L5-S1: No significant central canal stenosis or significant neural foraminal narrowing. Pseudoarthrosis of the left L5 ala with the sacrum IMPRESSION: 1. Degenerative changes of the lumbar spine as described above. 2. No fracture.
--- NOTE | 2019-05-10 10:52 | CT ---
Exam: CT cervical spine without contrast HISTORY: Trauma. Fall. Pain. COMPARISON: None FINDINGS: No craniocervical dissociation. Appropriate alignment of the lateral masses of C1 and C2. Intact odon toid process Appropriate alignment of the facets. There is multilevel loss of disc space height and osteophyte formation throughout the cervical spine. Straightening of normal cervical lordosis may be due to patient position, muscle spasm or cervical collar. Soft tissue neck structures: No mass, lymphadenopathy or hematoma. No prevertebral soft tissue swelli ng. Well-circumscribed hypodensity posterior to the right occipital calvarium appears to be contiguous with the foramen magnum and the possibility of a pseudomeningocele measuring 4.7 x 4.4 cm is raised. Nonemergent neurosurgical consultation is recommended. Upper mediastinum and lung apices: Unremarkable Central spinal canal: Varying degrees of central canal stenosis and neural foraminal narrowing due to degenerative change. Limited evaluation due to technique. Vertebral bodies: Cervical spine vertebral body height is maintained. No fracture. IMPRESSION: 1. No fracture 2. Multilevel degenerative disc disease with varying degrees of central canal stenosis and foraminal narrowing 3. Hypodensity which appears be contiguous with the foramen magnum. The possibility pseudomeningocele is raised. Correlate with past medical/surgical history. Consider neurosurgical consultation.
[2019-05-10] MEDS ORDERED: Acetaminophen 500 MG TAB ONE (12:21)
[2019-05-10] MEDS ORDERED: Morphine 2 MG/ML SYRINGE ONE (15:34)
[2019-05-10 17:07] LABS: #Basophils 0.1 thou/uL (0.0-0.2); #Eosinphils 0.5 thou/uL (0.0-0.7); #Lymphocytes 2.3 thou/uL (1.20-3.40); #Monocytes 0.8 thou/uL (0.11-0.59); #Neutrophils 5.6 thou/uL (1.40-6.50); %Basophils 0.7 % (0.0-1.0); %Eosinophils 5.7 % (0.0-10.0); %Lymphocytes 24.8 % (21.0-51.0); %Monocytes 8.6 % (0.0-10.0); %Neutrophils 60.3 % (42.0-75.0); Hemoglobin 11.4 g/dL (14.0-18.0); Mean Corpuscular HGB CONC 32.9 g/dL (32.0-36.0); Mean Corpuscular Hemoglobin 30.2 pg (27.0-31.0); Mean Corpuscular Volume 91.8 fL (78.0-98.0); Mean Platelet Volume 6.2 fL (7.4-10.4); Platelet Count 250 thou/uL (130-400); RBC Distribution Width 13.8 % (11.5-14.5); Red Blood Cell (RBC) Count 3.78 mill/uL (4.70-6.10); White Blood Cell (WBC) Count 9.3 thou/uL (4.8-10.8)
[2019-05-10 17:28] LABS: ALT (SGPT) 10 U/L (8-55); AST (SGOT) 13 U/L (5-34); Acetaminophen Less than 6.0 mcg/mL (10.0-30.0); Albumin 2.7 g/dL (3.4-4.8); Alcohol Less than 10 mg/dL (Less than 10); Alkaline Phosphatase 98 U/L (40-150); Anion Gap 10 mmol/L (10-20); BUN (Urea Nitrogen) 15 mg/dL (8.4-25.7); Bilirubin, Total 1.1 mg/dL (0.2-1.2); Calc. Creatinine Clearance 0 mL/min (70-130); Calcium 8.2 mg/dL (7.8-10.44); Carbon Dioxide 26 mmol/L (23-31); Chloride 108 mmol/L (98-107); Estimated GFR-MDRD 54; Globulin 2.7 g/dL (2.4-3.5); Glucose 126 mg/dL (80-115); Potassium 3.7 mmol/L (3.5-5.1); Protein, Total 5.4 g/dL (5.8-8.1); Salicylate Less than 8.0 mg/dL (15.0-30.0); Sodium 140 mmol/L (136-145)
[2019-05-10 17:49] LABS: Bacteria/HPF 4+ HPF (None Seen); Bilirubin Negative (Negative); Blood, Urine Negative (Negative); Clarity Clear (Clear); Glucose, Urine (Dipstick) Normal (Negative); Leukocyte 250 Leu/uL (Negative); Nitrite 2+ (Negative); Protein, Urine (Dipstick) Negative (Neg-Trace); RBC/HPF 0-3 HPF (0-3); Squamous Epithelial 0-3 HPF (0-3); Urobilinogen Normal mg/dL (Less than 2)
[2019-05-10 17:57] LABS: Amphetamine Not Detected (NotDetected); Barbiturates Screen Not Detected (NotDetected); Benzodiazepine Screen Not Detected (NotDetected); Cocaine Metabolite Screen Not Detected (NotDetected); Medtox Control Line Valid? VALID (VALID); Medtox Reader # READER 1; Methadone Not Detected (NotDetected); Methamphetamine Not Detected (NotDetected); Opiate Screen Not Detected (NotDetected); Oxycodone Screen Not Detected (NotDetected); Phencyclidine (PCP) Not Detected (NotDetected); THC/Cannabinoid Screen Not Detected (NotDetected); Tricyclic Screen Not Detected (NotDetected)
--- NOTE | 2019-05-10 18:34 | RAD ---
PORTABLE CHEST: 05/10/19 COMPARISON: 02/06/19 exam. HISTORY: Fall. Heart size is enlarged. There are postop sternotomy changes. There are atelectatic changes in the doc g bases. No focal infiltrates or signs of failure. IMPRESSION: Cardiomegaly with some bibasilar atelectatic lung change. No pneumothorax or rib fractures are visual ized. POS: [facility]
[2019-05-10] MEDS ORDERED: cefTRIAXone\\ROCEPHIN 1 GM VIAL ONE (19:36)
--- NOTE | 2019-05-11 00:06 | PDOC.EVN ---
Event Note - Event Note Event Note: H&P [id number]
--- NOTE | 2019-05-11 03:28 | HP ---
CHIEF COMPLAINT: Falls. HISTORY OF PRESENT ILLNESS: Mr. Qunitanilla is a 68-year-old male with past medical history of myocardial infarction, coronary artery bypass graft surgery, diabetes, type 2, hypertension, CVA, benign prostatic hypertrophy, presented to the emergency room after a fall. The patient reported head pain and low midback pain. The patient reported bleeding on his left elbow. The patient reports that he was getting a Band-Aid for his laceration when he fell down and landed on his tailbone and hip. The patient reported hitting a bookcase, but does not remember if he lost consciousness. Workup in the emergency room including imaging studies was done. The patient reported to the ED physician that if he goes home, he will shoot himself and kill himself. The patient appears to be depressed. The patient is being admitted to hospital for further management. Workup, also the patient was found to have urinary tract infection and?pneumonia. PAST MEDICAL HISTORY: 1. Kidney stones. 2. Myocardial infarction. 3. Diabetes, type 2. 4. Hypertension. 5. CVA. 6. Benign prostatic hypertrophy. PAST SURGICAL HISTORY: 1. Right foot surgery. 2. Coronary artery bypass graft surgery, four vessels. 3. Bilateral knee surgery. 4. Right femur surgery 3 weeks ago. 5. CVA. SOCIAL HISTORY: The patient lives at home alone. He has no significant history. He denies alcohol use. He denies drug abuse. FAMILY HISTORY: Reviewed and noncontributory. ALLERGIES: THE PATIENT IS ALLERGIC TO NITROGLYCERIN, WHICH IS UNCONFIRMED. HOME MEDICATIONS: Please see home medication reconciliation form for updated medications. REVIEW OF SYSTEMS: Review of 14 systems is negative except what is mentioned in the history of present illness. The patient appears to be depressed. PHYSICAL EXAMINATION: GENERAL: The patient is awake, not in acute distress, appeared in depressed mood. VITAL SIGNS: Blood pressure is 179/81, pulse is 60, respiratory rate is 18, temperature 98.3. HEAD: Normocephalic. There is contusion to the posterior head. No active bleeding. No suture repair was applied. NECK: Supple. No JVD. CHEST: Fair bilateral air entry. HEART: Regular rate and rhythm. EXTREMITIES: 3+ edema to lower extremities. ABDOMEN: Soft, nontender. Bowel sounds present. NEUROLOGIC: Awake, alert, oriented x3. PSYCHIATRIC: Depressed mood. BACK: Range of motion limited due to pain. Tender to percussion to the lower thoracic region. SKIN: Warm, dry. IMAGING STUDIES: Reviewed. Urine positive for WBCs, leukocyte esterase and nitrites. Chemistry; creatinine is 1.3. Hemoglobin is 11.4. In the ED, imaging studies included chest x-ray, thoracic spine CT, lumbar spine CT, cervical spine CT. Brain CT, report as per in the chart. ASSESSMENT: 1. Fall. 2. Acute urinary tract infection. 3. Right upper lobe infiltrate ?pneumonia. 4. Suicidal ideation. 5. Coronary artery disease. 6. History of coronary artery bypass graft surgery. 7. Diabetes, type 2. 8. Hypertension. 9. Depression. PLAN: 1. Admit. 2. Septic workup in the ED. 3. IV antibiotics. 4. Provide sitter for close monitoring through the night. 5. Consult Psychiatry in a.m. for evaluation regarding his suicidal thoughts. 6. Reconcile home medications. 7. Deep venous thrombosis prophylaxis with SCDs. 8. Expected length of stay 1 midnight if the patient is stable, or to be transferred to a Psychiatric facility after being evaluated by Psychiatrist. Job ID: [id number]
[2019-05-11] MEDS: Acetaminophen 325 MG TAB PO PRN (07:54)
[2019-05-11] MEDS: traMADol HCl 50 MG TAB PO PRN (12:39)
[2019-05-11 15:10] VITALS: BMI 35.5
--- NOTE | 2019-05-11 15:32 | PDOC.HOSPP ---
- Subjective Encounter Date: 05/11/19 Encounter Time: 15:25 Subjective: f/u s/p fall and deconditioning. Suicidal ideation reported and confirmed with pt today. - Objective Vital Signs & Weight: Vital Signs (12 hours) Temp Pulse Resp BP BP Pulse Ox 05/11/19 12:43 171/84 H 05/11/19 11:23 98.5 F 62 16 178/81 H 95 05/11/19 08:00 95 05/11/19 07:44 98.0 F 64 18 184/86 H 95 05/11/19 04:30 98.2 F 61 20 174/84 H 93 L Weight Admit Weight 262 lb Weight 262 lb I&O: 05/10/19 05/11/19 05/12/19 06:59 06:59 06:59 Output Total 2150 1100 Balance -2150 -1100 Result Diagrams: 05/12/19 05:26 05/12/19 05:26 Additional Labs: Accuchecks 05/11/19 05/11/19 11:34 04:38 POC Glucose 123 H 121 H Radiology Reviewed by me: Yes (CT brain - no acute intracranial process, scalp hematoma) Hospitalist ROS - Medication Medications: Active Medications Generic Name Dose Route Start Last Admin Trade Name Freq PRN Reason Stop Dose Admin Acetaminophen 650 mg 05/10/19 23:51 05/11/19 07:54 Tylenol PO 650 mg Q4H PRN Administration Headache/Fever/Mild Pain (1-3) Tramadol HCl 50 mg 05/11/19 12:27 05/11/19 12:39 Ultram PO 50 mg Q6H PRN Administration Pain - Exam General Appearance: NAD, awake alert Eye: PERRL, anicteric sclera ENT: no oropharyngeal lesions Neck: supple, symmetric, no JVD, no thyromegaly Heart: RRR, no gallops, no rubs, normal peripheral pulses Respiratory: CTAB, no wheezes, no rales, no ronchi Gastrointestinal: soft, non-tender, non-distended, normal bowel sounds Extremities: no cyanosis, no clubbing Skin: normal turgor Neurological: cranial nerve grossly intact, no new deficit Musculoskeletal: normal tone, normal strength Psychiatric: normal affect, A&O x 3 Hosp A/P (1) Suicidal ideation Code(s): R45.851 - SUICIDAL IDEATIONS Status: Acute Plan: ? SI, consult [facility] for formal evaluation, sitter 1:1 (2) Fall Code(s): W19.XXXA - UNSPECIFIED FALL, INITIAL ENCOUNTER Status: Acute Qualifiers: Encounter type: initial encounter Qualified Code(s): W19.XXXA - Unspecified fall, initial encounter Plan: s/p fall, PT evaluation for functional assessment, ? SNF (3) Physical deconditioning Code(s): R53.81 - OTHER MALAISE Status: Chronic Plan: See above, Fall risk precautions (4) Urinary retention Code(s): R33.9 - RETENTION OF URINE, UNSPECIFIED Status: Acute (5) DM type 2 causing CKD stage 3 Code(s): E11.22 - TYPE 2 DIABETES MELLITUS W DIABETIC CHRONIC KIDNEY DISEASE; N18.3 - CHRONIC KIDNEY DISEASE, STAGE 3 (MODERATE) Status: Chronic Qualifiers: Diabetes mellitus joint terminal attack controller insulin use: with halfway use Qualified Code( s): E11.22 - Type 2 diabetes mellitus with diabetic chronic kidney disease; N18.3 - Chronic kidney disease, stage 3 (moderate); 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
[2019-05-11] MEDS ORDERED: Dextrose 50% Abboject 50 ML SYRINGE SLOW IVP PRN (16:00)
[2019-05-11] MEDS ORDERED: Dextrose 5% in Water 1,000 ML IV PRN (16:00)
[2019-05-11] MEDS ORDERED: HumaLOG 300 UNITS/3 ML VIAL SC PRN ×2 (16:00)
[2019-05-11] MEDS ORDERED: Carvedilol 25 MG TAB PO SCH (16:45)
[2019-05-11] MEDS: Ketorolac Tromethamine 30 MG/ML VIAL IVP SCH ×2 (16:50→22:50)
[2019-05-11] MEDS ORDERED: cefTRIAXone\\ROCEPHIN 1 GM in Sodium Chloride 0.9% 100 ML IVPB SCH (20:00)
[2019-05-11] MEDS: hydrALAZINE 25 MG TAB PO SCH (20:21)
[2019-05-11] MEDS: Sodium Bicarbonate Tab 325 MG TAB PO SCH (20:21)
[2019-05-11] MEDS: Gabapentin 100 MG CAP PO SCH (20:21)
[2019-05-11] MEDS: Amiodarone 200 MG TAB PO SCH (20:21)
[2019-05-11] MEDS: Tamsulosin HCl 0.4 MG CAP PO SCH (20:21)
[2019-05-11] MEDS: Insulin Glargine 25 UNITS in Pre-Filled Syringe 1 EACH SC SCH (20:21)
[2019-05-11] MEDS: Apixaban 2.5 MG TAB PO SCH (20:21)
[2019-05-11] MEDS ORDERED: Cefepime 2 GM in Sodium Chloride 0.9% 100 ML IVPB SCH (21:00)
[2019-05-12] MEDS: traMADol HCl 50 MG TAB PO PRN (01:41)
[2019-05-12] MEDS: Melatonin 3 MG TAB PO PRN (01:41)
[2019-05-12] MEDS: Ketorolac Tromethamine 30 MG/ML VIAL IVP SCH ×4 (05:07→23:54)
[2019-05-12 05:54] LABS: Hemoglobin 11.2 g/dL (14.0-18.0); Platelet Count 242 thou/uL (130-400)
[2019-05-12 06:32] LABS: Anion Gap 8 mmol/L (10-20); BUN (Urea Nitrogen) 15 mg/dL (8.4-25.7); Calc. Creatinine Clearance 86 mL/min (70-130); Calcium 7.8 mg/dL (7.8-10.44); Carbon Dioxide 24 mmol/L (23-31); Chloride 108 mmol/L (98-107); Estimated GFR-MDRD 51; Glucose 128 mg/dL (80-115); Potassium 3.4 mmol/L (3.5-5.1); Sodium 137 mmol/L (136-145)
[2019-05-12] MEDS: Gabapentin 100 MG CAP PO SCH ×3 (08:33→21:40)
[2019-05-12] MEDS: Amiodarone 200 MG TAB PO SCH ×2 (08:33→21:40)
[2019-05-12] MEDS: Furosemide 20 MG TAB PO SCH (08:33)
[2019-05-12] MEDS: Apixaban 2.5 MG TAB PO SCH ×2 (08:33→21:39)
[2019-05-12] MEDS: Sodium Bicarbonate Tab 325 MG TAB PO SCH ×2 (08:33→21:45)
[2019-05-12] MEDS: Polyethylene Glycol 3350 17 GM Packet PO SCH ×2 (08:34→08:37)
[2019-05-12] MEDS ORDERED: ZINC 200 MG PO SCH (09:00)
[2019-05-12] MEDS: hydrALAZINE 25 MG TAB PO SCH ×3 (11:49→21:41)
[2019-05-12] MEDS: Carvedilol 25 MG TAB PO SCH ×2 (11:54→21:44)
--- NOTE | 2019-05-12 16:35 | PDOC.HOSPP ---
- Subjective Encounter Date: 05/12/19 Encounter Time: 16:30 Subjective: f/u for fall and SI. States feeling ok overall. No SI/HI currently. States he misspoke in the ED. - Objective Vital Signs & Weight: Vital Signs (12 hours) Temp Pulse Resp BP BP BP Pulse Ox 05/12/19 16:08 58 L 05/12/19 15:57 97.5 F L 58 L 16 145/73 H 97 05/12/19 11:49 58 L 141/70 H 05/12/19 11:13 96.6 F L 58 L 16 141/70 H 97 05/12/19 08:00 97 05/12/19 07:37 97.8 F 54 L 18 172/75 H 93 L 05/12/19 06:05 97.8 F 78 18 177/76 H 97 Weight Admit Weight 262 lb Weight 262 lb I&O: 05/11/19 05/12/19 05/13/19 06:59 06:59 06:59 Intake Total 0.5 240 Output Total 2150 3550 550 Balance -2150 -3549.5 -310 Result Diagrams: 05/12/19 05:26 05/12/19 05:26 Additional Labs: Accuchecks 05/12/19 05/12/19 05/11/19 11:19 05:10 19:19 POC Glucose 120 H 149 H 206 H 05/11/19 16:18 POC Glucose 144 H Microbiology 05/10/19 17:12 Urine Straight Catheter Urine Culture - Preliminary Non-Hemolytic Streptococcus Presumptive Pseudomonas Laboratory Tests 04/23/19 04/25/19 04/29/19 07:23 03:00 07:10 Creatinine 1.49 H 1.50 H 1.30 Hospitalist ROS - Medication Medications: Active Medications Generic Name Dose Route Start Last Admin Trade Name Freq PRN Reason Stop Dose Admin Acetaminophen 650 mg 05/10/19 23:51 05/11/19 07:54 Tylenol PO 650 mg Q4H PRN Administration Headache/Fever/Mild Pain (1-3) Amiodarone HCl 200 mg 05/11/19 21:00 05/12/19 08:33 Cordarone PO 200 mg BID HANSEL Administration Apixaban 2.5 mg 05/11/19 21:00 05/12/19 08:33 Eliquis PO 2.5 mg BID HANSEL Administration Carvedilol 25 mg 05/12/19 09:00 05/12/19 11:54 Coreg PO Not Given BID HANSEL Furosemide 20 mg 05/12/19 09:00 05/12/19 08:33 Lasix PO 20 mg DAILY HANSEL Administration Gabapentin 100 mg 05/11/19 21:00 05/12/19 16:09 Neurontin PO 100 mg TID HANSEL Administration Hydralazine HCl 75 mg 05/11/19 21:00 05/12/19 16:08 Apresoline PO 75 mg TID HANSEL Administration Insulin Glargine 25 units/ 0.25 mls @ 0 mls/hr 05/11/19 21:00 05/11/19 20:21 Miscellaneous Medication SC 0.25 mls HS HANSEL Administration Isosorbide Mononitrate 120 mg 05/12/19 09:00 05/12/19 08:33 Imdur PO 120 mg DAILY HANSEL Administration Ketorolac Tromethamine 15 mg 05/11/19 18:00 05/12/19 11:54 Toradol IVP 05/16/19 18:01 15 mg Q6HR HANSEL Administration Melatonin 3 mg 05/11/19 15:21 05/12/19 01:41 Melatonin PO 3 mg HSPRN PRN Administration Insomnia Pantoprazole Sodium 40 mg 05/12/19 09:00 05/12/19 08:33 Protonix PO 40 mg DAILY HANSEL Administration Polyethylene Glycol 17 gm 05/12/19 09:00 05/12/19 08:37 Miralax PO Not Given DAILY [facility] Sodium Bicarbonate 325 mg 05/11/19 21:00 05/12/19 08:33 Bicarbonate, Sodium PO 325 mg BID HANSEL Administration Tamsulosin HCl 0.4 mg 05/11/19 21:00 05/11/19 20:21 Flomax PO 0.4 mg HS HANSEL Administration Tramadol HCl 50 mg 05/11/19 12:27 05/12/19 01:41 Ultram PO 50 mg Q6H PRN Administration Pain - Exam General Appearance: NAD, awake alert Eye: PERRL, anicteric sclera ENT: no oropharyngeal lesions ENT - other findings: + hematoma of L parietal region, intact Neck: supple, symmetric Heart: RRR, no gallops, no rubs, normal peripheral pulses Respiratory: CTAB, no wheezes, no rales, no ronchi Gastrointestinal: soft, non-tender, non-distended, normal bowel sounds Extremities: no cyanosis, no clubbing Skin: normal turgor Neurological: cranial nerve grossly intact, no focal deficits, no new deficit Musculoskeletal: normal tone, generalized weakness Psychiatric: A&O x 3 Hosp A/P (1) Suicidal ideation Code(s): R45.851 - SUICIDAL IDEATIONS Status: Acute Plan: ? intent, MR evaluation for safety, likely can f/u as outpt with MR (2) Fall Code(s): W19.XXXA - UNSPECIFIED FALL, INITIAL ENCOUNTER Status: Acute Qualifiers: Encounter type: initial encounter Qualified Code(s): W19.XXXA - Unspecified fall, initial encounter Plan: PT/OT, SNF options (3) Physical deconditioning Code(s): R53.81 - OTHER MALAISE Status: Chronic Plan: See above (4) Urinary retention Code(s): R33.9 - RETENTION OF URINE, UNSPECIFIED Status: Acute Plan: Continue intermittent self-catheterizations (5) DM type 2 causing CKD stage 3 Code(s): E11.22 - TYPE 2 DIABETES MELLITUS W DIABETIC CHRONIC KIDNEY DISEASE; N18.3 - CHRONIC KIDNEY DISEASE, STAGE 3 (MODERATE) Status: Chronic Qualifiers: Diabetes mellitus oil heaterman insulin use: with oil heaterman use Qualified Code( s): E11.22 - Type 2 diabetes mellitus with diabetic chronic kidney disease; N18.3 - Chronic kidney disease, stage 3 (moderate); 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
[2019-05-12] MEDS ORDERED: Potassium Chloride 20 MEQ TAB PO SCH (17:00)
[2019-05-12] MEDS: Lidocaine 5% Patch TD SCH (17:24)
[2019-05-12] MEDS: Acetaminophen 325 MG TAB PO PRN (17:24)
[2019-05-12] MEDS: Tamsulosin HCl 0.4 MG CAP PO SCH (21:40)
[2019-05-12] MEDS: Insulin Glargine 25 UNITS in Pre-Filled Syringe 1 EACH SC SCH (21:45)
[2019-05-13] MEDS: Acetaminophen 325 MG TAB PO PRN ×2 (03:08→08:57)
[2019-05-13] MEDS: Lidocaine Patch Removal 1 EACH TOP SCH (05:46)
[2019-05-13] MEDS: Ketorolac Tromethamine 30 MG/ML VIAL IVP SCH ×3 (05:46→18:17)
[2019-05-13 06:06] LABS: Hemoglobin 10.9 g/dL (14.0-18.0); Platelet Count 246 thou/uL (130-400)
[2019-05-13 06:29] LABS: Anion Gap 10 mmol/L (10-20); BUN (Urea Nitrogen) 16 mg/dL (8.4-25.7); Calc. Creatinine Clearance 76 mL/min (70-130); Calcium 7.6 mg/dL (7.8-10.44); Carbon Dioxide 25 mmol/L (23-31); Chloride 109 mmol/L (98-107); Estimated GFR-MDRD 44; Glucose 100 mg/dL (80-115); Potassium 3.9 mmol/L (3.5-5.1); Sodium 140 mmol/L (136-145)
[2019-05-13] MEDS: Potassium Chloride 20 MEQ TAB PO SCH ×2 (08:43→19:06)
[2019-05-13] MEDS: Sodium Bicarbonate Tab 325 MG TAB PO SCH ×2 (08:43→21:50)
[2019-05-13] MEDS: Apixaban 2.5 MG TAB PO SCH ×2 (08:43→21:49)
[2019-05-13] MEDS: Carvedilol 25 MG TAB PO SCH ×2 (08:44→21:51)
[2019-05-13] MEDS: Gabapentin 100 MG CAP PO SCH ×3 (08:44→21:50)
[2019-05-13] MEDS: Furosemide 20 MG TAB PO SCH (08:44)
[2019-05-13] MEDS: hydrALAZINE 25 MG TAB PO SCH ×3 (08:48→21:50)
[2019-05-13] MEDS: Amiodarone 200 MG TAB PO SCH ×2 (08:48→21:50)
[2019-05-13] MEDS: Polyethylene Glycol 3350 17 GM Packet PO SCH (08:51)
[2019-05-13] MEDS: Lidocaine 5% Patch TD SCH (17:05)
--- NOTE | 2019-05-13 17:37 | PDOC.HOSPP ---
- Subjective Encounter Date: 05/13/19 Encounter Time: 17:15 Subjective: f/u for fall and ? SI. Feels ok overall with some back pain improved with Toradol. - Objective Vital Signs & Weight: Vital Signs (12 hours) Temp Pulse Resp BP BP Pulse Ox 05/13/19 08:48 60 146/70 H 05/13/19 08:00 97.6 F 55 L 18 146/70 H 97 Weight Admit Weight 262 lb Weight 262 lb I&O: 05/12/19 05/13/19 05/14/19 06:59 06:59 06:59 Intake Total 0.5 241.0 Output Total 3550 1000 500 Balance -3549.5 -759.0 -500 Result Diagrams: 05/13/19 05:33 05/13/19 05:33 Additional Labs: Accuchecks 05/13/19 05/13/19 05/13/19 16:20 11:16 05:48 POC Glucose 88 111 H 99 05/12/19 19:39 POC Glucose 165 H Laboratory Tests 05/10/19 05/12/19 05/12/19 17:00 05:26 05:26 Hgb 11.2 L Hct 34.4 L Creatinine 1.31 H 1.38 H Hospitalist ROS - Medication Medications: Active Medications Generic Name Dose Route Start Last Admin Trade Name Freq PRN Reason Stop Dose Admin Acetaminophen 650 mg 05/10/19 23:51 05/13/19 08:57 Tylenol PO 650 mg Q4H PRN Administration Headache/Fever/Mild Pain (1-3) Amiodarone HCl 200 mg 05/11/19 21:00 05/13/19 08:48 Cordarone PO 200 mg BID HANSEL Administration Apixaban 2.5 mg 05/11/19 21:00 05/13/19 08:43 Eliquis PO 2.5 mg BID HANSEL Administration Carvedilol 25 mg 05/12/19 09:00 05/12/19 21:44 Coreg PO 25 mg BID HANSEL Administration Furosemide 20 mg 05/12/19 09:00 05/13/19 08:44 Lasix PO 20 mg DAILY HANSEL Administration Gabapentin 100 mg 05/11/19 21:00 05/13/19 08:44 Neurontin PO 100 mg TID HANSEL Administration Hydralazine HCl 75 mg 05/11/19 21:00 05/13/19 08:48 Apresoline PO 75 mg TID HANSEL Administration Insulin Glargine 25 units/ 0.25 mls @ 0 mls/hr 05/11/19 21:00 05/12/19 21:45 Miscellaneous Medication SC 0.25 mls HS HANSEL Administration Isosorbide Mononitrate 120 mg 05/12/19 09:00 05/13/19 08:48 Imdur PO 120 mg DAILY HANSEL Administration Ketorolac Tromethamine 15 mg 05/11/19 18:00 05/13/19 13:55 Toradol IVP 05/16/19 18:01 15 mg Q6HR HANSEL Administration Lidocaine 2 patch 05/12/19 17:00 05/12/19 17:24 Lidoderm 5% Patch TD 2 patch 1700 HANSEL Administration Melatonin 3 mg 05/11/19 15:21 05/12/19 01:41 Melatonin PO 3 mg HSPRN PRN Administration Insomnia Miscellaneous Medication 1 each 05/13/19 05:00 05/13/19 05:46 Lidocaine Patch Removal TOP Not Given 0500 HANSEL Pantoprazole Sodium 40 mg 05/12/19 09:00 05/13/19 08:43 Protonix PO 40 mg DAILY HANSEL Administration Polyethylene Glycol 17 gm 05/12/19 09:00 05/13/19 08:51 Miralax PO Not Given DAILY HANSEL Potassium Chloride 40 meq 05/13/19 08:00 05/13/19 08:43 K-Dur PO 40 meq BID-WM HANSEL Administration Sodium Bicarbonate 325 mg 05/11/19 21:00 05/13/19 08:43 Bicarbonate, Sodium PO 325 mg BID HANSEL Administration Tamsulosin HCl 0.4 mg 05/11/19 21:00 05/12/19 21:40 Flomax PO 0.4 mg HS HANSEL Administration Tramadol HCl 50 mg 05/11/19 12:27 05/12/19 01:41 Ultram PO 50 mg Q6H PRN Administration Pain - Exam General Appearance: NAD, awake alert Eye: PERRL, anicteric sclera ENT: normocephalic atraumatic, no oropharyngeal lesions Neck: supple, symmetric, no JVD, no thyromegaly Heart: RRR, no murmur, no gallops, no rubs, normal peripheral pulses Respiratory: CTAB, no wheezes, no rales, no ronchi Gastrointestinal: soft, non-tender, non-distended, normal bowel sounds Extremities: no cyanosis, no clubbing Skin: normal turgor Neurological: cranial nerve grossly intact, no new deficit Musculoskeletal: normal tone, generalized weakness Psychiatric: normal affect, A&O x 3 Hosp A/P (1) Suicidal ideation Code(s): R45.851 - SUICIDAL IDEATIONS Status: Acute Plan: [facility] evaluating for outpt vs inpt options, sitter 1:1 (2) Fall Code(s): W19.XXXA - UNSPECIFIED FALL, INITIAL ENCOUNTER Status: Acute Qualifiers: Encounter type: initial encounter Qualified Code(s): W19.XXXA - Unspecified fall, initial encounter Plan: Hx of recurrent falls, PT/OT for mobilization, SNF options pending (3) Physical deconditioning Code(s): R53.81 - OTHER MALAISE Status: Chronic Plan: See above (4) Urinary retention Code(s): R33.9 - RETENTION OF URINE, UNSPECIFIED Status: Acute Plan: Bladder self-catheterizations (5) DM type 2 causing CKD stage 3 Code(s): E11.22 - TYPE 2 DIABETES MELLITUS W DIABETIC CHRONIC KIDNEY DISEASE; N18.3 - CHRONIC KIDNEY DISEASE, STAGE 3 (MODERATE) Status: Chronic Qualifiers: Diabetes mellitus restaurant cook insulin use: with restaurant cook use Qualified Code( s): E11.22 - Type 2 diabetes mellitus with diabetic chronic kidney disease; N18.3 - Chronic kidney disease, stage 3 (moderate); Z79.4 - care home (current) use of insulin - Plan PT/OT, social insurance adviser, out of bed/ambulate Stable currently [facility] evaluation in progress PT evaluation for functional assessment CM for SNF options D/C IV abx as pt
[2019-05-13] MEDS: Tamsulosin HCl 0.4 MG CAP PO SCH (21:50)
[2019-05-13] MEDS: Insulin Glargine 25 UNITS in Pre-Filled Syringe 1 EACH SC SCH (21:51)
[2019-05-14] MEDS: Ketorolac Tromethamine 30 MG/ML VIAL IVP SCH ×4 (00:39→17:29)
[2019-05-14] MEDS: Acetaminophen 325 MG TAB PO PRN ×3 (03:39→15:11)
[2019-05-14] MEDS: Lidocaine Patch Removal 1 EACH TOP SCH (05:58)
[2019-05-14] MEDS: Amiodarone 200 MG TAB PO SCH ×2 (08:19→20:36)
[2019-05-14] MEDS: Apixaban 2.5 MG TAB PO SCH ×2 (08:19→20:36)
[2019-05-14] MEDS: Potassium Chloride 20 MEQ TAB PO SCH ×2 (08:20→17:30)
[2019-05-14] MEDS: Gabapentin 100 MG CAP PO SCH ×3 (08:20→20:36)
[2019-05-14] MEDS: hydrALAZINE 25 MG TAB PO SCH ×3 (08:20→20:36)
[2019-05-14] MEDS: Furosemide 20 MG TAB PO SCH (08:20)
[2019-05-14] MEDS: Carvedilol 25 MG TAB PO SCH ×2 (08:20→20:36)
[2019-05-14] MEDS: Sodium Bicarbonate Tab 325 MG TAB PO SCH ×2 (08:20→20:36)
[2019-05-14] MEDS: Polyethylene Glycol 3350 17 GM Packet PO SCH (08:21)
--- NOTE | 2019-05-14 14:10 | PDOC.HOSPP ---
- Subjective Encounter Date: 05/14/19 Encounter Time: 14:00 Subjective: f/u for fall and general weakness with ? SI. Feels ok overall. Ambulated with PT today. - Objective Vital Signs & Weight: Vital Signs (12 hours) Temp Pulse Resp BP Pulse Ox 05/14/19 08:20 67 05/14/19 07:28 98 F 67 19 167/77 H 97 Weight Admit Weight 262 lb Weight 262 lb I&O: 05/13/19 05/14/19 05/15/19 06:59 06:59 06:59 Intake Total 241.0 200 Output Total 1000 1150 450 Balance -759.0 -1150 -250 Result Diagrams: 05/13/19 05:33 05/13/19 05:33 Additional Labs: Accuchecks 05/14/19 05/14/19 05/14/19 11:57 06:05 04:40 POC Glucose 82 78 58 L* 05/13/19 05/13/19 19:39 16:20 POC Glucose 112 H 88 Laboratory Tests 05/10/19 05/12/19 05/12/19 17:00 05:26 05:26 Hgb 11.2 L Hct 34.4 L Creatinine 1.31 H 1.38 H Hospitalist ROS - Medication Medications: Active Medications Generic Name Dose Route Start Last Admin Trade Name Freq PRN Reason Stop Dose Admin Acetaminophen 650 mg 05/10/19 23:51 05/14/19 08:24 Tylenol PO 650 mg Q4H PRN Administration Headache/Fever/Mild Pain (1-3) Amiodarone HCl 200 mg 05/11/19 21:00 05/14/19 08:19 Cordarone PO 200 mg BID HANSEL Administration Apixaban 2.5 mg 05/11/19 21:00 05/14/19 08:19 Eliquis PO 2.5 mg BID HANSEL Administration Carvedilol 25 mg 05/12/19 09:00 05/14/19 08:20 Coreg PO 25 mg BID HANSEL Administration Furosemide 20 mg 05/12/19 09:00 05/14/19 08:20 Lasix PO 20 mg DAILY HANSEL Administration Gabapentin 100 mg 05/11/19 21:00 05/14/19 08:20 Neurontin PO 100 mg TID HANSEL Administration Hydralazine HCl 75 mg 05/11/19 21:00 05/14/19 08:20 Apresoline PO 75 mg TID HANSEL Administration Insulin Glargine 25 units/ 0.25 mls @ 0 mls/hr 05/11/19 21:00 05/13/19 21:51 Miscellaneous Medication SC 0.25 mls HS HANSEL Administration Isosorbide Mononitrate 120 mg 05/12/19 09:00 05/14/19 08:19 Imdur PO 120 mg DAILY HANSEL Administration Ketorolac Tromethamine 15 mg 05/11/19 18:00 05/14/19 11:58 Toradol IVP 05/16/19 18:01 15 mg Q6HR HANSEL Administration Lidocaine 2 patch 05/12/19 17:00 05/13/19 17:05 Lidoderm 5% Patch TD Not Given 1700 HANSEL Melatonin 3 mg 05/11/19 15:21 05/12/19 01:41 Melatonin PO 3 mg HSPRN PRN Administration Insomnia Miscellaneous Medication 1 each 05/13/19 05:00 05/14/19 05:58 Lidocaine Patch Removal TOP Not Given 0500 HANSEL Pantoprazole Sodium 40 mg 05/12/19 09:00 05/14/19 08:20 Protonix PO 40 mg DAILY HANSEL Administration Polyethylene Glycol 17 gm 05/12/19 09:00 05/14/19 08:21 Miralax PO Not Given DAILY HANSEL Potassium Chloride 40 meq 05/13/19 08:00 05/14/19 08:20 K-Dur PO 40 meq BID-WM HANSEL Administration Sodium Bicarbonate 325 mg 05/11/19 21:00 05/14/19 08:20 Bicarbonate, Sodium PO 325 mg BID HANSEL Administration Tamsulosin HCl 0.4 mg 05/11/19 21:00 05/13/19 21:50 Flomax PO 0.4 mg HS HANSEL Administration Tramadol HCl 50 mg 05/11/19 12:27 05/12/19 01:41 Ultram PO 50 mg Q6H PRN Administration Pain - Exam General Appearance: NAD, awake alert Eye: PERRL, anicteric sclera ENT: no oropharyngeal lesions ENT - other findings: large hematoma on left scalp Neck: supple, symmetric, no JVD, no thyromegaly, no lymphadenopathy Heart: RRR, no murmur, no gallops, no rubs, normal peripheral pulses Respiratory: CTAB, no wheezes, no rales, no ronchi, normal chest expansion Gastrointestinal: soft, non-tender, non-distended, normal bowel sounds, no palpable masses Extremities: no cyanosis, no clubbing, no edema Skin: normal turgor, no lesions Neurological: cranial nerve grossly intact, no new deficit Musculoskeletal: normal tone Psychiatric: normal affect, A&O x 3 Hosp A/P (1) Suicidal ideation Code(s): R45.851 - SUICIDAL IDEATIONS Status: Acute Plan: ? SI, cleared by [facility] for outpt follow up, safety plan (2) Fall Code(s): W19.XXXA - UNSPECIFIED FALL, INITIAL ENCOUNTER Status: Acute Qualifiers: Encounter type: initial encounter Qualified Code(s): W19.XXXA - Unspecified fall, initial encounter Plan: PT evaluation for functional assessment, home PT with HH (3) Physical deconditioning Code(s): R53.81 - OTHER MALAISE Status: Chronic Plan: PT for HH (4) Urinary retention Code(s): R33.9 - RETENTION OF URINE, UNSPECIFIED Status: Acute Plan: Intermittent bladder self-catheterization (5) DM type 2 causing CKD stage 3 Code(s): E11.22 - TYPE 2 DIABETES MELLITUS W DIABETIC CHRONIC KIDNEY DISEASE; N18.3 - CHRONIC KIDNEY DISEASE, STAGE 3 (MODERATE) Status: Chronic Qualifiers: Diabetes mellitus terminal makeup operator insulin use: with terminal makeup operator use Qualified Code( s): E11.22 - Type 2 diabetes mellitus with diabetic chronic kidney disease; N18.3 - Chronic kidney disease, stage 3 (moderate); Z79.4 - residential (current) use of insulin - Plan 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
[2019-05-14] MEDS: Lidocaine 5% Patch TD SCH (17:29)
[2019-05-14] MEDS: Melatonin 3 MG TAB PO PRN (20:35)
[2019-05-14] MEDS: Tamsulosin HCl 0.4 MG CAP PO SCH (20:36)
[2019-05-14] MEDS: Insulin Glargine 25 UNITS in Pre-Filled Syringe 1 EACH SC SCH (20:37)
[2019-05-15] MEDS: Ketorolac Tromethamine 30 MG/ML VIAL IVP SCH ×5 (00:38→17:46)
[2019-05-15] MEDS: Acetaminophen 325 MG TAB PO PRN ×4 (03:59→21:05)
[2019-05-15] MEDS: Lidocaine Patch Removal 1 EACH TOP SCH (04:00)
[2019-05-15 06:48] LABS: Hemoglobin 10.2 g/dL (14.0-18.0); Platelet Count 234 thou/uL (130-400)
[2019-05-15 07:07] LABS: Anion Gap 12 mmol/L (10-20); BUN (Urea Nitrogen) 19 mg/dL (8.4-25.7); Calc. Creatinine Clearance 65 mL/min (70-130); Calcium 7.5 mg/dL (7.8-10.44); Carbon Dioxide 21 mmol/L (23-31); Chloride 113 mmol/L (98-107); Estimated GFR-MDRD 37; Glucose 90 mg/dL (80-115); Potassium 4.8 mmol/L (3.5-5.1); Sodium 141 mmol/L (136-145)
[2019-05-15] MEDS: Potassium Chloride 20 MEQ TAB PO SCH ×2 (08:18→15:56)
[2019-05-15] MEDS: Furosemide 20 MG TAB PO SCH (08:18)
[2019-05-15] MEDS: Sodium Bicarbonate Tab 325 MG TAB PO SCH ×2 (08:19→20:58)
[2019-05-15] MEDS: hydrALAZINE 25 MG TAB PO SCH ×3 (08:19→20:58)
[2019-05-15] MEDS: Carvedilol 25 MG TAB PO SCH ×2 (08:19→20:59)
[2019-05-15] MEDS: Amiodarone 200 MG TAB PO SCH ×2 (08:19→20:58)
[2019-05-15] MEDS: Polyethylene Glycol 3350 17 GM Packet PO SCH (08:20)
[2019-05-15] MEDS: Gabapentin 100 MG CAP PO SCH ×3 (08:20→20:59)
[2019-05-15] MEDS: Apixaban 2.5 MG TAB PO SCH ×2 (08:20→20:59)
--- NOTE | 2019-05-15 14:28 | DIS ---
DATE OF ADMISSION: 05/13/2019 DATE OF DISCHARGE: 05/15/2019 DISCHARGE DIAGNOSES: 1. Suicidal ideation. 2. Status post mechanical fall. 3. Physical deconditioning. 4. Urinary retention with intermittent bladder self-catheterizations. 5. Diabetes mellitus type 2 with chronic kidney disease stage 3. CONSULTATIONS: [facility] Service. PERTINENT LAB AND X-RAY FINDINGS: Creatinine ranged between 1.31 and 1.83. Estimated GFR ranged between 37 and 54. TSH 2.12. CBC showed a hemoglobin ranged between 10.2 and 11.4. Urine drug screen dated 05/10/2019, negative. Plasma alcohol less than 10. Urine culture dated 05/10/2019, showed greater than 100,000 colonies of Enterococcus faecalis and 50 to 75,000 colonies of Pseudomonas aeruginosa colonizing the sample. CT of the brain without contrast dated 05/10/2019, showed large left parietal scalp hematoma. No acute intracranial process identified. Old suboccipital craniotomy with encephalomalacia and gliosis of the right cerebellar hemisphere. CT of cervical spine dated 05/10/2019, showed multilevel degenerative changes without evidence for acute fracture or dislocation. CT of the lumbar spine dated, 05/10/2019, showed degenerative changes without acute fracture. CT of the thoracic spine dated, 05/10/2019, showed no acute fracture. Portable chest x-ray dated 05/10/2019, showed bibasilar atelectasis. HOSPITAL COURSE: The patient was initially admitted after presenting status post mechanical fall. The patient underwent extensive evaluation including metabolic and neuroimaging showing a questionable urinary tract infection. The patient with history of urinary retention with intermittent bladder self-catheterizations with urine culture showing Enterococcus and Pseudomonas species. The patient likely colonized with these species as no specific evidence of an acute active infectious process was identified. The patient did receive antibiotics initially, which were subsequently discontinued as the patient has chronic colonization of his urinary system. The patient was also evaluated for potential suicidal ideation. [facility] evaluation showed the patient clinically stable with recommendations for safety plan on discharge home. The patient was felt to be safe to return home with home health services and outpatient followup with [facility]. Due to the patient's overall comorbid status and deconditioning, the patient was deemed appropriate for ongoing skilled care with home health services after discharge. I have examined the patient at the time of discharge and discussed followup instructions. The patient verbalized understanding and agreement, ready for discharge on 05/15/2019. DISCHARGE MEDICATIONS: 1. Amiodarone 200 mg p.o. b.i.d. 2. Lipitor 40 mg p.o. daily. 3. Lasix 20 mg p.o. daily. 4. Isosorbide mononitrate 120 mg p.o. daily. 5. Protonix 40 mg p.o. daily. 6. MiraLAX 17 g p.o. daily. 7. Sodium bicarbonate 325 mg p.o. b.i.d. 8. Flomax 0.4 mg p.o. at bedtime. 9. Eliquis 2.5 mg p.o. b.i.d. 10. Carvedilol 25 mg p.o. b.i.d. 11. Gabapentin 100 mg p.o. t.i.d. 12. Hydralazine 75 mg p.o. t.i.d. 13. Lantus 25 units subcutaneously at bedtime. 14. Melatonin 3 mg p.o. at bedtime. 15. Tramadol 50 mg p.o. q.6 hours p.r.n. FOLLOWUP: The patient may follow up with his primary care provider, Dr. Gilberto Waterman, within 7 days of discharge. CONDITION ON DISCHARGE: Stable. ACTIVITY: Ad-david. Rolling walker with standby/contact guard assistance. SPECIAL INSTRUCTIONS: The patient to receive ongoing home health services with [facility] to include skilled care, physical and occupational therapy. The patient will follow up at the direction of [facility] Services for outpatient counseling and monitoring. DIET: Heart healthy and ADA. CODE STATUS: Full. DISPOSITION: Home with [facility], 05/15/2019. TIME SPENT: Total time preparing and coordinating discharge, 35 minutes. Job ID: [id number]
[2019-05-15] MEDS: Lidocaine 5% Patch TD SCH (15:56)
--- NOTE | 2019-05-15 19:31 | PDOC.HOSPP ---
- Subjective Encounter Date: 05/15/19 Encounter Time: 11:00 Subjective: f/u s/p fall and ? SI. Pt stabilizing with supportive mgmt and evaluated by [facility] x 2. Plan to d/c home with outpt [facility] follow up and setup for Home Health services. Pt stating he wants to harm himself right after being told he was going home. - Objective Vital Signs & Weight: Vital Signs (12 hours) Temp Pulse Resp BP Pulse Ox 05/15/19 15:55 58 L 05/15/19 08:19 58 L 05/15/19 07:33 96.7 F L 58 L 16 157/77 H 98 Weight Admit Weight 262 lb Weight 262 lb I&O: 05/14/19 05/15/19 05/16/19 06:59 06:59 06:59 Intake Total 1840 1989 Output Total 1150 2650 1960 Balance -1150 -810 30 Result Diagrams: 05/15/19 06:08 05/15/19 06:08 Additional Labs: Accuchecks 05/15/19 05/15/19 05/15/19 16:29 13:31 10:58 POC Glucose 126 H 117 H 59 L* 05/15/19 05/14/19 05:08 19:44 POC Glucose 115 H 129 H Hospitalist ROS - Medication Medications: Active Medications Generic Name Dose Route Start Last Admin Trade Name Freq PRN Reason Stop Dose Admin Acetaminophen 650 mg 05/10/19 23:51 05/15/19 13:26 Tylenol PO 650 mg Q4H PRN Administration Headache/Fever/Mild Pain (1-3) Amiodarone HCl 200 mg 05/11/19 21:00 05/15/19 08:19 Cordarone PO 200 mg BID HANSEL Administration Apixaban 2.5 mg 05/11/19 21:00 05/15/19 08:20 Eliquis PO 2.5 mg BID HANSEL Administration Carvedilol 25 mg 05/12/19 09:00 05/15/19 08:19 Coreg PO 25 mg BID HANSEL Administration Furosemide 20 mg 05/12/19 09:00 05/15/19 08:18 Lasix PO 20 mg DAILY HANSEL Administration Gabapentin 100 mg 05/11/19 21:00 05/15/19 15:56 Neurontin PO 100 mg TID HANSEL Administration Hydralazine HCl 75 mg 05/11/19 21:00 05/15/19 15:55 Apresoline PO 75 mg TID HANSEL Administration Insulin Glargine 25 units/ 0.25 mls @ 0 mls/hr 05/11/19 21:00 05/14/19 20:37 Miscellaneous Medication SC 0.25 mls HS HANSEL Administration Isosorbide Mononitrate 120 mg 05/12/19 09:00 05/15/19 08:18 Imdur PO 120 mg DAILY HANSEL Administration Ketorolac Tromethamine 15 mg 05/11/19 18:00 05/15/19 17:46 Toradol IVP 05/16/19 18:01 15 mg Q6HR HANSEL Administration Lidocaine 2 patch 05/12/19 17:00 05/15/19 15:56 Lidoderm 5% Patch TD Not Given 1700 HANSEL Melatonin 3 mg 05/11/19 15:21 05/14/19 20:35 Melatonin PO 3 mg HSPRN PRN Administration Insomnia Miscellaneous Medication 1 each 05/13/19 05:00 05/15/19 04:00 Lidocaine Patch Removal TOP Not Given 0500 HANSEL Pantoprazole Sodium 40 mg 05/12/19 09:00 05/15/19 08:18 Protonix PO 40 mg DAILY HANSEL Administration Polyethylene Glycol 17 gm 05/12/19 09:00 05/15/19 08:20 Miralax PO 17 gm DAILY HANSEL Administration Potassium Chloride 40 meq 05/13/19 08:00 05/15/19 15:56 K-Dur PO 40 meq BID-WM HANSEL Administration Sodium Bicarbonate 325 mg 05/11/19 21:00 05/15/19 08:19 Bicarbonate, Sodium PO 325 mg BID HANSEL Administration Tamsulosin HCl 0.4 mg 05/11/19 21:00 05/14/19 20:36 Flomax PO 0.4 mg HS HANSEL Administration Tramadol HCl 50 mg 05/11/19 12:27 05/12/19 01:41 Ultram PO 50 mg Q6H PRN Administration Pain - Exam General Appearance: NAD, awake alert Eye: PERRL, anicteric sclera Eye - other findings: L parietal hematoma ENT: no oropharyngeal lesions Neck: supple, symmetric, no JVD, no thyromegaly, no lymphadenopathy Heart: RRR, no murmur, no gallops, no rubs, normal peripheral pulses Respiratory: CTAB, no wheezes, no rales, no ronchi, normal chest expansion Gastrointestinal: soft, non-tender, non-distended, normal bowel sounds Extremities: no cyanosis, no clubbing Skin: normal turgor, no lesions Neurological: cranial nerve grossly intact, no focal deficits, no new deficit Musculoskeletal: normal tone Psychiatric: A&O x 3, flat affect Hosp A/P (1) Suicidal ideation Code(s): R45.851 - SUICIDAL IDEATIONS Status: Acute Plan: Pt continues to make remarks regarding hurting himself and wanting to despite denying this over the last 48-72h when confronted with these previous statements made in the ED. Pt immediately made the states once he was told that he is being discharged home with Home Health services. He previously denied any true intent on harming himself and stated he was joking. He now says he will kill himself if he returns home without 24h services such as a sitter or home provider. Pt offered NH placement but refused and has used up all skilled days this year. [facility] consulted for re-evaluation and to find inpt psychiatric placement as pt continues to make threats of harming himself. (2) Fall Code(s): W19.XXXA - UNSPECIFIED FALL, INITIAL ENCOUNTER Status: Acute Qualifiers: Encounter type: initial encounter Qualified Code(s): W19.XXXA - Unspecified fall, initial encounter Plan: Stable, ambulated 240ft with RW and SBA (3) Physical deconditioning Code(s): R53.81 - OTHER MALAISE Status: Chronic (4) Urinary retention Code(s): R33.9 - RETENTION OF URINE, UNSPECIFIED Status: Acute Plan: Bladder self-catheterizations (5) DM type 2 causing CKD stage 3 Code(s): E11.22 - TYPE 2 DIABETES MELLITUS W DIABETIC CHRONIC KIDNEY DISEASE; N18.3 - CHRONIC KIDNEY DISEASE, STAGE 3 (MODERATE) Status: Chronic Qualifiers: Diabetes mellitus prison insulin use: with termite control technician use Qualified Code( s): E11.22 - Type 2 diabetes mellitus with diabetic chronic kidney disease; N18.3 - Chronic kidney disease, stage 3 (moderate); Z79.4 - watermaster (current) use of insulin - Plan 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
[2019-05-15] MEDS: Tamsulosin HCl 0.4 MG CAP PO SCH (20:59)
[2019-05-15] MEDS: Insulin Glargine 25 UNITS in Pre-Filled Syringe 1 EACH SC SCH (21:01)
[2019-05-15] MEDS: Melatonin 3 MG TAB PO PRN (21:06)
[2019-05-15 21:10] VITALS: TEMP 98
[2019-05-16] MEDS: Ketorolac Tromethamine 30 MG/ML VIAL IVP SCH ×2 (00:24→05:25)
[2019-05-16] MEDS: Acetaminophen 325 MG TAB PO PRN ×3 (00:31→13:47)
[2019-05-16] MEDS: Lidocaine Patch Removal 1 EACH TOP SCH (04:34)
[2019-05-16] MEDS: Sodium Bicarbonate Tab 325 MG TAB PO SCH (08:30)
[2019-05-16] MEDS: Potassium Chloride 20 MEQ TAB PO SCH (08:30)
[2019-05-16] MEDS: Amiodarone 200 MG TAB PO SCH (08:31)
[2019-05-16] MEDS: Polyethylene Glycol 3350 17 GM Packet PO SCH (08:31)
[2019-05-16] MEDS: Furosemide 20 MG TAB PO SCH (08:31)
[2019-05-16] MEDS: Gabapentin 100 MG CAP PO SCH (08:31)
[2019-05-16] MEDS: Carvedilol 25 MG TAB PO SCH (08:32)
[2019-05-16] MEDS: hydrALAZINE 25 MG TAB PO SCH (08:32)
[2019-05-16] MEDS: Apixaban 2.5 MG TAB PO SCH (08:45)
[2019-05-16 11:30] VITALS: BP 113/56
[2019-05-16] MEDS ORDERED: Ketorolac Tromethamine 10 MG TAB PO SCH ×2 (12:45→18:00)
--- NOTE | 2019-05-17 07:41 | PQF ---
ONEYDA BEE CHARLES [id number] CLINICAL DOCUMENTATION CLARIFICATION FORM: POST DISCHARGE Addendum to original discharge summary date: ____ Late entry note date: __ DATE: 05-17-2019 ATTN:Frank Thao Please exercise your independent, professional judgment in responding to the clarification form. Clinical indicators are provided on the bottom of this form for your review Can you please clarify the reason for admission being treated for this patient? [ ]Depression [ x ]Scalp laceration [ ]Urinary retention [ x ]or other more diagnosis, please specify - Suicidal Ideation [ ] unable to determine Clinical Indicators: CT brain p1 05/10-Impression : Acute traumatic, moderately large parietal scalp hematoma H&P p1 05/11-Pt reported head pain and low midback pain H&P p1 05/11-Pt reported hitting a bookcase H&P p1 05/11-Pt apears to be depressed H&P p2 05/11 -'Fall H&P p2 05/11-Suicidal Ideation Risk factors: H&P p1 05/11-68 year old H&P p1 05/11-BPH H&P p3 05/11-Depression ED p10 05/10-Scalp laceration Treatments: ED p10 05/10-Scalp laceration repair with total length of 4.0cm H&P p3 05/11-Consult Psychiatry in AM H&P p3 05/11-Provide sitter for close monitoring through the night H&P p3 05/11-Psychiatric facility after being evaluated by Psychiatrist (This form is maintained as a part of the permanent medical record) 2014 [employer]. All Rights Reserved [email or web address] [not provided] MTDD
--- NOTE | 2019-05-17 10:13 | DIS ---
DATE OF ADMISSION: 05/13/2019 DATE OF DISCHARGE: 05/16/2019 ADDENDUM: HOSPITAL COURSE: The patient's discharge was held due to threats of intent for suicidal ideation after the patient was told he was returning home with Home Health Services on 05/15/2019. The patient has been evaluated by [facility] on three occasions during this hospital course after making threats of violence against himself if returning home. The patient previously denied these statements after initially being made in the emergency room at the time of admission. Due to the threats of self-harm, the patient remained on one-on-one observation throughout the hospital course and has been deemed an appropriate candidate for inpatient psychiatric care. The patient is stating on the date of discharge, he would like to return home. However, due to his multiple statements of self-harm and questionable intent, the patient was deemed appropriate to transfer to inpatient psychiatric care. The patient has remained clinically stable under one-on-one observation in the hospital and ready for discharge on 05/16/2019. I have examined the patient at time of discharge and discussed followup instructions. The patient will travel by [facility] to inpatient psychiatric care on 05/16/2019. Please see dictated discharge summary dated 05/15/2019 for medication reconciliation and followup instructions. Job ID: [id number]
== END 2019-05-16 15:41 | DRG 605 ==
LOC: ERS 08:25 → T4-B 18:40 → OBSVTOIN 05-13 18:13
PROVIDERS: ADMIT Internal Medicine; ATTEND Internal Medicine
PROC: 0HQ0XZZ Repair Scalp Skin, External Approach (ICD-10-PCS; principal; 2019-05-10)
DX: S01.01XA Laceration without foreign body of scalp, initial encounter (principal); R45.851 Suicidal ideations; F32.9 Major depressive disorder, single episode, unspecified; N40.1 Benign prostatic hyperplasia with lower urinary tract symptoms; R33.9 Retention of urine, unspecified; W18.30XA Fall on same level, unspecified, initial encounter; Z60.2 Problems related to living alone; N18.3 Chronic kidney disease, stage 3 (moderate); E11.22 Type 2 diabetes mellitus with diabetic chronic kidney disease; I12.9 Hypertensive chronic kidney disease with stage 1 through stage 4 chronic kidney disease, or unspecified chronic kidney disease; I25.10 Atherosclerotic heart disease of native coronary artery without angina pectoris; Z79.01 Long term (current) use of anticoagulants; Z79.899 Other long term (current) drug therapy; Z86.73 Personal history of transient ischemic attack (TIA), and cerebral infarction without residual deficits; I25.2 Old myocardial infarction; Z79.4 Long term (current) use of insulin; Z95.1 Presence of aortocoronary bypass graft
CPT/HCPCS: 36415; 36416; 70450; 71045; 72125; 72128; 72131; 80048; 80053; 80306; 80307; 81003; 81015; 84443; 85014; 85018; 85025; 85049; 87077; 87086; 87186; 96365; 96372; J0696; J1815; J1885; J2270

== ENCOUNTER 2019-08-14 14:31 | Inpatient (IN) | payer MEDICARE ==
[2019-08-14 16:25] LABS: #Eosinphils 0.6 thou/uL (0.0-0.7); #Lymphocytes 2.2 thou/uL (1.20-3.40); #Monocytes 1.6 thou/uL (0.11-0.59); #Neutrophils 13.6 thou/uL (1.40-6.50); %Basophils 0.1 % (0.0-1.0); %Eosinophils 3.4 % (0.0-10.0); %Lymphocytes 12.1 % (21.0-51.0); %Monocytes 8.9 % (0.0-10.0); %Neutrophils 75.5 % (42.0-75.0); Hemoglobin 9.8 g/dL (14.0-18.0); Mean Corpuscular Hemoglobin 29.4 pg (27.0-31.0); Mean Corpuscular Volume 88.8 fL (78.0-98.0); Mean Platelet Volume 6.1 fL (7.4-10.4); Platelet Count 392 thou/uL (130-400); RBC Distribution Width 12.9 % (11.5-14.5); Red Blood Cell (RBC) Count 3.33 mill/uL (4.70-6.10); White Blood Cell (WBC) Count 18.1 thou/uL (4.8-10.8)
[2019-08-14 16:53] LABS: ALT (SGPT) 8 U/L (8-55); AST (SGOT) 15 U/L (5-34); Albumin 3.1 g/dL (3.4-4.8); Alkaline Phosphatase 78 U/L (40-110); Anion Gap 14 mmol/L (10-20); BUN (Urea Nitrogen) 43 mg/dL (8.4-25.7); Bilirubin, Total 1.6 mg/dL (0.2-1.2); Calc. Creatinine Clearance 0 mL/min (70-130); Calcium 8.9 mg/dL (7.8-10.44); Carbon Dioxide 27 mmol/L (23-31); Chloride 97 mmol/L (98-107); Estimated GFR-MDRD 23; Globulin 4.6 g/dL (2.4-3.5); Glucose 189 mg/dL (80-115); Potassium 4.2 mmol/L (3.5-5.1); Protein, Total 7.7 g/dL (5.8-8.1); Sodium 134 mmol/L (136-145)
[2019-08-14] MEDS ORDERED: cefTRIAXone\\ROCEPHIN 2 GM VIAL ONE (18:30)
--- NOTE | 2019-08-14 19:41 | RAD ---
LEFT FOOT: 08/14/19 Three views. HISTORY: Foot infection. COMPARISON: 01/28/19. FINDINGS/IMPRESSION: Spurring from the plantar calcaneus is again noted. Degenerative change in intertarsal joints. Degene rative change at the first MTP joint with hallux valgus appears stable. No fracture. No focal osseous lysis or destruction. There is soft tissue swelling involving the midfoot and forefoot. There is sof t tissue swelling along the dorsal forefoot and midfoot with gas density seen which may represent gas forming organisms with cellulitis. POS: OFF
[2019-08-14] MEDS ORDERED: Acetaminophen 325 MG TAB PO PRN (22:24)
[2019-08-14] MEDS ORDERED: HYDROcodone/Acetaminophen 5/325 mg Tablet PO PRN (22:24)
[2019-08-14] MEDS ORDERED: Ondansetron PF 4 MG/2 ML Vial IVP PRN (22:24)
[2019-08-14] MEDS ORDERED: Bisacodyl 5 MG TAB PO PRN (22:24)
[2019-08-14] MEDS ORDERED: Morphine 2 MG/ML SYRINGE SLOW IVP PRN (22:26)
[2019-08-14] MEDS ORDERED: hydrALAZINE 20 MG/ML VIAL SLOW IVP PRN (22:26)
[2019-08-14] MEDS ORDERED: Vancomycin HCl 1 GM in Premix Bag 1 BAG IVPB SCH (22:30)
[2019-08-14] MEDS ORDERED: Dextrose 50% Abboject 50 ML SYRINGE SLOW IVP PRN (22:35)
[2019-08-14] MEDS ORDERED: Dextrose 5% in Water 1,000 ML IV PRN (22:35)
[2019-08-14] MEDS ORDERED: Clindamycin 150 MG CAP PO SCH (22:45)
[2019-08-14 23:45] LABS: Iron 21 ug/dL (65-175); Iron Binding Capacity, Total 169 mcg/dL (261-462)
--- NOTE | 2019-08-14 23:51 | HP ---
PRESENTING COMPLAINT: Referred from [facility] office for left foot ulcer. HISTORY OF PRESENT ILLNESS: Natalie Quintanilla is a 68-year-old male with history of extensive cardiac history including hypertension; diabetes mellitus; coronary artery disease, status post CABG; history of presumed systolic CHF; chronic lower extremity edema; developed nonhealing left great toe ulceration with cellulitis. Wound continued to worsen despite previous prolonged oral antibiotic use. The patient was seen by Podiatry today and sent to the emergency room because of persistent wound with new drainage from the ulcer. The patient's states that the patient had chills this morning, but no reported fever at home. The patient denies any nausea or vomiting. He feels comfortable. He states he has minimal pain over the foot area. He denies any shortness of breath. PAST MEDICAL HISTORY: Significant for hypertension, diabetes, CVA, BPH, coronary artery disease, presumed systolic CHF, history of multiple MIs in the past, and history of kidney stones. PAST SURGICAL HISTORY: Includes knee surgery, ankle surgeries, CABG, and right femur surgery. SOCIAL HISTORY: The patient resides in the community with his . No history of tobacco, alcohol, or illicit drug use. FAMILY HISTORY: The patient denies any coronary artery disease or bone cancer history. HOME MEDICATIONS: See medication list, which is yet to be verified. ALLERGIES: THE PATIENT IS ALLERGIC TO NITROGLYCERIN. REVIEW OF SYSTEMS: All systems reviewed x10 were negative except as mentioned above. PHYSICAL EXAMINATION: VITAL SIGNS: Current vitals; blood pressure of 135/71, pulse of 60, respiratory rate of 18, temp afebrile at 98.6, and O2 saturation 97% on room air. GENERAL: Obese, middle-aged male, appears older than stated age, not in any distress. HEENT: Pupils are equal and reactive to light. NECK: No JVD. No carotid bruit. RESPIRATORY: Good air entry. No basal crepitations. CARDIOVASCULAR: S1, S2. Rate and rhythm, regular. Sternotomy scar present. GI: Abdomen is full, soft, nontender. Bowel sounds positive but distended abdomen. RECTAL: Deferred. EXTREMITIES: 2 to 3+ bilateral edema extending up to the knee. Bilateral erythema over anterior shins. Marked desquamation of the skin under the left lower extremity, especially around the great toe. Abrasion of the medial border of the great toe extending to an erythematous coin-shaped ulcer on the plantar surface of the fifth metatarsal head, which is draining with mucopurulent pus. NEUROLOGIC: The patient is alert and oriented. Cranial nerves 2 through 12 are grossly intact. LABORATORY DATA: WBC 18, hemoglobin 9.8, platelets 392, and neutrophils 75%. Sodium 134, potassium 4.2, creatinine 2.7, up from previous base of 2.2 one month ago. Lactic acid 1.4. Total bilirubin 1.6. C-reactive protein 15. IMPRESSION: 1. Left foot cellulitis with possible fifth metatarsal head osteomyelitis. We will admit the patient to inpatient status. We will start the patient on empirical antibiotics with Vanco and clindamycin. We will obtain blood culture x2. Wound culture from area also obtained. We will consult Orthopedic Surgery. The patient might need debridement of the area. We will follow labs as needed. 2. Hypertension. Continue home regimen after medication verified. 3. Diabetes mellitus. Continue insulin sliding scale. We will restart also home medication when verified. 4. Presumed congestive heart failure. No echocardiogram from before appreciable, but significant lower extremity edema, we will start the patient on IV Lasix 40 q.12 and discontinue previous home dose of 20 daily. 5. Chronic kidney disease with acute kidney injury, likely due to cellulitis. We will consult Nephrology. The patient is unable to give me who his manager protein is. We will consult Nephrology on-call. 6. DVT prophylaxis. The patient is on Eliquis. 7. Advanced directives. The patient wishes to be full code. TOTAL TIME SPENT: Greater than 60 minutes. Job ID: [id number]
[2019-08-15] MEDS ORDERED: Vancomycin HCl 1 GM in Premix Bag 1 BAG IVPB SCH (00:30)
[2019-08-15 01:08] VITALS: BMI 33.9
[2019-08-15 04:15] LABS: Bacteria/HPF None Seen HPF (None Seen); Bilirubin Negative (Negative); Blood, Urine Negative (Negative); Clarity Clear (Clear); Glucose, Urine (Dipstick) Normal (Negative); Leukocyte 25 Leu/uL (Negative); Nitrite Negative (Negative); Protein, Urine (Dipstick) Negative (Neg-Trace); RBC/HPF 0-3 HPF (0-3); Squamous Epithelial 0-3 HPF (0-3); Urobilinogen Normal mg/dL (Less than 2)
[2019-08-15 04:17] LABS: Urine Culture Reflex Yes Yes
[2019-08-15 05:23] LABS: #Eosinphils 0.8 thou/uL (0.0-0.7); #Lymphocytes 1.6 thou/uL (1.20-3.40); #Monocytes 1.3 thou/uL (0.11-0.59); #Neutrophils 10.9 thou/uL (1.40-6.50); %Basophils 0.1 % (0.0-1.0); %Eosinophils 5.4 % (0.0-10.0); %Monocytes 8.6 % (0.0-10.0); %Neutrophils 74.9 % (42.0-75.0); Hemoglobin 9.3 g/dL (14.0-18.0); Mean Corpuscular HGB CONC 33.6 g/dL (32.0-36.0); Mean Corpuscular Hemoglobin 29.4 pg (27.0-31.0); Mean Corpuscular Volume 87.5 fL (78.0-98.0); Mean Platelet Volume 5.8 fL (7.4-10.4); Platelet Count 356 thou/uL (130-400); Red Blood Cell (RBC) Count 3.15 mill/uL (4.70-6.10); White Blood Cell (WBC) Count 14.5 thou/uL (4.8-10.8)
[2019-08-15 05:59] LABS: ALT (SGPT) 7 U/L (8-55); AST (SGOT) 11 U/L (5-34); Albumin 2.7 g/dL (3.4-4.8); Alkaline Phosphatase 70 U/L (40-110); Anion Gap 12 mmol/L (10-20); BUN (Urea Nitrogen) 43 mg/dL (8.4-25.7); Bilirubin, Total 1.1 mg/dL (0.2-1.2); Calc. Creatinine Clearance 45 mL/min (70-130); Calcium 8.3 mg/dL (7.8-10.44); Carbon Dioxide 29 mmol/L (23-31); Chloride 98 mmol/L (98-107); Estimated GFR-MDRD 26; Globulin 3.9 g/dL (2.4-3.5); Glucose 176 mg/dL (80-115); Potassium 3.7 mmol/L (3.5-5.1); Protein, Total 6.6 g/dL (5.8-8.1); Sodium 135 mmol/L (136-145)
[2019-08-15] MEDS ORDERED: Furosemide 40 MG/4 ML VIAL SLOW IVP SCH (06:00)
[2019-08-15] MEDS ORDERED: Clindamycin 150 MG CAP PO SCH (06:00)
[2019-08-15] MEDS: HumaLOG 300 UNITS/3 ML VIAL SC PRN (06:36)
[2019-08-15] MEDS: Carvedilol 25 MG TAB PO SCH ×2 (08:59→17:37)
[2019-08-15] MEDS ORDERED: Apixaban 2.5 MG TAB PO SCH (09:00)
[2019-08-15] MEDS: Atorvastatin Calcium 40 MG TAB PO SCH (09:05)
[2019-08-15] MEDS: Gabapentin 100 MG CAP PO SCH ×3 (09:05→20:06)
[2019-08-15] MEDS: Amiodarone 200 MG TAB PO SCH ×2 (09:05→20:06)
--- NOTE | 2019-08-15 11:08 | CON ---
DATE OF CONSULTATION: HISTORY OF PRESENT ILLNESS: Mr. Natalie Quintanilla is a 68-year-old male patient who lives at home, ambulatory with a walker, has diabetes, heart disease, admitted for neuropathic ulcer of planter left foot. He is sent by Dr. Nisreen Quarles. I personally called Dr. Quarles who asked that I assume his care. The patient is admitted by the hospitalist and placed on intravenous antibiotics. He is insulin-dependent diabetic. The patient has prior history of stroke. He has a speech impediment he attributes to a general practitioner prescribing the wrong medication. He is unclear on the details of this. Plain x-rays of the foot did not reveal osteomyelitis, but he has a neuropathic ulcer beneath the great metatarsophalangeal joint extending into the capsule. He has wounds over his left great toe with swelling, edema, cellulitis. ALLERGIES: NITROGLYCERIN. TOBACCO: None. ALCOHOL: None. MEDICATIONS: 1. Insulin 55 units p.m., 25 units a.m. 2. Insulin detemir. 3. Phenergan p.r.n. 4. Spironolactone 25 daily. 5. Furosemide 40 mg b.i.d. 6. Fluoxetine 20 mg daily. 7. Aspirin 81 mg a day. 8. Cozaar 50 mg a day. 9. Vascepa 2 g p.o. b.i.d. 10. Coreg 2 tablets b.i.d. 11. Flomax 0.4 mg at bedtime. 12. Hydralazine 75 mg t.i.d. 13. Lipitor 40 mg daily. PAST SURGICAL HISTORY: 1. Coronary artery bypass grafting 10 years ago, followed by Dr. Crisostomo, who last saw him a week or two ago. 2. Past history of GI bleeding in 2013, seen by Dr. Rollins, EGD, biopsy, noting a small hiatal hernia. Duodenitis and peptic ulcer. 3. 12/27/2018, Dr. Mendoza, open reduction and internal fixation of right distal femur periprosthetic fracture. 4. 02/06/2019, left subclavian vein placed by vt for IV access. 5. 02/07/2019, [facility], Dr. Crisostomo. Mild decreased LV function. Mild mitral regurgitation. Tricuspid regurgitation. No thrombus noted. Arteriosclerotic aortic disease. 6. Cardioversion, Dr. Crisostomo, January 2019. 7. January 2019, Dr. Frank Rollins, upper endoscopy for nausea, vomiting, erosive esophagitis, esophageal ulcerations, otherwise normal EGD. 8. 03/07/2019, Dr. Paul Singletary, right vocal cord paralysis with mobilization and microsuspension technique. 9. 04/24/2019, Dr. Singletary, microsuspension direct laryngoscopy. Right true vocal cord paralysis. 10. Bilateral knee replacements, ankle surgeries, coronary artery bypass grafting, right femur surgery as above. 11. Umbilical hernia repair. PAST MEDICAL HISTORY: Diabetes mellitus, hypertension, prior stroke limiting mobility with a walker. BPH, followed by Dr. Mars. He in and out catheterizes himself at home. He has a Bishop catheter placed this hospitalization. The patient is , lives at home. PHYSICAL EXAMINATION: VITAL SIGNS: 6 feet, 250 pounds, 33 BMI, temperature 97.6, pulse 57, blood pressure 122/56. HEAD, EARS, EYES, NOSE AND THROAT: Unremarkable. LUNGS: Clear to auscultation. CARDIAC: Regular rate and rhythm without murmur or gallop. ABDOMEN: Soft and nontender. Bishop catheter in place. He has an umbilical hernia, recurrent, with an umbilical incision. EXTREMITIES: Palpable femoral and popliteal pulses. I cannot feel pedal pulses but his foot is warm. He has a plantar ulcer metatarsophalangeal joint, left great toe, that extends to the metatarsophalangeal joint. He has edema, cellulitis of his great toe. He has wounds in his lateral left great toe open. ASSESSMENT AND PLAN: 1. Left diabetic foot infection. Plan, amputation of left great toe and metatarsal, healing by secondary intention, wound VAC application. He will need wound VAC care postoperatively. He may need to stay in assisted living postoperatively versus home health. He will need physical therapy, ambulation postoperatively. 2. Neurogenic bladder versus prostate problems. He in and out catheterizes himself at home. He is followed by Dr. Mars. 3. Coronary artery disease, stable. 4. Recurrent umbilical hernia. 5. Prior stroke with poor mobility. 6. Vocal cord paralysis, status post ENT procedures, Dr. Singletary. Job ID: [id number]
--- NOTE | 2019-08-15 11:18 | CON ---
DATE OF CONSULTATION: 08/15/2019 REASON FOR CONSULTATION: Acute on chronic kidney disease. REQUESTING PHYSICIAN: Bry Kimball MD. SUBJECTIVE: A 68-year-old male with known history of chronic heart failure, diabetes mellitus, coronary artery disease status post CABG, as well as CKD stage III-IV, who was admitted due to nonhealing left foot ulcer. The patient was found to have acute elevation in creatinine necessitating Nephrology consult. The patient denied nausea, vomiting, change in bowel habit, dysuria, hematuria, shortness of breath, or chest pain. He, however, admitted to chronic bilateral leg edema, for which he is taking diuretics. OBJECTIVE: VITAL SIGNS: Temperature 97.6, pulse 57, respiratory rate 20, SpO2 of 96% on room air, blood pressure is 122/56. GENERAL: Obese male, in no obvious distress. Afebrile. Anicteric. Acyanotic. HEENT: Normocephalic and atraumatic. Oral mucosa is moist. NECK: Supple with no JVD. CARDIOVASCULAR: Regular rhythm and rate with normal heart sounds 1 and 2. RESPIRATORY: Good air entry bilaterally with no obvious crackle or rhonchi or use of accessory muscles. GI: Full, soft, nontender, nondistended with normal bowel sounds. EXTREMITIES: Left big toe medial aspect of left foot excoriation, swelling, and some mild erythema extending upwards to the ankle. Right distal anterior leg ulcer with some drainage noted as well. Mild bilateral leg edema with venous stasis changes noted. IMPORT/EXPORT ADMINISTRATOR: Conscious and alert and oriented x3 with appropriate mental status. Cranial nerves 2 through 12 are grossly intact. DIAGNOSTIC DATA: CBC showed WBC count of 14.5, hemoglobin of 9.3, MCV of 87.5, platelet of 356. On presentation, however, WBC count was 18.1 and hemoglobin was 9.8. CMP today showed sodium 135, potassium 3.7, chloride 98, CO2 of 29, BUN 43, creatinine 2.50, glucose 176, calcium 8.3, total bilirubin 1.1, AST 11, ALT 7, alkaline phosphatase 70, total protein 6.2, albumin 2.7, globulin 3.9. On presentation, however, sodium was 134, chloride 97, potassium 4.2, BUN 43, creatinine 2.73. CRP is 15.06. Iron chemistry showed serum iron of 21, TIBC of 169, saturation of 12. Ferritin was not done. Urinalysis showed light yellow clear urine with pH of 7.5, specific gravity of 1.008. Negative protein. Normal glucose. Negative ketone, blood, nitrite, bilirubin. Microscopy showed 0 to 3 RBC and 10-20 WBC. IMAGING STUDIES: Left foot x-ray showed soft tissue swelling along the dorsal forefoot and midfoot with gas density seen which may represent gas-forming organisms with cellulitis. ASSESSMENT: 1. Acute kidney injury: Of note, the patient had a creatinine of 1.1 in February 2019, but has progressively trended up to a peak of 2.73 on presentation. This most likely is due to excessive diuresis and cytokine mediated kidney injury given left foot cellulitis and possible osteomyelitis. 2. Chronic kidney disease stage 3 due to hypertension, cardiorenal, as well as diabetic nephropathy. 3. Anemia in chronic kidney disease. 4. Iron deficiency is a concern. 5. Metabolic alkalosis: Most likely related to volume contraction. 6. Poorly controlled diabetes mellitus. 7. Left foot cellulitis with possible gangrene and osteomyelitis. 8. Pyuria with possible urinary tract infection. 9. Chronic congestive heart failure with no acute exacerbation. PLAN: 1. We will discontinue IV Lasix as this patient seems volume contracted given contraction alkalosis and elevated creatinine. We also agree with gentle IV hydration started by General Surgery. 2. We will also get urine electrolytes and urine protein/creatinine ratio. 3. We will avoid nephrotoxic agents including VANESA inhibitors and NIKOS octavio and contrast study. 4. Avoid hypertension as this will lead to ATN. 5. Limb elevation is recommended to help with bilateral leg swelling. 6. Monitor closely to avoid fluid overload. 7. Recheck renal function in the morning. 8. Treatment of left foot cellulitis as per primary attending and Podiatry. 9. Renally dose all medications. Many thanks for involving us in the care of this patient. We will follow along with you. Further treatment to follow depending on hospital course and review of other diagnostic tests. Job ID: [id number]
[2019-08-15] MEDS: Sodium Chloride 0.9% 1,000 ML IV SCH ×2 (11:44→22:19)
--- NOTE | 2019-08-15 13:36 | PDOC.HOSPP ---
- Subjective Encounter Date: 08/15/19 Encounter Time: 13:34 Subjective: infected foot - Objective Vital Signs & Weight: Vital Signs (12 hours) Temp Pulse Resp BP Pulse Ox 08/15/19 12:15 98.4 F 58 L 18 129/70 91 L 08/15/19 11:21 85 16 97 08/15/19 08:34 96 08/15/19 08:14 97.6 F 57 L 20 122/56 L 96 08/15/19 07:34 84 18 98 08/15/19 04:14 97.7 F 63 16 132/69 93 L Weight Weight 250 lb I&O: 08/14/19 08/15/19 08/16/19 06:59 06:59 06:59 Intake Total 480 Output Total 1900 Balance -1420 Result Diagrams: 08/15/19 05:08 08/15/19 05:08 Additional Labs: Accuchecks 08/15/19 08/15/19 12:16 04:16 POC Glucose 117 H 188 H Hospitalist ROS - Medication Medications: Active Medications Generic Name Dose Route Start Last Admin Trade Name Freq PRN Reason Stop Dose Admin Albuterol/Ipratropium 3 ml 08/14/19 22:30 08/15/19 11:21 Duoneb NEB 3 ml [id number] HANSEL Administration Amiodarone HCl 200 mg 08/15/19 09:00 08/15/19 09:05 Cordarone PO 200 mg BID HANSEL Administration Atorvastatin Calcium 40 mg 08/15/19 09:00 08/15/19 09:05 Lipitor PO 40 mg DAILY HANSEL Administration Carvedilol 25 mg 08/15/19 08:00 08/15/19 08:59 Coreg PO 25 mg BID-WM HANSEL Administration Gabapentin 100 mg 08/15/19 09:00 08/15/19 09:05 Neurontin PO 100 mg TID HANSEL Administration Sodium Chloride 1,000 mls @ 75 mls/hr 08/15/19 10:30 08/15/19 11:44 Normal Saline 0.9% IV 1,000 mls .[id number] HANSEL Administration Insulin Human Lispro 0 units 08/14/19 22:35 08/15/19 06:36 Humalog SC 3 unit .AGGRESSIVE SLIDING PRN Administration Aggressive Correctional Scale Pantoprazole Sodium 40 mg 08/15/19 09:00 08/15/19 09:05 Protonix PO 40 mg DAILY HANSEL Administration - Exam General Appearance: awake alert Neck: no JVD Heart: RRR, no murmur Respiratory: CTAB Gastrointestinal: soft, normal bowel sounds Extremities: no edema Extremities - other findings: chronic L foot infection, does not look viable Hosp A/P (1) Diabetic infection of left foot Code(s): E11.628 - TYPE 2 DIABETES MELLITUS WITH OTHER SKIN COMPLICATIONS; L08.9 - LOCAL INFECTION OF THE SKIN AND SUBCUTANEOUS TISSUE, UNSP Status: Acute (2) CAD (coronary artery disease) Code(s): I25.10 - ATHSCL HEART DISEASE OF [place] CORONARY ARTERY W/O ANG PCTRS Status: Chronic Qualifiers: Coronary Disease-Associated Artery/Lesion type: [place] artery [place] vs. transplanted heart: [place] heart Associated angina: without angina Qualified Code(s): I25.10 - Atherosclerotic heart disease of [place] coronary artery without angina pectoris (3) DM type 2 (diabetes mellitus, type 2) Status: Chronic Qualifiers: Diabetes mellitus complication status: with kidney complications Diabetes mellitus complication detail: with chronic kidney disease Chronic kidney disease stage: stage 3 (moderate) (4) HTN (hypertension) Code(s): I10 - ESSENTIAL (PRIMARY) HYPERTENSION Status: Chronic Qualifiers: Hypertension type: essential hypertension Qualified Code(s): I10 - Essential (primary) hypertension (5) Paroxysmal atrial fibrillation Code(s): I48.0 - PAROXYSMAL ATRIAL FIBRILLATION Status: Chronic (6) Cardiomyopathy Code(s): I42.9 - CARDIOMYOPATHY, UNSPECIFIED Status: Acute - Plan on iv antibx accu/ss selected home meds planned amputation great toe and metatarsal on affected foot
[2019-08-15 13:37] LABS: Creatinine, Urine 20.16 mg/dL (63-166); Protein, Urine Random Quant Less than 10 mg/dL (1-14); Urea Nitrogen, Random Urine 160 mg/dl
[2019-08-15] MEDS ORDERED: Fentanyl 100 MCG/2 ML VIAL ONE ×2 (14:19→14:42)
[2019-08-15] MEDS ORDERED: Lidocaine 1% PF 5 ML VIAL ONE (14:43)
[2019-08-15] MEDS ORDERED: PHENYLEPHRINE-NS 100 MCG/ML 10 ML SYRINGE ONE (14:43)
[2019-08-15] MEDS ORDERED: PROPOFOL 200 MG/20 ML VIAL ONE (14:43)
[2019-08-15] MEDS ORDERED: ePHEDrine/0.9% NaCl/PF SYRINGE 50 mg/10 ml ONE (14:43)
[2019-08-15] MEDS: hydrALAZINE 25 MG TAB PO SCH ×2 (16:00→20:05)
[2019-08-15] MEDS: traMADol HCl 50 MG TAB PO PRN (17:39)
[2019-08-15] MEDS ORDERED: Morphine 2 MG/ML SYRINGE SLOW IVP SCH (19:30)
[2019-08-15] MEDS: Cefepime 2 GM in Sodium Chloride 0.9% 100 ML IVPB SCH (20:05)
[2019-08-15] MEDS: Furosemide 40 MG TAB PO SCH (20:06)
[2019-08-15] MEDS: Tamsulosin HCl 0.4 MG CAP PO SCH (20:06)
--- NOTE | 2019-08-15 20:21 | OP ---
DATE OF PROCEDURE: 08/14/2019 PREOPERATIVE DIAGNOSES: Diabetic infection, left great toe with a neuropathic ulcer. POSTOPERATIVE DIAGNOSES: Diabetic infection, left great toe with a neuropathic ulcer with extensive abscess extending over to the dorsum of the first metatarsal. Culture and sensitivity submitted. ANESTHESIA: General. PROCEDURE PERFORMED: Amputation of left great toe and metatarsal. DESCRIPTION OF PROCEDURE: The patient was taken to the operating room where under general anesthesia, left lower extremity was prepared with ChloraPrep and draped in routine fashion. Incision was made to resect the plantar ulcer beneath the metatarsophalangeal joint of the great toe to preserve as much skin as possible, making a racquet incision, transecting the metatarsal with a bone cutter, resecting it proximally with a rongeur. There was purulent material tracking up the dorsal foot over the metatarsal was sent for culture and sensitivity. Wound irrigated. The necrotic tissue debrided sharply. Skin, subcutaneous tissue, muscle and fascia debrided. The patient tolerated the procedure well. Wound irrigated. Good hemostasis obtained with cautery with excellent pulsatile bleeding. Good blood supply noted. Wound Care Team arrived to place wound VAC. Job ID: [id number]
[2019-08-15] MEDS ORDERED: Carvedilol 25 MG TAB PO SCH (21:00)
[2019-08-15] MEDS ORDERED: Vancomycin HCl 1.25 GM in Sodium Chloride 0.9% 250 ML 250 ML IVPB SCH (22:00)
[2019-08-16] MEDS: traMADol HCl 50 MG TAB PO PRN ×3 (01:43→12:18)
[2019-08-16 06:25] LABS: #Eosinphils 0.9 thou/uL (0.0-0.7); #Lymphocytes 1.9 thou/uL (1.20-3.40); #Monocytes 1.1 thou/uL (0.11-0.59); #Neutrophils 9.6 thou/uL (1.40-6.50); %Basophils 0.2 % (0.0-1.0); %Eosinophils 6.4 % (0.0-10.0); %Lymphocytes 13.8 % (21.0-51.0); %Monocytes 8.2 % (0.0-10.0); %Neutrophils 71.3 % (42.0-75.0); Hemoglobin 9.8 g/dL (14.0-18.0); Mean Corpuscular HGB CONC 33.3 g/dL (32.0-36.0); Mean Corpuscular Hemoglobin 29.4 pg (27.0-31.0); Mean Corpuscular Volume 88.3 fL (78.0-98.0); Mean Platelet Volume 5.9 fL (7.4-10.4); Platelet Count 390 thou/uL (130-400); RBC Distribution Width 12.9 % (11.5-14.5); Red Blood Cell (RBC) Count 3.32 mill/uL (4.70-6.10); White Blood Cell (WBC) Count 13.5 thou/uL (4.8-10.8)
[2019-08-16 06:38] LABS: Albumin 2.7 g/dL (3.4-4.8); Anion Gap 15 mmol/L (10-20); BUN (Urea Nitrogen) 41 mg/dL (8.4-25.7); Calc. Creatinine Clearance 49 mL/min (70-130); Calcium 8.4 mg/dL (7.8-10.44); Carbon Dioxide 25 mmol/L (23-31); Chloride 100 mmol/L (98-107); Estimated GFR-MDRD 28; Glucose 146 mg/dL (80-115); Phosphorus 4.3 mg/dL (2.3-4.7); Potassium 4.1 mmol/L (3.5-5.1); Sodium 136 mmol/L (136-145)
[2019-08-16] MEDS: Amiodarone 200 MG TAB PO SCH ×2 (07:50→20:01)
[2019-08-16] MEDS: Aspirin Chewable 81 MG TAB PO SCH (07:50)
[2019-08-16] MEDS: Carvedilol 25 MG TAB PO SCH ×2 (07:50→18:13)
[2019-08-16] MEDS: Atorvastatin Calcium 40 MG TAB PO SCH (07:51)
[2019-08-16] MEDS: Cefepime 2 GM in Sodium Chloride 0.9% 100 ML IVPB SCH ×2 (07:51→20:01)
[2019-08-16] MEDS: Furosemide 40 MG TAB PO SCH ×2 (07:52→19:51)
[2019-08-16] MEDS: FLUoxetine HCl 20 MG CAP PO SCH (07:52)
[2019-08-16] MEDS: Gabapentin 100 MG CAP PO SCH ×3 (07:53→20:01)
[2019-08-16] MEDS: hydrALAZINE 25 MG TAB PO SCH ×3 (07:53→19:51)
[2019-08-16] MEDS ORDERED: Loperamide HCl 2 MG CAP PO PRN (07:55)
[2019-08-16] MEDS ORDERED: Sodium Chloride 0.65% Nasal 44 ML BOT EA NARE PRN (07:55)
[2019-08-16] MEDS ORDERED: Zolpidem Tartrate 5 MG TAB PO PRN (07:55)
[2019-08-16] MEDS ORDERED: Senokot S 8.6-50 MG TAB PO PRN (07:55)
[2019-08-16] MEDS ORDERED: Diabetic Tussin 200 MG/10 ML UDCUP PO PRN (07:55)
[2019-08-16] MEDS ORDERED: Cepastat Lozenges 1 LOZ PO PRN (07:55)
[2019-08-16] MEDS ORDERED: Calcium Carbonate 500 MG ChewTAB PO PRN (07:55)
[2019-08-16] MEDS ORDERED: Loratadine 10 MG TAB PO PRN (07:55)
[2019-08-16] MEDS ORDERED: Artificial Tears 18 DROP/0.9 ML EA EYE PRN (07:55)
[2019-08-16] MEDS: Losartan 25 MG TAB PO SCH (07:57)
[2019-08-16] MEDS: Spironolactone 25 MG TAB PO SCH (07:57)
[2019-08-16] MEDS: Polyethylene Glycol 3350 17 GM Packet PO SCH (07:57)
[2019-08-16] MEDS: Morphine 2 MG/ML SYRINGE SLOW IVP PRN ×4 (09:00→22:42)
[2019-08-16] MEDS: Sodium Chloride 0.9% 1,000 ML IV SCH ×2 (09:00→22:42)
[2019-08-16] MEDS: Insulin Glargine 25 UNITS in Pre-Filled Syringe 1 EACH SC SCH (09:00)
[2019-08-16] MEDS ORDERED: Non-Formulary Item 1 EACH (Insulin Detemir [Levemir Flextouch] 25 UNITS) SC SCH (09:00)
--- NOTE | 2019-08-16 12:03 | PDOC.HOSPP ---
- Subjective Encounter Date: 08/16/19 Encounter Time: 08:45 Subjective: Patient seen and examined. No new complaints. No overnight events - Objective Vital Signs & Weight: Vital Signs (12 hours) Temp Pulse Resp BP BP Pulse Ox 08/16/19 11:46 97.8 F 57 L 20 119/68 98 08/16/19 10:09 59 L 16 97 08/16/19 08:00 97 08/16/19 07:56 98.1 F 55 L 20 136/75 97 08/16/19 07:53 54 L 136/75 08/16/19 06:30 54 L 16 98 08/16/19 04:04 97.9 F 57 L 18 129/70 93 L Weight Admit Weight 250 lb Weight 250 lb I&O: 08/15/19 08/16/19 08/17/19 06:59 06:59 06:59 Intake Total 480 Output Total 2730 4537 Balance -2358 -4295 Result Diagrams: 08/16/19 05:49 08/16/19 05:49 Additional Labs: Accuchecks 08/16/19 08/15/19 08/15/19 04:02 19:29 12:16 POC Glucose 164 H 132 H 117 H Hospitalist ROS - Review of Systems ENT: denies: ear pain, ear discharge, nose pain, nose discharge, nose congestion , mouth pain, mouth swelling, throat pain, throat swelling, other Respiratory: denies: cough, dry, shortness of breath, hemoptysis, SOB with excertion, pleuritic pain, sputum, wheezing, other Cardiovascular: denies: chest pain, palpitations, orthopnea, paroxysmal noc. dyspnea, edema, light headedness, other Gastrointestinal: denies: nausea, vomiting, abdominal pain, diarrhea, constipation, melena, hematochezia, other Genitourinary: denies: dysuria, frequency, incontinence, hematuria, retention, other Musculoskeletal: denies: neck pain, shoulder pain, arm pain, back pain, hand pain, leg pain, foot pain, other - Medication Medications: Active Medications Generic Name Dose Route Start Last Admin Trade Name Freq PRN Reason Stop Dose Admin Albuterol/Ipratropium 3 ml 08/14/19 22:30 08/16/19 10:09 Duoneb NEB 3 ml [id number] HANSEL Administration Amiodarone HCl 200 mg 08/15/19 09:00 08/16/19 07:50 Cordarone PO 200 mg BID HANSEL Administration Aspirin 81 mg 08/16/19 09:00 08/16/19 07:50 Aspirin Chewable PO 81 mg DAILY HANSEL Administration Atorvastatin Calcium 40 mg 08/15/19 09:00 08/16/19 07:51 Lipitor PO 40 mg DAILY HANSEL Administration Carvedilol 25 mg 08/15/19 08:00 08/16/19 07:50 Coreg PO 25 mg BID-WM HANSEL Administration Fluoxetine HCl 20 mg 08/16/19 09:00 08/16/19 07:52 Prozac PO 20 mg DAILY HANSEL Administration Furosemide 40 mg 08/15/19 21:00 08/16/19 07:52 Lasix PO 40 mg BID HANSEL Administration Gabapentin 100 mg 08/15/19 09:00 08/16/19 07:53 Neurontin PO 100 mg TID HANSEL Administration Hydralazine HCl 75 mg 08/15/19 15:00 08/16/19 07:53 Apresoline PO 75 mg TID HANSEL Administration Vancomycin HCl 1.25 gm/ Sodium 250 mls @ 166.667 mls/hr 08/15/19 22:00 22:07 Chloride IVPB 250 mls 2200 HANSEL Administration Cefepime HCl 2 gm/ Sodium 100 mls @ 200 mls/hr 08/15/19 21:00 08/16/19 07:51 Chloride IVPB 100 mls [id number] HANSEL Administration Sodium Chloride 1,000 mls @ 75 mls/hr 08/15/19 10:30 08/16/19 09:00 Normal Saline 0.9% IV 1,000 mls .[id number] HANSEL Administration Insulin Glargine 25 units/ 0.25 mls @ 0 mls/hr 08/16/19 09:00 08/16/19 09:00 Miscellaneous Medication SC 0.25 mls QAM HANSEL Administration As Directed Insulin Human Lispro 0 units 08/14/19 22:35 08/15/19 06:36 Humalog SC 3 unit .AGGRESSIVE SLIDING PRN Administration Aggressive Correctional Scale Isosorbide Mononitrate 120 mg 08/16/19 09:00 08/16/19 07:55 Imdur PO 120 mg DAILY HANSEL Administration Losartan Potassium 50 mg 08/16/19 09:00 08/16/19 07:57 Cozaar PO 50 mg DAILY HANSEL Administration Morphine Sulfate 2 mg 08/16/19 07:57 08/16/19 09:00 Morphine SLOW IVP 2 mg Q4H PRN Administration Moderate to Severe Pain (6-10) Pantoprazole Sodium 40 mg 08/15/19 09:00 08/16/19 07:57 Protonix PO 40 mg DAILY HANSEL Administration Polyethylene Glycol 17 gm 08/16/19 09:00 08/16/19 07:57 Miralax PO 17 gm DAILY HANSEL Administration Spironolactone 25 mg 08/16/19 09:00 08/16/19 07:57 Aldactone PO 25 mg DAILY HANSEL Administration Tamsulosin HCl 0.4 mg 08/15/19 21:00 08/15/19 20:06 Flomax PO 0.4 mg HS HANSEL Administration Tramadol HCl 50 mg 08/15/19 10:12 08/16/19 07:47 Ultram PO 50 mg Q4H PRN Administration Moderate to Severe Pain (6-10) - Exam General Appearance: NAD, awake alert Eye: PERRL, anicteric sclera ENT: normocephalic atraumatic, no oropharyngeal lesions Neck: supple, symmetric, no JVD Heart: RRR, no murmur, no gallops, no rubs Respiratory: CTAB, no wheezes, no rales Gastrointestinal: soft, non-tender, non-distended, normal bowel sounds Extremities: no cyanosis, no clubbing Extremities - other findings: left foot with dressing Skin: normal turgor, no lesions Neurological: no focal deficits Musculoskeletal: normal tone, normal strength Psychiatric: normal affect, normal behavior Hosp A/P (1) Diabetic infection of left foot Code(s): E11.628 - TYPE 2 DIABETES MELLITUS WITH OTHER SKIN COMPLICATIONS; L08.9 - LOCAL INFECTION OF THE SKIN AND SUBCUTANEOUS TISSUE, UNSP Status: Acute (2) Cardiomyopathy Code(s): I42.9 - CARDIOMYOPATHY, UNSPECIFIED Status: Chronic (3) Acute on chronic renal failure Code(s): N17.9 - ACUTE KIDNEY FAILURE, UNSPECIFIED; N18.9 - CHRONIC KIDNEY DISEASE, UNSPECIFIED Status: Acute Qualifiers: Acute renal failure type: unspecified Chronic kidney disease stage: stage 3 (moderate) Qualified Code(s): N17.9 - Acute kidney failure, unspecified; N18.3 - Chronic kidney disease, stage 3 (moderate); N18.3 - Chronic kidney disease, stage 3 (moderate) (4) BPH (benign prostatic hyperplasia) Code(s): N40.0 - BENIGN PROSTATIC HYPERPLASIA WITHOUT LOWER URINRY TRACT SYMP Status: Chronic Qualifiers: Lower urinary tract symptom presence: symptoms present (5) CAD (coronary artery disease) Code(s): I25.10 - ATHSCL HEART DISEASE OF [place] CORONARY ARTERY W/O ANG PCTRS Status: Chronic Qualifiers: Coronary Disease-Associated Artery/Lesion type: [place] artery [place] vs. transplanted heart: [place] heart Associated angina: without angina Qualified Code(s): I25.10 - Atherosclerotic heart disease of [place] coronary artery without angina pectoris (6) DM type 2 causing CKD stage 3 Code(s): E11.22 - TYPE 2 DIABETES MELLITUS W DIABETIC CHRONIC KIDNEY DISEASE; N18.3 - CHRONIC KIDNEY DISEASE, STAGE 3 (MODERATE) Status: Chronic Qualifiers: Diabetes mellitus usp insulin use: with usp use Qualified Code( s): E11.22 - Type 2 diabetes mellitus with diabetic chronic kidney disease; N18.3 - Chronic kidney disease, stage 3 (moderate); Z79.4 - alf (current) use of insulin (7) HTN (hypertension) Code(s): I10 - ESSENTIAL (PRIMARY) HYPERTENSION Status: Chronic Qualifiers: Hypertension type: essential hypertension Qualified Code(s): I10 - Essential (primary) hypertension (8) Paroxysmal atrial fibrillation Code(s): I48.0 - PAROXYSMAL ATRIAL FIBRILLATION Status: Chronic (9) Urinary retention Code(s): R33.9 - RETENTION OF URINE, UNSPECIFIED Status: Chronic - Plan old records reviewed/req, manzana[place] catheter, continue antibiotics - continue cefepime and vancomycin, wound care, medication reviewed and continue to provide supportive care, continue gentle IVF, nephrology following, monitor renal function
--- NOTE | 2019-08-16 12:57 | PRG ---
DATE OF SERVICE: 08/16/2019 Mr. Quintanilla underwent amputation of left great toe and metatarsal yesterday. He has severe infection with a neuropathic nonhealing ulcer. He had pus seen over the metatarsal. This was irrigated. The wound is well controlled. Wound VAC is in place. The patient will be discharged home on oral antibiotics for 5 to 7 days. Augmentin and Bactrim would be adequate. He needs wound VAC changes twice a week. This can be done at home by home health nursing or as an outpatient wound care. Arrangements made. He can be discharged home with a week in my opinion. Cultures were obtained intraoperatively are pending. He should follow up in my office in 2 to 3 weeks. He can weight bear as tolerated. He has orthotic shoe prescribed by Dr. Quarles. He can use when out of bed. I will see him as needed. Please call if necessary. Job ID: [id number]
[2019-08-16] MEDS: Tamsulosin HCl 0.4 MG CAP PO SCH (20:01)
--- NOTE | 2019-08-16 20:39 | PRG ---
DATE OF SERVICE: 08/16/2019 SERVICE: Nephrology. SUBJECTIVE: A 68-year-old male being followed up for acute on chronic renal failure. The patient was admitted due to left foot ulcer with cellulitis. The patient is status post left big toe amputation. Reports feeling better. Denied fever, nausea, or vomiting. Leg swelling has improved. OBJECTIVE: VITAL SIGNS: Temperature 98.1, pulse 55, respiratory rate 20, SpO2 of 97% on room air, blood pressure is 136/75. GENERAL: Obese male, in no obvious distress. Afebrile. Anicteric. Acyanotic. HEENT: Normocephalic, atraumatic. Oral mucosa is moist. CARDIOVASCULAR: Regular rhythm. RESPIRATORY: Good air entry bilaterally with no obvious crackle or use of accessory muscles. GI: Obese, soft, nontender, nondistended with normal bowel sounds. UROGENITAL: Bishop catheter is in place draining clear urine. CAGE CLERK: Conscious, alert, and oriented x3 with appropriate mental status. EXTREMITIES: Left foot covered with dressing. Trace edema of both legs noted. DIAGNOSTIC DATA: CBC showed WBC count of 13.5, hemoglobin of 9.8, MCV of 88.3, and platelet of 390. Renal function panel showed sodium 136, potassium 4.1, chloride 100, CO2 25, BUN 41, creatinine 2.33, glucose 146, calcium 8.4, phosphorus 4.3, albumin 2.7. ASSESSMENT: 1. Acute on chronic renal failure. Related to prerenal etiology from excessive diuresis as well as cytokine mediated injury related to cellulitis and diabetic foot infection. Creatinine is trending down once with IV fluid while diuretics and other nephrotoxic agents are held. 2. Hypertension. 3. Diabetes mellitus. 4. Anemia in chronic kidney disease. PLAN: 1. We will continue gentle IV fluid therapy while holding diuretics. Continue antibiotic therapy which is renally dosed. 2. Recheck renal function test in the morning. Job ID: [id number]
[2019-08-16 21:49] LABS: Vancomycin, Trough 21.6 ug/mL
[2019-08-16] MEDS: Vancomycin HCl 1 GM in Premix Bag 1 BAG IVPB SCH (22:41)
[2019-08-17 05:47] LABS: #Eosinphils 1.1 thou/uL (0.0-0.7); #Lymphocytes 2.1 thou/uL (1.20-3.40); #Monocytes 1.1 thou/uL (0.11-0.59); #Neutrophils 7.1 thou/uL (1.40-6.50); %Basophils 0.4 % (0.0-1.0); %Eosinophils 9.9 % (0.0-10.0); %Lymphocytes 18.3 % (21.0-51.0); %Monocytes 9.7 % (0.0-10.0); %Neutrophils 61.7 % (42.0-75.0); Hemoglobin 9.5 g/dL (14.0-18.0); Mean Corpuscular HGB CONC 33.5 g/dL (32.0-36.0); Mean Corpuscular Hemoglobin 29.5 pg (27.0-31.0); Mean Corpuscular Volume 88.1 fL (78.0-98.0); Mean Platelet Volume 5.9 fL (7.4-10.4); Platelet Count 357 thou/uL (130-400); RBC Distribution Width 13.1 % (11.5-14.5); Red Blood Cell (RBC) Count 3.23 mill/uL (4.70-6.10); White Blood Cell (WBC) Count 11.5 thou/uL (4.8-10.8)
[2019-08-17] MEDS: Morphine 2 MG/ML SYRINGE SLOW IVP PRN ×4 (06:07→19:13)
[2019-08-17 06:08] LABS: Anion Gap 15 mmol/L (10-20); BUN (Urea Nitrogen) 43 mg/dL (8.4-25.7); Calc. Creatinine Clearance 46 mL/min (70-130); Calcium 8.4 mg/dL (7.8-10.44); Carbon Dioxide 25 mmol/L (23-31); Chloride 101 mmol/L (98-107); Estimated GFR-MDRD 26; Glucose 85 mg/dL (80-115); Sodium 137 mmol/L (136-145)
[2019-08-17] MEDS: Carvedilol 25 MG TAB PO SCH ×2 (08:18→16:34)
[2019-08-17] MEDS: Amiodarone 200 MG TAB PO SCH ×2 (08:18→21:15)
[2019-08-17] MEDS: Atorvastatin Calcium 40 MG TAB PO SCH (08:19)
[2019-08-17] MEDS: Cefepime 2 GM in Sodium Chloride 0.9% 100 ML IVPB SCH ×2 (08:19→21:17)
[2019-08-17] MEDS: Aspirin Chewable 81 MG TAB PO SCH (08:19)
[2019-08-17] MEDS: Gabapentin 100 MG CAP PO SCH ×3 (08:20→21:15)
[2019-08-17] MEDS: FLUoxetine HCl 20 MG CAP PO SCH (08:20)
[2019-08-17] MEDS: hydrALAZINE 25 MG TAB PO SCH ×3 (08:20→21:16)
[2019-08-17] MEDS: Insulin Glargine 25 UNITS in Pre-Filled Syringe 1 EACH SC SCH (08:21)
[2019-08-17] MEDS: Losartan 25 MG TAB PO SCH (08:22)
[2019-08-17] MEDS: Polyethylene Glycol 3350 17 GM Packet PO SCH (08:22)
[2019-08-17] MEDS: Spironolactone 25 MG TAB PO SCH (08:22)
[2019-08-17] MEDS: traMADol HCl 50 MG TAB PO PRN (08:24)
--- NOTE | 2019-08-17 11:11 | PDOC.HOSPP ---
- Subjective Encounter Date: 08/17/19 Encounter Time: 08:15 Subjective: Patient seen and examined. No new complaints. No overnight events - Objective Vital Signs & Weight: Vital Signs (12 hours) Temp Pulse Resp BP BP BP Pulse Ox 08/17/19 08:20 92 124/63 08/17/19 07:45 98 08/17/19 07:38 97.8 F 92 17 124/63 97 08/17/19 06:27 59 L 16 98 08/17/19 00:00 97.6 F 55 L 20 110/62 93 L Weight Admit Weight 250 lb Weight 250 lb I&O: 08/16/19 08/17/19 08/18/19 06:59 06:59 06:59 Intake Total 1850 Output Total 3525 2550 Balance -3525 -700 Result Diagrams: 08/17/19 05:29 08/17/19 05:30 Additional Labs: Accuchecks 08/17/19 08/16/19 08/16/19 04:31 20:07 17:06 POC Glucose 106 93 118 H 08/16/19 11:27 POC Glucose 103 Hospitalist ROS - Review of Systems ENT: denies: ear pain, ear discharge, nose pain, nose discharge, nose congestion , mouth pain, mouth swelling, throat pain, throat swelling, other Respiratory: denies: cough, dry, shortness of breath, hemoptysis, SOB with excertion, pleuritic pain, sputum, wheezing, other Cardiovascular: denies: chest pain, palpitations, orthopnea, paroxysmal noc. dyspnea, edema, light headedness, other Gastrointestinal: denies: nausea, vomiting, abdominal pain, diarrhea, constipation, melena, hematochezia, other Genitourinary: denies: dysuria, frequency, incontinence, hematuria, retention, other Musculoskeletal: denies: neck pain, shoulder pain, arm pain, back pain, hand pain, leg pain, foot pain, other - Medication Medications: Active Medications Generic Name Dose Route Start Last Admin Trade Name Freq PRN Reason Stop Dose Admin Albuterol/Ipratropium 3 ml 08/14/19 22:30 08/17/19 10:22 Duoneb NEB Not Given [id number] HANSEL Amiodarone HCl 200 mg 08/15/19 09:00 08/17/19 08:18 Cordarone PO 200 mg BID HANSEL Administration Aspirin 81 mg 08/16/19 09:00 08/17/19 08:19 Aspirin Chewable PO 81 mg DAILY HANSEL Administration Atorvastatin Calcium 40 mg 08/15/19 09:00 08/17/19 08:19 Lipitor PO 40 mg DAILY HANSEL Administration Carvedilol 25 mg 08/15/19 08:00 08/17/19 08:18 Coreg PO 25 mg BID-WM HANSEL Administration Fluoxetine HCl 20 mg 08/16/19 09:00 08/17/19 08:20 Prozac PO 20 mg DAILY HANSEL Administration Gabapentin 100 mg 08/15/19 09:00 08/17/19 08:20 Neurontin PO 100 mg TID HANSEL Administration Hydralazine HCl 75 mg 08/15/19 15:00 08/17/19 08:20 Apresoline PO Not Given TID HANSEL Cefepime HCl 2 gm/ Sodium 100 mls @ 200 mls/hr 08/15/19 21:00 08/17/19 08:19 Chloride IVPB 100 mls Q12HR HANSEL Administration Sodium Chloride 1,000 mls @ 75 mls/hr 08/15/19 10:30 08/16/19 22:42 Normal Saline 0.9% IV 1,000 mls .[id number] HANSEL Administration Insulin Glargine 25 units/ 0.25 mls @ 0 mls/hr 08/16/19 09:00 08/17/19 08:21 Miscellaneous Medication SC 0.25 mls QAM HANSEL Administration As Directed Vancomycin HCl 1 gm/ Device 200 mls @ 200 mls/hr 08/16/19 23:00 08/16/19 22: 41 IVPB 200 mls 2300 HANSEL Administration Insulin Human Lispro 0 units 08/14/19 22:35 08/15/19 06:36 Humalog SC 3 unit .AGGRESSIVE SLIDING PRN Administration Aggressive Correctional Scale Isosorbide Mononitrate 120 mg 08/16/19 09:00 08/17/19 08:21 Imdur PO 120 mg DAILY HANSEL Administration Losartan Potassium 50 mg 08/16/19 09:00 08/17/19 08:22 Cozaar PO 50 mg DAILY HANSEL Administration Morphine Sulfate 2 mg 08/16/19 07:57 08/17/19 10:14 Morphine SLOW IVP 2 mg Q4H PRN Administration Moderate to Severe Pain (6-10) Pantoprazole Sodium 40 mg 08/15/19 09:00 08/17/19 08:22 Protonix PO 40 mg DAILY HANSEL Administration Polyethylene Glycol 17 gm 08/16/19 09:00 08/17/19 08:22 Miralax PO 17 gm DAILY HANSEL Administration Spironolactone 25 mg 08/16/19 09:00 08/17/19 08:22 Aldactone PO 25 mg DAILY HANSEL Administration Tamsulosin HCl 0.4 mg 08/15/19 21:00 08/16/19 20:01 Flomax PO 0.4 mg HS HANSEL Administration Tramadol HCl 50 mg 08/15/19 10:12 08/17/19 08:24 Ultram PO 50 mg Q4H PRN Administration Moderate to Severe Pain (6-10) - Exam General Appearance: NAD, awake alert Eye: PERRL, anicteric sclera ENT: normocephalic atraumatic, no oropharyngeal lesions Neck: supple, symmetric, no JVD Heart: RRR, no murmur, no gallops, no rubs Respiratory: CTAB, no wheezes, no rales, no ronchi Gastrointestinal: soft, non-tender, non-distended, normal bowel sounds Extremities: no cyanosis, no clubbing, no edema Skin: normal turgor, no lesions Skin - other findings: surgical site with dressing, wound vac Neurological: no focal deficits Musculoskeletal: normal tone, normal strength Psychiatric: normal affect, normal behavior Hosp A/P (1) Diabetic infection of left foot Code(s): E11.628 - TYPE 2 DIABETES MELLITUS WITH OTHER SKIN COMPLICATIONS; L08.9 - LOCAL INFECTION OF THE SKIN AND SUBCUTANEOUS TISSUE, UNSP Status: Acute (2) Cardiomyopathy Code(s): I42.9 - CARDIOMYOPATHY, UNSPECIFIED Status: Chronic (3) Acute on chronic renal failure Code(s): N17.9 - ACUTE KIDNEY FAILURE, UNSPECIFIED; N18.9 - CHRONIC KIDNEY DISEASE, UNSPECIFIED Status: Acute Qualifiers: Acute renal failure type: unspecified Chronic kidney disease stage: stage 3 (moderate) Qualified Code(s): N17.9 - Acute kidney failure, unspecified; N18.3 - Chronic kidney disease, stage 3 (moderate); N18.3 - Chronic kidney disease, stage 3 (moderate) (4) BPH (benign prostatic hyperplasia) Code(s): N40.0 - BENIGN PROSTATIC HYPERPLASIA WITHOUT LOWER URINRY TRACT SYMP Status: Chronic Qualifiers: Lower urinary tract symptom presence: symptoms present (5) CAD (coronary artery disease) Code(s): I25.10 - ATHSCL HEART DISEASE OF [place] CORONARY ARTERY W/O ANG PCTRS Status: Chronic Qualifiers: Coronary Disease-Associated Artery/Lesion type: [place] artery [place] vs. 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 mellitus marine animal trainer insulin use: with marine animal trainer use Qualified Code( s): E11.22 - Type 2 diabetes mellitus with diabetic chronic kidney disease; N18.3 - Chronic kidney disease, stage 3 (moderate); Z79.4 - detention (current) use of insulin (7) HTN (hypertension) Code(s): I10 - ESSENTIAL (PRIMARY) HYPERTENSION Status: Chronic Qualifiers: Hypertension type: essential hypertension Qualified Code(s): I10 - Essential (primary) hypertension (8) Paroxysmal atrial fibrillation Code(s): I48.0 - PAROXYSMAL ATRIAL FIBRILLATION Status: Chronic (9) Urinary retention Code(s): R33.9 - RETENTION OF URINE, UNSPECIFIED Status: Chronic - Plan old records reviewed/req, continue antibiotics 08/16/19- continue cefepime and vancomycin, wound care, medication reviewed and continue to provide supportive care, continue gentle IVF, nephrology following, monitor renal function 08/17/19- continue IV antibiotic, wound care, medication reviewed as above, symptomatic treatment
[2019-08-17] MEDS: Sodium Chloride 0.9% 1,000 ML IV SCH (15:13)
--- NOTE | 2019-08-17 17:58 | PRG ---
DATE OF SERVICE: 08/17/2019 SERVICE: Nephrology. SUBJECTIVE: A 68-year-old male with known history of CKD, admitted due to worsening diabetic foot ulcer with cellulitis and possible osteomyelitis, status post left big toe amputation. Nephrology is following the patient for acute on chronic renal failure. No new problem. Bilateral leg swelling has improved. Denied nausea, vomiting, or change in bowel habit. OBJECTIVE: VITAL SIGNS: Temperature 97.8, pulse 92, respiratory rate 17, SpO2 97% on room air, and blood pressure 124/63. GENERAL: Obese male, in no distress. Afebrile. Anicteric. Acyanotic. HEENT: Normocephalic and atraumatic. Oral mucosa is moist. CARDIOVASCULAR: Regular rhythm and rate with normal heart sounds. RESPIRATORY: Good air entry bilaterally with no obvious crackle or rhonchi or use of accessory muscles. GI: Obese, soft, nontender, and nondistended with normal bowel sounds. EXTREMITIES: Left foot covered with dressing. Legs are without edema, but general stasis changes were noted. 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 Cranial nerves 2 through 12 are grossly intact. ASSESSMENT: 1. Acute kidney injury: This is due to excessive diuresis and cytokine mediated injury related to infected diabetic foot and cellulitis. Creatinine was trending down with IV fluid, but the patient was recently given diuretics and creatinine is trending up. 2. Hypertension: Control is acceptable. 3. Diabetes mellitus, requiring insulin. 4. Anemia in chronic kidney disease. 5. Left foot diabetic ulcer with infection, status post left big toe amputation with wound VAC in place. PLAN: 1. Avoid nephrotoxic agent including diuretics. [place] oral intake advised. 2. We will discontinue losartan. 3. Gentle IV fluid therapy will be continued. 4. We will recheck renal function test in the morning. 5. Further treatment to follow depending on hospital course. Job ID: [id number]
[2019-08-17] MEDS: Tamsulosin HCl 0.4 MG CAP PO SCH (21:15)
[2019-08-17] MEDS: Vancomycin HCl 1 GM in Premix Bag 1 BAG IVPB SCH (22:41)
[2019-08-18] MEDS: Sodium Chloride 0.9% 1,000 ML IV SCH ×2 (04:30→16:54)
[2019-08-18] MEDS: Carvedilol 25 MG TAB PO SCH ×2 (08:48→15:32)
[2019-08-18] MEDS: hydrALAZINE 25 MG TAB PO SCH ×3 (08:48→20:14)
[2019-08-18] MEDS: Polyethylene Glycol 3350 17 GM Packet PO SCH (08:48)
[2019-08-18] MEDS: Aspirin Chewable 81 MG TAB PO SCH (08:49)
[2019-08-18] MEDS: Cefepime 2 GM in Sodium Chloride 0.9% 100 ML IVPB SCH ×2 (08:49→20:13)
[2019-08-18] MEDS: Gabapentin 100 MG CAP PO SCH ×3 (08:51→20:13)
[2019-08-18] MEDS: Insulin Glargine 25 UNITS in Pre-Filled Syringe 1 EACH SC SCH (08:51)
[2019-08-18] MEDS: Amiodarone 200 MG TAB PO SCH ×2 (08:51→20:13)
[2019-08-18] MEDS: FLUoxetine HCl 20 MG CAP PO SCH (08:52)
[2019-08-18 09:17] LABS: Albumin 2.7 g/dL (3.4-4.8); Anion Gap 14 mmol/L (10-20); BUN (Urea Nitrogen) 38 mg/dL (8.4-25.7); Calc. Creatinine Clearance 47 mL/min (70-130); Calcium 8.4 mg/dL (7.8-10.44); Carbon Dioxide 24 mmol/L (23-31); Chloride 105 mmol/L (98-107); Estimated GFR-MDRD 27; Glucose 97 mg/dL (80-115); Phosphorus 4.7 mg/dL (2.3-4.7); Potassium 4.4 mmol/L (3.5-5.1); Sodium 139 mmol/L (136-145)
--- NOTE | 2019-08-18 10:35 | PDOC.HOSPP ---
- Subjective Encounter Date: 08/18/19 Encounter Time: 09:00 Subjective: Patient seen and examined. No new complaints. No overnight events - Objective Vital Signs & Weight: Vital Signs (12 hours) Temp Pulse Resp BP BP BP Pulse Ox 08/18/19 08:48 59 L 152/77 H 08/18/19 08:13 97.6 F 59 L 18 152/77 H 96 08/18/19 07:16 96 08/18/19 03:31 98 F 56 L 18 145/67 H 90 L 08/18/19 00:00 98.1 F 59 L 18 120/65 95 Weight Admit Weight 250 lb Weight 250 lb I&O: 08/17/19 08/18/19 08/19/19 06:59 06:59 06:59 Intake Total 1850 3630 Output Total 2550 1950 Balance -700 1680 Result Diagrams: 08/17/19 05:29 08/18/19 08:31 Additional Labs: Accuchecks 08/18/19 08/17/19 08/17/19 03:32 20:36 16:52 POC Glucose 109 80 121 H 08/17/19 11:47 POC Glucose 102 Hospitalist ROS - Review of Systems ENT: denies: ear pain, ear discharge, nose pain, nose discharge, nose congestion , mouth pain, mouth swelling, throat pain, throat swelling, other Respiratory: denies: cough, dry, shortness of breath, hemoptysis, SOB with excertion, pleuritic pain, sputum, wheezing, other Cardiovascular: denies: chest pain, palpitations, orthopnea, paroxysmal noc. dyspnea, edema, light headedness, other Gastrointestinal: denies: nausea, vomiting, abdominal pain, diarrhea, constipation, melena, hematochezia, other Genitourinary: denies: dysuria, frequency, incontinence, hematuria, retention, other Musculoskeletal: denies: neck pain, shoulder pain, arm pain, back pain, hand pain, leg pain, foot pain, other - Medication Medications: Active Medications Generic Name Dose Route Start Last Admin Trade Name Freq PRN Reason Stop Dose Admin Albuterol/Ipratropium 3 ml 08/14/19 22:30 08/18/19 09:56 Duoneb NEB Not Given [id number] HANSEL Amiodarone HCl 200 mg 08/15/19 09:00 08/18/19 08:51 Cordarone PO 200 mg BID HANSEL Administration Aspirin 81 mg 08/16/19 09:00 08/18/19 08:49 Aspirin Chewable PO 81 mg DAILY HANSEL Administration Atorvastatin Calcium 40 mg 08/15/19 09:00 08/17/19 08:19 Lipitor PO 40 mg DAILY HANSEL Administration Carvedilol 25 mg 08/15/19 08:00 08/18/19 08:48 Coreg PO 25 mg BID-WM HANSEL Administration Fluoxetine HCl 20 mg 08/16/19 09:00 08/18/19 08:52 Prozac PO 20 mg DAILY HANSEL Administration Gabapentin 100 mg 08/15/19 09:00 08/18/19 08:51 Neurontin PO 100 mg TID HANSEL Administration Hydralazine HCl 75 mg 08/15/19 15:00 08/18/19 08:48 Apresoline PO 75 mg TID HANSEL Administration Cefepime HCl 2 gm/ Sodium 100 mls @ 200 mls/hr 08/15/19 21:00 08/18/19 08:49 Chloride IVPB 100 mls Q12HR HANSEL Administration Sodium Chloride 1,000 mls @ 75 mls/hr 08/15/19 10:30 08/18/19 04:30 Normal Saline 0.9% IV 1,000 mls .[id number] HANSEL Administration Insulin Glargine 25 units/ 0.25 mls @ 0 mls/hr 08/16/19 09:00 08/18/19 08:51 Miscellaneous Medication SC 0.25 mls QAM HANSEL Administration As Directed Vancomycin HCl 1 gm/ Device 200 mls @ 200 mls/hr 08/16/19 23:00 08/17/19 22: 41 IVPB 200 mls 2300 HANSEL Administration Insulin Human Lispro 0 units 08/14/19 22:35 08/15/19 06:36 Humalog SC 3 unit .AGGRESSIVE SLIDING PRN Administration Aggressive Correctional Scale Isosorbide Mononitrate 120 mg 08/16/19 09:00 08/18/19 08:49 Imdur PO 120 mg DAILY HANSEL Administration Morphine Sulfate 2 mg 08/16/19 07:57 08/17/19 19:13 Morphine SLOW IVP 2 mg Q4H PRN Administration Moderate to Severe Pain (6-10) Pantoprazole Sodium 40 mg 08/15/19 09:00 08/18/19 08:51 Protonix PO 40 mg DAILY HANSEL Administration Polyethylene Glycol 17 gm 08/16/19 09:00 08/18/19 08:48 Miralax PO 17 gm DAILY HANSEL Administration Tamsulosin HCl 0.4 mg 08/15/19 21:00 08/17/19 21:15 Flomax PO 0.4 mg HS HANSEL Administration Tramadol HCl 50 mg 08/15/19 10:12 08/17/19 08:24 Ultram PO 50 mg Q4H PRN Administration Moderate to Severe Pain (6-10) - Exam General Appearance: NAD, awake alert Eye: PERRL, anicteric sclera ENT: normocephalic atraumatic, no oropharyngeal lesions Neck: supple, symmetric, no JVD Heart: RRR, no murmur, no gallops Respiratory: CTAB, no wheezes, no rales Gastrointestinal: soft, non-tender, non-distended Extremities: no cyanosis, no clubbing Extremities - other findings: surtical site with wound vac Skin: normal turgor, no lesions Neurological: no focal deficits Musculoskeletal: normal tone, normal strength Psychiatric: normal affect, normal behavior Hosp A/P (1) Diabetic infection of left foot Code(s): E11.628 - TYPE 2 DIABETES MELLITUS WITH OTHER SKIN COMPLICATIONS; L08.9 - LOCAL INFECTION OF THE SKIN AND SUBCUTANEOUS TISSUE, UNSP Status: Acute (2) Cardiomyopathy Code(s): I42.9 - CARDIOMYOPATHY, UNSPECIFIED Status: Chronic (3) Acute on chronic renal failure Code(s): N17.9 - ACUTE KIDNEY FAILURE, UNSPECIFIED; N18.9 - CHRONIC KIDNEY DISEASE, UNSPECIFIED Status: Acute Qualifiers: Acute renal failure type: unspecified Chronic kidney disease stage: stage 3 (moderate) Qualified Code(s): N17.9 - Acute kidney failure, unspecified; N18.3 - Chronic kidney disease, stage 3 (moderate); N18.3 - Chronic kidney disease, stage 3 (moderate) (4) BPH (benign prostatic hyperplasia) Code(s): N40.0 - BENIGN PROSTATIC HYPERPLASIA WITHOUT LOWER URINRY TRACT SYMP Status: Chronic Qualifiers: Lower urinary tract symptom presence: symptoms present (5) CAD (coronary artery disease) Code(s): I25.10 - ATHSCL HEART DISEASE OF [place] CORONARY ARTERY W/O ANG PCTRS Status: Chronic Qualifiers: Coronary Disease-Associated Artery/Lesion type: [place] artery [place] vs. 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: with termite control servicer use Qualified Code( s): E11.22 - Type 2 diabetes mellitus with diabetic chronic kidney disease; N18.3 - Chronic kidney disease, stage 3 (moderate); Z79.4 - group home (current) use of insulin (7) HTN (hypertension) Code(s): I10 - ESSENTIAL (PRIMARY) HYPERTENSION Status: Chronic Qualifiers: Hypertension type: essential hypertension Qualified Code(s): I10 - Essential (primary) hypertension (8) Paroxysmal atrial fibrillation Code(s): I48.0 - PAROXYSMAL ATRIAL FIBRILLATION Status: Chronic (9) Urinary retention Code(s): R33.9 - RETENTION OF URINE, UNSPECIFIED Status: Chronic - Plan old records reviewed/req, continue antibiotics 08/16/19- continue cefepime and vancomycin, wound care, medication reviewed and continue to provide supportive care, continue gentle IVF, nephrology following, monitor renal function 08/17/19- continue IV antibiotic, wound care, medication reviewed as above, symptomatic treatment 08/18/19- tomorrow dr lopez will evaluate wound, and give his opinion about further wound care, medication reviewed and continue to provide symptomatic treatment, continue iv antibiotic for now as ordered. wound care, discharge planning
--- NOTE | 2019-08-18 19:24 | PRG ---
DATE OF SERVICE: 08/18/2019 SERVICE: Nephrology. SUBJECTIVE: A 68-year-old male with CKD, admitted due to worsening left leg diabetic foot. Nephrology is following the patient for acute on chronic renal failure. Renal function is improving with discontinuation of nephrotoxic agents and gentle IV fluid therapy. Bilateral leg swelling has improved remarkably following amputation of left big toe and elevation of both lower extremities. The patient denied fever, nausea, vomiting, or abdominal pain. He also denied shortness of breath. OBJECTIVE: VITAL SIGNS: Temperature 97.6, pulse 59, respiratory rate 18, SpO2 of 96% on room air, blood pressure is 152/77. GENERAL: Comfortable male patient, in no obvious distress. Afebrile. Anicteric. Acyanotic. HEENT: Normocephalic, atraumatic. Oral mucosa is moist. NECK: Supple with no JVD. CARDIOVASCULAR: Regular rhythm and rate with normal heart sounds. RESPIRATORY: Good air entry bilaterally with few transmitted breath sounds. No crackle or rhonchi was appreciated. GI: Obese, soft, nontender, nondistended with normal bowel sounds. EXTREMITIES: Left foot covered with dressing. Wound VAC noted as well. Venous stasis changes noted, but no edema appreciated. 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 Cranial nerves 2 through 12 are grossly intact. DIAGNOSTIC DATA: Renal function panel showed sodium 139, potassium 4.4, chloride 105, CO2 of 24, BUN 38, creatinine 2.39, glucose 97, calcium 8.4, phosphorus 4.7, albumin 2.7. Note that creatinine on admission was 2.73. However, the patient had creatinine ranging from 1.3 to 1.5 in April 2019. ASSESSMENT: 1. Acute kidney injury due to excessive diuretics and cytokine mediated injury related to sepsis. Creatinine is trending down with IV fluids. 2. Chronic kidney disease stage 3 due to diabetes and hypertension. 3. Hypertension: Control is suboptimal. 4. Diabetes mellitus, requiring insulin. 5. Anemia in chronic kidney disease. 6. Left diabetic foot ulcer with infection, status post amputation of big toe. PLAN: 1. Continue IV fluid therapy. 2. Continue to hold diuretics and losartan. 3. Adjust antihypertensives to get adequate BP control. 4. Increase activity. 5. Recheck renal function test in the morning. Job ID: [id number]
[2019-08-18] MEDS: Tamsulosin HCl 0.4 MG CAP PO SCH (20:13)
[2019-08-18 21:44] LABS: Vancomycin, Trough 28.5 ug/mL
[2019-08-19 06:03] LABS: Albumin 2.7 g/dL (3.4-4.8); Anion Gap 17 mmol/L (10-20); BUN (Urea Nitrogen) 32 mg/dL (8.4-25.7); BUN/Creatinine Ratio 13.85; Calc. Creatinine Clearance 49 mL/min (70-130); Calcium 8.5 mg/dL (7.8-10.44); Carbon Dioxide 20 mmol/L (23-31); Chloride 105 mmol/L (98-107); Estimated GFR-MDRD 28; Glucose 78 mg/dL (80-115); Phosphorus 3.9 mg/dL (2.3-4.7); Potassium 4.7 mmol/L (3.5-5.1); Sodium 137 mmol/L (136-145)
[2019-08-19] MEDS: Cefepime 2 GM in Sodium Chloride 0.9% 100 ML IVPB SCH (08:14)
[2019-08-19] MEDS: FLUoxetine HCl 20 MG CAP PO SCH (08:15)
[2019-08-19] MEDS: Carvedilol 25 MG TAB PO SCH ×2 (08:15→17:57)
[2019-08-19] MEDS: Aspirin Chewable 81 MG TAB PO SCH (08:15)
[2019-08-19] MEDS: Gabapentin 100 MG CAP PO SCH ×3 (08:15→21:37)
[2019-08-19] MEDS: Atorvastatin Calcium 40 MG TAB PO SCH (08:15)
[2019-08-19] MEDS: Sodium Chloride 0.9% 1,000 ML IV SCH (08:16)
[2019-08-19] MEDS: Amiodarone 200 MG TAB PO SCH ×2 (08:16→21:37)
[2019-08-19] MEDS: hydrALAZINE 25 MG TAB PO SCH ×3 (08:16→21:37)
[2019-08-19] MEDS: Polyethylene Glycol 3350 17 GM Packet PO SCH (08:16)
--- NOTE | 2019-08-19 10:08 | PRG ---
DATE OF SERVICE: 08/19/2019 SERVICE: Nephrology. SUBJECTIVE: A 68-year-old male with known history of CKD, stage 3 to 4, being followed up for [id number] renal failure. The patient was admitted due to left foot diabetic ulcer, for which he is status post amputation of left big toe. Bilateral leg edema as well as left leg erythema and swelling have improved. Denied any new complaints. Denied fever, nausea, vomiting, chest pain, or shortness of breath. OBJECTIVE: VITAL SIGNS: Temperature 97.8, pulse 57, respiratory rate 20, SpO2 of 91 on room air, blood pressure is 146/65. GENERAL: Obese male, in no distress. Afebrile. Anicteric. Acyanotic. HEENT: Normocephalic and atraumatic. NECK: Supple with no JVD. CARDIOVASCULAR: Regular rhythm and rate with normal heart sounds 1 and 2. RESPIRATORY: Fair air entry bilaterally with few transmitted breath sounds. No crackle or rhonchi were appreciated. GI: Obese, soft, nontender, and nondistended with normal bowel sounds. EXTREMITIES: Left foot covered with dressing with wound VAC in place. Venous stasis changes noted, but no edema appreciated. Right mid leg anterior ulcer noted. SURGICAL ATTENDANT: Conscious, alert, and oriented x3 with appropriate mental status. Cranial nerves 2 through 12 are grossly intact. Mild dysarthria noted. DIAGNOSTIC DATA: Renal function panel today showed sodium 137, potassium 4.7, chloride 105, CO2 of 20, BUN 32, creatinine 2.31, glucose 78, calcium 8.5, phosphorus 3.9, albumin 2.7. Note that on presentation, creatinine was 2.73, down to 2.31. ASSESSMENT: 1. Acute kidney injury: Due to excessive diuresis and cytokine-mediated injury related to sepsis. Creatinine is trending downwards with IV fluids. 2. Chronic kidney disease, stage 3 to 4, due to diabetes and hypertension as well as excessive diuresis. 3. Hypertension: Control is better. 4. Diabetes, requiring insulin. 5. Anemia in chronic kidney disease. 6. Left diabetic foot ulcer with infection, status post amputation of left big toe. PLAN: 1. We will continue IV fluid therapy. 2. We will, however, start alkali therapy due to worsening metabolic acidosis. 3. We will continue to hold diuretics and NIKOS octavio. 4. [place] oral intake encouraged as well as bilateral lower extremity elevation. 5. We will recheck renal function test in the morning. Job ID: [id number]
--- NOTE | 2019-08-19 10:42 | PRG ---
DATE OF SERVICE: 08/19/2019 Natalie Quintanilla is doing well today. His wound VAC was removed. His foot looks great. There is no cellulitis. No signs of infection. Wound is granulating. Wound VAC was reapplied by the wound care or at least saline wet-to-dry dressings applied until discharge disposition can be maintained and wound VAC can be acquired. The patient is ready to be discharged home on oral antibiotics. He can be on oral antibiotics for about 10 days. He had MRSA sensitive to oral antibiotics. His IV antibiotics can be discontinued. He should keep his heels off his bed as he is prone to decubitus from his neuropathy. At this point, I will see him as needed and follow up in my office in 2 to 3 weeks. Please call if necessary. Job ID: [id number]
--- NOTE | 2019-08-19 11:42 | PDOC.HOSPP ---
- Subjective Encounter Date: 08/19/19 Encounter Time: 09:00 Subjective: Patient seen and examined. No new complaints. No overnight events - Objective Vital Signs & Weight: Vital Signs (12 hours) Temp Pulse Resp BP BP Pulse Ox 08/19/19 08:20 93 L 08/19/19 08:15 98.6 F 59 L 16 169/73 H 93 L 08/19/19 04:24 97.8 F 57 L 20 146/65 H 91 L 08/19/19 00:17 97.7 F 54 L 16 124/66 92 L Weight Admit Weight 250 lb Weight 250 lb I&O: 08/18/19 08/19/19 08/20/19 06:59 06:59 06:59 Intake Total 3630 1500 Output Total 1950 2650 10 Balance 1680 -1150 -10 Result Diagrams: 08/17/19 05:29 08/19/19 05:35 Additional Labs: Accuchecks 08/19/19 08/18/19 08/18/19 04:25 19:39 17:33 POC Glucose 84 139 H 76 08/18/19 08/18/19 16:38 11:31 POC Glucose 59 L* 93 Hospitalist ROS - Review of Systems ENT: denies: ear pain, ear discharge, nose pain, nose discharge, nose congestion , mouth pain, mouth swelling, throat pain, throat swelling, other Respiratory: denies: cough, dry, shortness of breath, hemoptysis, SOB with excertion, pleuritic pain, sputum, wheezing, other Cardiovascular: denies: chest pain, palpitations, orthopnea, paroxysmal noc. dyspnea, edema, light headedness, other Gastrointestinal: denies: nausea, vomiting, abdominal pain, diarrhea, constipation, melena, hematochezia, other Genitourinary: denies: dysuria, frequency, incontinence, hematuria, retention, other Musculoskeletal: denies: neck pain, shoulder pain, arm pain, back pain, hand pain, leg pain, foot pain, other - Medication Medications: Active Medications Generic Name Dose Route Start Last Admin Trade Name Freq PRN Reason Stop Dose Admin Amiodarone HCl 200 mg 08/15/19 09:00 08/19/19 08:16 Cordarone PO 200 mg BID HANSEL Administration Aspirin 81 mg 08/16/19 09:00 08/19/19 08:15 Aspirin Chewable PO 81 mg DAILY [facility] Administration Atorvastatin Calcium 40 mg 08/15/19 09:00 08/19/19 08:15 Lipitor PO 40 mg DAILY [facility] Administration Carvedilol 25 mg 08/15/19 08:00 08/19/19 08:15 Coreg PO 25 mg BID-WM HANSEL Administration Fluoxetine HCl 20 mg 08/16/19 09:00 08/19/19 08:15 Prozac PO 20 mg DAILY HANSEL Administration Gabapentin 100 mg 08/15/19 09:00 08/19/19 08:15 Neurontin PO 100 mg TID [facility] Administration Hydralazine HCl 75 mg 08/15/19 15:00 08/19/19 08:16 Apresoline PO 75 mg TID [facility] Administration Insulin Human Lispro 0 units 08/14/19 22:35 08/15/19 06:36 Humalog SC 3 unit .AGGRESSIVE SLIDING PRN Administration Aggressive Correctional Scale Isosorbide Mononitrate 120 mg 08/16/19 09:00 08/19/19 08:15 Imdur PO 120 mg DAILY [facility] Administration Morphine Sulfate 2 mg 08/16/19 07:57 08/17/19 19:13 Morphine SLOW IVP 2 mg Q4H PRN Administration Moderate to Severe Pain (6-10) Pantoprazole Sodium 40 mg 08/15/19 09:00 08/19/19 08:15 Protonix PO 40 mg DAILY [facility] Administration Polyethylene Glycol 17 gm 08/16/19 09:00 08/19/19 08:16 Miralax PO 17 gm DAILY [facility] Administration Tamsulosin HCl 0.4 mg 08/15/19 21:00 08/18/19 20:13 Flomax PO 0.4 mg HS [facility] Administration Tramadol HCl 50 mg 08/15/19 10:12 08/17/19 08:24 Ultram PO 50 mg Q4H PRN Administration Moderate to Severe Pain (6-10) - Exam General Appearance: NAD, awake alert Eye: PERRL, anicteric sclera ENT: normocephalic atraumatic, no oropharyngeal lesions Neck: supple, symmetric, no JVD Heart: RRR, no murmur, no gallops, no rubs Respiratory: CTAB, no wheezes, no rales, no ronchi Gastrointestinal: soft, non-tender, non-distended, normal bowel sounds Extremities: no cyanosis, no clubbing Skin: normal turgor, no lesions Neurological: no focal deficits Musculoskeletal: normal tone, normal strength Psychiatric: normal affect, normal behavior Hosp A/P (1) Diabetic infection of left foot Code(s): E11.628 - TYPE 2 DIABETES MELLITUS WITH OTHER SKIN COMPLICATIONS; L08.9 - LOCAL INFECTION OF THE SKIN AND SUBCUTANEOUS TISSUE, UNSP Status: Acute (2) Cardiomyopathy Code(s): I42.9 - CARDIOMYOPATHY, UNSPECIFIED Status: Chronic (3) Acute on chronic renal failure Code(s): N17.9 - ACUTE KIDNEY FAILURE, UNSPECIFIED; N18.9 - CHRONIC KIDNEY DISEASE, UNSPECIFIED Status: Acute Qualifiers: Acute renal failure type: unspecified Chronic kidney disease stage: stage 3 (moderate) Qualified Code(s): N17.9 - Acute kidney failure, unspecified; N18.3 - Chronic kidney disease, stage 3 (moderate); N18.3 - Chronic kidney disease, stage 3 (moderate) (4) BPH (benign prostatic hyperplasia) Code(s): N40.0 - BENIGN PROSTATIC HYPERPLASIA WITHOUT LOWER URINRY TRACT SYMP Status: Chronic Qualifiers: Lower urinary tract symptom presence: symptoms present (5) CAD (coronary artery disease) Code(s): I25.10 - ATHSCL HEART DISEASE OF [place] CORONARY ARTERY W/O ANG PCTRS Status: Chronic Qualifiers: Coronary Disease-Associated Artery/Lesion type: [place] artery [place] vs. transplanted heart: [place] heart Associated angina: without angina Qualified Code(s): I25.10 - Atherosclerotic heart disease of [place] coronary artery without angina pectoris (6) DM type 2 causing CKD stage 3 Code(s): E11.22 - TYPE 2 DIABETES MELLITUS W DIABETIC CHRONIC KIDNEY DISEASE; N18.3 - CHRONIC KIDNEY DISEASE, STAGE 3 (MODERATE) Status: Chronic Qualifiers: Diabetes mellitus [facility] insulin use: with [facility] use Qualified Code( s): E11.22 - Type 2 diabetes mellitus with diabetic chronic kidney disease; N18.3 - Chronic kidney disease, stage 3 (moderate); Z79.4 - termite exterminator (current) use of insulin (7) HTN (hypertension) Code(s): I10 - ESSENTIAL (PRIMARY) HYPERTENSION Status: Chronic Qualifiers: Hypertension type: essential hypertension Qualified Code(s): I10 - Essential (primary) hypertension (8) Paroxysmal atrial fibrillation Code(s): I48.0 - PAROXYSMAL ATRIAL FIBRILLATION Status: Chronic (9) Urinary retention Code(s): R33.9 - RETENTION OF URINE, UNSPECIFIED Status: Chronic - Plan old records reviewed/req, continue antibiotics, social problems specialist 08/16/19- continue cefepime and vancomycin, wound care, medication reviewed and continue to provide supportive care, continue gentle IVF, nephrology following, monitor renal function 08/17/19- continue IV antibiotic, wound care, medication reviewed as above, symptomatic treatment 08/18/19- tomorrow dr lopez will evaluate wound, and give his opinion about further wound care, medication reviewed and continue to provide symptomatic treatment, continue iv antibiotic for now as ordered. wound care, discharge planning 08/19/19- continue iv antibiotic, wound care, medication reviewed and continue to provide symptomatic treatment, will need placement, hold insulin for hypoglycemia
[2019-08-19] MEDS ORDERED: Vancomycin HCl 500 MG in Sodium Chloride 0.9% 100 ML IVPB SCH (12:00)
[2019-08-19] MEDS ORDERED: Clopidogrel Bisulfate 75 MG TAB ONE (20:43)
[2019-08-19] MEDS: Sulfameth/Trimethoprim DS 800-160mg TAB PO SCH (21:37)
[2019-08-19] MEDS: Tamsulosin HCl 0.4 MG CAP PO SCH (21:37)
[2019-08-19] MEDS: Amoxicillin/Potassium Clav 500 MG TAB PO SCH (21:37)
[2019-08-20 08:12] LABS: #Basophils 0.1 thou/uL (0.0-0.2); #Monocytes 0.9 thou/uL (0.11-0.59); #Neutrophils 8.8 thou/uL (1.40-6.50); %Basophils 0.4 % (0.0-1.0); %Eosinophils 7.8 % (0.0-10.0); %Monocytes 7.2 % (0.0-10.0); %Neutrophils 68.5 % (42.0-75.0); Mean Corpuscular HGB CONC 32.6 g/dL (32.0-36.0); Mean Corpuscular Hemoglobin 28.8 pg (27.0-31.0); Mean Corpuscular Volume 88.4 fL (78.0-98.0); Mean Platelet Volume 5.8 fL (7.4-10.4); Platelet Count 359 thou/uL (130-400); RBC Distribution Width 13.4 % (11.5-14.5); Red Blood Cell (RBC) Count 3.81 mill/uL (4.70-6.10); White Blood Cell (WBC) Count 12.8 thou/uL (4.8-10.8)
[2019-08-20 08:26] LABS: ALT (SGPT) 11 U/L (8-55); AST (SGOT) 22 U/L (5-34); Alkaline Phosphatase 76 U/L (40-110); Anion Gap 16 mmol/L (10-20); BUN (Urea Nitrogen) 32 mg/dL (8.4-25.7); BUN/Creatinine Ratio 12.45; Bilirubin, Total 0.8 mg/dL (0.2-1.2); Calc. Creatinine Clearance 44 mL/min (70-130); Calcium 9.1 mg/dL (7.8-10.44); Carbon Dioxide 20 mmol/L (23-31); Chloride 105 mmol/L (98-107); Estimated GFR-MDRD 25; Glucose 94 mg/dL (80-115); Phosphorus 3.9 mg/dL (2.3-4.7); Potassium 4.4 mmol/L (3.5-5.1); Sodium 137 mmol/L (136-145)
[2019-08-20] MEDS: Gabapentin 100 MG CAP PO SCH ×3 (09:19→20:23)
[2019-08-20] MEDS: Aspirin Chewable 81 MG TAB PO SCH (09:19)
[2019-08-20] MEDS: FLUoxetine HCl 20 MG CAP PO SCH (09:19)
[2019-08-20] MEDS: hydrALAZINE 25 MG TAB PO SCH ×3 (09:19→20:23)
[2019-08-20] MEDS: Amoxicillin/Potassium Clav 500 MG TAB PO SCH ×2 (09:19→20:23)
[2019-08-20] MEDS: Carvedilol 25 MG TAB PO SCH ×2 (09:20→17:40)
[2019-08-20] MEDS: Amiodarone 200 MG TAB PO SCH ×2 (09:20→20:22)
[2019-08-20] MEDS: Polyethylene Glycol 3350 17 GM Packet PO SCH (09:20)
[2019-08-20] MEDS: Sulfameth/Trimethoprim DS 800-160mg TAB PO SCH ×2 (09:20→20:23)
[2019-08-20] MEDS: Atorvastatin Calcium 40 MG TAB PO SCH (09:20)
--- NOTE | 2019-08-20 11:11 | PDOC.HOSPP ---
- Subjective Encounter Date: 08/20/19 Encounter Time: 09:00 Subjective: Patient seen and examined. pt is confused but follows command, No overnight events - Objective Vital Signs & Weight: Vital Signs (12 hours) Temp Pulse Resp BP Pulse Ox 08/20/19 09:20 95 08/20/19 08:00 97.8 F 59 L 18 160/73 H 95 Weight Admit Weight 250 lb Weight 250 lb I&O: 08/19/19 08/20/19 08/21/19 06:59 06:59 06:59 Intake Total 1500 1000 Output Total 2650 2410 0 Balance -1150 -1410 0 Result Diagrams: 08/20/19 07:59 08/20/19 07:47 Additional Labs: Accuchecks 08/20/19 08/19/19 08/19/19 05:15 19:30 17:11 POC Glucose 108 95 84 08/19/19 11:59 POC Glucose 90 Hospitalist ROS - Review of Systems ENT: denies: ear pain, ear discharge, nose pain, nose discharge, nose congestion , mouth pain, mouth swelling, throat pain, throat swelling, other Respiratory: denies: cough, dry, shortness of breath, hemoptysis, SOB with excertion, pleuritic pain, sputum, wheezing, other Cardiovascular: denies: chest pain, palpitations, orthopnea, paroxysmal noc. dyspnea, edema, light headedness, other Gastrointestinal: denies: nausea, vomiting, abdominal pain, diarrhea, constipation, melena, hematochezia, other Genitourinary: denies: dysuria, frequency, incontinence, hematuria, retention, other Musculoskeletal: denies: neck pain, shoulder pain, arm pain, back pain, hand pain, leg pain, foot pain, other Skin: denies: rash, lesions, tonie, bruising, other Other: not reliable due to mental status - Medication Medications: Active Medications Generic Name Dose Route Start Last Admin Trade Name Freq PRN Reason Stop Dose Admin Amiodarone HCl 200 mg 08/15/19 09:00 08/20/19 09:20 Cordarone PO 200 mg BID HANSEL Administration Amoxicillin/Clavulanate Potassium 500 mg 08/19/19 21:00 08/20/19 09:19 Augmentin PO 500 mg Q12HR HANSEL Administration Aspirin 81 mg 08/16/19 09:00 08/20/19 09:19 Aspirin Chewable PO 81 mg DAILY HANSEL Administration Atorvastatin Calcium 40 mg 08/15/19 09:00 08/20/19 09:20 Lipitor PO 40 mg DAILY HANSEL Administration Carvedilol 25 mg 08/15/19 08:00 08/20/19 09:20 Coreg PO 25 mg BID-WM HANSEL Administration Fluoxetine HCl 20 mg 08/16/19 09:00 08/20/19 09:19 Prozac PO 20 mg DAILY HANSEL Administration Gabapentin 100 mg 08/15/19 09:00 08/20/19 09:19 Neurontin PO 100 mg TID HANSEL Administration Insulin Human Lispro 0 units 08/14/19 22:35 08/15/19 06:36 Humalog SC 3 unit .AGGRESSIVE SLIDING PRN Administration Aggressive [place]al Scale Isosorbide Mononitrate 120 mg 08/16/19 09:00 08/20/19 09:19 Imdur PO 120 mg DAILY HANSEL Administration Morphine Sulfate 2 mg 08/16/19 07:57 08/17/19 19:13 Morphine SLOW IVP 2 mg Q4H PRN Administration Moderate to Severe Pain (6-10) Pantoprazole Sodium 40 mg 08/15/19 09:00 08/20/19 09:19 Protonix PO 40 mg DAILY HANSEL Administration Polyethylene Glycol 17 gm 08/16/19 09:00 08/20/19 09:20 Miralax PO 17 gm DAILY HANSEL Administration Tamsulosin HCl 0.4 mg 08/15/19 21:00 08/19/19 21:37 Flomax PO 0.4 mg HS HANSEL Administration Tramadol HCl 50 mg 08/15/19 10:12 08/17/19 08:24 Ultram PO 50 mg Q4H PRN Administration Moderate to Severe Pain (6-10) Trimethoprim/Sulfamethoxazole 1 tab 08/19/19 21:00 08/20/19 09:20 Bactrim Ds PO 1 tab BID HANSEL Administration - Exam General Appearance: NAD, awake alert Eye: PERRL, anicteric sclera ENT: normocephalic atraumatic, no oropharyngeal lesions Neck: supple, symmetric, no JVD Heart: RRR, no murmur, no gallops Respiratory: CTAB, no wheezes, no rales Gastrointestinal: soft, non-tender, non-distended Extremities: no cyanosis, no clubbing Extremities - other findings: surgical site with wound vac Skin: normal turgor, no lesions Neurological: no focal deficits Musculoskeletal: normal tone, normal strength Psychiatric: normal affect, normal behavior Hosp A/P (1) Diabetic infection of left foot Code(s): E11.628 - TYPE 2 DIABETES MELLITUS WITH OTHER SKIN COMPLICATIONS; L08.9 - LOCAL INFECTION OF THE SKIN AND SUBCUTANEOUS TISSUE, UNSP Status: Acute (2) Cardiomyopathy Code(s): I42.9 - CARDIOMYOPATHY, UNSPECIFIED Status: Chronic (3) Acute on chronic renal failure Code(s): N17.9 - ACUTE KIDNEY FAILURE, UNSPECIFIED; N18.9 - CHRONIC KIDNEY DISEASE, UNSPECIFIED Status: Acute Qualifiers: Acute renal failure type: unspecified Chronic kidney disease stage: stage 3 (moderate) Qualified Code(s): N17.9 - Acute kidney failure, unspecified; N18.3 - Chronic kidney disease, stage 3 (moderate); N18.3 - Chronic kidney disease, stage 3 (moderate) (4) BPH (benign prostatic hyperplasia) Code(s): N40.0 - BENIGN PROSTATIC HYPERPLASIA WITHOUT LOWER URINRY TRACT SYMP Status: Chronic Qualifiers: Lower urinary tract symptom presence: symptoms present (5) CAD (coronary artery disease) Code(s): I25.10 - ATHSCL HEART DISEASE OF [place] CORONARY ARTERY W/O ANG PCTRS Status: Chronic Qualifiers: Coronary Disease-Associated Artery/Lesion type: [place] artery [place] vs. transplanted heart: [place] heart Associated angina: without angina Qualified Code(s): I25.10 - Atherosclerotic heart disease of [place] coronary artery without angina pectoris (6) DM type 2 causing CKD stage 3 Code(s): E11.22 - TYPE 2 DIABETES MELLITUS W DIABETIC CHRONIC KIDNEY DISEASE; N18.3 - CHRONIC KIDNEY DISEASE, STAGE 3 (MODERATE) Status: Chronic Qualifiers: Diabetes mellitus shelter insulin use: with predatory animal exterminator use Qualified Code( s): E11.22 - Type 2 diabetes mellitus with diabetic chronic kidney disease; N18.3 - Chronic kidney disease, stage 3 (moderate); Z79.4 - snf (current) use of insulin (7) HTN (hypertension) Code(s): I10 - ESSENTIAL (PRIMARY) HYPERTENSION Status: Chronic Qualifiers: Hypertension type: essential hypertension Qualified Code(s): I10 - Essential (primary) hypertension (8) Paroxysmal atrial fibrillation Code(s): I48.0 - PAROXYSMAL ATRIAL FIBRILLATION Status: Chronic (9) Urinary retention Code(s): R33.9 - RETENTION OF URINE, UNSPECIFIED Status: Chronic - Plan old records reviewed/req, continue antibiotics 08/16/19- continue cefepime and vancomycin, wound care, medication reviewed and continue to provide supportive care, continue gentle IVF, nephrology following, monitor renal function 08/17/19- continue IV antibiotic, wound care, medication reviewed as above, symptomatic treatment 08/18/19- tomorrow dr lopez will evaluate wound, and give his opinion about further wound care, medication reviewed and continue to provide symptomatic treatment, continue iv antibiotic for now as ordered. wound care, discharge planning 08/19/19- continue iv antibiotic, wound care, medication reviewed and continue to provide symptomatic treatment, will need placement, hold insulin for hypoglycemia 08/20/19- surgeon changed antibiotics to bactrim and augmentin but both option are concerning with his current renal function, nephrology also concerned about , started bicarbonate, medication reviewed and continue to provide symptomatic treatment, wound care, will consult ID to determine final antibiotic on discharge, still await his placement to [facility], he is not able to take care of himself at home.
[2019-08-20] MEDS: Sodium Bicarbonate 75 MEQ in Sodium Chloride 0.45% 1,000 ML IV SCH ×2 (11:41→21:52)
--- NOTE | 2019-08-20 11:43 | PRG ---
DATE OF SERVICE: 08/20/2019 SERVICE: Nephrology. SUBJECTIVE: A 68-year-old male being followed up for acute on chronic renal failure. The patient with diabetes, hypertension, and diabetic foot ulcer was admitted due to worsening left foot ulcer for which he has amputation of left big toe. The patient is still confused. But otherwise conversational with poor insight. Denied nausea, vomiting, abdominal pain. OBJECTIVE: VITAL SIGNS: Temperature 97.8, pulse 59, respiratory rate 18, SpO2 of 95% on room air, blood pressure is 150/73. GENERAL: Obese male, in no distress. Afebrile. Anicteric. Acyanotic. HEENT: Normocephalic, atraumatic. Oral mucosa is dry. NECK: Supple with no JVD. CARDIOVASCULAR: Irregular rhythm with normal heart sounds. RESPIRATORY: Fair air entry bilaterally with no obvious crackle or rhonchi or use of accessory muscles. GI: Obese, soft, nontender, nondistended with normal bowel sounds. EXTREMITIES: Left foot dressing with wound VAC noted. Bilateral venous stasis changes noted with no edema. CUSTOM SHOEMAKER: Conscious and alert. Oriented to person and place. Some confusion noted. UROGENITAL: Bishop catheter is in place draining urine. DIAGNOSTIC DATA: CBC showed WBC count of 12.8, hemoglobin of 11, MCV of 88.4, platelets of . Note hemoglobin has been stable at around 9.3-9.8 since admission, but has shot up to 11 overnight. BMP today showed sodium 137, potassium 4.4, chloride 105, CO2 of 20, BUN 32, creatinine 2.57, glucose 94, calcium 9.1. Total bilirubin 0.8, AST 22, ALT 11, alkaline phosphatase 76, total protein 8.0, albumin 3.0, globulin 5.0. ASSESSMENT: 1. Acute kidney injury: Due to volume depletion. The patient was on diuretics and NIKOS octavio which has been discontinued. Acute increase from 2.31 to 2.57 overnight is due to commencement of Bactrim. 2. Hypertension: Control is suboptimal. 3. Volume depletion given hemoconcentration. Hemoglobin went up from 9.5 yesterday to 11 today. 4. Anemia in chronic kidney disease. 5. Dementia. 6. Left diabetic foot ulcer with abscess, cellulitis and possible osteomyelitis. On antibiotics. Culture grew methicillin-resistant Staphylococcus aureus and Streptococcus anginosus. Transition to oral antibiotics yesterday, currently on Bactrim and Augmentin. One wonders if this osteomyelitis unless the margins or the infected bones were completely taken off. 7. Chronic kidney disease stage 3. PLAN: 1. We will start sodium bicarb containing IV infusion given worsening renal function and dehydration with hemoconcentration. 2. We will increase hydralazine to 100 mg t.i.d. to get better BP control. 3. We will recheck renal function test in the morning. 4. ID consult to ascertain suitability and otherwise of current oral antibiotics is recommended. However, the dose of Bactrim should be renally dosed. The patient should not be on double strength Bactrim given his renal function. Care plan was discussed with primary attending. Continue other treatments. Job ID: [id number]
[2019-08-20] MEDS: ICOSAPENT ETHYL 2 GM PO SCH (12:44)
[2019-08-20] MEDS: Tamsulosin HCl 0.4 MG CAP PO SCH (20:24)
[2019-08-21] MEDS: Morphine 2 MG/ML SYRINGE SLOW IVP PRN (01:39)
[2019-08-21] MEDS ORDERED: Sulfameth/Trimethoprim SS 400-80MG TAB PO SCH ×2 (02:45→21:00)
[2019-08-21 06:55] LABS: Albumin 2.9 g/dL (3.4-4.8); Anion Gap 15 mmol/L (10-20); BUN (Urea Nitrogen) 34 mg/dL (8.4-25.7); BUN/Creatinine Ratio 12.59; Calc. Creatinine Clearance 42 mL/min (70-130); Calcium 8.9 mg/dL (7.8-10.44); Carbon Dioxide 22 mmol/L (23-31); Chloride 105 mmol/L (98-107); Estimated GFR-MDRD 24; Glucose 99 mg/dL (80-115); Phosphorus 3.9 mg/dL (2.3-4.7); Potassium 3.9 mmol/L (3.5-5.1); Sodium 138 mmol/L (136-145)
[2019-08-21] MEDS: Polyethylene Glycol 3350 17 GM Packet PO SCH ×2 (08:00→13:10)
[2019-08-21] MEDS: Carvedilol 25 MG TAB PO SCH ×3 (08:01→16:54)
[2019-08-21] MEDS: Amiodarone 200 MG TAB PO SCH ×3 (08:01→22:49)
[2019-08-21] MEDS: Gabapentin 100 MG CAP PO SCH ×4 (08:01→22:49)
[2019-08-21] MEDS: FLUoxetine HCl 20 MG CAP PO SCH (08:01)
[2019-08-21] MEDS: hydrALAZINE 25 MG TAB PO SCH ×4 (08:01→22:50)
[2019-08-21] MEDS: Atorvastatin Calcium 40 MG TAB PO SCH ×2 (08:01→13:10)
[2019-08-21] MEDS: Aspirin Chewable 81 MG TAB PO SCH ×2 (08:01→13:10)
[2019-08-21] MEDS: Amoxicillin/Potassium Clav 500 MG TAB PO SCH ×3 (08:01→22:49)
--- NOTE | 2019-08-21 08:01 | PRG ---
DATE OF SERVICE: 08/21/2019 SERVICE: Nephrology. SUBJECTIVE: A 68-year-old male being followed up for acute on chronic renal failure. The patient with diabetes, hypertension, was admitted due to worsening diabetic foot ulcer on the left side for which he had amputation of left big toe. The patient was recently started on Bactrim Double Strength and creatinine has been trending up after initially trending down. The patient is confused with memory lapses and reportedly had visual hallucinations last night. He seems calm and comfortable currently. OBJECTIVE: VITAL SIGNS: Temperature 97.9, pulse 58, respiratory rate 20, SpO2 of 93% on room air, and blood pressure is 135/56. GENERAL: Elderly-looking male, in no distress. Afebrile. Anicteric. Acyanotic. HEENT: Normocephalic, atraumatic. Oral mucosa is dry. NECK: Supple with no JVD. CARDIOVASCULAR: Regular rhythm and rate with normal heart sounds 1 and 2. RESPIRATORY: Fair air entry bilaterally with no obvious crackle or rhonchi or use of accessory muscles. GASTROINTESTINAL: Full, soft, nontender, and nondistended with normal bowel sounds. UROGENITAL: Bishop catheter is in place draining urine. CENTRAL NERVOUS SYSTEM: Conscious and alert. Oriented to person at least. Some confusion and memory lapses noted. Does not remember his age. Moves all extremities. Cranial nerves 2 through 12 are grossly intact. DIAGNOSTIC DATA: Renal function panel today showed sodium 138, potassium 3.9, chloride 105, CO2 of 22, BUN 34, creatinine 2.70, glucose 99, calcium 8.9, phosphorus 3.9, and albumin 2.8. Note that, creatinine is up from 2.31 two days ago to 2.7 today. ASSESSMENT: 1. Acute kidney injury: Due to volume depletion, cytokine-mediated injury related to diabetic foot ulcer and infection as well as use of Bactrim. The patient received diuretics and lisinopril earlier on but that has been discontinued. 2. Chronic kidney disease, stage 3: Due to hypertension and diabetes. 3. Anemia in chronic kidney disease. 4. Hypertension: Control is acceptable. 5. Diabetes, type 2, requiring insulin. 6. Diabetic foot ulcer with abscess and presumed osteomyelitis, status post amputation of left big toe. PLAN: 1. We will continue bicarb containing infusion. 2. We will discontinue Bactrim and start linezolid in place of it for soft tissue infection due to MRSA. 3. We will avoid nephrotoxic agent including diuretics. 4. Keeler oral intake recommended as the patient is clinically dry. 5. We will recheck renal function tests and CBC in the morning. 6. Infectious Disease consult is recommended for appropriate antibiotics and dosing. Job ID: [id number]
[2019-08-21] MEDS: Sodium Bicarbonate 75 MEQ in Sodium Chloride 0.45% 1,000 ML IV SCH (08:08)
[2019-08-21] MEDS: Linezolid 600 MG TAB PO SCH ×2 (08:58→13:10)
--- NOTE | 2019-08-21 15:41 | PDOC.HOSPP ---
- Subjective Encounter Date: 08/21/19 Encounter Time: 15:39 Subjective: Patient is confused and delirious. Unable to provide history or ROS due to the same. - Objective Vital Signs & Weight: Vital Signs (12 hours) Temp Pulse Resp BP BP Pulse Ox 08/21/19 13:15 59 L 08/21/19 13:05 172/71 H 08/21/19 12:23 97.5 F L 59 L 20 164/74 H 94 L 08/21/19 08:00 97 08/21/19 07:58 96.8 F L 58 L 18 155/72 H 97 Weight Admit Weight 250 lb Weight 250 lb I&O: 08/20/19 08/21/19 08/22/19 06:59 06:59 06:59 Intake Total 1000 2460 Output Total 2410 1400 0 Balance -1410 1060 0 Result Diagrams: 08/20/19 07:59 08/21/19 06:15 Additional Labs: Accuchecks 08/21/19 08/21/19 08/20/19 11:44 06:45 19:51 POC Glucose 102 112 H 103 08/20/19 16:04 POC Glucose 109 Hospitalist ROS - Medication Medications: Active Medications Generic Name Dose Route Start Last Admin Trade Name Freq PRN Reason Stop Dose Admin Amiodarone HCl 200 mg 08/15/19 09:00 08/21/19 13:10 Cordarone PO Not Given BID [facility] Amoxicillin/Clavulanate Potassium 500 mg 08/19/19 21:00 08/21/19 13:10 Augmentin PO Not Given Q12HR [facility] Aspirin 81 mg 08/16/19 09:00 08/21/19 13:10 Aspirin Chewable PO Not Given DAILY [facility] Atorvastatin Calcium 40 mg 08/15/19 09:00 08/21/19 13:10 Lipitor PO Not Given DAILY [facility] Carvedilol 25 mg 08/15/19 08:00 08/21/19 13:09 Coreg PO Not Given BID[facility] Gabapentin 100 mg 08/15/19 09:00 08/21/19 14:47 Neurontin PO Not Given TID [facility] Hydralazine HCl 100 mg 08/20/19 15:00 08/21/19 14:47 Apresoline PO Not Given TID [facility] Insulin Human Lispro 0 units 08/14/19 22:35 08/15/19 06:36 Humalog SC 3 unit .AGGRESSIVE SLIDING PRN Administration Aggressive Correctional Scale Isosorbide Mononitrate 120 mg 08/16/19 09:00 08/21/19 13:10 Imdur PO Not Given DAILY [facility] Morphine Sulfate 2 mg 08/16/19 07:57 08/21/19 01:39 Morphine SLOW IVP 2 mg Q4H PRN Administration Moderate to Severe Pain (6-10) Polyethylene Glycol 17 gm 08/16/19 09:00 08/21/19 13:10 Miralax PO Not Given DAILY [facility] Tamsulosin HCl 0.4 mg 08/15/19 21:00 08/20/19 20:24 Flomax PO 0.4 mg HS [facility] Administration - Exam General Appearance: ill appearing (confused) Heart: RRR, no gallops, normal peripheral pulses Respiratory: CTAB, no wheezes, no rales, no ronchi Gastrointestinal: soft, non-tender, non-distended, normal bowel sounds Gastrointestinal - other findings: Bishop in place with clear urine Extremities - other findings: Wound vac & dressing over LLE Hosp A/P (1) Diabetic infection of left foot Code(s): E11.628 - TYPE 2 DIABETES MELLITUS WITH OTHER SKIN COMPLICATIONS; L08.9 - LOCAL INFECTION OF THE SKIN AND SUBCUTANEOUS TISSUE, UNSP Status: Acute Plan: s/p left great toe amputation by podiatry Intra op cultures with MRSA sensitive to bactrim, doxycycline & linezolid Bactrim DC by renal due to hyperkalemia; Zyvox placed However, zyvox has interaction with prozac I have DC zyvox I have started doxycycline for 10 days Continue augmentin for anaerobic coverage ID consulted (2) Ischemic gangrene Code(s): I96 - GANGRENE, NOT ELSEWHERE CLASSIFIED Status: Acute Plan: Path reveals ischemic gangrene s/p amputation (3) Acute on chronic renal failure Code(s): N17.9 - ACUTE KIDNEY FAILURE, UNSPECIFIED; N18.9 - CHRONIC KIDNEY DISEASE, UNSPECIFIED Status: Acute Qualifiers: Acute renal failure type: unspecified Chronic kidney disease stage: stage 3 (moderate) Qualified Code(s): N17.9 - Acute kidney failure, unspecified; N18.3 - Chronic kidney disease, stage 3 (moderate); N18.3 - Chronic kidney disease, stage 3 (moderate) Plan: Renal on board Avoid nephrotoxic meds and hypotension Monitor urine output and renal function Maintain Bishop due to JUAQUIN (4) BPH (benign prostatic hyperplasia) Code(s): N40.0 - BENIGN PROSTATIC HYPERPLASIA WITHOUT LOWER URINRY TRACT SYMP Status: Chronic Qualifiers: Lower urinary tract symptom presence: symptoms present Plan: Currently, has a Bishop cath Continue tamsulosin (5) CAD (coronary artery disease) Code(s): I25.10 - ATHSCL HEART DISEASE OF [place] CORONARY ARTERY W/O ANG PCTRS Status: Chronic Qualifiers: Coronary Disease-Associated Artery/Lesion type: [place] artery [place] vs. transplanted heart: [place] heart Associated angina: without angina Qualified Code(s): I25.10 - Atherosclerotic heart disease of [place] coronary artery without angina pectoris Plan: Stable and without ischemic symptoms Continue ASA, statin and BB (6) DM type 2 causing CKD stage 3 Code(s): E11.22 - TYPE 2 DIABETES MELLITUS W DIABETIC CHRONIC KIDNEY DISEASE; N18.3 - CHRONIC KIDNEY DISEASE, STAGE 3 (MODERATE) Status: Chronic Qualifiers: Diabetes mellitus halfway insulin use: with halfway use Qualified Code( s): E11.22 - Type 2 diabetes mellitus with diabetic chronic kidney disease; N18.3 - Chronic kidney disease, stage 3 (moderate); Z79.4 - [facility] (current) use of insulin Plan: Check HA1c Diabetic diet and SSI As above, renal on board Has JUAQUIN on CKD-3 (7) HTN (hypertension) Code(s): I10 - ESSENTIAL (PRIMARY) HYPERTENSION Status: Chronic Qualifiers: Hypertension type: essential hypertension Qualified Code(s): I10 - Essential (primary) hypertension Plan: Mildly elevated BP Pt. refusing meds If persistent HTN, will order catapres - Plan continue antibiotics, DVT proph w/heparin
[2019-08-21] MEDS ORDERED: OLANZapine 10 MG VIAL IM SCH (15:45)
--- NOTE | 2019-08-21 16:19 | CON ---
DATE OF CONSULTATION: 08/21/2019 REASON FOR CONSULTATION: Left foot osteomyelitis. HISTORY OF PRESENT ILLNESS: A 68-year-old patient with a history of coronary artery disease, AFib, prior CVA with cognitive dysfunction, type 2 diabetes, neurogenic bladder requiring self catheterization, admitted because of left 1st toe ulcer with cellulitis, which failed oral antimicrobial therapy. The patient had an open wound with drainage, associated with chills. No headaches, nausea, vomiting, or respiratory symptoms. No abdominal pain. He was evaluated by Surgery and underwent an amputation of the left 1st toe on 08/14. Incision was made to resect the plantar ulcer beneath the metatarsophalangeal joint. The metatarsal was transected with a bone cutter. There was evidence of purulent material tracking up the dorsal foot over the metatarsal area. This was sent for culture. The wound was irrigated. Negative pressure dressing was placed. The pathology of the surgical specimen demonstrated ischemic gangrene with acute inflammation extending into the skin and soft tissue margin of resection. Right now, Mr. Quintanilla is awake, but the only thing he can say is no in weight, this is seems to be new, I do not think that had been reported in the evaluations. The last note from the hospitalist states the patient was confused with memory lapses, visual hallucinations, but the aphasic errors are not stated in note. I could not perform a review of systems because of this aphasia. PAST MEDICAL HISTORY: 1. Type 2 diabetes. 2. Coronary artery disease. 3. Hypertension. 4. BPH. 5. Prior MIs. 6. CVA. 7. Nephrolithiasis. 8. Neurogenic bladder requiring in-and-out catheterization. PAST SURGICAL HISTORY: 1. Knee arthroscopy. 2. Ankle surgeries. 3. Bypass graft surgery. SOCIAL HISTORY: He had been living with in the area. Never smoker. FAMILY HISTORY: Noncontributory. ALLERGIES: NITROGLYCERIN. CURRENT MEDICATIONS: 1. P.r.n. medications. 2. Augmentin. 3. Dulcolax. 4. Coreg. 5. Neurontin. 6. Glucagon. 7. Apresoline. 8. Insulin. 9. Morphine. 10. MiraLAX. PHYSICAL EXAMINATION: VITAL SIGNS: T-max 98.5, blood pressure 170/71, pulse 59, respirations 18 to 20 , and O2 saturation 94% to 97%. SKIN: The area of amputation with a negative pressure dressing. Peripheral IV access. No lymphadenopathy. HEENT: Ocular movements conjugate. Sclerae white. Oral cavity with numerous missing teeth. The oral mucosa is somewhat erythematous. No thrush. NECK: Supple. No jugular vein distention. LUNGS: Symmetric, clear breath sounds. HEART: S1 and S2. Irregular rate. No murmurs. ABDOMEN: Soft, not distended or tender. No ascites. Question of bladder distention. No organomegaly. EXTREMITIES: No joint inflammatory activity. Pulses are 2+ in popliteals and 1 + in dorsalis pedis. Cap refill is normal. NEUROLOGIC: He is able to move extremities on command. The patient has quite impaired speech. His only says "no and wait". He cannot perform phrases and answer questions properly. He does establish eye contact and follow commands, so it seems to be mostly expressive aphasia. LABORATORY DATA: White cell count is 18,000 down to 12.8, hemoglobin 11, platelets 358. Sodium 138, creatinine 2.7, which is about his baseline from admission, but a bit higher than what it was in April, when it was 1.3. The liver profile with normal transaminases and alkaline phosphatase. Albumin 2.7. Urinalysis with 11 to 20 wbc's. Microbiology with MRSA, Strep anginosus, and Streptococcus. MRSA has been retrieved from 2 different samples from the foot. The organism is susceptible to doxycycline, linezolid, rifampin, Bactrim, and vancomycin. ASSESSMENT: 1. Type 2 diabetes. 2. Ischemic cardiomyopathy. 3. Osteomyelitis of the left 1st toe status post transmetatarsal amputation. 4. New-onset aphasia. DISCUSSION: The main concern is with an acute CVA in view of his underlying atrial fibrillation. The main reason for my consultation is regarding management of the toe infection. After amputation, it seems like there is still compromised margin, so I would continue antimicrobial therapy for a significant amount of time following amputation and the presence of MRSA is quite significant and we will continue coverage with combination of doxycycline and rifampin for a protracted period of time, probably not less than 3 weeks with careful monitoring for possible recrudescence of inflammatory process. Frequently in those patients, there is a recrudescence of the inflammatory process after amputation, particularly whenever the antimicrobial therapy duration is less than what would be warranted. Job ID: [id number] [facility]
[2019-08-21] MEDS: Doxycycline 100 MG CAP PO SCH (22:49)
[2019-08-21] MEDS: Rifampin 300 MG CAP PO SCH (22:50)
[2019-08-21] MEDS: Heparin 5,000 UNITS/ML VIAL SC SCH (22:50)
[2019-08-21] MEDS: Tamsulosin HCl 0.4 MG CAP PO SCH (22:50)
[2019-08-21] MEDS ORDERED: hydrALAZINE 20 MG/ML VIAL SLOW IVP PRN (22:59)
[2019-08-22] MEDS ORDERED: hydrALAZINE 20 MG/ML VIAL SLOW IVP PRN (08:25)
[2019-08-22] MEDS ORDERED: cloNIDine 0.2mg/24 Hour PATCH TD SCH (09:00)
[2019-08-22] MEDS: Amiodarone 200 MG TAB PO SCH ×2 (09:52→21:20)
[2019-08-22] MEDS: Carvedilol 25 MG TAB PO SCH ×2 (09:52→15:47)
[2019-08-22] MEDS: Aspirin Chewable 81 MG TAB PO SCH (09:53)
[2019-08-22] MEDS: Atorvastatin Calcium 40 MG TAB PO SCH (09:53)
[2019-08-22] MEDS: Doxycycline 100 MG CAP PO SCH (09:53)
[2019-08-22] MEDS: Heparin 5,000 UNITS/ML VIAL SC SCH ×3 (09:53→21:19)
[2019-08-22] MEDS: Gabapentin 100 MG CAP PO SCH ×3 (09:53→21:19)
[2019-08-22] MEDS: Amoxicillin/Potassium Clav 500 MG TAB PO SCH ×2 (09:53→21:22)
[2019-08-22] MEDS: Polyethylene Glycol 3350 17 GM Packet PO SCH (09:54)
[2019-08-22] MEDS: hydrALAZINE 25 MG TAB PO SCH ×3 (09:54→21:20)
[2019-08-22] MEDS: Rifampin 300 MG CAP PO SCH ×2 (09:54→21:21)
[2019-08-22] MEDS ORDERED: Lorazepam 2 MG/ML VIAL SLOW IVP PRN (11:22)
--- NOTE | 2019-08-22 13:19 | PDOC.HOSPP ---
- Subjective Encounter Date: 08/22/19 Encounter Time: 13:14 Subjective: Patient continues to remain confused and answers all questions with "NO" and sometimes repeats my questions. Unable to obtain accurate history or ROS due to the same. - Objective Vital Signs & Weight: Vital Signs (12 hours) Temp Pulse Resp BP BP BP Pulse Ox 08/22/19 11:40 97.8 F 63 20 163/73 H 98 08/22/19 10:02 60 16 154/73 H 98 08/22/19 09:54 60 173/77 H 08/22/19 08:14 60 173/77 H 08/22/19 07:26 97.8 F 60 20 173/77 H 96 08/22/19 04:00 97.6 F 61 20 161/70 H 96 Weight Admit Weight 250 lb Weight 250 lb I&O: 08/21/19 08/22/19 08/23/19 06:59 06:59 06:59 Intake Total 2460 820 20 Output Total 1400 1450 Balance 1060 -630 20 Result Diagrams: 08/20/19 07:59 08/21/19 06:15 Additional Labs: Accuchecks 08/22/19 08/22/19 08/21/19 11:48 04:53 19:42 POC Glucose 79 81 81 08/21/19 08/21/19 16:17 11:44 POC Glucose 98 102 Hospitalist ROS - Review of Systems ROS unobtainable: due to mental status - Medication Medications: Active Medications Generic Name Dose Route Start Last Admin Trade Name Freq PRN Reason Stop Dose Admin Amiodarone HCl 200 mg 08/15/19 09:00 08/22/19 09:52 Cordarone PO Not Given BID [facility] Amoxicillin/Clavulanate Potassium 500 mg 08/19/19 21:00 08/22/19 09:53 Augmentin PO Not Given Q12HR [facility] Aspirin 81 mg 08/16/19 09:00 08/22/19 09:53 Aspirin Chewable PO Not Given DAILY [facility] Atorvastatin Calcium 40 mg 08/15/19 09:00 08/22/19 09:53 Lipitor PO Not Given DAILY [facility] Carvedilol 25 mg 08/15/19 08:00 08/22/19 09:52 Coreg PO Not Given BID-[facility] Clonidine 0.2 mg 08/22/19 09:00 08/22/19 10:02 Znbehnnv-Eie-4 TD 0.2 mg Q7DAYS [facility] Administration Doxycycline Hyclate 100 mg 08/21/19 21:00 08/22/19 09:53 Vibramycin PO Not Given BID [facility] Gabapentin 100 mg 08/15/19 09:00 08/22/19 09:53 Neurontin PO Not Given TID [facility] Heparin Sodium (Porcine) 5,000 units 08/21/19 21:00 08/22/19 09:53 Heparin SC Not Given TID [facility] Hydralazine HCl 100 mg 08/20/19 15:00 08/22/19 09:54 Apresoline PO Not Given TID [facility] Insulin Human Lispro 0 units 08/14/19 22:35 08/15/19 06:36 Humalog SC 3 unit .AGGRESSIVE SLIDING PRN Administration Aggressive Correctional Scale Isosorbide Mononitrate 120 mg 08/16/19 09:00 08/22/19 09:54 Imdur PO Not Given DAILY [facility] Morphine Sulfate 2 mg 08/16/19 07:57 08/21/19 01:39 Morphine SLOW IVP 2 mg Q4H PRN Administration Moderate to Severe Pain (6-10) Polyethylene Glycol 17 gm 08/16/19 09:00 08/22/19 09:54 Miralax PO Not Given DAILY [facility] Rifampin 300 mg 08/21/19 22:00 08/22/19 09:54 Rifadin PO Not Given 1000,2200 [facility] Tamsulosin HCl 0.4 mg 08/15/19 21:00 08/21/19 22:50 Flomax PO Not Given HS [facility] - Exam General Appearance: awake alert, ill appearing ENT: normocephalic atraumatic, moist mucosa Heart: RRR, no murmur, no gallops, normal peripheral pulses Respiratory: CTAB, no wheezes, no rales, normal chest expansion Gastrointestinal: soft, non-tender, non-distended, normal bowel sounds Neurological: speech deficit. negative: facial droop Hosp A/P (1) Diabetic infection of left foot Code(s): E11.628 - TYPE 2 DIABETES MELLITUS WITH OTHER SKIN COMPLICATIONS; L08.9 - LOCAL INFECTION OF THE SKIN AND SUBCUTANEOUS TISSUE, UNSP Status: Acute (2) Ischemic gangrene Code(s): I96 - GANGRENE, NOT ELSEWHERE CLASSIFIED Status: Acute (3) Acute on chronic renal failure Code(s): N17.9 - ACUTE KIDNEY FAILURE, UNSPECIFIED; N18.9 - CHRONIC KIDNEY DISEASE, UNSPECIFIED Status: Acute Qualifiers: Acute renal failure type: unspecified Chronic kidney disease stage: stage 3 (moderate) Qualified Code(s): N17.9 - Acute kidney failure, unspecified; N18.3 - Chronic kidney disease, stage 3 (moderate); N18.3 - Chronic kidney disease, stage 3 (moderate) (4) BPH (benign prostatic hyperplasia) Code(s): N40.0 - BENIGN PROSTATIC HYPERPLASIA WITHOUT LOWER URINRY TRACT SYMP Status: Chronic Qualifiers: Lower urinary tract symptom presence: symptoms present (5) CAD (coronary artery disease) Code(s): I25.10 - ATHSCL HEART DISEASE OF [place] CORONARY ARTERY W/O ANG PCTRS Status: Chronic Qualifiers: Coronary Disease-Associated Artery/Lesion type: [place] artery [place] vs. transplanted heart: [place] heart Associated angina: without angina Qualified Code(s): I25.10 - Atherosclerotic heart disease of [place] coronary artery without angina pectoris (6) DM type 2 causing CKD stage 3 Code(s): E11.22 - TYPE 2 DIABETES MELLITUS W DIABETIC CHRONIC KIDNEY DISEASE; N18.3 - CHRONIC KIDNEY DISEASE, STAGE 3 (MODERATE) Status: Chronic Qualifiers: Diabetes mellitus prison insulin use: with prison use Qualified Code( s): E11.22 - Type 2 diabetes mellitus with diabetic chronic kidney disease; N18.3 - Chronic kidney disease, stage 3 (moderate); Z79.4 - [facility] (current) use of insulin (7) HTN (hypertension) Code(s): I10 - ESSENTIAL (PRIMARY) HYPERTENSION Status: Chronic Qualifiers: Hypertension type: essential hypertension Qualified Code(s): I10 - Essential (primary) hypertension (8) Encephalopathy Code(s): G93.40 - ENCEPHALOPATHY, UNSPECIFIED Status: Acute - Plan Hosp A/P (1) Diabetic infection of left foot Code(s): E11.628 - TYPE 2 DIABETES MELLITUS WITH OTHER SKIN COMPLICATIONS; L08.9 - LOCAL INFECTION OF THE SKIN AND SUBCUTANEOUS TISSUE, UNSP Status: Acute Plan: s/p left great toe amputation by podiatry Intra op cultures with MRSA sensitive to bactrim, doxycycline & linezolid ID recommended PO doxy, rifampin and augmentin However, patient refusing all oral meds Will place on IV doxycycline Will switch to PO meds once patient able to take PO (2) Ischemic gangrene Code(s): I96 - GANGRENE, NOT ELSEWHERE CLASSIFIED Status: Acute Plan: Path of amputated toe reveals ischemic gangrene s/p amputation (3) Acute on chronic renal failure Code(s): N17.9 - ACUTE KIDNEY FAILURE, UNSPECIFIED; N18.9 - CHRONIC KIDNEY DISEASE, UNSPECIFIED Status: Acute Qualifiers: Acute renal failure type: unspecified Chronic kidney disease stage: stage 3 (moderate) Qualified Code(s): N17.9 - Acute kidney failure, unspecified; N18.3 - Chronic kidney disease, stage 3 (moderate); N18.3 - Chronic kidney disease, stage 3 (moderate) Plan: Renal on board. Case DW Dr. Carbajal Avoid nephrotoxic meds and hypotension Monitor urine output and renal function Maintain Bishop due to JUAQUIN Bicarb drip given his NAGMA (4) BPH (benign prostatic hyperplasia) Code(s): N40.0 - BENIGN PROSTATIC HYPERPLASIA WITHOUT LOWER URINRY TRACT SYMP Status: Chronic Qualifiers: Lower urinary tract symptom presence: symptoms present Plan: Currently, has a Bishop cath Continue tamsulosin (5) CAD (coronary artery disease) Code(s): I25.10 - ATHSCL HEART DISEASE OF [place] CORONARY ARTERY W/O ANG PCTRS Status: Chronic Qualifiers: Coronary Disease-Associated Artery/Lesion type: [place] artery [place] vs. transplanted heart: [place] heart Associated angina: without angina Qualified Code(s): I25.10 - Atherosclerotic heart disease of [place] coronary artery without angina pectoris Plan: Stable and without ischemic symptoms Continue ASA, statin and BB (6) DM type 2 causing CKD stage 3 Code(s): E11.22 - TYPE 2 DIABETES MELLITUS W DIABETIC CHRONIC KIDNEY DISEASE; N18.3 - CHRONIC KIDNEY DISEASE, STAGE 3 (MODERATE) Status: Chronic Qualifiers: Diabetes mellitus intermediate project manager insulin use: with intermediate project manager use Qualified Code( s): E11.22 - Type 2 diabetes mellitus with diabetic chronic kidney disease; N18.3 - Chronic kidney disease, stage 3 (moderate); Z79.4 - [facility] (current) use of insulin Plan: Continue diabetic diet and SSI As above, renal on board Has JUAQUIN on CKD-3 (7) HTN (hypertension) Code(s): I10 - ESSENTIAL (PRIMARY) HYPERTENSION Status: Chronic Qualifiers: Hypertension type: essential hypertension Qualified Code(s): I10 - Essential (primary) hypertension Plan: Mildly elevated BP Pt. refusing PO meds Begin clonidine patch 8. Metabolic encephalopathy -Unknown etiology. Neurology consult requested. MRI brain ordered. Avoid sedative hypnotics.
[2019-08-22 13:50] LABS: ALT (SGPT) 16 U/L (8-55); AST (SGOT) 31 U/L (5-34); Alkaline Phosphatase 77 U/L (40-110); Anion Gap 21 mmol/L (10-20); BUN (Urea Nitrogen) 33 mg/dL (8.4-25.7); BUN/Creatinine Ratio 12.55; Bilirubin, Total 0.6 mg/dL (0.2-1.2); Calc. Creatinine Clearance 43 mL/min (70-130); Calcium 8.7 mg/dL (7.8-10.44); Carbon Dioxide 15 mmol/L (23-31); Chloride 106 mmol/L (98-107); Estimated GFR-MDRD 24; Globulin 4.6 g/dL (2.4-3.5); Glucose 68 mg/dL (80-115); Phosphorus 3.6 mg/dL (2.3-4.7); Potassium 4.8 mmol/L (3.5-5.1); Protein, Total 7.6 g/dL (5.8-8.1); Sodium 137 mmol/L (136-145)
--- NOTE | 2019-08-22 15:00 | MRI ---
MRI BRAIN WITHOUT CONTRAST: INDICATION: Possible CVA. Aphasia. COMPARISON: Correlation is made to CT head 05/10/2019. FINDINGS: Mild cortical volume loss. Moderate chronic ischemic white matter change. No evidence of restricted diffusion. No evidence of acute mass or infarct. Postop changes and encephalomalacia in the right cerebellum is again noted. Intracranial internal carotid arteries, proximal cerebral arteries, and basilar artery demonstrate fl ow voids. Dural venous sinuses appear patent. Mucosal edema in the left maxillary sinus. IMPRESSION: 1. No evidence of acute infarct. 2. Moderately severe chronic ischemic white matter change. POS: [facility]
[2019-08-22 15:58] LABS: Hemoglobin 10.6 g/dL (14.0-18.0); Mean Corpuscular HGB CONC 33.4 g/dL (32.0-36.0); Mean Corpuscular Hemoglobin 29.3 pg (27.0-31.0); Mean Corpuscular Volume 87.6 fL (78.0-98.0); Mean Platelet Volume 5.8 fL (7.4-10.4); Platelet Count 316 thou/uL (130-400); RBC Distribution Width 13.6 % (11.5-14.5); Red Blood Cell (RBC) Count 3.63 mill/uL (4.70-6.10); White Blood Cell (WBC) Count 11.3 thou/uL (4.8-10.8)
[2019-08-22 16:25] LABS: Band 1 % (5-11); Eosinophils 7 % (0-10); Lymphocytes 13 % (21-51); MDiff Complete? YES; Monocytes 4 % (0-10); Neutrophil 73 % (42-75); Platelet Morphology Comment Appears Adequate; RBC Morphology Normal
[2019-08-22] MEDS ORDERED: Doxycycline 100 MG in Syringe 0 ML IVPB SCH (21:00)
[2019-08-22] MEDS: Tamsulosin HCl 0.4 MG CAP PO SCH (21:20)
--- NOTE | 2019-08-22 21:44 | PRG ---
DATE OF SERVICE: 08/22/2019 SERVICE: Nephrology. SUBJECTIVE: A 68-year-old male being followed up for acute on chronic renal failure. Patient is more confused today. Repeating no, no, no, no. Denied nausea or vomiting. OBJECTIVE: VITAL SIGNS: Temperature 97.8, pulse 63, respiratory rate 20, SpO2 of 98% on room, and blood pressure is 163/73. GENERAL: Elderly-looking male, in no obvious distress. Afebrile. HEENT: Normocephalic and atraumatic. Oral mucosa is dry. CARDIOVASCULAR: Regular rhythm and rate with soft systolic murmur. RESPIRATORY: Fair air entry bilaterally with no crackle or rhonchi or use of accessory muscles. GI: Full, soft, nontender, nondistended with normal bowel sounds. EXTREMITIES: Chronic venous stasis changes noted with no obvious edema. Left foot dressing with wound VAC noted as well. AQUATIC PERFORMER: Awake, but confused. Repeating same words. DIAGNOSTIC DATA: CBC showed WBC count of 11.3, hemoglobin of 10.6, MCV of 87.6, and platelets of 316. CMP showed sodium 137, potassium 4.8, chloride 106, CO2 of 15, BUN 33, creatinine 2.63, glucose 68, calcium 8.7, phosphorus 3.6, and albumin 3.0. ASSESSMENT: 1. Acute kidney injury: Due to volume depletion from poor oral intake as well as diuretic therapy with effect of RAAS octavio. Recent treatment with Bactrim also was contributory to elevation in creatinine. 2. Chronic kidney disease, stage 3. 3. Diabetic foot ulcer with cellulitis and possible osteomyelitis, status post amputation of left big toe. 4. Mental status change: Etiology is unclear, but seems to be metabolic in etiology. Acute cerebrovascular accident is a concern. 5. Hypertension: Control is suboptimal. 6. Metabolic acidosis. 7. Anemia in chronic kidney disease. PLAN: 1. Continue bicarb containing infusion consistently. For unclear reason, this was discontinued yesterday and patient has poor oral intake. We will recheck renal function test with re-commencement of bicarb-containing fluid. Supportive care to continue. 2. Further treatment as per primary attending. Job ID: [id number]
[2019-08-23] MEDS: Amiodarone 200 MG TAB PO SCH ×3 (02:50→20:45)
[2019-08-23] MEDS: hydrALAZINE 25 MG TAB PO SCH ×4 (02:51→20:47)
[2019-08-23] MEDS: Amoxicillin/Potassium Clav 500 MG TAB PO SCH ×3 (02:51→20:45)
[2019-08-23 06:50] LABS: #Eosinphils 0.8 thou/uL (0.0-0.7); #Lymphocytes 2.1 thou/uL (1.20-3.40); #Monocytes 0.9 thou/uL (0.11-0.59); #Neutrophils 6.5 thou/uL (1.40-6.50); %Basophils 0.4 % (0.0-1.0); %Eosinophils 7.8 % (0.0-10.0); %Monocytes 8.3 % (0.0-10.0); %Neutrophils 63.5 % (42.0-75.0); Hemoglobin 11.6 g/dL (14.0-18.0); Mean Corpuscular HGB CONC 32.9 g/dL (32.0-36.0); Mean Corpuscular Hemoglobin 29.1 pg (27.0-31.0); Mean Corpuscular Volume 88.5 fL (78.0-98.0); Mean Platelet Volume 5.9 fL (7.4-10.4); Platelet Count 338 thou/uL (130-400); RBC Distribution Width 13.7 % (11.5-14.5); Red Blood Cell (RBC) Count 3.99 mill/uL (4.70-6.10); White Blood Cell (WBC) Count 10.2 thou/uL (4.8-10.8)
[2019-08-23 07:13] LABS: ALT (SGPT) 21 U/L (8-55); AST (SGOT) 30 U/L (5-34); Alkaline Phosphatase 72 U/L (40-110); Anion Gap 15 mmol/L (10-20); BUN (Urea Nitrogen) 32 mg/dL (8.4-25.7); BUN/Creatinine Ratio 11.35; Bilirubin, Total 0.6 mg/dL (0.2-1.2); Calc. Creatinine Clearance 40 mL/min (70-130); Calcium 9.1 mg/dL (7.8-10.44); Carbon Dioxide 23 mmol/L (23-31); Chloride 103 mmol/L (98-107); Estimated GFR-MDRD 22; Globulin 4.5 g/dL (2.4-3.5); Glucose 98 mg/dL (80-115); Phosphorus 4.1 mg/dL (2.3-4.7); Potassium 4.2 mmol/L (3.5-5.1); Protein, Total 7.5 g/dL (5.8-8.1); Sodium 137 mmol/L (136-145)
[2019-08-23] MEDS ORDERED: Sodium Bicarbonate 150 MEQ in Dextrose 5% in Water 1,000 ML IV SCH ×2 (08:45→09:00)
[2019-08-23] MEDS: Carvedilol 25 MG TAB PO SCH ×2 (09:53→17:11)
[2019-08-23] MEDS: Gabapentin 100 MG CAP PO SCH ×3 (09:55→20:45)
[2019-08-23] MEDS: Aspirin Chewable 81 MG TAB PO SCH (09:56)
[2019-08-23] MEDS: Atorvastatin Calcium 40 MG TAB PO SCH (09:56)
[2019-08-23] MEDS: Rifampin 300 MG CAP PO SCH ×2 (09:57→20:46)
[2019-08-23] MEDS: Polyethylene Glycol 3350 17 GM Packet PO SCH (09:58)
[2019-08-23] MEDS: Heparin 5,000 UNITS/ML VIAL SC SCH ×3 (10:06→20:47)
--- NOTE | 2019-08-23 12:08 | CON ---
DATE OF TELEMEDICINE CONSULTATION: 08/23/2019 CHIEF COMPLAINT: We are asked to see this patient for possible altered mental status. Based on the medical history, I reviewed through the chart, and also on discussion with the nursing staff, they are not aware of the reason for consult , but the patient has been admitted. HISTORY OF PRESENT ILLNESS: The patient has been admitted with history of coronary artery disease, AFib, previous CVA with cognitive dysfunction, type 2 diabetes, and neurogenic bladder, he is requiring self cath. He came in with a left first toe ulcer with cellulitis, and the patient had an open wound with drainage associated with chills. There is no history of headaches, nausea, vomiting or respiratory problems. No abdominal pain. He was evaluated by Surgical Team and underwent amputation of left first toe on 08/14. The patient has been diagnosed with some infection with ischemic gangrene of the left foot, but he is having some issues with his cognitive mood status with fluctuation and memory loss and visual hallucinations and aphasic errors per chart, and Neuro consult was requested. MRI of the brain was negative for any acute stroke, moderately severe chronic microvascular ischemic changes. PAST MEDICAL HISTORY: The patient's previous medical history as stated is significant for coronary artery disease, AFib, prior CVA, type 2 diabetes, bladder dysfunction, and gangrene and ulcer of the left foot. He also has benign prostatic hypertrophy and prior myocardial infarctions. PAST SURGICAL HISTORY: Knee surgery, ankle surgeries, and coronary artery bypass graft. MEDICATIONS: As noted in the chart. REVIEW OF SYSTEMS: Difficult to obtain due to fluctuation in mental status exam. LABORATORY DATA: White count 10.2, hemoglobin 11.6, hematocrit 35.4, and platelet count 338. Sodium 137, potassium 4.2, bicarb 23, BUN 32, and creatinine 2.82. Liver functions are within normal limits. Urinalysis is negative. Toxicology, mostly on vancomycin, which I believe is being given to the patient. PHYSICAL EXAMINATION: VITAL SIGNS: Blood pressure 130/70, temperature 97.7, and pulse rate is 65. GENERAL APPEARANCE: Well-built, well-nourished gentleman, who speaks a little forcefully, this could be due to mild agitation in general. CHEST: Clear vesicular breathing. CARDIOVASCULAR: S1 and S2 heard. No murmurs. NEUROLOGIC: Motor; bulk normal, tone normal, strength 5/5 throughout. Higher intellectual function; he was oriented to time, place and person, and appropriate in answering questions and following commands. Cerebellar; normal [id number], [id number]-[id number]. Sensory, normal to touch bilaterally. IMPRESSION AND RECOMMENDATIONS: The patient with left foot gangrene and ulcer and recent repair. He is currently having some issues with fluctuation in mental status. Per chart, he was having some visual hallucinations. On exam, he was somewhat forceful, seems a little bit distant. When he is answering questions, he is brief and to the point, but does not talk much, which is my observation during the visit. However, he is oriented to time, place, person, and cooperative in nature with our exam. I did not see any evidence of altered mental status, but if there is fluctuation, this is more likely delirium secondary to medical issues. I suspect this is more metabolic encephalopathy rather than a stroke. Please call me back if you have any further questions. Job ID: [id number] MTDD
[2019-08-23] MEDS ORDERED: Doxycycline 100 MG CAP PO SCH (13:30)
--- NOTE | 2019-08-23 15:09 | PDOC.HOSPP ---
- Subjective Encounter Date: 08/23/19 Encounter Time: 14:05 Subjective: Patient able to answer questions today. No N/V. Able to follow commands. He is taking all his PO meds now. He had MRI brain yesterday. He has been seen by neurology today. - Objective Vital Signs & Weight: Vital Signs (12 hours) Temp Pulse Resp BP BP BP Pulse Ox 08/23/19 11:00 97.7 F 60 20 147/66 H 97 08/23/19 09:54 65 168/78 H 08/23/19 08:00 96 08/23/19 07:58 97.7 F 65 20 168/78 H 96 08/23/19 04:00 97.6 F 68 18 138/77 95 Weight Admit Weight 250 lb Weight 250 lb I&O: 08/22/19 08/23/19 08/24/19 06:59 06:59 06:59 Intake Total 820 1070 Output Total 1450 1075 Balance -630 -5 Result Diagrams: 08/23/19 06:28 08/23/19 06:28 Additional Labs: Accuchecks 08/23/19 08/23/19 08/22/19 11:35 04:27 19:58 POC Glucose 148 H 99 94 08/22/19 17:00 POC Glucose 89 Hospitalist ROS - Medication Medications: Active Medications Generic Name Dose Route Start Last Admin Trade Name Freq PRN Reason Stop Dose Admin Amiodarone HCl 200 mg 08/15/19 09:00 08/23/19 09:55 Cordarone PO 200 mg BID HANSEL Administration Amoxicillin/Clavulanate Potassium 500 mg 08/19/19 21:00 08/23/19 09:58 Augmentin PO 500 mg Q12HR HANSEL Administration Aspirin 81 mg 08/16/19 09:00 08/23/19 09:56 Aspirin Chewable PO 81 mg DAILY HANSEL Administration Atorvastatin Calcium 40 mg 08/15/19 09:00 08/23/19 09:56 Lipitor PO 40 mg DAILY HANSEL Administration Carvedilol 25 mg 08/15/19 08:00 08/23/19 09:53 Coreg PO 25 mg BID-WM HANSEL Administration Clonidine 0.2 mg 08/22/19 09:00 08/22/19 10:02 Ajnlnimr-Neh-4 TD 0.2 mg Q7DAYS HANSEL Administration Doxycycline Hyclate 100 mg 08/23/19 13:30 08/23/19 14:03 Vibramycin PO 08/23/19 15:30 100 mg NOW HANSEL Administration Gabapentin 100 mg 08/15/19 09:00 08/23/19 09:55 Neurontin PO 100 mg TID HANSEL Administration Heparin Sodium (Porcine) 5,000 units 08/21/19 21:00 08/23/19 10:06 Heparin SC Not Given TID HANSEL Hydralazine HCl 100 mg 08/20/19 15:00 08/23/19 09:54 Apresoline PO 100 mg TID HANSEL Administration Insulin Human Lispro 0 units 08/14/19 22:35 08/15/19 06:36 Humalog SC 3 unit .AGGRESSIVE SLIDING PRN Administration Aggressive Correctional Scale Isosorbide Mononitrate 120 mg 08/16/19 09:00 08/23/19 09:56 Imdur PO 120 mg DAILY HANSEL Administration Morphine Sulfate 2 mg 08/16/19 07:57 08/21/19 01:39 Morphine SLOW IVP 2 mg Q4H PRN Administration Moderate to Severe Pain (6-10) Polyethylene Glycol 17 gm 08/16/19 09:00 08/23/19 09:58 Miralax PO Not Given DAILY HANSEL Rifampin 300 mg 08/21/19 22:00 08/23/19 09:57 Rifadin PO 300 mg 1000,2200 HANSEL Administration Tamsulosin HCl 0.4 mg 08/15/19 21:00 08/22/19 21:20 Flomax PO Not Given HS HANSEL - Exam General Appearance: NAD, awake alert Eye: PERRL, anicteric sclera ENT: normocephalic atraumatic, no oropharyngeal lesions Neck: supple, no lymphadenopathy Heart: RRR, no rubs, normal peripheral pulses Respiratory: CTAB, no wheezes, normal chest expansion Gastrointestinal: soft, non-tender, non-distended Hosp A/P (1) Diabetic infection of left foot Code(s): E11.628 - TYPE 2 DIABETES MELLITUS WITH OTHER SKIN COMPLICATIONS; L08.9 - LOCAL INFECTION OF THE SKIN AND SUBCUTANEOUS TISSUE, UNSP Status: Acute (2) Ischemic gangrene Code(s): I96 - [place], NOT ELSEWHERE CLASSIFIED Status: Acute (3) Acute on chronic renal failure Code(s): N17.9 - ACUTE KIDNEY FAILURE, UNSPECIFIED; N18.9 - CHRONIC KIDNEY DISEASE, UNSPECIFIED Status: Acute Qualifiers: Acute renal failure type: unspecified Chronic kidney disease stage: stage 3 (moderate) Qualified Code(s): N17.9 - Acute kidney failure, unspecified; N18.3 - Chronic kidney disease, stage 3 (moderate); N18.3 - Chronic kidney disease, stage 3 (moderate) (4) BPH (benign prostatic hyperplasia) Code(s): N40.0 - BENIGN PROSTATIC HYPERPLASIA WITHOUT LOWER URINRY TRACT SYMP Status: Chronic Qualifiers: Lower urinary tract symptom presence: symptoms present (5) CAD (coronary artery disease) Code(s): I25.10 - ATHSCL HEART DISEASE OF [place] CORONARY ARTERY W/O ANG PCTRS Status: Chronic Qualifiers: Coronary Disease-Associated Artery/Lesion type: [place] artery [place] vs. transplanted heart: [place] heart Associated angina: without angina Qualified Code(s): I25.10 - Atherosclerotic heart disease of [place] coronary artery without angina pectoris (6) DM type 2 causing CKD stage 3 Code(s): E11.22 - TYPE 2 DIABETES MELLITUS W DIABETIC CHRONIC KIDNEY DISEASE; N18.3 - CHRONIC KIDNEY DISEASE, STAGE 3 (MODERATE) Status: Chronic Qualifiers: Diabetes mellitus group home insulin use: with terminal carman use Qualified Code( s): E11.22 - Type 2 diabetes mellitus with diabetic chronic kidney disease; N18.3 - Chronic kidney disease, stage 3 (moderate); Z79.4 - terminal gauger (current) use of insulin (7) HTN (hypertension) Code(s): I10 - ESSENTIAL (PRIMARY) HYPERTENSION Status: Chronic Qualifiers: Hypertension type: essential hypertension Qualified Code(s): I10 - Essential (primary) hypertension (8) Encephalopathy Code(s): G93.40 - ENCEPHALOPATHY, UNSPECIFIED Status: Resolved - Plan DVT proph w/heparin Hosp A/P (1) Diabetic infection of left foot Code(s): E11.628 - TYPE 2 DIABETES MELLITUS WITH OTHER SKIN COMPLICATIONS; L08.9 - LOCAL INFECTION OF THE SKIN AND SUBCUTANEOUS TISSUE, UNSP Status: Acute Plan: s/p left great toe amputation by podiatry Intra op cultures with MRSA sensitive to bactrim, doxycycline & linezolid ID recommended PO doxy, rifampin and augmentin Pt. taking PO meds Continue 3 abx for 3-4 wks Per PT, needs home health Case management consulted for HH set up for wound vac, nursing, PT & OT (2) Ischemic gangrene Code(s): I96 - [place]AN[place], NOT ELSEWHERE CLASSIFIED Status: Resolved Plan: Path of amputated toe reveals ischemic gangrene s/p amputation (3) Acute on chronic renal failure Code(s): N17.9 - ACUTE KIDNEY FAILURE, UNSPECIFIED; N18.9 - CHRONIC KIDNEY DISEASE, UNSPECIFIED Status: Acute Qualifiers: Acute renal failure type: unspecified Chronic kidney disease stage: stage 3 (moderate) Qualified Code(s): N17.9 - Acute kidney failure, unspecified; N18.3 - Chronic kidney disease, stage 3 (moderate); N18.3 - Chronic kidney disease, stage 3 (moderate) Plan: Renal on board. Case DW Dr. Carbajal Avoid nephrotoxic meds and hypotension Monitor urine output and renal function DC man[place]ana[place] cath Bicarb drip discontinued by renal (4) BPH (benign prostatic hyperplasia) Code(s): N40.0 - BENIGN PROSTATIC HYPERPLASIA WITHOUT LOWER URINRY TRACT SYMP Status: Chronic Qualifiers: Lower urinary tract symptom presence: symptoms present Plan: Continue tamsulosin (5) CAD (coronary artery disease) Code(s): I25.10 - ATHSCL HEART DISEASE OF [place] CORONARY ARTERY W/O ANG PCTRS Status: Chronic Qualifiers: Coronary Disease-Associated Artery/Lesion type: [place] artery [place] vs. transplanted heart: [place] heart Associated angina: without angina Qualified Code(s): I25.10 - Atherosclerotic heart disease of [place] coronary artery without angina pectoris Plan: Stable and without ischemic symptoms Continue ASA, statin and BB (6) DM type 2 causing CKD stage 3 Code(s): E11.22 - TYPE 2 DIABETES MELLITUS W DIABETIC CHRONIC KIDNEY DISEASE; N18.3 - CHRONIC KIDNEY DISEASE, STAGE 3 (MODERATE) Status: Chronic Qualifiers: Diabetes mellitus terminal carman insulin use: with group home use Qualified Code( s): E11.22 - Type 2 diabetes mellitus with diabetic chronic kidney disease; N18.3 - Chronic kidney disease, stage 3 (moderate); Z79.4 - terminal gauger (current) use of insulin Plan: Continue diabetic diet and SSI. Stable blood sugars As above, renal on board Has JUAQUIN on CKD-3 (7) HTN (hypertension) Code(s): I10 - ESSENTIAL (PRIMARY) HYPERTENSION Status: Chronic Qualifiers: Hypertension type: essential hypertension Qualified Code(s): I10 - Essential (primary) hypertension Plan: Mildly elevated BP DC clonidine patch 8. Acute Metabolic encephalopathy -resolved MRI brain w/o stroke
--- NOTE | 2019-08-23 19:55 | PRG ---
DATE OF SERVICE: 08/23/2019 SERVICE: Nephrology. SUBJECTIVE: A 68-year-old male being followed up for acute on chronic renal failure. The patient was admitted for treatment of worsening diabetic foot ulcer associated with cellulitis and possible osteomyelitis. The patient is status post left big toe amputation with wound VAC placement. Had developed acute agitation markedly improved today. The patient is conversational and seems appropriate. Denied nausea, vomiting, or abdominal pain. Oral intake is still suboptimal. OBJECTIVE: VITAL SIGNS: Temperature 97.7, pulse 60, respiratory rate 20, SpO2 of 97% on room air, blood pressure is 147/66. GENERAL: Comfortable male, in no distress. Afebrile. Anicteric. Acyanotic. HEENT: Normocephalic and atraumatic. Oral mucosa is moist. NECK: Supple with no JVD. CARDIOVASCULAR: Regular rhythm and rate with soft systolic murmur. RESPIRATORY: Good air entry bilaterally with no crackle or rhonchi or use of accessory muscles. GI: Full, soft, nontender, nondistended with normal bowel sounds. UROGENITAL: [place] catheter is in place draining some urine. EXTREMITIES: Chronic venous stasis changes with no obvious edema. Left foot dressing with wound VAC noted. 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 Cranial nerves 2 through 12 are grossly intact. The patient is moving all extremities, but weakly. DIAGNOSTIC DATA: CBC showed WBC count of 10.2, hemoglobin of 11.6, platelet of 338. CMP showed sodium 137, potassium 4.2, chloride 103, CO2 23, BUN 32, creatinine 2.82. Glucose 98, calcium 9.1, phosphorus 4.1, albumin 3.0. ASSESSMENT: 1. Acute kidney injury due to volume depletion related to poor oral intake and diuretic therapy. Use of VANESA inhibitor in a dehydrated patient as well as cytokine mediated injury may have been contributory. The patient is still clinically dry and attempts to provide IV fluids has been hampered due to mental status change and lack of IV access. 2. Chronic kidney disease stage 3 due to hypertension and diabetes mellitus. 3. Anemia in chronic kidney disease. 4. Acute encephalopathy: Multifactorial with acute kidney injury infection and medication all contributory. Markedly improved overnight. 5. Volume depletion: The patient is still clinically dry oral intake. Has been off diuretics for some time now. 6. Hypertension: Control is acceptable. We will monitor closely to avoid hypotension in this patient, which will worsen renal function. 7. Left diabetic foot ulcer with cellulitis and possible osteo. Antibiotics as per Infectious Disease. PLAN: 1. We will continue sodium bicarb containing IV fluid once IV access is obtained. [place] oral intake encouraged. 2. Renally dosed all medications. 3. Avoid nephrotoxic agents. 4. Recheck renal function test in the morning. Job ID: [id number]
[2019-08-23] MEDS: Tamsulosin HCl 0.4 MG CAP PO SCH (20:45)
[2019-08-23] MEDS: Doxycycline 100 MG CAP PO SCH (20:46)
[2019-08-23] MEDS: Acetaminophen 500 MG TAB PO PRN (20:46)
[2019-08-23] MEDS: HumaLOG 300 UNITS/3 ML VIAL SC PRN (20:48)
[2019-08-24] MEDS: HumaLOG 300 UNITS/3 ML VIAL SC PRN ×4 (05:02→20:31)
[2019-08-24] MEDS ORDERED: Sodium Bicarbonate 150 MEQ in Dextrose 5% in Water 1,000 ML IV SCH (05:30)
[2019-08-24] MEDS: Atorvastatin Calcium 40 MG TAB PO SCH (07:59)
[2019-08-24] MEDS: Gabapentin 100 MG CAP PO SCH ×3 (08:00→20:29)
[2019-08-24] MEDS: hydrALAZINE 25 MG TAB PO SCH ×4 (08:00→20:30)
[2019-08-24] MEDS: Aspirin Chewable 81 MG TAB PO SCH (08:01)
[2019-08-24] MEDS: Carvedilol 25 MG TAB PO SCH ×3 (08:01→18:46)
[2019-08-24] MEDS: Amiodarone 200 MG TAB PO SCH ×2 (08:01→20:29)
[2019-08-24] MEDS: Polyethylene Glycol 3350 17 GM Packet PO SCH (08:02)
[2019-08-24] MEDS ORDERED: Sodium Bicarbonate 75 MEQ in Sodium Chloride 0.45% 1,000 ML IV SCH (08:30)
[2019-08-24 09:23] LABS: #Eosinphils 0.8 thou/uL (0.0-0.7); #Lymphocytes 2.1 thou/uL (1.20-3.40); #Monocytes 0.9 thou/uL (0.11-0.59); #Neutrophils 7.5 thou/uL (1.40-6.50); %Basophils 0.4 % (0.0-1.0); %Lymphocytes 18.4 % (21.0-51.0); %Monocytes 8.2 % (0.0-10.0); Mean Corpuscular HGB CONC 33.4 g/dL (32.0-36.0); Mean Corpuscular Hemoglobin 29.3 pg (27.0-31.0); Mean Corpuscular Volume 87.6 fL (78.0-98.0); Mean Platelet Volume 6.1 fL (7.4-10.4); Platelet Count 263 thou/uL (130-400); White Blood Cell (WBC) Count 11.3 thou/uL (4.8-10.8)
[2019-08-24 09:27] LABS: Hemoglobin A1c 6.6 % (4.0-6.0)
[2019-08-24 09:37] LABS: Anion Gap 14 mmol/L (10-20); BUN (Urea Nitrogen) 45 mg/dL (8.4-25.7); Calc. Creatinine Clearance 31 mL/min (70-130); Calcium 8.7 mg/dL (7.8-10.44); Carbon Dioxide 29 mmol/L (23-31); Chloride 102 mmol/L (98-107); Estimated GFR-MDRD 17; Glucose 156 mg/dL (80-115); Phosphorus 3.3 mg/dL (2.3-4.7); Potassium 3.8 mmol/L (3.5-5.1); Sodium 141 mmol/L (136-145)
[2019-08-24] MEDS: Doxycycline 100 MG CAP PO SCH ×2 (10:02→20:29)
[2019-08-24] MEDS: Amoxicillin/Potassium Clav 500 MG TAB PO SCH ×2 (10:02→20:29)
[2019-08-24] MEDS: Rifampin 300 MG CAP PO SCH ×2 (10:06→20:29)
[2019-08-24] MEDS: Heparin 5,000 UNITS/ML VIAL SC SCH ×3 (10:06→20:31)
[2019-08-24] MEDS: HYDROcodone/Acetaminophen 7.5/325 mg Tablet PO PRN (10:10)
--- NOTE | 2019-08-24 10:39 | PDOC.HOSPP ---
- Subjective Encounter Date: 08/24/19 Encounter Time: 10:39 Subjective: Patient reports feeling well and is able to tolerate his diet. He reports having a bowel movement today. No CP, SOB or dizziness. No fever, chills. Eager to be discharged to rehab to begin PT. - Objective Vital Signs & Weight: Vital Signs (12 hours) Temp Pulse Resp BP Pulse Ox 08/24/19 07:30 97.9 F 54 L 18 120/62 95 Weight Admit Weight 250 lb Weight 250 lb I&O: 08/23/19 08/24/19 08/25/19 06:59 06:59 06:59 Intake Total 1070 1900 Output Total 1075 825 Balance -5 1075 Result Diagrams: 08/24/19 08:49 08/24/19 08:49 Additional Labs: Accuchecks 08/24/19 08/23/19 08/23/19 04:42 19:46 17:02 POC Glucose 249 H 285 H 264 H 08/23/19 11:35 POC Glucose 148 H Hospitalist ROS - Medication Medications: Active Medications Generic Name Dose Route Start Last Admin Trade Name Freq PRN Reason Stop Dose Admin Acetaminophen 1,000 mg 08/15/19 10:12 08/23/19 20:46 Tylenol PO 1,000 mg Q6H PRN Administration Moderate to Severe Pain (6-10) Hydrocodone Bitart/Acetaminophen 1 tab 08/21/19 15:39 08/24/19 10:10 [place] 7.5/325 PO 1 tab Q4H PRN Administration Mild Pain (1-3) Amiodarone HCl 200 mg 08/15/19 09:00 08/24/19 08:01 Cordarone PO 200 mg BID HANSEL Administration Amoxicillin/Clavulanate Potassium 500 mg 08/19/19 21:00 08/24/19 10:02 Augmentin PO 500 mg Q12HR HANSEL Administration Aspirin 81 mg 08/16/19 09:00 08/24/19 08:01 Aspirin Chewable PO 81 mg DAILY HANSEL Administration Atorvastatin Calcium 40 mg 08/15/19 09:00 08/24/19 07:59 Lipitor PO 40 mg DAILY HANSEL Administration Carvedilol 25 mg 08/15/19 08:00 08/24/19 08:01 Coreg PO 25 mg BID-WM HANSEL Administration Doxycycline Hyclate 100 mg 08/23/19 21:00 08/24/19 10:02 Vibramycin PO 100 mg BID HANSEL Administration Gabapentin 100 mg 08/15/19 09:00 08/24/19 08:00 Neurontin PO 100 mg TID HANSEL Administration Heparin Sodium (Porcine) 5,000 units 08/21/19 21:00 08/24/19 10:06 Heparin SC 5,000 units TID HANSEL Administration Hydralazine HCl 100 mg 08/20/19 15:00 08/24/19 08:00 Apresoline PO 100 mg TID HANSEL Administration Insulin Human Lispro 0 units 08/14/19 22:35 08/24/19 05:02 Humalog SC 6 unit .AGGRESSIVE SLIDING PRN Administration Aggressive Correctional Scale Isosorbide Mononitrate 120 mg 08/16/19 09:00 08/24/19 08:00 Imdur PO 120 mg DAILY HANSEL Administration Morphine Sulfate 2 mg 08/16/19 07:57 08/21/19 01:39 Morphine SLOW IVP 2 mg Q4H PRN Administration Moderate to Severe Pain (6-10) Polyethylene Glycol 17 gm 08/16/19 09:00 08/24/19 08:02 Miralax PO Not Given DAILY HANSEL Rifampin 300 mg 08/21/19 22:00 08/24/19 10:06 Rifadin PO 300 mg 1000,2200 HANSEL Administration Tamsulosin HCl 0.4 mg 08/15/19 21:00 08/23/19 20:45 Flomax PO 0.4 mg HS HANSEL Administration - Exam General Appearance: NAD, awake alert Eye: PERRL, anicteric sclera Heart: RRR, no murmur, no gallops, normal peripheral pulses Respiratory: CTAB, no wheezes, no rales, no ronchi Gastrointestinal: soft, non-tender, normal bowel sounds Psychiatric: normal affect, normal behavior, A&O x 3 Hosp A/P (1) Diabetic infection of left foot Code(s): E11.628 - TYPE 2 DIABETES MELLITUS WITH OTHER SKIN COMPLICATIONS; L08.9 - LOCAL INFECTION OF THE SKIN AND SUBCUTANEOUS TISSUE, UNSP Status: Acute (2) Ischemic gangrene Code(s): I96 - [place], NOT ELSEWHERE CLASSIFIED Status: Acute (3) Acute on chronic renal failure Code(s): N17.9 - ACUTE KIDNEY FAILURE, UNSPECIFIED; N18.9 - CHRONIC KIDNEY DISEASE, UNSPECIFIED Status: Acute Qualifiers: Acute renal failure type: unspecified Chronic kidney disease stage: stage 3 (moderate) Qualified Code(s): N17.9 - Acute kidney failure, unspecified; N18.3 - Chronic kidney disease, stage 3 (moderate) (4) BPH (benign prostatic hyperplasia) Code(s): N40.0 - BENIGN PROSTATIC HYPERPLASIA WITHOUT LOWER URINRY TRACT SYMP Status: Chronic Qualifiers: Lower urinary tract symptom presence: symptoms present (5) CAD (coronary artery disease) Code(s): I25.10 - ATHSCL HEART DISEASE OF [place] CORONARY ARTERY W/O ANG PCTRS Status: Chronic Qualifiers: Coronary Disease-Associated Artery/Lesion type: [place] artery [place] vs. transplanted heart: [place] heart Associated angina: without angina Qualified Code(s): I25.10 - Atherosclerotic heart disease of [place] coronary artery without angina pectoris (6) DM type 2 causing CKD stage 3 Code(s): E11.22 - TYPE 2 DIABETES MELLITUS W DIABETIC CHRONIC KIDNEY DISEASE; N18.3 - CHRONIC KIDNEY DISEASE, STAGE 3 (MODERATE) Status: Chronic Qualifiers: Diabetes mellitus mcc insulin use: with mcc use Qualified Code( s): E11.22 - Type 2 diabetes mellitus with diabetic chronic kidney disease; N18.3 - Chronic kidney disease, stage 3 (moderate); Z79.4 - prison (current) use of insulin (7) HTN (hypertension) Code(s): I10 - ESSENTIAL (PRIMARY) HYPERTENSION Status: Chronic Qualifiers: Hypertension type: essential hypertension Qualified Code(s): I10 - Essential (primary) hypertension (8) Encephalopathy Code(s): G93.40 - ENCEPHALOPATHY, UNSPECIFIED Status: Resolved - Plan PT/OT, out of bed/ambulate Hosp A/P (1) Diabetic infection of left foot Code(s): E11.628 - TYPE 2 DIABETES MELLITUS WITH OTHER SKIN COMPLICATIONS; L08.9 - LOCAL INFECTION OF THE SKIN AND SUBCUTANEOUS TISSUE, UNSP Status: Acute Plan: s/p left great toe amputation by podiatry Intra op cultures with MRSA sensitive to bactrim, doxycycline & linezolid ID recommended PO doxy, rifampin and augmentin for 3-4 wks Pt. taking PO meds Needs DC to rehab Once bed available and cleared by nephrology, will DC (2) Ischemic gangrene Code(s): I96 - [place], NOT ELSEWHERE CLASSIFIED Status: Resolved Plan: Path of amputated toe reveals ischemic gangrene s/p amputation (3) Acute on chronic renal failure Code(s): N17.9 - ACUTE KIDNEY FAILURE, UNSPECIFIED; N18.9 - CHRONIC KIDNEY DISEASE, UNSPECIFIED Status: Acute Qualifiers: Acute renal failure type: unspecified Chronic kidney disease stage: stage 3 (moderate) Qualified Code(s): N17.9 - Acute kidney failure, unspecified; N18.3 - Chronic kidney disease, stage 3 (moderate); N18.3 - Chronic kidney disease, stage 3 (moderate) Plan: Renal on board. Switch bicarb drip from D5W to 1/2NS with 75 meq bicarb due to hyperglycemia Avoid nephrotoxic meds and hypotension Monitor urine output and renal function (4) BPH (benign prostatic hyperplasia) Code(s): N40.0 - BENIGN PROSTATIC HYPERPLASIA WITHOUT LOWER URINRY TRACT SYMP Status: Chronic Qualifiers: Lower urinary tract symptom presence: symptoms present Plan: Continue tamsulosin Stable (5) CAD (coronary artery disease) Code(s): I25.10 - ATHSCL HEART DISEASE OF [place] CORONARY ARTERY W/O ANG PCTRS Status: Chronic Qualifiers: Coronary Disease-Associated Artery/Lesion type: [place] artery [place] vs. transplanted heart: [place] heart Associated angina: without angina Qualified Code(s): I25.10 - Atherosclerotic heart disease of [place] coronary artery without angina pectoris Plan: Stable and without ischemic symptoms Continue ASA, statin and BB (6) DM type 2 causing CKD stage 3 Code(s): E11.22 - TYPE 2 DIABETES MELLITUS W DIABETIC CHRONIC KIDNEY DISEASE; N18.3 - CHRONIC KIDNEY DISEASE, STAGE 3 (MODERATE) Status: Chronic Qualifiers: Diabetes mellitus mcc insulin use: with exterminator termite use Qualified Code( s): E11.22 - Type 2 diabetes mellitus with diabetic chronic kidney disease; N18.3 - Chronic kidney disease, stage 3 (moderate); Z79.4 - prison (current) use of insulin Plan: Continue diabetic diet and SSI. Hyperglycemia Will change bicarb drip As above, renal on board Has JUAQUIN on CKD-3 (7) HTN (hypertension) Code(s): I10 - ESSENTIAL (PRIMARY) HYPERTENSION Status: Chronic Qualifiers: Hypertension type: essential hypertension Qualified Code(s): I10 - Essential (primary) hypertension Plan: Home meds resumed as pt. taking PO meds now 8. Acute Metabolic encephalopathy -resolved MRI brain w/o stroke
[2019-08-24] MEDS: Morphine 2 MG/ML SYRINGE SLOW IVP PRN ×2 (11:00→18:00)
[2019-08-24] MEDS: Tamsulosin HCl 0.4 MG CAP PO SCH (20:29)
[2019-08-24] MEDS: Acetaminophen 500 MG TAB PO PRN (20:30)
[2019-08-24] MEDS: Sodium Bicarbonate 75 MEQ in Sodium Chloride 0.45% 1,000 ML IV SCH (20:45)
--- NOTE | 2019-08-24 20:52 | PRG ---
DATE OF SERVICE: 08/24/2019 SERVICE: Nephrology. SUBJECTIVE: A 68-year-old male, being followed up for acute on chronic renal failure. The patient was initially admitted for treatment of left diabetic foot ulcer associated with cellulitis and possible osteomyelitis for which the patient is status post big toe amputation with wound VAC placement. Hospital course was complicated by acute encephalopathy with agitation and delirium, which has markedly improved in the last day or so. The patient is conversational, oriented and seems appropriate. Denied shortness of breath, nausea, or vomiting. Oral intake is improving. OBJECTIVE: VITAL SIGNS: Temperature 97.9, pulse 54, respiratory rate 18, SpO2 of 95% on room air, blood pressure is 120/62. GENERAL: Comfortable elderly male, in no distress. Afebrile. Anicteric. Acyanotic. HEENT: Normocephalic, atraumatic. Oral mucosa is moist. NECK: Supple. No JVD. CARDIOVASCULAR: Regular rhythm and rate with soft systolic murmur. RESPIRATORY: Fair air entry bilaterally with no obvious crackle or rhonchi or use of accessory muscles. GI: Obese, soft, nontender, nondistended with normal bowel sounds. UROGENITAL: Bishop catheter is in place draining some urine. EXTREMITIES: Left foot covered with dressing with wound VAC in place. Chronic venous stasis changes with no overt edema appreciated. 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 Cranial nerves 2 through 12 are grossly intact. DIAGNOSTIC DATA: CBC showed WBC count of 11.3, hemoglobin of 10.0, MCV of 87.6, platelet of 263. Renal function panel showed sodium 141, potassium 3.8, chloride 102, CO2 of 29, BUN 45, creatinine 3.66, glucose 156, calcium 8.7, phosphorus 3.3, albumin 3.0. ASSESSMENT: 1. Acute kidney injury: Due to prerenal etiology from volume depletion. The patient's oral intake has been abysmal and IV fluid therapy has been inconsistent due to lack of reliable IV access. The patient has been in negative balance in the last several days. 2. Chronic kidney disease stage 3. 3. Volume depletion from poor oral intake. 4. Hypertension: Control is better. We will watch out for hypotension. 5. Metabolic acidosis: Treated with bicarb infusion. The CO2 currently is 29. 6. Anemia in chronic kidney disease. 7. Diabetic foot ulcer status post amputation of left big toe. PLAN: 1. We will transition to half NS plus sodium bicarbonate and provide these at 125 mL/h due to volume depletion. 2. [place] oral intake advised. 3. Monitor hemodynamics closely to avoid hypotension. 4. Recheck renal function test in the morning. 5. Renally dose all medications and avoid nephrotoxic agents. Job ID: [id number]
[2019-08-25] MEDS: Morphine 2 MG/ML SYRINGE SLOW IVP PRN ×2 (01:33→11:33)
[2019-08-25] MEDS: HumaLOG 300 UNITS/3 ML VIAL SC PRN ×2 (04:49→12:40)
[2019-08-25] MEDS: Sodium Bicarbonate 75 MEQ in Sodium Chloride 0.45% 1,000 ML IV SCH ×2 (05:33→18:03)
[2019-08-25 07:11] LABS: #Lymphocytes 2.9 thou/uL (1.20-3.40); #Neutrophils 5.9 thou/uL (1.40-6.50); %Basophils 0.2 % (0.0-1.0); %Eosinophils 9.5 % (0.0-10.0); %Lymphocytes 26.5 % (21.0-51.0); %Monocytes 8.9 % (0.0-10.0); %Neutrophils 54.9 % (42.0-75.0); Hemoglobin 9.5 g/dL (14.0-18.0); Mean Corpuscular HGB CONC 33.3 g/dL (32.0-36.0); Mean Corpuscular Hemoglobin 29.4 pg (27.0-31.0); Mean Corpuscular Volume 88.2 fL (78.0-98.0); Mean Platelet Volume 6.8 fL (7.4-10.4); Platelet Count 221 thou/uL (130-400); Red Blood Cell (RBC) Count 3.23 mill/uL (4.70-6.10); White Blood Cell (WBC) Count 10.8 thou/uL (4.8-10.8)
[2019-08-25 07:34] LABS: Anion Gap 12 mmol/L (10-20); BUN (Urea Nitrogen) 45 mg/dL (8.4-25.7); Calc. Creatinine Clearance 29 mL/min (70-130); Carbon Dioxide 30 mmol/L (23-31); Chloride 101 mmol/L (98-107); Estimated GFR-MDRD 15; Glucose 115 mg/dL (80-115); Potassium 3.5 mmol/L (3.5-5.1); Sodium 139 mmol/L (136-145)
[2019-08-25] MEDS ORDERED: Sodium Chloride 0.9% 500 ML IV SCH ×2 (09:00→11:45)
[2019-08-25] MEDS: hydrALAZINE 25 MG TAB PO SCH ×3 (09:05→20:24)
[2019-08-25] MEDS: Heparin 5,000 UNITS/ML VIAL SC SCH ×2 (09:09→20:26)
[2019-08-25] MEDS: Amoxicillin/Potassium Clav 500 MG TAB PO SCH ×2 (09:10→20:23)
[2019-08-25] MEDS: Aspirin Chewable 81 MG TAB PO SCH (09:10)
[2019-08-25] MEDS: Carvedilol 25 MG TAB PO SCH ×3 (09:11→16:56)
[2019-08-25] MEDS: Amiodarone 200 MG TAB PO SCH ×2 (09:12→20:24)
[2019-08-25] MEDS: Atorvastatin Calcium 40 MG TAB PO SCH (10:34)
[2019-08-25] MEDS: Gabapentin 100 MG CAP PO SCH ×3 (10:34→20:24)
[2019-08-25] MEDS: Doxycycline 100 MG CAP PO SCH ×2 (10:34→20:23)
[2019-08-25] MEDS: Polyethylene Glycol 3350 17 GM Packet PO SCH (10:37)
[2019-08-25] MEDS: Rifampin 300 MG CAP PO SCH ×2 (12:39→20:24)
--- NOTE | 2019-08-25 15:11 | PDOC.HOSPP ---
- Subjective Encounter Date: 08/25/19 Encounter Time: 12:15 Subjective: Pt. reports feeling better. No N/V. - Objective Vital Signs & Weight: Vital Signs (12 hours) Temp Pulse Resp BP BP Pulse Ox 08/25/19 14:40 59 L 126/66 08/25/19 09:05 59 L 132/65 08/25/19 07:42 97.7 F 59 L 20 115/65 97 Weight Admit Weight 250 lb Weight 250 lb I&O: 08/24/19 08/25/19 08/26/19 06:59 06:59 06:59 Intake Total 1900 1650 Output Total 825 680 Balance 1075 970 Result Diagrams: 08/25/19 06:47 08/25/19 06:47 Additional Labs: Accuchecks 08/25/19 08/25/19 08/24/19 10:58 04:24 20:23 POC Glucose 152 H 171 H 288 H 08/24/19 15:55 POC Glucose 234 H Hospitalist ROS - Medication Medications: Active Medications Generic Name Dose Route Start Last Admin Trade Name Freq PRN Reason Stop Dose Admin Acetaminophen 1,000 mg 08/15/19 10:12 08/24/19 20:30 Tylenol PO 1,000 mg Q6H PRN Administration Moderate to Severe Pain (6-10) Hydrocodone Bitart/Acetaminophen 1 tab 08/21/19 15:39 08/24/19 10:10 [place] 7.5/325 PO 1 tab Q4H PRN Administration Mild Pain (1-3) Amiodarone HCl 200 mg 08/15/19 09:00 08/25/19 09:12 Cordarone PO 200 mg BID HANSEL Administration Amoxicillin/Clavulanate Potassium 500 mg 08/19/19 21:00 08/25/19 09:10 Augmentin PO 500 mg Q12HR HANSEL Administration Aspirin 81 mg 08/16/19 09:00 08/25/19 09:10 Aspirin Chewable PO 81 mg DAILY HANSEL Administration Atorvastatin Calcium 40 mg 08/15/19 09:00 08/25/19 10:34 Lipitor PO 40 mg DAILY HANSEL Administration Carvedilol 12.5 mg 08/25/19 08:00 08/25/19 09:11 Coreg PO 12.5 mg BID-WM HANSEL Administration Doxycycline Hyclate 100 mg 08/23/19 21:00 08/25/19 10:34 Vibramycin PO 100 mg BID HANSEL Administration Gabapentin 100 mg 08/15/19 09:00 08/25/19 14:42 Neurontin PO 100 mg TID HANSEL Administration Heparin Sodium (Porcine) 5,000 units 08/24/19 21:00 08/25/19 09:09 Heparin SC 5,000 units BID HANSEL Administration Hydralazine HCl 50 mg 08/25/19 09:00 08/25/19 14:40 Apresoline PO 50 mg TID HANSEL Administration Sodium Bicarbonate 75 meq/ 1,075 mls @ 125 mls/hr 08/24/19 20:30 08/25/19 05: 33 Sodium Chloride IV 1,075 mls INF HANSEL Administration Insulin Human Lispro 0 units 08/14/19 22:35 08/25/19 12:40 Humalog SC 3 unit .AGGRESSIVE SLIDING PRN Administration Aggressive Correctional Scale Isosorbide Mononitrate 120 mg 08/16/19 09:00 08/25/19 09:09 Imdur PO 120 mg DAILY HANSEL Administration Morphine Sulfate 2 mg 08/16/19 07:57 08/25/19 11:33 Morphine SLOW IVP 2 mg Q4H PRN Administration Moderate to Severe Pain (6-10) Polyethylene Glycol 17 gm 08/16/19 09:00 08/25/19 10:37 Miralax PO Not Given DAILY [facility] Rifampin 300 mg 08/21/19 22:00 08/25/19 12:39 Rifadin PO 300 mg 1000,2200 HANSEL Administration Tamsulosin HCl 0.4 mg 08/15/19 21:00 08/24/19 20:29 Flomax PO 0.4 mg HS HANSEL Administration - Exam General Appearance: NAD, awake alert Eye: PERRL, anicteric sclera ENT: normocephalic atraumatic, no oropharyngeal lesions, moist mucosa Neck: supple, symmetric, no JVD, no thyromegaly, no lymphadenopathy, no carotid bruit Heart: RRR, no murmur, no gallops, no rubs, normal peripheral pulses Respiratory: CTAB, no wheezes, no rales, no ronchi, normal chest expansion Gastrointestinal: soft, non-tender, non-distended, normal bowel sounds Hosp A/P (1) Diabetic infection of left foot Code(s): E11.628 - TYPE 2 DIABETES MELLITUS WITH OTHER SKIN COMPLICATIONS; L08.9 - LOCAL INFECTION OF THE SKIN AND SUBCUTANEOUS TISSUE, UNSP Status: Acute (2) Ischemic gangrene Code(s): I96 - [place], NOT ELSEWHERE CLASSIFIED Status: Resolved (3) Acute on chronic renal failure Code(s): N17.9 - ACUTE KIDNEY FAILURE, UNSPECIFIED; N18.9 - CHRONIC KIDNEY DISEASE, UNSPECIFIED Status: Acute Qualifiers: Acute renal failure type: unspecified Chronic kidney disease stage: stage 3 (moderate) Qualified Code(s): N17.9 - Acute kidney failure, unspecified; N18.3 - Chronic kidney disease, stage 3 (moderate) (4) BPH (benign prostatic hyperplasia) Code(s): N40.0 - BENIGN PROSTATIC HYPERPLASIA WITHOUT LOWER URINRY TRACT SYMP Status: Chronic Qualifiers: Lower urinary tract symptom presence: symptoms present (5) CAD (coronary artery disease) Code(s): I25.10 - ATHSCL HEART DISEASE OF [place] CORONARY ARTERY W/O ANG PCTRS Status: Chronic Qualifiers: Coronary Disease-Associated Artery/Lesion type: [place] artery [place] vs. 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 (7) HTN (hypertension) Code(s): I10 - ESSENTIAL (PRIMARY) HYPERTENSION Status: Chronic Qualifiers: Hypertension type: essential hypertension Qualified Code(s): I10 - Essential (primary) hypertension (8) Encephalopathy Code(s): G93.40 - ENCEPHALOPATHY, UNSPECIFIED Status: Resolved - Plan DVT proph w/heparin Hosp A/P (1) Diabetic infection of left foot Code(s): E11.628 - TYPE 2 DIABETES MELLITUS WITH OTHER SKIN COMPLICATIONS; L08.9 - LOCAL INFECTION OF THE SKIN AND SUBCUTANEOUS TISSUE, UNSP Status: Acute Plan: s/p left great toe amputation by podiatry last week Post op course complicated by delirium Intra op cultures with MRSA sensitive to bactrim, doxycycline & linezolid ID recommended PO doxy, rifampin and augmentin for 3-4 wks Pt. taking PO meds Needs DC to rehab once bed available and cleared by nephrology, will DC (2) Ischemic gangrene Code(s): I96 - [place], NOT ELSEWHERE CLASSIFIED Status: Resolved Plan: Pathology of amputated toe reveals ischemic gangrene s/p amputation (3) Acute on chronic renal failure Code(s): N17.9 - ACUTE KIDNEY FAILURE, UNSPECIFIED; N18.9 - CHRONIC KIDNEY DISEASE, UNSPECIFIED Status: Acute Qualifiers: Acute renal failure type: unspecified Chronic kidney disease stage: stage 3 (moderate) Qualified Code(s): N17.9 - Acute kidney failure, unspecified; N18.3 - Chronic kidney disease, stage 3 (moderate); N18.3 - Chronic kidney disease, stage 3 (moderate) Plan: Probably ATN Worsening renal function Needs time to get better Renal on board. Continue bicarb drip Avoid nephrotoxic meds and hypotension Monitor urine output and renal function (4) BPH (benign prostatic hyperplasia) Code(s): N40.0 - BENIGN PROSTATIC HYPERPLASIA WITHOUT LOWER URINRY TRACT SYMP Status: Chronic Qualifiers: Lower urinary tract symptom presence: symptoms present Plan: Continue tamsulosin Stable (5) CAD (coronary artery disease) Code(s): I25.10 - ATHSCL HEART DISEASE OF [place] CORONARY ARTERY W/O ANG PCTRS Status: Chronic Qualifiers: Coronary Disease-Associated Artery/Lesion type: [place] artery [place] vs. transplanted heart: [place] heart Associated angina: without angina Qualified Code(s): I25.10 - Atherosclerotic heart disease of [place] coronary artery without angina pectoris Plan: Stable and without ischemic symptoms Continue ASA, statin and BB (6) DM type 2 causing CKD stage 3 Code(s): E11.22 - TYPE 2 DIABETES MELLITUS W DIABETIC CHRONIC KIDNEY DISEASE; N18.3 - CHRONIC KIDNEY DISEASE, STAGE 3 (MODERATE) Status: Chronic Qualifiers: Diabetes mellitus assisted insulin use: with supervisor intermediates use Qualified Code( s): E11.22 - Type 2 diabetes mellitus with diabetic chronic kidney disease; N18.3 - Chronic kidney disease, stage 3 (moderate); Z79.4 - assisted (current) use of insulin Plan: Continue diabetic diet and SSI. Hyperglycemia Continue bicarb drip As above, renal on board Has JUAQUIN on CKD-3 (7) HTN (hypertension) Code(s): I10 - ESSENTIAL (PRIMARY) HYPERTENSION Status: Chronic Qualifiers: Hypertension type: essential hypertension Qualified Code(s): I10 - Essential (primary) hypertension Plan: Home meds resumed as pt. taking PO meds now 8. Acute Metabolic encephalopathy -resolved MRI brain w/o stroke
[2019-08-25] MEDS: HYDROcodone/Acetaminophen 7.5/325 mg Tablet PO PRN ×2 (16:10→20:25)
[2019-08-25 17:33] LABS: Bilirubin Negative (Negative); Blood, Urine 2+ (Negative); Clarity Clear (Clear); Glucose, Urine (Dipstick) Normal (Negative); Leukocyte 75 Leu/uL (Negative); Nitrite Negative (Negative); Protein, Urine (Dipstick) 100 mg/dL (Neg-Trace); Renal Epithelial 0-3 HPF (None Seen); Squamous Epithelial 0-3 HPF (0-3); Transitional Epithelial 0-3 HPF (None Seen); Urobilinogen 6 mg/dL (Less than 2)
[2019-08-25 17:46] LABS: Creatinine, Urine 123.54 mg/dL (63-166)
[2019-08-25 17:47] LABS: Bacteria/HPF None Seen HPF (None Seen); RBC/HPF 21-50 HPF (0-3)
[2019-08-25 17:48] LABS: Urine Culture Reflex Yes Yes
[2019-08-25] MEDS: Tamsulosin HCl 0.4 MG CAP PO SCH (20:24)
--- NOTE | 2019-08-25 20:40 | PRG ---
DATE OF SERVICE: SERVICE: Nephrology. SUBJECTIVE: A 68-year-old male, being followed up for acute on chronic renal failure. The patient has been started on IV fluid as he was deemed to be volume contracted from poor oral intake, but IV fluid therapy has been hampered due to unreliable IV access. Oral intake is improving, but fluid intake in the last several days has been poor. OBJECTIVE: VITAL SIGNS: Temperature 97.7, pulse 59, respiratory rate 20, SpO2 of 97% on room air, and blood pressure is 115/67. GENERAL: Elderly male, in no distress. HEENT: Normocephalic, atraumatic. Oral mucosa is moist. CARDIOVASCULAR: Soft systolic murmur noted. RESPIRATORY: Good air entry bilaterally with no crackle or rhonchi or use of accessory muscles. GI: Obese, soft, nontender, nondistended with normal bowel sounds. UROGENITAL: Bishop catheter is in place draining some urine. EXTREMITIES: Left foot covered with dressing with wound VAC in place. Chronic venostasis changes bilaterally noted. 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 Cranial nerves 2 through 12 are grossly intact. DIAGNOSTIC DATA: CBC showed WBC count of 10.8, hemoglobin of 9.5, MCV of 88.2, platelet of 221. BMP today showed sodium 139, potassium 3.5, chloride 101, CO2 of 30, BUN 45, creatinine 3.93, glucose 115, calcium 8.0. Note that, on admission, creatinine was 2.73, which went down to a [place] of 2.31 before creeping up to a peak of 3.93 today. The patient is clinically dry and urine electrolytes are consistent with prerenal etiology from volume depletion. ASSESSMENT: 1. Chronic kidney disease, stage 3, due to hypertension and diabetic nephropathy. 2. Anemia in chronic kidney disease. PLAN: We will bolus 1 L of normal saline given the intravascular contraction and follow that up with half-normal saline with sodium bicarbonate running at 125 mL/h. We will recheck renal function test in the morning. Wound care to continue as well as antibiotics. Job ID: [id number]
[2019-08-26] MEDS: Sodium Bicarbonate 75 MEQ in Sodium Chloride 0.45% 1,000 ML IV SCH ×3 (01:51→21:55)
[2019-08-26] MEDS: HumaLOG 300 UNITS/3 ML VIAL SC PRN ×3 (05:15→21:04)
[2019-08-26 05:59] LABS: #Eosinphils 1.1 thou/uL (0.0-0.7); #Lymphocytes 2.6 thou/uL (1.20-3.40); #Monocytes 0.8 thou/uL (0.11-0.59); #Neutrophils 5.1 thou/uL (1.40-6.50); %Basophils 0.3 % (0.0-1.0); %Eosinophils 11.4 % (0.0-10.0); %Monocytes 8.3 % (0.0-10.0); Hemoglobin 9.6 g/dL (14.0-18.0); Mean Corpuscular HGB CONC 33.1 g/dL (32.0-36.0); Mean Corpuscular Hemoglobin 29.3 pg (27.0-31.0); Mean Corpuscular Volume 88.5 fL (78.0-98.0); Mean Platelet Volume 6.5 fL (7.4-10.4); Platelet Count 196 thou/uL (130-400); RBC Distribution Width 14.2 % (11.5-14.5); Red Blood Cell (RBC) Count 3.28 mill/uL (4.70-6.10); White Blood Cell (WBC) Count 9.6 thou/uL (4.8-10.8)
[2019-08-26 06:21] LABS: ALT (SGPT) 10 U/L (8-55); AST (SGOT) 15 U/L (5-34); Albumin 2.6 g/dL (3.4-4.8); Alkaline Phosphatase 89 U/L (40-110); Anion Gap 13 mmol/L (10-20); BUN (Urea Nitrogen) 44 mg/dL (8.4-25.7); Bilirubin, Total 1.1 mg/dL (0.2-1.2); CRP (Inflammatory) 2.72 mg/dL (= or < 0.5); Calc. Creatinine Clearance 32 mL/min (70-130); Calcium 8.3 mg/dL (7.8-10.44); Carbon Dioxide 29 mmol/L (23-31); Chloride 100 mmol/L (98-107); Estimated GFR-MDRD 18; Glucose 168 mg/dL (80-115); Potassium 3.8 mmol/L (3.5-5.1); Protein, Total 6.6 g/dL (5.8-8.1); Sodium 138 mmol/L (136-145)
[2019-08-26] MEDS: Doxycycline 100 MG CAP PO SCH ×2 (09:35→21:01)
[2019-08-26] MEDS: hydrALAZINE 25 MG TAB PO SCH ×3 (09:35→21:01)
[2019-08-26] MEDS: Carvedilol 25 MG TAB PO SCH ×2 (09:38→18:07)
[2019-08-26] MEDS: Heparin 5,000 UNITS/ML VIAL SC SCH ×2 (09:40→21:03)
[2019-08-26] MEDS: Gabapentin 100 MG CAP PO SCH ×3 (09:40→21:01)
[2019-08-26] MEDS: Aspirin Chewable 81 MG TAB PO SCH (09:40)
[2019-08-26] MEDS: Rifampin 300 MG CAP PO SCH ×2 (09:40→21:00)
[2019-08-26] MEDS: Atorvastatin Calcium 40 MG TAB PO SCH (09:40)
[2019-08-26] MEDS: Amiodarone 200 MG TAB PO SCH ×2 (09:40→21:01)
[2019-08-26] MEDS: Amoxicillin/Potassium Clav 500 MG TAB PO SCH (09:40)
[2019-08-26] MEDS: Polyethylene Glycol 3350 17 GM Packet PO SCH (09:43)
--- NOTE | 2019-08-26 10:49 | PDOC.HOSPP ---
- Subjective Encounter Date: 08/26/19 Encounter Time: 10:47 Subjective: doing ok - Objective Vital Signs & Weight: Vital Signs (12 hours) Temp Pulse Resp BP BP Pulse Ox 08/26/19 09:35 61 157/72 H 08/26/19 08:00 98 F 63 20 148/67 H 95 Weight Admit Weight 250 lb Weight 250 lb I&O: 08/25/19 08/26/19 08/27/19 06:59 06:59 06:59 Intake Total 1650 3750 Output Total 680 1350 Balance 970 2400 Result Diagrams: 08/26/19 05:48 08/26/19 05:48 Additional Labs: Accuchecks 08/26/19 08/25/19 08/25/19 05:02 20:44 16:43 POC Glucose 161 H 129 H 134 H 08/25/19 10:58 POC Glucose 152 H Hospitalist ROS - Medication Medications: Active Medications Generic Name Dose Route Start Last Admin Trade Name Freq PRN Reason Stop Dose Admin Acetaminophen 1,000 mg 08/15/19 10:12 08/24/19 20:30 Tylenol PO 1,000 mg Q6H PRN Administration Moderate to Severe Pain (6-10) Hydrocodone Bitart/Acetaminophen 1 tab 08/21/19 15:39 08/25/19 20:25 [place] 7.5/325 PO 1 tab Q4H PRN Administration Mild Pain (1-3) Amiodarone HCl 200 mg 08/15/19 09:00 08/26/19 09:40 Cordarone PO 200 mg BID HANSEL Administration Aspirin 81 mg 08/16/19 09:00 08/26/19 09:40 Aspirin Chewable PO 81 mg DAILY HANSEL Administration Atorvastatin Calcium 40 mg 08/15/19 09:00 08/26/19 09:40 Lipitor PO 40 mg DAILY HANSEL Administration Carvedilol 12.5 mg 08/25/19 08:00 08/26/19 09:38 Coreg PO 12.5 mg BID-WM HANSEL Administration Doxycycline Hyclate 100 mg 08/23/19 21:00 08/26/19 09:35 Vibramycin PO 100 mg BID HANSEL Administration Gabapentin 100 mg 08/15/19 09:00 08/26/19 09:40 Neurontin PO 100 mg TID HANSEL Administration Heparin Sodium (Porcine) 5,000 units 08/24/19 21:00 08/26/19 09:40 Heparin SC 5,000 units BID HANSEL Administration Hydralazine HCl 50 mg 08/25/19 09:00 08/26/19 09:35 Apresoline PO 50 mg TID HANSEL Administration Sodium Bicarbonate 75 meq/ 1,075 mls @ 125 mls/hr 08/24/19 20:30 08/26/19 01: 51 Sodium Chloride IV 1,075 mls INF HANSEL Administration Insulin Human Lispro 0 units 08/14/19 22:35 08/26/19 05:15 Humalog SC 3 unit .AGGRESSIVE SLIDING PRN Administration Aggressive Correctional Scale Isosorbide Mononitrate 120 mg 08/16/19 09:00 08/26/19 09:35 Imdur PO 120 mg DAILY HANSEL Administration Polyethylene Glycol 17 gm 08/16/19 09:00 08/26/19 09:43 Miralax PO Not Given DAILY HANSEL Rifampin 300 mg 08/21/19 22:00 08/26/19 09:40 Rifadin PO 300 mg 1000,2200 HANSEL Administration Tamsulosin HCl 0.4 mg 08/15/19 21:00 08/25/19 20:24 Flomax PO 0.4 mg HS HANSEL Administration - Exam Neck: no JVD Heart: RRR, no murmur Respiratory: CTAB Gastrointestinal: soft, normal bowel sounds Extremities: 1+ LE edema Hosp A/P (1) Diabetic infection of left foot Code(s): E11.628 - TYPE 2 DIABETES MELLITUS WITH OTHER SKIN COMPLICATIONS; L08.9 - LOCAL INFECTION OF THE SKIN AND SUBCUTANEOUS TISSUE, UNSP Status: Acute (2) CAD (coronary artery disease) Code(s): I25.10 - ATHSCL HEART DISEASE OF [place] CORONARY ARTERY W/O ANG PCTRS Status: Chronic Qualifiers: Coronary Disease-Associated Artery/Lesion type: [place] artery [place] vs. transplanted heart: [place] heart Associated angina: without angina Qualified Code(s): I25.10 - Atherosclerotic heart disease of [place] coronary artery without angina pectoris (3) DM type 2 (diabetes mellitus, type 2) Status: Chronic Qualifiers: Diabetes mellitus complication status: with kidney complications Diabetes mellitus complication detail: with chronic kidney disease Chronic kidney disease stage: stage 3 (moderate) (4) HTN (hypertension) Code(s): I10 - ESSENTIAL (PRIMARY) HYPERTENSION Status: Chronic Qualifiers: Hypertension type: essential hypertension Qualified Code(s): I10 - Essential (primary) hypertension (5) Paroxysmal atrial fibrillation Code(s): I48.0 - PAROXYSMAL ATRIAL FIBRILLATION Status: Chronic (6) Cardiomyopathy Code(s): I42.9 - CARDIOMYOPATHY, UNSPECIFIED Status: Chronic - Plan on po antibx accu/ss/etc wound vac placement pending
--- NOTE | 2019-08-26 20:12 | PRG ---
DATE OF SERVICE: 08/26/2019 SERVICE: Nephrology. SUBJECTIVE: A 68-year-old male being followed up for [id number] renal failure. The patient is status post left big toe amputation due to diabetic foot associated with cellulitis and possible osteomyelitis. The patient was started on diuretics, lisinopril with worsening kidney function, hence Nephrology consult. Feeling better. Denied shortness of breath, leg swelling, nausea, vomiting, fever, or chest pain. OBJECTIVE: VITAL SIGNS: Temperature 98, pulse 63, respiratory rate 20, SpO2 of 95% on room air, blood pressure is 148/67. GENERAL: Obese male in no distress. Afebrile. Anicteric. Acyanotic. HEENT: Normocephalic, atraumatic. Oral mucosa is moist. NECK: Supple. No JVD. CARDIOVASCULAR: Regular rhythm and rate with normal heart sounds. RESPIRATORY: Good air entry bilaterally with no obvious crackle or rhonchi or use of accessory muscles. GI: Obese, soft, nontender, nondistended with normal bowel sounds. UROGENITAL: Bishop catheter is in place draining urine. EXTREMITIES: Left foot dressing with wound VAC noted. Bilateral chronic venous stasis changes with no edema appreciated. 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 Cranial nerves 2 through 12 are grossly intact. DIAGNOSTIC DATA: CBC showed WBC count of 9.6, hemoglobin of 9.6, MCV of 88.5, platelets of 196. Renal function panel showed sodium 138, potassium 3.8, chloride 100, CO2 of 29, BUN 44, creatinine 3.49, glucose 168, calcium 8.3, albumin 2.6. Note that yesterday BUN was 45 and creatinine 3.93. ASSESSMENT: 1. Acute kidney injury: Due to hemodynamic factors/prerenal etiology related to volume contraction from poor oral intake and diuretics as well as use of qtjxl-[id number]-rqsogxcoszy system octavio. Creatinine is beginning to trend down with fluid resuscitation. The patient received normal saline bolus 1 L as well as sodium bicarbonate with half NS 125. 2. Chronic kidney disease stage 3 due to hypertension and diabetes. 3. Hypertension: Control is acceptable. 4. Anemia in chronic kidney disease. 5. Diabetic foot ulcer with possible osteoporosis, status post amputation of left big toe. PLAN: 1. We will continue IV fluid therapy and monitor closely to avoid fluid overload. 2. We will recheck renal function in the morning. 3. Avoid nephrotoxic agents. Job ID: [id number]
[2019-08-26] MEDS: Tamsulosin HCl 0.4 MG CAP PO SCH (21:01)
[2019-08-26] MEDS: HYDROcodone/Acetaminophen 7.5/325 mg Tablet PO PRN (21:02)
[2019-08-27] MEDS: Sodium Bicarbonate 75 MEQ in Sodium Chloride 0.45% 1,000 ML IV SCH (06:11)
[2019-08-27 08:16] VITALS: BP 165/88; TEMP 97.8
[2019-08-27] MEDS: Heparin 5,000 UNITS/ML VIAL SC SCH (08:20)
[2019-08-27] MEDS: hydrALAZINE 25 MG TAB PO SCH (08:20)
[2019-08-27] MEDS: Doxycycline 100 MG CAP PO SCH (08:20)
[2019-08-27] MEDS: Amiodarone 200 MG TAB PO SCH (08:21)
[2019-08-27] MEDS: Atorvastatin Calcium 40 MG TAB PO SCH (08:21)
[2019-08-27] MEDS: Aspirin Chewable 81 MG TAB PO SCH (08:21)
[2019-08-27] MEDS: Carvedilol 25 MG TAB PO SCH (08:21)
[2019-08-27] MEDS: Gabapentin 100 MG CAP PO SCH (08:21)
[2019-08-27] MEDS: Polyethylene Glycol 3350 17 GM Packet PO SCH (08:23)
--- NOTE | 2019-08-27 10:49 | PDOC.HOSPP ---
- Subjective Encounter Date: 08/27/19 Encounter Time: 10:43 Subjective: no overnight events - Objective Vital Signs & Weight: Vital Signs (12 hours) Temp Pulse Resp BP BP Pulse Ox 08/27/19 08:20 64 165/88 H 08/27/19 08:00 97.8 F 63 20 165/88 H 96 Weight Admit Weight 250 lb Weight 250 lb I&O: 08/26/19 08/27/19 08/28/19 06:59 06:59 06:59 Intake Total 3750 1650 Output Total 1350 1400 Balance 2400 250 Result Diagrams: 08/26/19 05:48 08/26/19 05:48 Additional Labs: Accuchecks 08/27/19 08/26/19 08/26/19 04:30 19:21 16:25 POC Glucose 107 232 H 168 H 08/26/19 10:40 POC Glucose 174 H Hospitalist ROS - Medication Medications: Active Medications Generic Name Dose Route Start Last Admin Trade Name Freq PRN Reason Stop Dose Admin Acetaminophen 1,000 mg 08/15/19 10:12 08/24/19 20:30 Tylenol PO 1,000 mg Q6H PRN Administration Moderate to Severe Pain (6-10) Hydrocodone Bitart/Acetaminophen 1 tab 08/21/19 15:39 08/26/19 21:02 [place] 7.5/325 PO 1 tab Q4H PRN Administration Mild Pain (1-3) Amiodarone HCl 200 mg 08/15/19 09:00 08/27/19 08:21 Cordarone PO 200 mg BID HANSEL Administration Aspirin 81 mg 08/16/19 09:00 08/27/19 08:21 Aspirin Chewable PO 81 mg DAILY HANSEL Administration Atorvastatin Calcium 40 mg 08/15/19 09:00 08/27/19 08:21 Lipitor PO 40 mg DAILY HANSEL Administration Carvedilol 12.5 mg 08/25/19 08:00 08/27/19 08:21 Coreg PO 12.5 mg BID-WM HANSEL Administration Doxycycline Hyclate 100 mg 08/23/19 21:00 08/27/19 08:20 Vibramycin PO 100 mg BID HANSEL Administration Gabapentin 100 mg 08/15/19 09:00 08/27/19 08:21 Neurontin PO 100 mg TID HANSEL Administration Heparin Sodium (Porcine) 5,000 units 08/24/19 21:00 08/27/19 08:20 Heparin SC 5,000 units BID HANSEL Administration Hydralazine HCl 50 mg 08/25/19 09:00 08/27/19 08:20 Apresoline PO 50 mg TID HANSEL Administration Sodium Bicarbonate 75 meq/ 1,075 mls @ 125 mls/hr 08/24/19 20:30 08/27/19 06: 11 Sodium Chloride IV 1,075 mls INF HANSEL Administration Insulin Human Lispro 0 units 08/14/19 22:35 08/26/19 21:04 Humalog SC 6 unit .AGGRESSIVE SLIDING PRN Administration Aggressive Correctional Scale Isosorbide Mononitrate 120 mg 08/16/19 09:00 08/27/19 08:20 Imdur PO 120 mg DAILY HANSEL Administration Polyethylene Glycol 17 gm 08/16/19 09:00 08/27/19 08:23 Miralax PO Not Given DAILY HANSEL Rifampin 300 mg 08/21/19 22:00 08/26/19 21:00 Rifadin PO 300 mg 1000,2200 HANSEL Administration Tamsulosin HCl 0.4 mg 08/15/19 21:00 08/26/19 21:01 Flomax PO 0.4 mg HS HANSEL Administration - Exam General Appearance: awake alert Neck: no JVD Heart: RRR Respiratory: CTAB Gastrointestinal: soft, normal bowel sounds Extremities: 1+ LE edema Hosp A/P (1) Diabetic infection of left foot Code(s): E11.628 - TYPE 2 DIABETES MELLITUS WITH OTHER SKIN COMPLICATIONS; L08.9 - LOCAL INFECTION OF THE SKIN AND SUBCUTANEOUS TISSUE, UNSP Status: Acute (2) CAD (coronary artery disease) Code(s): I25.10 - ATHSCL HEART DISEASE OF [place] CORONARY ARTERY W/O ANG PCTRS Status: Chronic Qualifiers: Coronary Disease-Associated Artery/Lesion type: [place] artery [place] vs. transplanted heart: [place] heart Associated angina: without angina Qualified Code(s): I25.10 - Atherosclerotic heart disease of [place] coronary artery without angina pectoris (3) DM type 2 (diabetes mellitus, type 2) Status: Chronic Qualifiers: Diabetes mellitus complication status: with kidney complications Diabetes mellitus complication detail: with chronic kidney disease Chronic kidney disease stage: stage 3 (moderate) (4) HTN (hypertension) Code(s): I10 - ESSENTIAL (PRIMARY) HYPERTENSION Status: Chronic Qualifiers: Hypertension type: essential hypertension Qualified Code(s): I10 - Essential (primary) hypertension (5) Paroxysmal atrial fibrillation Code(s): I48.0 - PAROXYSMAL ATRIAL FIBRILLATION Status: Chronic (6) Cardiomyopathy Code(s): I42.9 - CARDIOMYOPATHY, UNSPECIFIED Status: Chronic - Plan on po antibx accu/ss/etc wound vac placement pending
[2019-08-27 10:51] LABS: Albumin 2.6 g/dL (3.4-4.8); Anion Gap 13 mmol/L (10-20); BUN (Urea Nitrogen) 36 mg/dL (8.4-25.7); BUN/Creatinine Ratio 13.19; Calc. Creatinine Clearance 42 mL/min (70-130); Calcium 8.5 mg/dL (7.8-10.44); Carbon Dioxide 26 mmol/L (23-31); Chloride 101 mmol/L (98-107); Estimated GFR-MDRD 23; Glucose 182 mg/dL (80-115); Phosphorus 3.8 mg/dL (2.3-4.7); Potassium 4.1 mmol/L (3.5-5.1); Sodium 136 mmol/L (136-145)
[2019-08-27] MEDS: Rifampin 300 MG CAP PO SCH (11:09)
[2019-08-27] MEDS: HumaLOG 300 UNITS/3 ML VIAL SC PRN (11:11)
--- NOTE | 2019-08-27 16:25 | DIS ---
DATE OF ADMISSION: 08/14/2019 DATE OF DISCHARGE: 08/27/2019 PRIMARY CARE PHYSICIAN: Unknown. DISPOSITION: Discharged to [facility]. 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 DISCHARGE MEDICATIONS: 1. Levemir 25 units subcu q.a.m. 2. Aspirin 81 mg a day. 3. Flomax 0.4 mg a day. 4. Imdur 120 mg a day. 5. Hydralazine 75 mg three times a day. 6. Atorvastatin 40 mg a day. 7. Rifampin 300 mg p.o. b.i.d. for 14 to 21 days. 8. MiraLAX 17 g daily. 9. Doxycycline 100 mg p.o. b.i.d. for 14 to 21 days. 10. Coreg 12.5 mg p.o. b.i.d. 11. Amiodarone 200 mg p.o. b.i.d. 12. DuoNeb 3 mL q.6 hours p.r.n. ALLERGIES: NITROGLYCERIN. DIET: Diabetic. CODE STATUS: Full. PENDING AT TIME OF DISCHARGE: Nothing. HOSPITAL COURSE: The patient was referred to [facility] Emergency Room by a Podiatry Clinic. The patient was found to have a left foot cellulitis with possible osteomyelitis. The patient was started on vancomycin and clindamycin. Blood cultures were obtained. Sliding scale was started. Usual home medicines were started. His initial laboratory revealed white count of 18,100, hemoglobin 9.8, platelet count 392,000. Initial chemistries; sodium 134, potassium 4.2, BUN 43, creatinine 2.73. Cultures were done. Bacterial culture on his foot was MRSA. Bacterial culture again from his foot grew MRSA and Strep anginosus. Blood and urine cultures were negative. On 08/15/2019, the patient underwent amputation of his toe by Dr. Chu Eduardo. The patient was also seen in consultation by Junaid Carbajal for Nephrology. The specimen revealed ischemic gangrene, acute inflammation extending into skin and soft tissue margin on resection. The patient was treated with iv antibiotics, wound VAC. On 08/21/2019, he was seen by Dr. Ric Lewis for recommendation for care. He noted compromised margin. He recommended doxycycline and rifampin for a minimum of 3 weeks, which he is 1 week into same at this time. The patient also has a neurogenic bladder, which is required intermittent catheterization by himself, but with this current problem, he has undergoing continuous catheterization with Bishop catheter for neurogenic bladder. During his hospital stay, the patient has been afebrile. Vital signs have been stable. His white cell count came down from 18,000 on 08/14 to 10.8 on 06/25, and 9.6 on 06/26. Hemoglobin had dropped down to 9.6. His chemistries, his initial creatinine was 2.73, and with IV fluids, it eventually was the same. He did have because of diuresis, etc., increased transiently of his creatinine to 3.66. Blood sugar slowly came under improving control at the time of discharge. The patient has a wound VAC with a drain in his foot and a Bishop catheter. He is being transferred to the [facility] under the care of Dr. Reyes for continuing antibiotics, wound care, wound VAC care. His wound has a significant chance of a recrudescence post therapy since the margins were not clear at the time of surgery. It will be incumbent on the PCP in consultation with Dr. Lewis to consider a longer period of care with oral antibiotics, etc. During his hospital stay, he was seen in consultation by Dr. Samra Martinez, for altered mental status. Dr. Martinez considered a metabolic encephalopathy and not a stroke or TIA. Job ID: [id number] [facility]
--- NOTE | 2019-08-27 20:18 | PRG ---
DATE OF SERVICE: 08/27/2019 SERVICE: Nephrology. SUBJECTIVE: A 68-year-old male being followed up for acute on chronic renal failure. The patient reports feeling better. Denied shortness of breath, nausea, or vomiting. Oral intake has improved. OBJECTIVE: VITAL SIGNS: Temperature 97.8, pulse 63, respiratory rate 20, SpO2 of 96% on room air, and blood pressure is 165/88. GENERAL: Male patient in no obvious distress. Afebrile. Anicteric. Acyanotic. HEENT: Normocephalic, atraumatic. Oral mucosa is moist. NECK: Supple with no JVD. CARDIOVASCULAR: Regular rhythm with soft systolic murmur. RESPIRATORY: Fair air entry bilaterally with no obvious crackle or rhonchi or use of accessory muscles. GI: Obese, soft, nontender, nondistended with normal bowel sounds. UROGENITAL: Bishop catheter is in place draining urine. EXTREMITIES: Left foot dressing with wound VAC noted. Bilateral chronic venous stasis changes with no obvious edema noted. 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 DIAGNOSTIC DATA: Renal function panel today showed sodium 136, potassium 4.1, chloride 101, CO2 of 26, BUN 36, creatinine 2.73, glucose 182, calcium 8.5, phosphorus 3.8, albumin 2.6. Of note, creatinine is down from 3.49 yesterday and 3.93 two days ago. ASSESSMENT: 1. Acute kidney injury: Due to prerenal etiology related to volume depletion from poor oral intake as well as diuretic as well as RAAS octavio use and Bactrim use. Creatinine is trending downwards with IV fluid therapy. 2. 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 3. Anemia in chronic kidney disease. 4. Hypertension: Control is fair. Most likely mediated by volume as the patient is getting IV fluid at 125. Expected to improve with discontinuation of IV fluid. PLAN: We will like to continue IV fluid therapy for another 24 hours. However, if primary attending is desirous of discharging the patient, he could be discharged with a close followup with renal function test in 1 week. Other treatment as per primary attending. Job ID: [id number]
--- NOTE | 2019-08-28 20:05 | PQF ---
ONEYDA BEE, [place] C [id number] CLINICAL DOCUMENTATION CLARIFICATION FORM: POST DISCHARGE Addendum to original discharge summary date: ____ Late entry note date: __ DATE: 08/28/19 ATTN: Dr Webber, [place] Please exercise your independent, professional judgment in responding to the clarification form. Clinical indicators are provided on the bottom of this form for your review Please check appropriate box(s) to clarify if the following diagnosis has been ruled in or ruled out: Sepsis [ ] Ruled in diagnosis [ ] Continue to treat [ ] Resolved Present on Admission (POA): [ ] Yes [ ] No [ ] Unable to determine [ ] Ruled out diagnosis [ ] Cannot rule out diagnosis [ ] Other diagnosis [ ] Unable to determine For continuity of documentation, please document condition throughout progress notes and discharge summary. Thank You. CLINICAL INDICATORS - SIGNS / SYMPTOMS / LABS Laboratory Hematology 08/14 WBC 18.1 H&P p1 08/14 Dr Kimball Develop non-healing left great toe ulceraton with cellulitis H&P p1 08/14 Dr Kimball Wound continue to worsen despite previous prlonged oral antibiotic u se. Presented to ER because of persistent wound with new drainage from the ulcer H&P p1 08/14 Dr Kimball the patient's states that the patient has chills this morning but not reported fever at home PN p1 08/18 Dr Carbajal Acute kidney injury due to excessive diuretics and cytokine mediated injury related to sepsis RISK FACTORS ED notes p8 08/14 Left foot gas gangrene H&P p1 08/14 - 68-year old H&P p1 08/14 - History of Diabetes mellitus H&P p2 08/14 - Left foot cellulitis with possible fifth metatarsal head osteomyelitis H&P p2 08/14 - Acute kidney Injury TREATMENTS MAR 08/14 - IV Vancomycin MAR 08/14 - IV Clindamycin H&P p2 08/14 - blood and wound culture obtained General Surgery consult 08/15 - Dr Jayce Sage [employer] Consult 08/15 - Junaid Camacho Obi Operative report - Amputation of left great toe and metatarsal (This form is maintained as a part of the permanent medical record) 2014 [employer]. All Rights Reserved [email or web address] [not provided] MTDD
== END 2019-08-27 14:20 | DRG 239 ==
LOC: ERS 14:31 → T4-B 21:30
PROVIDERS: ADMIT Internal Medicine; ATTEND Internal Medicine
PROC: 0Y6N0Z9 Detachment at Left Foot, Partial 1st Ray, Open Approach (ICD-10-PCS; principal; 2019-08-14)
DX: E11.52 Type 2 diabetes mellitus with diabetic peripheral angiopathy with gangrene (principal); G93.41 Metabolic encephalopathy; L03.116 Cellulitis of left lower limb; I50.22 Chronic systolic (congestive) heart failure; I13.0 Hypertensive heart and chronic kidney disease with heart failure and stage 1 through stage 4 chronic kidney disease, or unspecified chronic kidney disease; E87.3 Alkalosis; N17.9 Acute kidney failure, unspecified; M86.8X7 Other osteomyelitis, ankle and foot; R47.01 Aphasia; E87.2 Acidosis; N18.4 Chronic kidney disease, stage 4 (severe); E11.621 Type 2 diabetes mellitus with foot ulcer; E11.22 Type 2 diabetes mellitus with diabetic chronic kidney disease; L97.529 Non-pressure chronic ulcer of other part of left foot with unspecified severity; I48.0 Paroxysmal atrial fibrillation; N31.9 Neuromuscular dysfunction of bladder, unspecified; I25.10 Atherosclerotic heart disease of native coronary artery without angina pectoris; L03.032 Cellulitis of left toe; N40.0 Benign prostatic hyperplasia without lower urinary tract symptoms; K42.9 Umbilical hernia without obstruction or gangrene; J38.00 Paralysis of vocal cords and larynx, unspecified; D63.1 Anemia in chronic kidney disease; E11.65 Type 2 diabetes mellitus with hyperglycemia; N40.1 Benign prostatic hyperplasia with lower urinary tract symptoms; R33.8 Other retention of urine; F03.90 Unspecified dementia, unspecified severity, without behavioral disturbance, psychotic disturbance, mood disturbance, and anxiety; B95.62 Methicillin resistant Staphylococcus aureus infection as the cause of diseases classified elsewhere; B95.4 Other streptococcus as the cause of diseases classified elsewhere; I25.5 Ischemic cardiomyopathy; E11.69 Type 2 diabetes mellitus with other specified complication; E11.40 Type 2 diabetes mellitus with diabetic neuropathy, unspecified; Z96.653 Presence of artificial knee joint, bilateral; I25.2 Old myocardial infarction; Z95.1 Presence of aortocoronary bypass graft; Z88.8 Allergy status to other drugs, medicaments and biological substances; Z86.73 Personal history of transient ischemic attack (TIA), and cerebral infarction without residual deficits; Z79.899 Other long term (current) drug therapy; Z79.82 Long term (current) use of aspirin; Z79.4 Long term (current) use of insulin
CPT/HCPCS: 36415; 36416; 51701; 70551; 80048; 80053; 80069; 80202; 81001; 82550; 82570; 82728; 83036; 83540; 83550; 83605; 84156; 84300; 84540; 85025; 85652; 86140; 87040; 87070; 87076; 87077; 87086; 87186; 87205; 88305; 88311; 93005; 93010; 94640; J0360; J0692; J0696; J1644; J1815; J1940; J2001; J2060; J2270; J2358; J2704; J3010; J3370; J3490; J7050; J7070; J7620

== ENCOUNTER 2019-10-02 15:31 | Inpatient (IN) | payer MEDICARE ==
[2019-10-02 16:03] LABS: #Eosinphils 0.3 thou/uL (0.0-0.7); #Lymphocytes 2.5 thou/uL (1.20-3.40); #Monocytes 1.2 thou/uL (0.11-0.59); %Basophils 0.3 % (0.0-1.0); %Eosinophils 1.6 % (0.0-10.0); %Lymphocytes 14.8 % (21.0-51.0); %Neutrophils 76.3 % (42.0-75.0); Hemoglobin 13.6 g/dL (14.0-18.0); Mean Corpuscular HGB CONC 32.6 g/dL (32.0-36.0); Mean Corpuscular Hemoglobin 29.2 pg (27.0-31.0); Mean Corpuscular Volume 89.7 fL (78.0-98.0); Mean Platelet Volume 8.5 fL (7.4-10.4); Platelet Count 177 thou/uL (130-400); RBC Distribution Width 15.3 % (11.5-14.5); Red Blood Cell (RBC) Count 4.65 mill/uL (4.70-6.10)
[2019-10-02 16:26] LABS: ALT (SGPT) 13 U/L (8-55); AST (SGOT) 15 U/L (5-34); Albumin 2.8 g/dL (3.4-4.8); Alkaline Phosphatase 106 U/L (40-110); Anion Gap 13 mmol/L (10-20); BUN (Urea Nitrogen) 19 mg/dL (8.4-25.7); Bilirubin, Total 0.9 mg/dL (0.2-1.2); Calc. Creatinine Clearance 0 mL/min (70-130); Calcium 8.1 mg/dL (7.8-10.44); Carbon Dioxide 20 mmol/L (23-31); Chloride 101 mmol/L (98-107); Estimated GFR-MDRD 26; Globulin 3.9 g/dL (2.4-3.5); Glucose 180 mg/dL (80-115); Potassium 4.3 mmol/L (3.5-5.1); Protein, Total 6.7 g/dL (5.8-8.1); Sodium 130 mmol/L (136-145)
[2019-10-02] MEDS ORDERED: Fentanyl 100 MCG/2 ML VIAL ONE ×2 (16:41→17:25)
[2019-10-02 16:47] LABS: CKMB 2.9 ng/mL (0-6.6)
--- NOTE | 2019-10-02 17:20 | RAD ---
Exam: Chest one view HISTORY:Fall. Pain. Comparison: 05/10/2019 FINDINGS: Cardiac silhouette:Enlarged cardiac silhouette. There are sternotomy wires. Aorta: Atherosclerosis of the aorta. Pulmonary vessels: Normal Costophrenic angles: Clear LUNGS: No masses or consolidation. Pneumothorax: None Osseous abnormalities: None IMPRESSION: Cardiomegaly, without evidence of congestive heart failure. Atherosclerosis.
--- NOTE | 2019-10-02 17:21 | RAD ---
Exam:Right hip 2 views HISTORY: Fall. Pain. Deformity. COMPARISON: None FINDINGS: Mildly displaced intertrochanteric fracture. Incompletely evaluated internal fixation plate in the proximal femoral diaphysis IMPRESSION: Intertrochanteric fracture
[2019-10-02] MEDS ORDERED: Dextrose 5% in Water 1,000 ML IV PRN (18:12)
[2019-10-02] MEDS ORDERED: hydrALAZINE 20 MG/ML VIAL SLOW IVP PRN ×2 (18:12)
[2019-10-02] MEDS ORDERED: Dextrose 50% Abboject 50 ML SYRINGE SLOW IVP PRN (18:12)
[2019-10-02] MEDS ORDERED: Gabapentin 100 MG CAP PO PRN (18:17)
[2019-10-02] MEDS ORDERED: traMADol HCl 50 MG TAB PO PRN (18:27)
[2019-10-02 18:30] LABS: Bilirubin Negative (Negative); Blood, Urine Negative (Negative); Clarity Clear (Clear); Glucose, Urine (Dipstick) Normal (Negative); Leukocyte 250 Leu/uL (Negative); Nitrite Negative (Negative); Protein, Urine (Dipstick) 10 mg/dL (Neg-Trace); RBC/HPF 0-3 HPF (0-3); Squamous Epithelial 0-3 HPF (0-3); Urobilinogen Normal mg/dL (Less than 2)
[2019-10-02 18:36] LABS: Bacteria/HPF 1+ HPF (None Seen); Yeast-Budding 1+ HPF (None Seen)
[2019-10-02] MEDS ORDERED: FLUoxetine HCl 20 MG CAP PO SCH (18:45)
[2019-10-02 18:58] LABS: INR-International Normal Ratio 1.6; Prothrombin Time 18.6 SEC (12.0-14.7)
[2019-10-02 18:59] LABS: PTT 37.9 SEC (22.9-36.1)
--- NOTE | 2019-10-02 19:42 | HP ---
REQUESTING PHYSICIAN: Dr. Romeo Carlisle. CONSULTING PHYSICIAN: Dr. Mendoza. HISTORY OF PRESENT ILLNESS: Mr. Quintanilla is a 68-year-old male, coming to the ED for evaluation of right hip pain. The patient reports he was using walker this morning, slipped and fell. After the fall, the patient did not have loss of consciousness or hit his head. No bleeding to be reported. However, the patient could not bear weight from the right side and could not get up. The patient stayed on the floor for 5 hours before he got help. Currently in the ED, the patient is alert and awake, GCS 15. Vital signs, blood pressure is 128/81. Vital signs are stable. Reports pain from the right hip, elevated with movement. REVIEW OF SYSTEMS: Noncontributory except per HPI. PAST MEDICAL HISTORY: The patient has a past medical history of diabetes, chronic kidney disease, CA, coronary artery disease, hypertension, BPH. SURGICAL HISTORY: Coronary artery bypass, 4-vessel; bilateral knee replacement; left big toe amputation. SOCIAL HISTORY: The patient lives at home alone. Denies smoking history. Denies alcohol use and denies drug use. ALLERGIES: MORPHINE. CURRENT MEDICATIONS: 1. Hydralazine 25 mg one and half t.i.d. 2. Atorvastatin 40 mg daily. 3. Isosorbide mononitrate ER 120 mg daily. 4. Furosemide 40 mg b.i.d. 5. Carvedilol 25 mg two b.i.d. 6. Spironolactone 25 mg daily. 7. Losartan 50 mg everyday. 8. Tamsulosin 0.4 mg at bedtime. 9. Fluoxetine 20 mg daily. PHYSICAL EXAMINATION: GENERAL: Currently, the patient is lying down in bed comfortable with no acute respiratory distress. No chest pain to be reported. Complains of right hip pain. VITAL SIGNS: Heart rate is 73, respiratory rate 18, blood pressure 128/81, O2 saturation 98 on room air, and temperature 97.7. HEENT: Atraumatic. No bruising. No deformity. NECK: Trachea midline. Nontender to palpation. CHEST: Atraumatic. No bruising. Nontender to palpation. LUNGS: Clear bilaterally. HEART: Regular rate and rhythm. ABDOMEN: No deformity. No bruising. Nontender to palpation. Bowel sounds active. No peritonitis sign. PELVIS: Stable. EXTREMITIES: Left big toe amputation, dressing is clean and dry. Hip, range of motion limited due to pain. Pulse positive bilaterally. Sensation reduced in bilateral lower extremities. Bilateral upper extremities neurovascularly intact x2. NEUROLOGIC: No focal neurologic deficits. LABORATORY DATA: Initial workup showed troponin 0.034. Sodium 130, potassium 4.3, creatinine 2.48, glucose 180. White count 17,000, hemoglobin 13.6. IMAGING STUDIES: Chest x-ray shows cardiomegaly with no evidence of congestive heart failure. Hip x-ray shows right intertrochanteric fracture. ASSESSMENT: 1. Status post ground level fall. 2. Right hip fracture. 3. History of coronary artery disease, coronary artery bypass graft with 4-vessel, GRACIE, diabetes, hypertension, chronic kidney disease, BPH, and left big toe amputation. PLAN: The patient will be admitted to [place] [address] for pain control. The patient will be n.p.o. at midnight. Check electrolytes. Initiate nonpharmacological DVT prophylaxis. Initiate gastritis prophylaxis. Dr. Mendoza is informed. Dr. Mendoza will see the patient tomorrow and will make decision in regard to right hip fracture fixation. Postop, the patient will need to work with PT and OT. Anticipate placement in rehabilitation facility. Dr. Wyatt is informed. Job ID: [id number]
[2019-10-02] MEDS: Sodium Chloride 0.9% 1,000 ML IV SCH (19:55)
[2019-10-02] MEDS: hydrALAZINE 25 MG TAB PO SCH (19:56)
[2019-10-02] MEDS: Tamsulosin HCl 0.4 MG CAP PO SCH (19:56)
[2019-10-02] MEDS: Ondansetron PF 4 MG/2 ML Vial IVP PRN (19:56)
[2019-10-02] MEDS: Senokot S 8.6-50 MG TAB PO SCH (19:56)
[2019-10-02] MEDS: Morphine 2 MG/ML SYRINGE SLOW IVP PRN (19:59)
[2019-10-02] MEDS ORDERED: hydrALAZINE 25 MG TAB PO SCH (21:00)
[2019-10-02 21:57] VITALS: BMI 27.5
[2019-10-02] MEDS: Acetaminophen 500 MG TAB PO SCH (23:06)
[2019-10-02] MEDS: Cyclobenzaprine 10 MG TAB PO PRN (23:06)
[2019-10-03] MEDS: Morphine 2 MG/ML SYRINGE SLOW IVP PRN ×4 (01:20→16:37)
--- NOTE | 2019-10-03 02:14 | PRG ---
DATE OF SERVICE: 10/03/2019 SUBJECTIVE: The patient is currently on the surgical floor. He has just moved up from the emergency department, where he was admitted status post a ground level fall when he sustained a right hip fracture. He is awaiting surgery tomorrow. He will be made n.p.o. after midnight. Currently, he has no complaints. PHYSICAL EXAMINATION: VITAL SIGNS: Stable. The patient is afebrile. GENERAL: The patient is resting comfortably in bed. He is awake, alert, and oriented x3. [place] Coma Scale is 15. HEENT: Unremarkable. LUNGS: Clear to auscultation bilaterally. HEART: Regular rate and rhythm. ABDOMEN: Soft and nontender with active bowel sounds. EXTREMITIES: Neurovascularly intact x4. ASSESSMENT/PLAN: 1. Status post ground level fall. 2. Right hip fracture, awaiting surgery. 3. History of coronary artery disease, 4-vessel coronary artery bypass graft; diabetes; hypertension; chronic kidney disease; benign prostatic hypertrophy. PLAN: Plan will be to continue supportive care, Physical and Occupational therapy after surgery. He will be made n.p.o. after midnight and postoperatively, we will discuss placement. Job ID: [id number]
[2019-10-03] MEDS: Ondansetron PF 4 MG/2 ML Vial IVP PRN (05:50)
[2019-10-03] MEDS: Acetaminophen 500 MG TAB PO SCH ×4 (05:52→23:34)
[2019-10-03] MEDS: Carvedilol 25 MG TAB PO SCH ×2 (05:52→17:38)
[2019-10-03] MEDS ORDERED: Carvedilol 25 MG TAB PO SCH (08:00)
[2019-10-03] MEDS ORDERED: CEFAZOLIN 2 GM in Premix Bag 1 BAG IVPB SCH ×2 (08:15→18:00)
[2019-10-03] MEDS ORDERED: Amiodarone 200 MG TAB PO SCH (09:00)
--- NOTE | 2019-10-03 09:19 | CON ---
DATE OF CONSULTATION: 10/03/2019 HISTORY OF PRESENT ILLNESS: Mr. Quintanilla is a 68-year-old male, who fell at home yesterday evening. I have treated the patient in the past for a distal femur fracture, this healed and he subsequently also had a toe amputation recently. He was back at home after going through rehabilitation. He was in his kitchen when he lost his balance and fell onto his right side. He had pain and was unable to ambulate. He reports prior to his fall, he was doing fairly well and was back at independent living. He was found to have an intertrochanteric femur fracture on x-ray. Orthopedics was consulted for his injury. He has been admitted to the hospital. He is currently resting comfortably. He has no acute distress. PAST MEDICAL HISTORY: Diabetes, obesity, history of CA and coronary artery disease, hypertension, BPH, chronic kidney disease, and osteoporosis. PAST SURGICAL HISTORY: Coronary artery bypass graft, bilateral total knee arthroplasty, right distal femur open reduction and internal fixation, and left great toe amputation. SOCIAL HISTORY: The patient just got back and living independently at home. He does not smoke, drink alcohol, or use drugs. ALLERGIES: TO MORPHINE. REVIEW OF SYSTEMS: Positive for right hip pain. Otherwise, negative 10-point review of systems. FAMILY MEDICAL HISTORY: Noncontributory. PHYSICAL EXAMINATION: VITAL SIGNS: Temperature is 97, pulse is 55, respiratory rate is 12, oxygen saturation 97%, and blood pressure is 146/78. GENERAL: He is alert, lying supine, in no apparent distress. RESPIRATORY: Breathing comfortably. ABDOMEN: Soft, nontender, and nondistended. HEENT: Normocephalic and atraumatic. MUSCULOSKELETAL: The right leg has a well-healed lateral wound. He has anterior knee incision and wound as well, which is healed. He has a fresh wound over his left great toe from amputation. He has abrasions of his lower extremity on the right. His leg is in an externally rotated and shortened position. He has pain with hip motion. Upper extremities are atraumatic. He has intravenous lines. IMAGING DATA: X-rays of the right hip demonstrate an intertrochanteric femur fracture. The patient has a long distal femoral plate extending up near the intertrochanteric region. The intertrochanteric fracture is acute. IMPRESSION: Right intertrochanteric femur fracture in an elderly male. PLAN: The patient is going to require surgical intervention for this to get him back mobilizing. Goal will be for early mobilization to prevent complications of prolonged bedrest. He will likely need to go to rehabilitation. Surgical plan will be for intramedullary nail with hardware removal to allow nail placement. Risks do include infection, nonunion, malunion, and others. He wants to proceed with surgery today. He will remain n.p.o. He will have antibiotics on-call to the operating room as well as DVT prophylaxis. Job ID: [id number]
[2019-10-03] MEDS ORDERED: Fentanyl 100 MCG/2 ML VIAL ONE ×3 (10:22→10:52)
[2019-10-03] MEDS ORDERED: Midazolam HCl 2 mg/2 ml Vial ONE (10:52)
[2019-10-03] MEDS: Atorvastatin Calcium 40 MG TAB PO SCH (10:54)
[2019-10-03] MEDS: FLUoxetine HCl 20 MG CAP PO SCH (10:55)
[2019-10-03] MEDS: Losartan 25 MG TAB PO SCH (10:55)
[2019-10-03] MEDS: Famotidine 20 MG TAB PO SCH (10:55)
[2019-10-03] MEDS: Furosemide 40 MG TAB PO SCH ×2 (10:55→21:34)
[2019-10-03] MEDS: hydrALAZINE 25 MG TAB PO SCH ×3 (10:55→21:35)
[2019-10-03] MEDS: Polyethylene Glycol 3350 17 GM Packet PO SCH (10:56)
[2019-10-03] MEDS: Spironolactone 25 MG TAB PO SCH (10:56)
[2019-10-03] MEDS: Senokot S 8.6-50 MG TAB PO SCH ×2 (10:56→21:35)
[2019-10-03] MEDS ORDERED: Naloxone HCl 0.4 mg/ml Vial ONE (11:00)
[2019-10-03] MEDS ORDERED: SUGAMMADEX SODIUM 200 MG/2 ML VIAL ONE (11:32)
[2019-10-03] MEDS ORDERED: Succinylcholine Chloride 20 MG/ML 10 ml SYRINGE FS ONE (11:38)
[2019-10-03] MEDS ORDERED: PHENYLEPHRINE-NS 100 MCG/ML 10 ML SYRINGE ONE (11:38)
[2019-10-03] MEDS ORDERED: PROPOFOL 200 MG/20 ML VIAL ONE (11:38)
[2019-10-03] MEDS ORDERED: Rocuronium Bromide 10 MG/ML (10ML VIAL) ONE (11:38)
[2019-10-03] MEDS ORDERED: Bupivacaine HCl 0.5%/Epinephrine 1:200,000/PF 30 ml Vial ONE ×2 (11:38→11:39)
[2019-10-03] MEDS ORDERED: EPHEDRINE 25 MG/5 ML SYRINGE ONE (11:38)
[2019-10-03] MEDS ORDERED: Lidocaine 1% PF 5 ML VIAL ONE (11:38)
[2019-10-03] MEDS ORDERED: Phenylephrine HCL 10 MG/ML VIAL ONE (12:34)
--- NOTE | 2019-10-03 14:01 | PRG ---
DATE OF SERVICE: 10/03/2019 SUBJECTIVE: This is a 68-year-old male who slipped and fell and was on the ground for about 5 hours before being found. He sustained a right hip fracture. He is currently n.p.o. and awaiting surgery. He states his pain is well controlled. He denies taking any anticoagulants. He lives at home by himself. PHYSICAL EXAMINATION: VITAL SIGNS: Stable. GENERAL: Well-appearing in bed. Jackie coma scale of 15. RESPIRATORY: No acute respiratory distress. CARDIAC: Regular rate and rhythm. No murmurs. ABDOMEN: Soft, nontender, and nondistended. Normal bowel sounds. EXTREMITIES: Warm and well perfused. ASSESSMENT: 1. Status post ground level fall. 2. Right hip fracture, awaiting surgery. 3. History of coronary artery disease, four-vessel coronary artery bypass graft. Diabetes, hypertension, chronic kidney disease, and benign prostatic hypertrophy. PLAN: We will continue supportive care. Physical and occupational therapy after surgery. We will decide placement once physical therapy evaluates the patient postoperatively. Job ID: [id number]
--- NOTE | 2019-10-03 16:06 | RAD ---
RADIOGRAPH RIGHT HIP 2 VIEWS: 10/03/19 HISTORY: 68-year-old male with acute, traumatic, right intertrochanteric femoral fracture. COMPARISON: 10/02/19. FINDINGS: Fluoroscopic spot images obtained with C-arm in the OR demonstrate new gamma nail with vertical compo nent traversing the intertrochanteric fracture, and upper oblique portion within femoral head. Old OR IF hardware is again partially visualized in the proximal femoral diaphysis. IMPRESSION: Fixation of acute, traumatic right intertrochanteric fracture with gamma nail. POS: TPC
[2019-10-03] MEDS: Sodium Chloride 0.9% 1,000 ML IV SCH (18:01)
--- NOTE | 2019-10-03 18:06 | OP ---
DATE OF PROCEDURE: 10/03/2019 PROCEDURES PERFORMED: Right femur hardware removal and right femur intramedullary nail. PREOPERATIVE DIAGNOSIS: Right femur intertrochanteric fracture with remote distal femur fracture and in-situ hardware. POSTOPERATIVE DIAGNOSIS: Right femur intertrochanteric fracture with remote distal femur fracture and in-situ hardware. COMPLICATIONS: None. ESTIMATED BLOOD LOSS: 100 mL. BUSINESS DEVELOPMENT: Javi Ortega PA-C ANESTHESIA: General. IMPLANTS: Synthes short trochanteric nail, size 12 mm with helical blade was utilized. INDICATIONS FOR PROCEDURE: Mr. Quintanilla is a 68-year-old male, who has fallen. He fractured his right proximal femur. Previously, he has had a distal femur fracture treated operatively. This healed without incident. He has now been indicated for hardware removal to allow intramedullary nail placement to transfix his intertrochanteric femur fracture. Risks have been reviewed in detail. He has elected to proceed with the operation. DESCRIPTION OF PROCEDURE: Mr. Quintanilla was identified in the preoperative holding area. His correct extremity was marked. He was carried to the operating room. He was positioned supine. General anesthesia was induced. A multidisciplinary time-out was performed. The right lower extremity was prepped and draped in sterile fashion. We began the procedure by making a small incision over the proximal thigh. We dissected down to the bony level. We removed the patient's 2 proximal screws from his distal femoral plate. This allowed enough room to place our intramedullary nail device. We then moved to the more proximal thigh and made an incision. We inserted our guidewire to the tip of the trochanter. This was passed distally. We over-reamed the guidewire. We then inserted our intramedullary nail. This was seated distally in the bone. We took x-ray images confirming that it was appropriately placed. Next, we placed our helical blade in the centered position of the femoral head by placing a guidewire and over-drilling. Finally, we placed a distal Crosslock screw using the appropriate guide. This completed the operation. We thoroughly irrigated with copious lavage and closed our wounds. We took final x-ray images. A sterile dressing was applied. The patient was taken to the recovery room in good condition without complication. Job ID: [id number]
[2019-10-03] MEDS: Tamsulosin HCl 0.4 MG CAP PO SCH (21:34)
[2019-10-03] MEDS: CEFAZOLIN 2 GM in Premix Bag 1 BAG IVPB SCH (21:34)
[2019-10-03] MEDS: traMADol HCl 50 MG TAB PO PRN (22:22)
--- NOTE | 2019-10-04 00:14 | PRG ---
DATE OF SERVICE: 10/03/2019 SUBJECTIVE: The patient is currently on the surgical floor. He is hospital day 2, postop day 0, status post ground level fall. This afternoon, he underwent open reduction and internal fixation of his right hip fracture. He reportedly did well. He is tolerating a diet. His pain is controlled postoperatively. He has not had the opportunity to work with Physical or Occupational Therapy yet. OBJECTIVE: VITAL SIGNS: Stable. The patient is afebrile. GENERAL: The patient is resting comfortably in bed. He is awake, alert, and oriented x3. Jackie Coma Scale is 15. LUNGS: Clear to auscultation bilaterally. HEART: Regular rate and rhythm. ABDOMEN: Soft, flat, nontender with active bowel sounds. EXTREMITIES: Neurovascularly intact x4. Postop dressing is clean, dry, and intact. ASSESSMENT/PLAN: 1. Status post ground level fall. 2. Status post open reduction and internal fixation of right hip fracture. 3. History of coronary artery disease, 4-vessel coronary artery bypass graft; diabetes; hypertension; chronic kidney disease; and benign prostatic hypertrophy. PLAN: Plan will be to continue supportive care. Begin Physical and Occupational Therapy tomorrow and discuss placement options. We will also repeat his labs in the morning as he had none postoperatively. Job ID: [id number]
[2019-10-04] MEDS: Cyclobenzaprine 10 MG TAB PO PRN (02:07)
[2019-10-04] MEDS: HYDROcodone/Acetaminophen 5/325 mg Tablet PO PRN ×2 (03:21→09:07)
[2019-10-04] MEDS: CEFAZOLIN 2 GM in Premix Bag 1 BAG IVPB SCH (05:33)
[2019-10-04] MEDS: Acetaminophen 500 MG TAB PO SCH ×3 (05:33→17:43)
[2019-10-04] MEDS: traMADol HCl 50 MG TAB PO PRN (05:34)
[2019-10-04 05:43] LABS: Phosphorus 2.6 mg/dL (2.3-4.7)
[2019-10-04 05:45] LABS: Anion Gap 11 mmol/L (10-20); BUN (Urea Nitrogen) 18 mg/dL (8.4-25.7); Calc. Creatinine Clearance 47 mL/min (70-130); Calcium 7.2 mg/dL (7.8-10.44); Carbon Dioxide 19 mmol/L (23-31); Chloride 107 mmol/L (98-107); Estimated GFR-MDRD 32; Glucose 130 mg/dL (80-115); Magnesium 1.5 mg/dL (1.6-2.6); Sodium 133 mmol/L (136-145)
[2019-10-04 06:00] LABS: Band 2 % (5-11); Eosinophils 5 % (0-10); Hemoglobin 10.9 g/dL (14.0-18.0); Lymphocytes 22 % (21-51); MDiff Complete? YES; Mean Corpuscular HGB CONC 32.2 g/dL (32.0-36.0); Mean Corpuscular Hemoglobin 29.1 pg (27.0-31.0); Mean Corpuscular Volume 90.4 fL (78.0-98.0); Mean Platelet Volume 9.3 fL (7.4-10.4); Monocytes 8 % (0-10); Neutrophil 63 % (42-75); Platelet Count 102 thou/uL (130-400); Platelet Morphology Comment Appears Decreased; RBC Distribution Width 15.2 % (11.5-14.5); Red Blood Cell (RBC) Count 3.75 mill/uL (4.70-6.10); White Blood Cell (WBC) Count 12.4 thou/uL (4.8-10.8)
[2019-10-04] MEDS ORDERED: Magnesium 2 GM/50 ML 2 GM in Premix Bag 1 BAG IVPB SCH (07:30)
[2019-10-04] MEDS ORDERED: cefTRIAXone\\ROCEPHIN 1 GM in Sodium Chloride 0.9% 100 ML IVPB SCH (08:00)
[2019-10-04] MEDS: FLUoxetine HCl 20 MG CAP PO SCH (09:05)
[2019-10-04] MEDS: Famotidine 20 MG TAB PO SCH (09:05)
[2019-10-04] MEDS: Senokot S 8.6-50 MG TAB PO SCH ×2 (09:05→21:41)
[2019-10-04] MEDS: hydrALAZINE 25 MG TAB PO SCH ×3 (09:06→21:38)
[2019-10-04] MEDS: Spironolactone 25 MG TAB PO SCH (09:06)
[2019-10-04] MEDS: Furosemide 40 MG TAB PO SCH (09:06)
[2019-10-04] MEDS: Atorvastatin Calcium 40 MG TAB PO SCH (09:06)
[2019-10-04] MEDS: Heparin 5,000 UNITS/ML VIAL SC SCH ×2 (09:07→21:40)
[2019-10-04] MEDS: Carvedilol 25 MG TAB PO SCH ×2 (09:07→17:43)
[2019-10-04] MEDS: Sulfameth/Trimethoprim DS 800-160mg TAB PO SCH ×2 (09:07→21:40)
[2019-10-04] MEDS: Losartan 25 MG TAB PO SCH (09:07)
[2019-10-04] MEDS: Polyethylene Glycol 3350 17 GM Packet PO SCH (09:10)
[2019-10-04] MEDS ORDERED: traMADol HCl 50 MG TAB PO PRN ×2 (10:16→11:09)
[2019-10-04] MEDS: traMADol HCl 50 MG TAB PO SCH ×2 (11:13→21:40)
[2019-10-04] MEDS: Morphine 4 MG/ML VIAL SLOW IVP PRN ×2 (11:13→15:54)
[2019-10-04] MEDS ORDERED: traMADol HCl 50 MG TAB PO SCH (12:00)
--- NOTE | 2019-10-04 12:24 | PQF ---
ONEYDA BEE GARY PA-C [id number] [facility] B- [id number] CLINICAL DOCUMENTATION IMPROVEMENT CLARIFICATION FORM: ICD-10 Updated PLEASE DO AN ADDENDUM TO THE PROGRESS NOTE WITH ANY DOCUMENTATION UPDATES OR ADDITIONS AND CARRY THROUGH TO DC SUMMARY. THANK YOU. DATE: 10/04/2019 ATTN:YASH PASTOR Please exercise your independent, professional judgment in responding to the clarification form. Clinical indicators are provided on the bottom of this form for your review. 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 MILAN (This form is maintained as a part of the permanent medical record) 2014 [employer] All Rights Reserved [email or web address] [phone] MTDD
--- NOTE | 2019-10-04 12:51 | PQF ---
ONEYDA BEE GARY PA-C [id number] [id number] CLINICAL DOCUMENTATION IMPROVEMENT CLARIFICATION FORM: ICD-10 Updated PLEASE DO AN ADDENDUM TO THE PROGRESS NOTE WITH ANY DOCUMENTATION UPDATES OR ADDITIONS AND CARRY THROUGH TO DC SUMMARY. THANK YOU. DATE: 10/04/2019 ATTN:YASH IRELAND Please exercise your independent, professional judgment in responding to the clarification form. Clinical indicators are provided on the bottom of this form for your review. Please check appropriate box(s): [ ] UTI D/T indwelling otoole catheter [ X ] UTI NOT D/T indwelling otoole catheter. [ ] Insignificant lab values [ ] Unable to determine In addition, please specify: Present on Admission (POA): [ X] Yes [ ] No [ ] Unable to determine For continuity of documentation, please document condition throughout progress notes and discharge summary. Thank You. CLINICAL INDICATORS - SIGNS / SYMPTOMS/ LABS are present in the medical record: 10/02 WBC 17.0 > 12.4 10/02 URINE CULTURE: CITROBACTER KOSERI 10/02 URINE : YEAST 1+ A BACTERIA 1 + A WBC 7-10 LEUKOCYTE ESTERASE 250 A RISK: PT WITH HX OF DAILY STRAIGHT CATHS, INDWELLING OTOOLE CATHETER PLACED ( 10/02 / ED REPORT) TREATMENTS: URINE CULTURE (10/02) ANCEF IV (10/02-PRESENT) THANK YOU! MILAN (This form is maintained as a part of the permanent medical record) 2014 [employer] All Rights Reserved [email or web address] [phone] [facility] CENTERMaulik
--- NOTE | 2019-10-04 13:10 | PRG ---
DATE OF SERVICE: 10/04/2019 SUBJECTIVE: Mr. Quintanilla is a 68-year-old male, who is status post ground level fall. He sustained right hip fracture. He underwent ORIF of the right hip fracture yesterday. He also has a history of coronary artery disease, 4 bypass, hypertension, diabetes, GRACIE, BPH with self catheterization, and left big toe amputation. The patient tolerated with the procedure well. Postoperatively this morning, the patient complained of pain from the right hip. The patient refused to work with Physical Therapy This morning. He tolerated with his diet, and he developed no fever or shortness of breath. The patient still has a Bishop catheter. He refused to discontinue Bishop catheter because he thinks he could not stand up and urinate by himself. OBJECTIVE: GENERAL: The patient is lying in bed comfortably with no acute respiratory distress, however, complains of pain from the right hip, 10/10. The patient is alert and awake. GCS 15. VITAL SIGNS: Temperature is 98, heart rate 59, respiratory rate 16, O2 saturation 95% on room air, blood pressure 109/65. LUNGS: Clear bilaterally. HEART: Regular rate and rhythm. ABDOMEN: Soft and nondistended. EXTREMITIES: Neurovascularly intact x4. NEUROLOGIC: No focal neurological deficits. Postoperative dressing from the right hip, clean, dry, and intact. Dressing from the left toe amputation is clean and dry. ASSESSMENT: 1. Status post ground level fall. 2. Right hip fracture, status post open reduction and internal fixation of right hip fracture. 3. History of coronary artery disease, coronary artery bypass graft with 4 vessels and GRACIE, diabetes, hypertension, chronic kidney disease, benign prostatic hypertrophy, and left big toe amputation. PLAN: Plan will be continue supportive care. Continue pain control. Adjust some pain medication. Initiate morphine p.r.n., tramadol schedule, gabapentin schedule. Encourage working with Physical Therapy this afternoon. Anticipate placement in [facility] [facility]. The patient was seen and evaluated with Dr. Cheng on round this morning. Job ID: [id number]
[2019-10-04] MEDS: Gabapentin 100 MG CAP PO SCH (21:39)
[2019-10-04] MEDS: Tamsulosin HCl 0.4 MG CAP PO SCH (21:40)
[2019-10-05] MEDS: Acetaminophen 500 MG TAB PO SCH ×5 (00:38→23:57)
[2019-10-05] MEDS: traMADol HCl 50 MG TAB PO SCH ×2 (06:30→15:12)
[2019-10-05] MEDS ORDERED: Furosemide 40 MG TAB PO SCH (07:30)
[2019-10-05] MEDS: Carvedilol 25 MG TAB PO SCH ×2 (08:45→17:29)
[2019-10-05] MEDS: FLUoxetine HCl 20 MG CAP PO SCH (08:47)
[2019-10-05] MEDS: Gabapentin 100 MG CAP PO SCH ×2 (08:47→21:33)
[2019-10-05] MEDS: Sulfameth/Trimethoprim DS 800-160mg TAB PO SCH ×2 (08:48→21:33)
[2019-10-05] MEDS: hydrALAZINE 25 MG TAB PO SCH ×3 (08:48→21:34)
[2019-10-05] MEDS: Polyethylene Glycol 3350 17 GM Packet PO SCH (08:49)
[2019-10-05] MEDS: Famotidine 20 MG TAB PO SCH (08:49)
[2019-10-05] MEDS: Losartan 25 MG TAB PO SCH (08:49)
[2019-10-05] MEDS: Senokot S 8.6-50 MG TAB PO SCH ×2 (08:50→21:34)
[2019-10-05] MEDS: Heparin 5,000 UNITS/ML VIAL SC SCH ×2 (08:50→21:33)
[2019-10-05] MEDS: Atorvastatin Calcium 40 MG TAB PO SCH (08:52)
[2019-10-05] MEDS: Spironolactone 25 MG TAB PO SCH (08:52)
[2019-10-05] MEDS: HYDROcodone/Acetaminophen 5/325 mg Tablet PO PRN (09:01)
[2019-10-05 13:08] LABS: #Basophils 0.1 thou/uL (0.0-0.2); #Eosinphils 0.4 thou/uL (0.0-0.7); #Lymphocytes 2.5 thou/uL (1.20-3.40); #Monocytes 0.8 thou/uL (0.11-0.59); %Basophils 0.5 % (0.0-1.0); %Eosinophils 4.4 % (0.0-10.0); %Lymphocytes 25.7 % (21.0-51.0); %Monocytes 8.3 % (0.0-10.0); %Neutrophils 61.1 % (42.0-75.0); Hemoglobin 9.9 g/dL (14.0-18.0); Mean Corpuscular HGB CONC 33.7 g/dL (32.0-36.0); Mean Corpuscular Hemoglobin 30.6 pg (27.0-31.0); Mean Corpuscular Volume 90.9 fL (78.0-98.0); Mean Platelet Volume 7.7 fL (7.4-10.4); Platelet Count 152 thou/uL (130-400); RBC Distribution Width 15.1 % (11.5-14.5); Red Blood Cell (RBC) Count 3.23 mill/uL (4.70-6.10); White Blood Cell (WBC) Count 9.8 thou/uL (4.8-10.8)
[2019-10-05 13:19] LABS: Anion Gap 10 mmol/L (10-20); BUN (Urea Nitrogen) 21 mg/dL (8.4-25.7); Calc. Creatinine Clearance 34 mL/min (70-130); Calcium 7.5 mg/dL (7.8-10.44); Carbon Dioxide 23 mmol/L (23-31); Chloride 105 mmol/L (98-107); Estimated GFR-MDRD 22; Glucose 88 mg/dL (80-115); Magnesium 1.9 mg/dL (1.6-2.6); Phosphorus 3.1 mg/dL (2.3-4.7); Potassium 4.3 mmol/L (3.5-5.1); Sodium 134 mmol/L (136-145)
[2019-10-05] MEDS ORDERED: Hydrocortisone Sod Succ/PF 100 mg/2 ml Vial IVP SCH (15:45)
[2019-10-05] MEDS ORDERED: Sodium Chloride 0.9% 500 ML IV SCH (16:00)
[2019-10-05] MEDS ORDERED: Melatonin 3 MG TAB PO PRN (16:14)
--- NOTE | 2019-10-05 16:37 | PRG ---
DATE OF SERVICE: 10/05/2019 SUBJECTIVE: The patient is hospital day #3, postop day #2, status post ground level fall, in which he sustained a right hip fracture. He has undergone operative intervention for this. He is refused physical and occupational therapy for various reasons, which we discussed with him. This morning, Dr. Cheng encouraged him to facilitate him being discharged to a rehab facility, he needs to work with Physical and Occupational Therapy. His other option if he chooses not to work with therapy would be to likely need discharge to either a skilled facility or a detention. The patient states that he is tired and his hip still hurts. He is tolerating a diet. His bowel function has not returned yet. The patient is refusing both his MiraLAX and Senokot. PHYSICAL EXAMINATION: VITAL SIGNS: Temperature 98.0, heart rate 61, blood pressure 109/62, respirations 16, oxygen saturation 93% on room air. GENERAL: The patient is asleep in bed. He did wake up for our exam and was conversant appropriate with us. LUNGS: Clear bilaterally. HEART: Regular rate and rhythm. ABDOMEN: Soft, flat, nontender with active bowel sounds. EXTREMITIES: Neurovascularly intact x4. His postop dressing is clean, dry, and intact. LABORATORY FINDINGS: White blood cell count 9.8, hemoglobin 9.9, hematocrit 29.4, platelets 152. Sodium 134, potassium 4.3, chloride 105, CO2 of 23. BUN 21, creatinine 2.87, glucose 88, magnesium 1.9, phosphorus 3.1, cortisol 9.20. There are no radiographs reviewed this morning. ASSESSMENT: 1. Status post ground level fall. 2. Status post open reduction and internal fixation of right hip fracture, postop day #2. 3. Adrenal insufficiency, started on hydrocortisone. 4. History of coronary artery bypass graft, four vessel. 5. History of coronary artery disease, hypertension, chronic kidney disease, and benign prostatic hypertrophy. PLAN: Plan will be to hold his Lasix and spironolactone today. We will give him gentle fluid hydration, encourage his physical and occupational therapy. Continue the hydrocortisone. Repeat his labs in the morning and discuss placement again tomorrow. The patient was evaluated this morning with Dr. Cheng during rounds. Job ID: [id number]
[2019-10-05] MEDS: Tamsulosin HCl 0.4 MG CAP PO SCH (21:33)
[2019-10-05] MEDS: Hydrocortisone Sod Succ/PF 100 mg/2 ml Vial IVP SCH (23:58)
--- NOTE | 2019-10-06 00:12 | PRG ---
DATE OF SERVICE: 10/05/2019 SUBJECTIVE: Mr. Quintanilla is a 68-year-old male with status post ground level fall and right hip fracture, status post ORIF of right hip fracture, postop day 2 today. History of coronary artery disease, hypertension, chronic kidney disease, and also have adrenal insufficiency treated. The patient is seen this evening. The patient show no signs of acute respiratory distress. Pain is well controlled. However, his blood pressure is soft systolic at 90. He was given 500 normal saline earlier today. The patient not yet working with Physical Therapy and Occupational Therapy, complain of pain despite pain regimen provided. The patient voices he will be able to work with physical therapy and he is anticipate placement in shelter facility. OBJECTIVE: GENERAL: The patient currently lying down in bed, comfortable. No acute respiratory distress. VITAL SIGNS: Blood pressure is soft, systolic is 90. LUNGS: Clear bilaterally. HEART: Regular rate and rhythm. ABDOMEN: Soft, nondistended. EXTREMITIES: Neurovascularly intact x4. ASSESSMENT: Status post ground level fall with right hip fracture, status post ORIF of right hip fracture, adrenal insufficiency treated, history of coronary artery disease, hypertension, chronic kidney disease. The patient was given 500 bolus earlier today and the patient albumin level is little bit low 2.8. The patient will be having albumin 5% 215 mL this evening. We will follow up blood pressure and urine output. Continue supportive care. Continue pain control. Anticipate placement in shelter facility. Job ID: [id number]
[2019-10-06] MEDS: Acetaminophen 500 MG TAB PO SCH ×2 (05:37→13:07)
[2019-10-06] MEDS: Hydrocortisone Sod Succ/PF 100 mg/2 ml Vial IVP SCH ×3 (05:37→18:04)
[2019-10-06 06:28] LABS: #Basophils 0.2 thou/uL (0.0-0.2); #Lymphocytes 1.2 thou/uL (1.20-3.40); #Monocytes 0.5 thou/uL (0.11-0.59); #Neutrophils 6.1 thou/uL (1.40-6.50); %Basophils 2.6 % (0.0-1.0); %Eosinophils 0.2 % (0.0-10.0); %Lymphocytes 15.5 % (21.0-51.0); %Monocytes 6.1 % (0.0-10.0); %Neutrophils 75.7 % (42.0-75.0); Hemoglobin 9.6 g/dL (14.0-18.0); Mean Corpuscular HGB CONC 33.6 g/dL (32.0-36.0); Mean Corpuscular Hemoglobin 30.6 pg (27.0-31.0); Mean Corpuscular Volume 90.9 fL (78.0-98.0); Mean Platelet Volume 7.6 fL (7.4-10.4); Platelet Count 158 thou/uL (130-400); Red Blood Cell (RBC) Count 3.13 mill/uL (4.70-6.10)
[2019-10-06 06:48] LABS: Anion Gap 11 mmol/L (10-20); BUN (Urea Nitrogen) 24 mg/dL (8.4-25.7); Calc. Creatinine Clearance 33 mL/min (70-130); Calcium 7.5 mg/dL (7.8-10.44); Carbon Dioxide 21 mmol/L (23-31); Chloride 105 mmol/L (98-107); Estimated GFR-MDRD 22; Glucose 154 mg/dL (80-115); Phosphorus 3.7 mg/dL (2.3-4.7); Potassium 4.1 mmol/L (3.5-5.1); Sodium 133 mmol/L (136-145)
[2019-10-06] MEDS ORDERED: Sodium Chloride 0.9% 500 ML IV SCH (07:45)
[2019-10-06] MEDS: Carvedilol 25 MG TAB PO SCH ×2 (08:46→18:04)
[2019-10-06] MEDS: Senokot S 8.6-50 MG TAB PO SCH ×2 (10:40→20:14)
[2019-10-06] MEDS: Polyethylene Glycol 3350 17 GM Packet PO SCH (10:40)
[2019-10-06] MEDS: Famotidine 20 MG TAB PO SCH (10:40)
[2019-10-06] MEDS: Heparin 5,000 UNITS/ML VIAL SC SCH ×2 (10:41→20:13)
[2019-10-06] MEDS: Gabapentin 100 MG CAP PO SCH ×2 (10:41→20:14)
[2019-10-06] MEDS: Atorvastatin Calcium 40 MG TAB PO SCH (10:41)
[2019-10-06] MEDS: Sulfameth/Trimethoprim DS 800-160mg TAB PO SCH ×2 (10:41→20:14)
[2019-10-06] MEDS: FLUoxetine HCl 20 MG CAP PO SCH (10:41)
[2019-10-06] MEDS: HYDROcodone/Acetaminophen 5/325 mg Tablet PO PRN ×2 (10:44→20:14)
[2019-10-06] MEDS: Losartan 25 MG TAB PO SCH (10:51)
[2019-10-06] MEDS: hydrALAZINE 25 MG TAB PO SCH ×3 (10:51→20:15)
--- NOTE | 2019-10-06 14:02 | PRG ---
DATE OF SERVICE: 10/06/2019 SUBJECTIVE: Mr. Quintanilla is a 68-year-old male, status post ground level fall. He has sustained from right hip fracture. He underwent ORIF of right hip fracture. The patient also has a history of coronary artery disease for bypass, hypertension, diabetes, BPH, and left big toe amputation. The patient has been refusing working with physical therapy, same day surgery, refuses pain medications. The patient is currently on Bishop catheter because the patient refuses the use of urinal. He voices he wished to have placement in [facility] OBJECTIVE: GENERAL: The patient is lying in bed comfortable with no acute respiratory distress. VITAL SIGNS: Temperature 97.9, heart rate 64, respiratory rate 18, O2 saturation 94% on room air, blood pressure 120/57. LUNGS: Clear bilaterally. HEART: Regular rate and rhythm. ABDOMEN: Soft, nondistended. EXTREMITIES: Neurovascularly intact x4. Postop dressing clean, dry, intact. NEUROLOGIC: No focal neurology deficits. ASSESSMENT: 1. Status post ground level fall. 2. Right hip fracture, status post open reduction and internal fixation of right hip fracture. 3. History of coronary artery disease, coronary artery bypass graft with 4-vessel and GRACIE. 4. Diabetes. 5. Hypertension. 6. Chronic kidney disease. 7. Benign prostatic hypertrophy. 8. Left big toe amputation. PLAN: Will be continue supportive care. Continue pain control. Anticipate placement in [facility] tomorrow. The patient was seen and evaluated by Dr. Cheng on rounds. Job ID: [id number]
[2019-10-06] MEDS: Acetaminophen 325 MG TAB PO SCH (18:03)
[2019-10-06] MEDS: Tamsulosin HCl 0.4 MG CAP PO SCH (20:14)
[2019-10-06] MEDS: HumaLOG 300 UNITS/3 ML VIAL SC PRN (20:17)
[2019-10-07] MEDS: Acetaminophen 325 MG TAB PO SCH ×5 (00:36→23:42)
[2019-10-07] MEDS: Hydrocortisone Sod Succ/PF 100 mg/2 ml Vial IVP SCH ×5 (00:36→23:42)
[2019-10-07] MEDS: FLUoxetine HCl 20 MG CAP PO SCH (08:27)
[2019-10-07] MEDS: Carvedilol 25 MG TAB PO SCH (08:27)
[2019-10-07] MEDS: Famotidine 20 MG TAB PO SCH (08:27)
[2019-10-07] MEDS: Losartan 25 MG TAB PO SCH ×2 (08:27→08:54)
[2019-10-07] MEDS: Gabapentin 100 MG CAP PO SCH ×2 (08:27→21:03)
[2019-10-07] MEDS: Polyethylene Glycol 3350 17 GM Packet PO SCH (08:27)
[2019-10-07] MEDS: hydrALAZINE 25 MG TAB PO SCH ×3 (08:28→21:00)
[2019-10-07] MEDS: Atorvastatin Calcium 40 MG TAB PO SCH (08:28)
[2019-10-07] MEDS: Heparin 5,000 UNITS/ML VIAL SC SCH ×2 (08:29→21:03)
[2019-10-07] MEDS: Senokot S 8.6-50 MG TAB PO SCH ×2 (08:29→21:03)
[2019-10-07] MEDS: Spironolactone 25 MG TAB PO SCH ×2 (08:30→10:28)
[2019-10-07] MEDS: traMADol HCl 50 MG TAB PO PRN (10:28)
--- NOTE | 2019-10-07 14:26 | PRG ---
DATE OF SERVICE: 10/07/2019 SUBJECTIVE: The patient is currently on the surgical floor. He is status post a ground level fall in which he sustained a right hip fracture. He has undergone open reduction and internal fixation of same. He initially was resistant to doing physical therapy, but after several discussions, the patient has begun working with the therapist and we are awaiting placement decision. The patient is tolerating a diet, but has not had a bowel movement yet. His pain is controlled. OBJECTIVE: VITAL SIGNS: Temperature is 97.6, heart rate 51, blood pressure 143/74, respirations 14, and oxygen saturation is 97% on room air. GENERAL: The patient is resting comfortably in bed. He has the therapist here about to work with him. He is awake, alert, conversant. LUNGS: Clear to auscultation bilaterally. HEART: Regular rate and rhythm. ABDOMEN: Soft, nontender with active bowel sounds. EXTREMITIES: Neurovascularly intact x4. DIAGNOSTIC DATA: There are no labs or radiographs to review this morning. ASSESSMENT: 1. Status post ground level fall. 2. Status post open reduction and internal fixation of right hip fracture. 3. History of coronary artery disease, with four-vessel coronary artery bypass graft. 4. Diabetes. 5. Hypertension. 6. Chronic kidney disease. 7. Benign prostatic hyperplasia. 8. 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 PLAN: Will be continue supportive care. Encourage physical and occupational therapy and await final placement decision. The patient was evaluated and seen this morning with Dr. Azul on rounds. Job ID: [id number]
[2019-10-07] MEDS: Carvedilol 6.25 MG TAB PO SCH (17:50)
[2019-10-07] MEDS: Tamsulosin HCl 0.4 MG CAP PO SCH (21:03)
[2019-10-07 22:26] LABS: #Lymphocytes 1.8 thou/uL (1.20-3.40); #Monocytes 0.4 thou/uL (0.11-0.59); #Neutrophils 3.9 thou/uL (1.40-6.50); %Basophils 0.3 % (0.0-1.0); %Eosinophils 0.3 % (0.0-10.0); %Lymphocytes 29.1 % (21.0-51.0); %Monocytes 6.2 % (0.0-10.0); %Neutrophils 64.1 % (42.0-75.0); Hemoglobin 9.8 g/dL (14.0-18.0); Mean Corpuscular HGB CONC 33.4 g/dL (32.0-36.0); Mean Corpuscular Hemoglobin 30.6 pg (27.0-31.0); Mean Corpuscular Volume 91.9 fL (78.0-98.0); Mean Platelet Volume 6.3 fL (7.4-10.4); Platelet Count 169 thou/uL (130-400); RBC Distribution Width 15.2 % (11.5-14.5); Red Blood Cell (RBC) Count 3.19 mill/uL (4.70-6.10); White Blood Cell (WBC) Count 6.1 thou/uL (4.8-10.8)
[2019-10-07 22:51] LABS: CKMB 1.6 ng/mL (0-6.6); Troponin I 0.027 ng/mL (< 0.028)
[2019-10-07 22:57] LABS: Anion Gap 9 mmol/L (10-20); BUN (Urea Nitrogen) 22 mg/dL (8.4-25.7); Calc. Creatinine Clearance 37 mL/min (70-130); Calcium 7.6 mg/dL (7.8-10.44); Carbon Dioxide 24 mmol/L (23-31); Chloride 106 mmol/L (98-107); Estimated GFR-MDRD 24; Glucose 176 mg/dL (80-115); Phosphorus 2.5 mg/dL (2.3-4.7); Potassium 4.5 mmol/L (3.5-5.1); Sodium 134 mmol/L (136-145)
[2019-10-08 06:40] LABS: Bilirubin Negative (Negative); Blood, Urine Negative (Negative); Clarity Turbid (Clear); Glucose, Urine (Dipstick) Normal (Negative); Leukocyte 500 Leu/uL (Negative); Nitrite Negative (Negative); Protein, Urine (Dipstick) 30 mg/dL (Neg-Trace); Urobilinogen Normal mg/dL (Less than 2)
[2019-10-08 06:42] LABS: Bacteria/HPF 1+ HPF (None Seen)
[2019-10-08 06:51] LABS: Squamous Epithelial 0-3 HPF (0-3); Yeast-Budding 3+ HPF (None Seen)
[2019-10-08 06:53] LABS: Urine Culture Reflex Yes Yes
[2019-10-08] MEDS: Hydrocortisone Sod Succ/PF 100 mg/2 ml Vial IVP SCH ×3 (07:20→17:55)
[2019-10-08] MEDS: Acetaminophen 325 MG TAB PO SCH ×3 (07:20→17:55)
[2019-10-08] MEDS: Carvedilol 6.25 MG TAB PO SCH (07:41)
[2019-10-08] MEDS ORDERED: Isosorbide Mononitrate (ER) 30 MG TAB PO SCH (09:00)
[2019-10-08] MEDS: Heparin 5,000 UNITS/ML VIAL SC SCH ×2 (09:59→20:19)
[2019-10-08] MEDS: FLUoxetine HCl 20 MG CAP PO SCH (09:59)
[2019-10-08] MEDS: Famotidine 20 MG TAB PO SCH (09:59)
[2019-10-08] MEDS: Atorvastatin Calcium 40 MG TAB PO SCH (09:59)
[2019-10-08] MEDS: Gabapentin 100 MG CAP PO SCH ×2 (09:59→20:17)
[2019-10-08] MEDS: Spironolactone 25 MG TAB PO SCH (10:00)
[2019-10-08] MEDS: Senokot S 8.6-50 MG TAB PO SCH ×2 (10:00→20:17)
[2019-10-08] MEDS ORDERED: Aspirin 81 mg Enteric Coated Tablet PO SCH (10:00)
[2019-10-08] MEDS ORDERED: Amiodarone 200 MG TAB PO SCH (10:00)
[2019-10-08] MEDS: Sulfameth/Trimethoprim DS 800-160mg TAB PO SCH ×2 (10:00→20:18)
[2019-10-08] MEDS: Losartan 25 MG TAB PO SCH (10:01)
[2019-10-08] MEDS: Polyethylene Glycol 3350 17 GM Packet PO SCH (10:02)
[2019-10-08] MEDS: traMADol HCl 50 MG TAB PO PRN (10:02)
[2019-10-08] MEDS: hydrALAZINE 25 MG TAB PO SCH ×3 (10:03→20:18)
--- NOTE | 2019-10-08 12:09 | CON ---
DATE OF CONSULTATION: HISTORY OF PRESENT ILLNESS: The patient is a pleasant 68-year-old with a history of ischemic cardiomyopathy who was noted to have a slow heart rate. The patient has a long history of ischemic cardiomyopathy. He has previously undergone coronary artery bypass graft surgery in 2006. The patient also has history of intracranial hemorrhage and has undergone a craniotomy. The patient has been admitted on multiple occasions for congestive heart failure. He presented with paroxysmal atrial fibrillation about a year ago. The patient was placed on amiodarone. The patient is felt to be a prohibitive risk for anticoagulation, but declined to undergo a Watchman device. The patient was admitted recently for hip surgery and then subsequently had a toe amputation. The patient was noted yesterday to have a slow heart rate. The patient has no history of syncope. He denies any lightheadedness. PAST MEDICAL HISTORY: 1. Ischemic cardiomyopathy. 2. Hypertension. 3. Diabetes mellitus. 4. Dyslipidemia. 5. Paroxysmal atrial fibrillation. 6. History of abdominal aortic aneurysm. PAST SURGICAL HISTORY: Craniotomy, coronary artery bypass surgery, hernia surgery, knee surgery, and hip surgery. FAMILY HISTORY: Positive family history of heart disease. SOCIAL HISTORY: Nonsmoker. ALLERGIES: NO KNOWN DRUG ALLERGIES. REVIEW OF SYSTEMS: Ten-point system otherwise unremarkable. PHYSICAL EXAMINATION: GENERAL: Obese gentleman, in no acute distress. VITAL SIGNS: Blood pressure of 147/67. NECK: Showed no jugular venous distention. LUNGS: Clear to auscultation. HEART: Regular rate and rhythm. Normal S1 and S2. ABDOMEN: Distended. EXTREMITIES: Showed mild edema. LABORATORY DATA: Sodium 134, potassium 4.5, chloride 106, bicarbonate 24, BUN 22, and creatinine 2.6. Troponin 0.01. BNP is 168. His white blood cell count is 6.1, hemoglobin 9.8, hematocrit 29.3, and platelets are 169. EKG revealed marked sinus bradycardia with a nonspecific intraventricular conduction delay. IMPRESSION: 1. Bradycardia. 2. Ischemic cardiomyopathy. 3. History of coronary artery bypass surgery. 4. Diabetes mellitus. 5. Hypertension. 6. Dyslipidemia. 7. Chronic renal failure. This gentleman has marked bradycardia. His Coreg has been held. I agree with discontinuing this medication. We would restart his amiodarone. The patient is asymptomatic. We will continue the patient on medical therapy. We will follow this patient with you through his hospitalization. Job ID: [id number] [facility]
--- NOTE | 2019-10-08 18:15 | PRG ---
DATE OF SERVICE: 10/08/2019 SUBJECTIVE: The patient was seen this morning during rounds. He was sitting up in bed and reported no complaints. He had no signs of acute distress. He was transferred from the floor overnight for bradycardia with a heart rate in the 40s. The patient remained hemodynamically stable overnight. At the time of my evaluation, the patient's only complaint was that he did not like the breakfast at this hospital. Otherwise, no active issues. OBJECTIVE: VITAL SIGNS: Temperature 97.2, pulse 48, respirations 18, oxygen saturation 98% on 2 L nasal cannula, blood pressure 147/67. GENERAL: Elderly male, sitting up in bed with no signs of acute distress. PULMONARY: Equal chest rise and fall. No signs of acute respiratory distress. CARDIAC: Bradycardic, but regular rhythm. No murmurs, gallops, or rubs. GI: Abdomen is soft, nontender, nondistended. EXTREMITIES: 2+ pulses in all extremities. Gross motor and sensation intact. No significant swelling noted. NEURO: GCS is 15. LABORATORY FINDINGS: There are no new laboratory findings to discuss. DIAGNOSTIC FINDINGS: There are no new diagnostic findings to discuss. ASSESSMENT: 1. Status post mechanical fall at home. 2. Right intertrochanteric femur fracture, status post repair. 3. Urinary tract infection, Citrobacter. 4. History of diabetes, chronic kidney disease, myocardial infarction, coronary artery disease, hypertension, benign prostate hypertrophy, coronary artery bypass grafting. 5. Bradycardia. PLAN: The patient was moved to telemetry overnight. We will continue that. Dr. Crisostomo is the patient's digital publishing specialist, who has seen the patient today. They recommended discontinuing beta blockers and he has restarted the patient's amiodarone. We will continue to monitor him for now. This patient was discussed with Dr. Cheng before this dictation. Job ID: [id number]
[2019-10-08] MEDS: Tamsulosin HCl 0.4 MG CAP PO SCH (20:21)
[2019-10-08] MEDS: HYDROcodone/Acetaminophen 5/325 mg Tablet PO PRN (20:43)
[2019-10-08] MEDS: Icosapent Ethyl 1 GM CAPSULE PO SCH (20:43)
[2019-10-08] MEDS: Cyclobenzaprine 10 MG TAB PO PRN (20:45)
[2019-10-09] MEDS: Hydrocortisone Sod Succ/PF 100 mg/2 ml Vial IVP SCH ×5 (01:20→23:23)
[2019-10-09] MEDS: Acetaminophen 325 MG TAB PO SCH ×5 (01:21→23:23)
[2019-10-09] MEDS: Amiodarone 200 MG TAB PO SCH (09:18)
[2019-10-09] MEDS: Famotidine 20 MG TAB PO SCH (09:18)
[2019-10-09] MEDS: Aspirin 81 mg Enteric Coated Tablet PO SCH (09:18)
[2019-10-09] MEDS: Losartan 25 MG TAB PO SCH (09:18)
[2019-10-09] MEDS: Gabapentin 100 MG CAP PO SCH ×2 (09:19→21:06)
[2019-10-09] MEDS: Heparin 5,000 UNITS/ML VIAL SC SCH ×2 (09:19→21:07)
[2019-10-09] MEDS: Atorvastatin Calcium 40 MG TAB PO SCH (09:19)
[2019-10-09] MEDS: hydrALAZINE 25 MG TAB PO SCH ×3 (09:19→21:06)
[2019-10-09] MEDS: FLUoxetine HCl 20 MG CAP PO SCH (09:19)
[2019-10-09] MEDS: Sulfameth/Trimethoprim DS 800-160mg TAB PO SCH ×2 (09:19→21:06)
[2019-10-09] MEDS: Spironolactone 25 MG TAB PO SCH (09:19)
[2019-10-09] MEDS: Polyethylene Glycol 3350 17 GM Packet PO SCH (09:20)
[2019-10-09] MEDS: Icosapent Ethyl 1 GM CAPSULE PO SCH ×3 (09:20→21:12)
[2019-10-09] MEDS: Senokot S 8.6-50 MG TAB PO SCH (09:21)
[2019-10-09] MEDS: traMADol HCl 50 MG TAB PO PRN (09:32)
[2019-10-09] MEDS ORDERED: Polyethylene Glycol 3350 17 GM Packet PO PRN (11:34)
[2019-10-09] MEDS ORDERED: Senokot S 8.6-50 MG TAB PO PRN (11:34)
--- NOTE | 2019-10-09 12:06 | PRG ---
DATE OF SERVICE: 10/09/2019 SUBJECTIVE: The patient is currently on the telemetry floor. He was moved from the surgical floor due to significant bradycardia, now with heart rates down in the 40s. This morning, the nurses reported he actually went down to 38 at one point while we were at rounds. The patient remains asymptomatic, and he again declines pacemaker placement. His pain is controlled. He is tolerating a diet. His bowels have returned. He has begun to work with Physical and Occupational Therapy, he declined participation with them, but this is since change. OBJECTIVE: VITAL SIGNS: Temperature is 97.6, heart rate 50, blood pressure 150/73, respirations 16, oxygen saturation 95% on room air. GENERAL: The patient is resting comfortably in bed. He is awake, alert, and oriented x3. [place] Coma Scale is 15. He denies any complaints at this time. LUNGS: Clear to auscultation bilaterally. HEART: Regular rhythm, but bradycardic. ABDOMEN: Soft, flat, nontender with active bowel sounds. EXTREMITIES: Neurovascularly intact x4. LABORATORY DATA: There are no labs or radiographs reviewed this morning. ASSESSMENT AND PLAN: 1. Status post mechanical fall. 2. Status post open reduction and internal fixation of right intertrochanteric femur fracture. 3. Urinary tract infection, Citrobacter, under the appropriate antibiotic treatment, present on admission. 4. Asymptomatic bradycardia. 5. History of diabetes, chronic kidney disease, myocardial infarction, coronary artery disease, hypertension, benign prostate hypertrophy, and coronary artery bypass grafting. PLAN: Plan will be to continue supportive care. Encourage physical and occupational therapy and await gastroenterology physician clearance for discharge. The patient is currently being managed with medications. The patient was evaluated this morning with Dr. Cheng, during rounds. Job ID: [id number]
[2019-10-09] MEDS: Tamsulosin HCl 0.4 MG CAP PO SCH (21:06)
--- NOTE | 2019-10-09 22:46 | PRG ---
DATE OF SERVICE: 10/09/2019 SUBJECTIVE: The patient was seen this morning during rounds. He was resting comfortably and asleep with no signs of acute distress. Nursing reported no acute events. OBJECTIVE: VITAL SIGNS: Temperature 98.0, pulse 53, respirations 14, oxygen saturation 98% on room air, and blood pressure 116/58. GENERAL: Well-appearing elderly male, lying in bed, asleep, with no signs of acute distress. PULMONARY: Equal chest rise and fall. No signs of acute respiratory distress. ASSESSMENT: 1. Status post mechanical fall at home. 2. Right intertrochanteric femur fracture, status post repair. 3. Urinary tract infection, Citrobacter, currently under treatment. 4. Asymptomatic bradycardia, stable. 5. History of diabetes, chronic kidney disease, myocardial infarction, coronary artery disease, hypertension, BPH, coronary artery bypass grafting, and left great toe chronic wound. PLAN: Continue current diet and pain regimen. Continue physical and occupational therapy. The patient continues to refuse pacemaker. Cardiology has asked us to keep the patient overnight, but he will likely be discharged to a [facility] facility when deemed appropriate. Job ID: [id number]
[2019-10-10] MEDS: Acetaminophen 325 MG TAB PO SCH ×2 (05:46→11:29)
[2019-10-10] MEDS: Hydrocortisone Sod Succ/PF 100 mg/2 ml Vial IVP SCH ×2 (05:47→11:29)
[2019-10-10] MEDS: Aspirin 81 mg Enteric Coated Tablet PO SCH (09:37)
[2019-10-10] MEDS: Amiodarone 200 MG TAB PO SCH (09:37)
[2019-10-10] MEDS: FLUoxetine HCl 20 MG CAP PO SCH (09:38)
[2019-10-10] MEDS: Atorvastatin Calcium 40 MG TAB PO SCH (09:38)
[2019-10-10] MEDS: Gabapentin 100 MG CAP PO SCH (09:38)
[2019-10-10] MEDS: Famotidine 20 MG TAB PO SCH (09:38)
[2019-10-10] MEDS: hydrALAZINE 25 MG TAB PO SCH (09:39)
[2019-10-10] MEDS: Heparin 5,000 UNITS/ML VIAL SC SCH (09:39)
[2019-10-10] MEDS: Icosapent Ethyl 1 GM CAPSULE PO SCH (09:41)
[2019-10-10] MEDS: Spironolactone 25 MG TAB PO SCH (09:43)
[2019-10-10] MEDS: HYDROcodone/Acetaminophen 5/325 mg Tablet PO PRN (09:43)
[2019-10-10] MEDS: Sulfameth/Trimethoprim DS 800-160mg TAB PO SCH (09:43)
[2019-10-10] MEDS: Losartan 25 MG TAB PO SCH (09:43)
[2019-10-10] MEDS ORDERED: Loperamide HCl 2 MG CAP PO PRN (10:08)
[2019-10-10 11:28] VITALS: TEMP 98.2
[2019-10-10] MEDS: HumaLOG 300 UNITS/3 ML VIAL SC PRN (11:46)
[2019-10-10 13:15] VITALS: BP 115/55
== END 2019-10-10 13:44 | DRG 481 ==
LOC: ERS 15:31 → SURG B 18:17 → 2NO 10-07 22:57
PROVIDERS: ADMIT Surgery; ATTEND Surgery
PROC: 0QP Lower Bones, Removal (ICD-10-PCS; principal; 2019-10-03)
PROC: 0QS636Z Reposition Right Upper Femur with Intramedullary Internal Fixation Device, Percutaneous Approach (ICD-10-PCS; 2019-10-03)
DX: S72.141A Displaced intertrochanteric fracture of right femur, initial encounter for closed fracture (principal); N39.0 Urinary tract infection, site not specified; E27.40 Unspecified adrenocortical insufficiency; E11.22 Type 2 diabetes mellitus with diabetic chronic kidney disease; N18.9 Chronic kidney disease, unspecified; I25.10 Atherosclerotic heart disease of native coronary artery without angina pectoris; I12.9 Hypertensive chronic kidney disease with stage 1 through stage 4 chronic kidney disease, or unspecified chronic kidney disease; N40.0 Benign prostatic hyperplasia without lower urinary tract symptoms; I25.2 Old myocardial infarction; Z95.1 Presence of aortocoronary bypass graft; Z96.653 Presence of artificial knee joint, bilateral; Z89.412 Acquired absence of left great toe; Z79.899 Other long term (current) drug therapy; W01.0XXA Fall on same level from slipping, tripping and stumbling without subsequent striking against object, initial encounter; I48.0 Paroxysmal atrial fibrillation; I25.5 Ischemic cardiomyopathy; E78.5 Hyperlipidemia, unspecified; B96.89 Other specified bacterial agents as the cause of diseases classified elsewhere; R40.2362 Coma scale, best motor response, obeys commands, at arrival to emergency department; R40.2252 Coma scale, best verbal response, oriented, at arrival to emergency department; R40.2142 Coma scale, eyes open, spontaneous, at arrival to emergency department; E66.9 Obesity, unspecified; Z68.27 Body mass index [BMI] 27.0-27.9, adult
CPT/HCPCS: 36415; 36416; 51702; 71045; 76000; 80048; 80053; 81001; 82533; 82550; 82553; 83735; 83880; 84100; 84484; 85025; 85610; 85730; 87040; 87077; 87086; 87186; 93005; 93010; 94760; 96374; 96376; C1713; G0390; J0670; J0690; J1644; J1720; J2001; J2250; J2270; J2310; J2370; J2405; J2704; J3010; J3475; P9045

== ENCOUNTER 2020-02-16 17:20 | Emergency (ER) | payer MEDICARE ==
[2020-02-16 18:11] LABS: #Eosinphils 0.6 thou/uL (0.0-0.7); #Lymphocytes 1.7 thou/uL (1.20-3.40); #Monocytes 0.8 thou/uL (0.11-0.59); %Basophils 0.2 % (0.0-1.0); %Eosinophils 4.7 % (0.0-10.0); %Monocytes 6.3 % (0.0-10.0); %Neutrophils 74.8 % (42.0-75.0); Hemoglobin 10.3 g/dL (14.0-18.0); Mean Corpuscular HGB CONC 31.3 g/dL (32.0-36.0); Mean Corpuscular Hemoglobin 28.7 pg (27.0-31.0); Mean Corpuscular Volume 91.7 fL (78.0-98.0); Mean Platelet Volume 5.3 fL (7.4-10.4); Platelet Count 325 thou/uL (130-400); RBC Distribution Width 14.4 % (11.5-14.5); Red Blood Cell (RBC) Count 3.58 mill/uL (4.70-6.10)
--- NOTE | 2020-02-16 18:20 | RAD ---
PORTABLE CHEST: Date: 02-16-2020 Provided Clinical History: Altered mental status. FINDINGS: Comparison 10-02-2019. Cardiac and mediastinal silhouette is within normal limits. Median sternotomy changes are seen. Vascu lar calcification is noted. No focal consolidation, pleural fluid or pneumothorax apparent. IMPRESSION: No evidence for an acute cardiopulmonary process. POS: [facility]
[2020-02-16 18:32] LABS: ALT (SGPT) Less than 7 U/L (8-55); AST (SGOT) 5 U/L (5-34); Albumin 2.3 g/dL (3.4-4.8); Alkaline Phosphatase 77 U/L (40-110); Anion Gap 18 mmol/L (10-20); BUN (Urea Nitrogen) 63 mg/dL (8.4-25.7); Bilirubin, Total 0.3 mg/dL (0.2-1.2); Calc. Creatinine Clearance 0 mL/min (70-130); Calcium 8.1 mg/dL (7.8-10.44); Carbon Dioxide 18 mmol/L (23-31); Chloride 103 mmol/L (98-107); Estimated GFR-MDRD 17; Globulin 4.5 g/dL (2.4-3.5); Glucose 164 mg/dL (80-115); Potassium 4.5 mmol/L (3.5-5.1); Protein, Total 6.8 g/dL (5.8-8.1); Sodium 134 mmol/L (136-145)
[2020-02-16 18:33] LABS: Bacteria/HPF 4+ HPF (None Seen); Bilirubin Negative (Negative); Blood, Urine 2+ (Negative); Clarity Extra Turbid (Clear); Glucose, Urine (Dipstick) Normal (Negative); Leukocyte 500 Leu/uL (Negative); Nitrite Negative (Negative); Protein, Urine (Dipstick) 600 mg/dL (Neg-Trace); RBC/HPF Greater than 50 HPF (0-3); Squamous Epithelial None Seen HPF (0-3); Urobilinogen 6 mg/dL (Less than 2); WBC/HPF Greater than 50 HPF (0-3)
[2020-02-16] MEDS ORDERED: cefTRIAXone\\ROCEPHIN 1 GM VIAL ONE (19:02)
== END 2020-02-16 20:06 | disposition home or self-care (01) ==
LOC: ERS 17:20
DX: I95.9 Hypotension, unspecified (principal); N39.0 Urinary tract infection, site not specified; I25.2 Old myocardial infarction; E11.9 Type 2 diabetes mellitus without complications; Z79.4 Long term (current) use of insulin; N40.0 Benign prostatic hyperplasia without lower urinary tract symptoms; Z79.899 Other long term (current) drug therapy
CPT/HCPCS: 36415; 51701; 71045; 80053; 81003; 81015; 83605; 85025; 87040; 87077; 87086; 87186; 96365; J0696